=== PATIENT | female | born 1960 | race Caucasian/White ===

== ENCOUNTER 2021-09-14 18:29 | Emergency (ER) | payer MEDICARE, MEDICAID, SELFPAY ==
--- NOTE | ~2021-09-14 | XR_ITS ---
EXAMINATION: XR CHEST CLINICAL INFORMATION: Pain left lateral ribs. COMPARISON: Chest radiograph 04/30/2019. CT chest 04/30/2019. TECHNIQUE: 2 views of the chest were obtained. FINDINGS: The cardiomediastinal silhouette is normal in appearance making allowances for low lung volumes. No effusions or pneumothoraces are identified. Mild horizontal coarse reticular opacities are present in left lung base. No rib fractures are visualized. Mild multilevel anterior endplate osteophytosis of the thoracic spine. Presumed cholecystectomy clips are projected over the right upper abdominal quadrant. XR/XR chest 2V IMPRESSION: -Low lung volumes. -Mild coarse reticular opacities within the left lung base suspicious for mild platelike atelectasis. In the correct clinical setting, infection could present with similar findings.
[2021-09-14 20:18] VITALS: BP 157/78; PULSE 81; RESP 16; TEMP 36.6; O2SAT 97; BMI 41.5
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
[2021-09-14] MEDS: Azithromycin 500 MG TABLET PO (22:15)
[2021-09-14] MEDS: Acetaminophen 325 MG TABLET 650 MG PO (22:15)
== END 2021-09-14 22:24 | disposition home or self-care (01) ==
PROVIDERS: Emergency Provider Emergency Medicine; PCP Internal Medicine
DX: S20.212A Contusion of left front wall of thorax, initial encounter (principal); J06.9 Acute upper respiratory infection, unspecified; W01.0XXA Fall on same level from slipping, tripping and stumbling without subsequent striking against object, initial encounter; Y93.9 Activity, unspecified; Y92.9 Unspecified place or not applicable; Y99.9 Unspecified external cause status; Z79.899 Other long term (current) drug therapy
CPT/HCPCS: 71046; 99282; 99283

== ENCOUNTER → 2022-03-11 09:38 | Outpatient (BNVA) | payer MEDICARE, MEDICAID, SELFPAY | PROVIDERS: PCP Internal Medicine; Visit Provider Orthopaedic Surgery | DX: M19.071 Primary osteoarthritis, right ankle and foot (principal); G81.91 Hemiplegia, unspecified affecting right dominant side | CPT/HCPCS: 99212 ==

== ENCOUNTER → 2022-05-02 15:00 | Outpatient (BNVA) | payer MEDICARE, MEDICAID, SELFPAY | PROVIDERS: PCP Internal Medicine; Visit Provider Internal Medicine Pulmonary Disease | DX: R05.3 Chronic cough (principal); Z86.711 Personal history of pulmonary embolism; Z79.01 Long term (current) use of anticoagulants | CPT/HCPCS: 99212 ==

== ENCOUNTER → 2022-07-04 09:16 | Outpatient (BNVA) | payer MEDICARE, MEDICAID, SELFPAY | PROVIDERS: PCP Internal Medicine; Visit Provider Internal Medicine Pulmonary Disease | DX: I26.99 Other pulmonary embolism without acute cor pulmonale (principal); R05.9 Cough, unspecified | CPT/HCPCS: 99212 ==

== ENCOUNTER → 2022-12-27 09:31 | Outpatient (BNVA) | payer MEDICARE, MEDICAID, SELFPAY | PROVIDERS: PCP Internal Medicine; Visit Provider Internal Medicine Pulmonary Disease | DX: I26.99 Other pulmonary embolism without acute cor pulmonale (principal); R05.9 Cough, unspecified; Z79.01 Long term (current) use of anticoagulants | CPT/HCPCS: 99212 ==

== ENCOUNTER 2023-06-13 14:21 | Outpatient (AMB) | payer MEDICARE, MEDICAID, SELFPAY ==
[2023-06-13 14:29] VITALS: BP 122/78; PULSE 67; O2SAT 97; BMI 38.9
--- NOTE | 2023-06-13 14:29 | MHC.OFFVIS ---
Intake Vital Signs 06/13/23 14:29 Height 5 ft 1 in Weight 206 lb BMI 38.9 BP 122/78 Blood Pressure Location Lt brachial Position Left Lateral Pulse 67 Pulse Source Pulse Oximeter Pulse Oximetry (%) 97 Oxygen Delivery Method Room Air Intake Visit Reasons: pulm htn Intake Note: Pt was last seen 12/27/22 for pulmonary embolism and cough, taking albuterol MDI as needed. Pt complains of dry coughing but denies wheezing. Quit smoking 7 years ago Allergies codeine [CODEINE] Allergy (Unknown, Verified 06/13/23 14:36) UNKNOWN HPI pulm htn HPI Details 62-year-old lady, lifetime nonsmoker, with underlying history of developmental? 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 Patient continues on as needed albuterol MDI overall with reasonable control of his symptoms. She denies any recent exacerbations. COUNT INCLUDES [facility] Medical History Seizures Social History (Updated 06/13/23 @ 14:37 by Carlene Hinojosa [facility]) Tobacco use type: Cigarette Review of Systems Const Reports fever(s) Card Denies chest pain and Denies dyspnea Resp Reports cough, Denies hemoptysis, Denies excessive phlegm production, Denies dyspnea and Denies wheezing Neuro Denies seizure-like activity Aller/Immun Denies wheezing Physical Exam Vital Signs: Last Vital Signs Pulse 67 06/13/23 14:29 BP 122/78 06/13/23 14:29 Pulse Ox 97 06/13/23 14:29 Oxygen Delivery Method Room Air 06/13/23 14:29 BMI result Body Mass Index 38.9 Const General: no acute distress and alert Nutritional Appearance: obese Orientation/consciousness: Other orientation findings ( oriented) HEENT Head: Yes atraumatic Eyes General: appearance normal, both eyes and all related structures Sclerae: sclerae normal EOM: EOMs intact bilaterally Neck Neck: Yes supple Lymphatic: no lymphadenopathy noted Resp Effort & Inspection: normal respiratory effort and no use of accessory muscles Auscultation: clear to auscultation bilaterally Cardio Rate: regular rate Rhythm: regular rhythm Heart sounds: no gallops, no murmurs and no rubs Skin General skin exam: other ( warm) Extrem General: No clubbing, No cyanosis and No edema Assessment & Plan Assessment & Plan (1) Pulmonary embolism: Code(s): I26.99 - Other pulmonary embolism without acute cor pulmonale Plan: Continue lifelong anticoagulation for unprovoked PE, unless otherwise contraindicated. (2) Cough: Code(s): R05.9 - Cough, unspecified Plan: Baseline controlled on as needed albuterol MDI. Continue current regimen. Coding Level of Care Code Est Pt Level 4 (41548) Diagnoses Pulmonary embolism I26.99 Cough R05.9
== END 2023-06-13 14:48 | disposition home or self-care (01) ==
PROVIDERS: PCP Internal Medicine; Visit Provider Internal Medicine Pulmonary Disease
DX: I26.99 Other pulmonary embolism without acute cor pulmonale (principal); R05.9 Cough, unspecified
CPT/HCPCS: 99214

== ENCOUNTER → 2023-06-13 14:21 | Outpatient (BNVA) | payer MEDICARE, MEDICAID, SELFPAY | PROVIDERS: PCP Internal Medicine; Visit Provider Internal Medicine Pulmonary Disease | DX: I26.99 Other pulmonary embolism without acute cor pulmonale (principal); R05.9 Cough, unspecified | CPT/HCPCS: 99212 ==

== ENCOUNTER 2023-06-28 12:42 | Emergency (ER) | payer MEDICARE, MEDICAID, SELFPAY ==
[2023-06-28] VITALS (7 sets, daily range): BP systolic 102–150; BP diastolic 59–78; PULSE 72–83; RESP 13–16; TEMP 36.6–37.2; O2SAT 95–99; BMI 42.0
--- NOTE | ~2023-06-28 | CT_ITS ---
EXAMINATION: CT ABDOMEN AND PELVIS WITH CONTRAST CLINICAL INFORMATION: Diarrhea, rule out colitis COMPARISON: None available. TECHNIQUE: Multidetector volumetric images were obtained from the superior aspect of the liver through the pubic symphysis following administration of 74 mL of Omnipaque 350 intravenous contrast. Sagittal and coronal reformatted images were obtained on the technologist's workstation. Oral contrast: No This CT examination was performed using dose optimization techniques as appropriate, variously including the following: *Automated exposure control *Adjustment of mA and/or kV according to patient size (this includes techniques or standardized protocols for targeted exams where dose is matched to indication/reason for exam; i.e. extremities or head) *Use of iterative reconstruction technique DLP: 1344 mGy-cm Exam is limited from patient's arms in the field creating artifact FINDINGS: LUNG BASES: Bilateral basilar atelectasis LIVER, GALLBLADDER, AND BILIARY TREE: Grossly within normal limits. Again limited from artifact status post cholecystectomy PANCREAS: There is fullness of the pancreatic head relative to the remainder the pancreas. No defined lesion SPLEEN: Unremarkable. ADRENAL GLANDS: Unremarkable. KIDNEYS AND URETERS: Small nonobstructing stones associated with the right kidney. No hydronephrosis BLADDER: Unremarkable. GASTROINTESTINAL TRACT: The bowel pattern is felt to be unremarkable. There is no free fluid. The appendix is within normal limits. ABDOMINAL WALL: No significant hernia is appreciated. LYMPH NODES: Normal. VASCULAR: Unremarkable. PELVIC VISCERA: Unremarkable. OSSEOUS STRUCTURES: Unremarkable. CT/CT abdomen pelvis w IV con IMPRESSION: No acute finding. The bowel pattern is nonobstructing. No free fluid. Note is made of fullness of the head of the pancreas without defined lesion. Recommend MRI to fully evaluate Fleischner guidelines were followed.
--- NOTE | ~2023-06-28 | CT_ITS ---
EXAMINATION: CT HEAD WITHOUT CONTRAST CLINICAL INFORMATION: New onset seizure COMPARISON: 08/12/2007 TECHNIQUE: Contiguous axial imaging was performed from the skull base to vertex without intravenous administration of contrast. This CT examination was performed using dose optimization techniques as appropriate, variously including the following: *Automated exposure control *Adjustment of mA and/or kV according to patient size (this includes techniques or standardized protocols for targeted exams where dose is matched to indication/reason for exam; i.e. extremities or head) *Use of iterative reconstruction technique DLP: 669 mGy-cm FINDINGS: This exam is similar to previous. There is some evidence of midline shift appears to been the case previously. There is significant volume loss in the temporal region and parietal region which may be consistent with old infarct. Appearance is similar to previous. The basilar cisterns are patent. There is no hemorrhage. The visualized sinuses appear to be grossly clear. Volume loss in the cerebellum is noted. CT/CT head/brain wo IV con IMPRESSION: No acute finding when compared to previous of 2006. Old infarct on the left and cerebellar atrophy. There is felt to be some midline shift here but exam is similar to previous. Given the history of seizure if further evaluation is warranted pre and postcontrast MRI would be recommended
--- NOTE | 2023-06-28 13:23 | ED.GENADULT ---
HPI - General Adult General Chief complaint: Seizure Stated complaint: ?SZ, DIARRHEA @HALF-WAY PER EMS Time Seen by Provider: 06/28/23 12:47 Source: RN notes reviewed and other (caregiver) Mode of arrival: EMS Limitations: other (Or history) History of Present Illness HPI narrative: This is a 62-year-old female history of cognitive impairment, osteoarthritis, pulmonary embolism anticoagulated on Xarelto, history of hemiplegia affecting right dominant side presenting to the emergency department with caregiver, caregiver reports that patient was sitting in a chair and was having involuntary movements of head and eyes looked like they were removing erratically, reports that patient was not answering questions for brief moment thought to be a few minutes. After a few minutes patient returned to baseline without difficulty. Has history of seizures. Caregiver also complaining that patient has been having diarrhea it appears to be brown/yellow completely liquid, has had alot of episodes no sick contacts or recent antibiotics. Patient poor historian unable to provide review of systems and history. Related Data Home Medications Medication Instructions Recorded Confirmed calcium citrate 200 mg 0 tab PO 05/02/22 calcium-vitamin D3 6.25 mcg (250 unit) tablet carbamazepine 400 mg 400 mg PO BID 05/02/22 tablet,extended release,12 hr (Tegretol XR) carbamazepine 400 mg 600 mg PO BID 07/04/22 tablet,extended release,12 hr (Tegretol XR) clotrimazole 1 % topical cream appl topical 12/27/22 Previous Rx's Medication Instructions Recorded albuterol sulfate 90 mcg/actuation 2 puff inhalation Q4H PRN 11/19/22 aerosol inhaler shortness of breath or wheezing 30 days #1 ea Xarelto 20 mg tablet (rivaroxaban) 20 mg PO QAM #28 tabs 12/31/22 cefuroxime axetil 250 mg tablet 250 mg PO BID 7 days #14 tabs 06/28/23 Allergies Allergy/AdvReac Type Severity Reaction Status Date / Time codeine [CODEINE] Allergy Unknown UNKNOWN Verified 06/28/23 13:08 Review of Systems Review of Systems: Yes Unobtainable due to mental status PMFSH Past Medical History Attestation statement: The following information was validated with the patient. Source: old records reviewed and nursing notes reviewed Medical History Seizures Social History Social History Tobacco use type: Cigarette Advance Directives: No Physical Exam ED Vital Signs: Vital Signs - 24 hr 06/28/23 13:09 06/28/23 15:36 Temperature 98.7 F 98.2 F Pulse Rate 82 75 Respiratory Rate 14 16 Blood Pressure 121/71 112/62 Pulse Oximetry 95 98 Oxygen Delivery Method Room Air Room Air BMI result Body Mass Index 42.0 Vital signs stable Appearance: Alert.? Awake, No acute distress.? Patient appears to be in no acute distress. Head: Normocephalic, atraumatic, no step-offs or deformities Eyes: Pupils equal, round and reactive to light.? CVS: Normal heart rate and rhythm.? Pulses normal.? Respiratory: No respiratory distress.? Breath sounds normal.? Abdomen: Soft and nontender.? Skin: Skin warm and dry.? Normal skin color.? Normal skin turgor.? Extremities: No lower extremity edema.? No calf ttp. 5/5 strength to bilateral upper and lower extremities Neuro: Sensory intact. Right-sided hemiplegia with contracture. Course Reevaluation(s) Reevaluation #1: Patient difficult stick will try to obtain ultrasound-guided line. Time: 15:06 Reevaluation #2: I was able to start an ultrasound-guided line in the right AC, 18 gauge, no complications. I asked nursing staff to obtain point of care CBC and CMP. CT of head pending, labs pending. GI panel and C diff test pending. Patient has been it to the bathroom multiple times while in the department. Sign out to night provider Nely GAR Time: 16:20 Reevaluation #3: CBC pending. Chemistry partially resulted, unremarkable as of now. UA with 1+ bacteria and trace leukocyte esterases concerning for UTI, will prescribe antibiotics for home. Patient has been seizure free while in the department. Head CT pending. GI panel pending, C diff test pending. Sign-out given to Nely GAR Time: 16:22 Medical Decision Making Medical Decision Making [facility] Narrative: 1333 62-year-old female presents with staff member concerned that patient possibly had a seizure, also staff reports diarrhea. No history of seizures. No fall or trauma. Patient now back to baseline per staff member. Physical examination significant for hemiplegia affecting right side, right sided contracture. Concerns for seizure ( eduardo has hx of this) , electrolyte abnormalities, dehydration. Will rule out infection, dysrhythmia, UTI. Unlikely intracranial hemorrhage, stroke, posterior stroke, TIA. Diarrhea likely viral, unlikely bacterial however will obtain GI panel. No fall or truama unlikely traumatic injury to chest, abd/pelvis, head or neck. Plan at this time labs, imaging, urine Differential Diagnosis Differential Diagnoses: The differential diagnosis associated with the presentation includes Concerns for seizure, electrolyte abnormalities. Will rule out infection, dysrhythmia, UTI. Unlikely intracranial hemorrhage, stroke, posterior stroke, TIA. Diarrhea likely viral, unlikely bacterial however will obtain GI panel. No fall or truama unlikely traumatic injury to chest, abd/pelvis, head or neck. Admission/Observation Consideration of admission/observation: Escalation of care including admission/observation considered Possible Lab Data MDM Lab Attestation statement: I reviewed the patient's lab results. 06/28/23 15:49 06/28/23 15:49 Labs: Lab Results 06/28/23 06/28/23 06/28/23 Range/Units 15:07 15:08 15:49 Sodium 139 (135-145) mmol/L Potassium 4.9 (3.3-5.1) mmol/L Chloride 114 H (96-108) mmol/L Carbon Dioxide 15 L (22-29) mmol/L Anion Gap 15 (12-20) BUN 8 L (9-16) mg/dL Creatinine 0.68 (0.5-1.4) mg/dL Estim Creat Clear Calc 84.0 Estimated GFR > 60 Random Glucose 105 (60-115) mg/dL Calcium 8.9 (8.4-10.2) mg/dL Magnesium 1.9 (1.6-2.6) mg/dL Total Bilirubin 0.2 (0.0-1.0) mg/dL AST 26 (5-31) U/L ALT 25 (0-31) U/L Alkaline Phosphatase 131 H (39-117) U/L Total Creatine Kinase 94 (26-140) U/L Total Protein 7.2 (6.5-8.0) g/dL Albumin 3.6 (3.5-5.0) g/dL Urine Color Yellow Urine Appearance Clear Urine pH 6.0 (5.0-9.0) Ur Specific [place] 1.010 (1.005-1.025) Urine Protein Negative (Neg-Trace) mg/dL Urine Glucose (UA) Negative (Negative) mg/dL Urine Ketones Negative (Negative) mg/dL Urine Blood Negative (Negative) Urine Nitrite Negative (Negative) Ur Leukocyte Esterase Trace H (Negative) Urine RBC 0-2 (0-2) /HPF Urine WBC 0-5 (0-5) /HPF Ur Squamous Epith Cells 0-2 (0-2) /HPF Urine Bacteria 1+ (None Seen) Hyaline Casts 0-2 (0-2) /LPF COVID-19 (DIANA) Negative (Negative) COVID-19 Clin Com See Note Independent Interpretation I performed an independent interpretation of an: CT Scan Radiology Impression Discussion of test interpretation with radiology: I have reviewed the radiologist's reading. Core Measures AMI core measures followed: Yes Measure exclusions: not indicated Critical Care Time Critical Care Time Critical Care Time: No Discharge Plan Discharge Clinical Impression: Seizure, Diarrhea, UTI (urinary tract infection) Patient Disposition: Home, Self-Care Instructions: Urinary Tract Infection in Women (DC) Additional Instructions: Take your medications as prescribed. If you were prescribed antibiotics today, it is important that you take your medication to their entirety, do not skip any doses, do not finish them early. Follow-up with your primary care provider this week. Follow-up with neurology as soon as possible Return to the emergency department with new or worsening symptoms. Such as fevers, chills, chest pain, shortness of breath, nausea, vomiting, dizziness, headache, vision changes, lethargy In case of emergency call 911 Prescriptions: New cefuroxime axetil 250 mg tablet 250 mg PO BID 7 Days Qty: 14 0RF No Action albuterol sulfate 90 mcg/actuation HFA aerosol inhaler 2 puff inhalation Q4H PRN (Reason: shortness of breath or wheezing) 30 Days Qty: 1 3RF Rx Instructions: NTE 6 doses in 24 hours, Call doctor if shortness of breath or wheezing lasts more than 48 hours Xarelto 20 mg tablet 20 mg PO QAM Qty: 28 0RF calcium citrate-vitamin D3 200 mg-6.25 mcg (250 unit) tablet 0 tab PO carbamazepine [Tegretol XR] 400 mg tablet extended release 12 hr 400 mg PO BID carbamazepine [Tegretol XR] 400 mg tablet extended release 12 hr 600 mg PO BID clotrimazole 1 % cream topical Referrals: [facility] Neuro/Sleep [Provider Group] - 2 days Mook Tompkins MD [Primary Care Provider] - 2 days
--- OUTSIDE RECORDS SUMMARY | 2023-06-28 13:26 | XMS_ITS | Continuity of Care Document ---
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 Name Role Phone Mook Tompkins MD Primary Care Physician [place] [facility] [place]/02[place]21 - 02/01/21 [facility] [address], [address], [address] [place] [id number] Allergies, Adverse Reactions, Alerts Substance Reaction Severity Status codeine Active Medications Actonel 35 mg oral tablet 1 tablet = 35 mg, By Mouth, 0 Refills, Maintenance Start Date: 09/24/11 Status: Ordered alendronate 70 mg oral tablet 1 tablet = 70 mg, By Mouth, Every week, # 12 tablet, 0 Refills, Maintenance, 02/22/14 8:26:43, Tablet Start Date: 02/22/14 Status: Ordered Ativan 0.5 mg oral tablet See Instructions, 2, 0, 0, 10/02/06 14:23:04, 1 tablet By Mouth 30 minutes before test; may repeat once at test time if needed., Print YAW Number, [id number], Constant Indicator Start Date: 10/02/06 Status: Ordered carBAMazepine 200 mg oral tablet, extended release See Instructions, TAKE 2 TABLET BY MOUTH DAILY IN AM, WITH 3 TABLET IN THE PM, # 150 tablet, 11 Refills, 08/29/20 16:36:00 EDT, [facility], 152.4, cm, 02/10/20 11:06:00 EDT, Height Start Date: 08/29/20 Status: Ordered Citracal Calcium + D Slow Release 600 mg-500 intl units oral tablet, extended release 2 tablet, By Mouth, Daily in AM, 0 Refills, Maintenance Start Date: 08/18/12 Status: Ordered Claritin 10 mg oral tablet 1 tablet = 10 mg, By Mouth, Daily, 0 Refills, Maintenance Start Date: 08/18/12 Status: Ordered Colace sodium 100 mg oral capsule 1 capsule = 100 mg, By Mouth, 2 times a day, 0 Refills, Maintenance Start Date: 08/18/12 Status: Ordered Fosamax 70 mg oral tablet 1 tablet = 70 mg, By Mouth, Every week, # 4 tablet, 0 Refills, Maintenance, 02/10/20 11:08:00 EDT, Tablet Start Date: 02/10/20 Status: Ordered NuLYTELY Lemon [place] oral powder for reconstitution 240 mL, By Mouth, Every 10 minutes, # 1 each, 0 Refills, Maintenance, REC Powder Start Date: 08/18/12 Status: Ordered Prilosec OTC = 20 mg, By Mouth, Daily, 0 Refills, Maintenance Start Date: 09/24/11 Status: Ordered Refresh Eyes, Both, 2 times a day, 0 Refills, Maintenance Start Date: 01/28/12 Status: Ordered topiramate 200 mg oral tablet 1 tablet, By Mouth, 2 times a day, # 56 tablet, 1 Refills, Maintenance, 01/02/21 10:23:00 [facility], 152.4, cm, 02/10/20 11:06:00 EDT, Height Start Date: 01/02/21 Status: Ordered topiramate 50 mg oral tablet 1 tablet, By Mouth, 2 times a day, # 56 tablet, 1 Refills, Maintenance, 01/02/21 10:23:00 [facility], 152.4, cm, 02/10/20 11:06:00 EDT, Height Start Date: 01/02/21 Status: Ordered Tylenol 8 Hour 650 mg oral tablet, extended release 2 tablet = 1,300 mg, By Mouth, Every 8 hours, PRN as needed for fever, # 100 tablet, 0 Refills, Maintenance, 02/10/20 11:08:00 EDT, ER Tablet Start Date: 02/10/20 Status: Ordered Vitamin D3 400 intl units oral capsule 1 capsule = 400 International_Units, By Mouth, Daily, 0 Refills, Maintenance Start Date: 08/18/12 Status: Ordered Xarelto 2.5 mg oral tablet 1 tablet = 2.5 mg, By Mouth, 2 times a day, 0 Refills, Maintenance, 02/10/20 11:09:00 EDT, Tablet Start Date: 02/10/20 Status: Ordered Zofran 4 mg oral tablet 1 tablet = 4 mg, By Mouth, Every 8 hours, # 12 tablet, 0 Refills, Maintenance, 02/10/20 11:08:00 EDT, Tablet Start Date: 02/10/20 Status: Ordered Problem List Condition Effective Dates Status Health Status Inform ant Partial seizures(Confirmed) Active
--- OUTSIDE RECORDS SUMMARY | 2023-06-28 13:26 | XMS_ITS | Continuity of Care Document ---
Author Name Unknown Organization [facility] Address [address] [facility], 3r d Floor, [address] [place] [address]- Care Team Providers Care Contact Center Analyst Name Role Phone Mook Tompkins MD Primary Care Physician [id number] Date(s): 08/19/20 - 12/17/20 [facility] [address] [place], 3rd Floor, [address] [place] [id number] Attending Physician: Ami Mayers MD Admitting Physician: Ami Mayers MD Allergies, Adverse Reactions, Alerts Substance Reaction Severity [...] Start Date: 02/10/20 Status: Ordered NuLYTELY Lemon [place] oral powder for reconstitution 240 mL, By Mouth, Every 10 minutes, # 1 each, 0 Refills, Maintenance, REC Powder Start Date: 08/18/12 Status: Ordered Prilosec OTC = 20 mg, By Mouth, Daily, 0 Refills, Maintenance Start Date: 09/24/11 Status: Ordered Refresh Eyes, Both, 2 times a day, 0 Refills, Maintenance Start Date: 01/28/12 Status: Ordered Topamax 200 mg oral tablet 1 tablet = 200 mg, By Mouth, 2 times a day, # 180 tablet, 1 Refills, Maintenance, 08/29/20 16:38:00EDT, Tablet, [facility], 152.4, cm, 02/10/20 11:06:00 EDT, Height Start Date: 08/29/20 Stop Date: 02/25/21 Status: Ordered Topamax 50 mg oral tablet 1 tablet = 50 mg, By Mouth, 2 times a day, Take with topamax 200 mg for total daily dose of 250 mg bid, # 180 tablet, 1 Refills, Maintenance, 08/29/20 16:38:00 EDT, Tablet, [facility], 152.4, cm, 02/10/20 11:06:00 EDT, Height Start Date: 08/29/20 Stop Date: 02/25/21 Status: Ordered Tylenol 8 Hour 650 mg [...]
--- OUTSIDE RECORDS SUMMARY | 2023-06-28 13:26 | XMS_ITS | Continuity of Care Document ---
Author Name Unknown Organization [facility] Address Unknown Care Team Providers Care Nuclear Radiation Engineer Name Role Phone Mook Tompkins MD Primary Care Physician [phone] Encounter [facility] [place] Date(s): 12/05/21 - 01/04/22 [facility] Allergies, Adverse Reactions, Alerts Substance Reaction Severity [...] Constant Indicator Start Date: 10/02/06 Status: Ordered calcium w/Vit D 400mg/500 iu daily calcium w/Vit D 400mg/500 iu daily, Refills 0, Maintenance, 03/27/21 15:10:00 EDT, Supply Start Date: 03/27/21 Status: Ordered carbamazepine 200 mg oral capsule, extended release 2 capsule, By Mouth, Daily in AM, TAKE 3 CAPSULES BY MOUTH IN THE EVENING., # 140 capsule, 0 Refills, [facility], 152.4, cm, 03/27/21 15:02:00 EDT, Height Start Date: 01/01/22 Status: Ordered Citracal Calcium + D Slow [...] EDT, Tablet Start Date: 02/10/20 Status: Ordered MiraLax = 17 Gm, By Mouth, Daily, 0 Refills, Maintenance, 03/27/21 15:11:00 EDT, Partial fill upon patient request if the prescription is for a schedule II opioid drug. Start Date: 03/27/21 Status: Ordered NuLYTELY Lemon [place] oral powder for reconstitution 240 mL, By Mouth, Every 10 minutes, # 1 each, 0 Refills, Maintenance, REC Powder Start Date: 08/18/12 Status: Ordered Prilosec OTC = 20 mg, By Mouth, Daily, 0 Refills, Maintenance Start Date: 09/24/11 Status: Ordered Refresh Eyes, Both, 2 times a day, 0 Refills, Maintenance Start Date: 01/28/12 Status: Ordered topiramate 200 mg oral tablet See Instructions, TAKE 1 TABLET BY MOUTH TWICE DAILY., # 56 tablet, 5 Refills, [facility], 152.4, cm, 03/27/21 15:02:00 EDT, Height Start Date: 12/08/21 Status: Ordered topiramate 200 mg oral tablet 1 tablet, By Mouth, 2 times a day, # 56 tablet, 1 Refills, [facility], 152.4, cm, 03/27/21 15:02:00 EDT, Height Start Date: 10/09/21 Status: Ordered Tylenol 8 Hour 650 mg [...] EDT, Tablet Start Date: 02/10/20 Status: Ordered Xarelto 20 mg oral tablet 1 tablet = 20 mg, By Mouth, Daily before dinner, 0 Refills, Maintenance, 03/27/21 15:11:00 EDT, Partial fill upon patient request if the prescription is for a schedule II opioid drug. Start Date: 03/27/21 Status: Ordered Zofran 4 mg oral tablet 1 tablet = 4 mg, By Mouth, Every 8 hours, # 12 tablet, 0 Refills, Maintenance, 02/10/20 11:08:00 EDT, Tablet Start Date: 02/10/20 Status: Ordered Problem List Condition Effective Dates Status Health Status Inform ant Partial seizures(Confirmed) Active
--- OUTSIDE RECORDS SUMMARY | 2023-06-28 13:26 | XMS_ITS | Continuity of Care Document ---
Author Name Unknown Organization [facility] Address [address] [facility], 3r d Floor, [address] [place] [id number]- Care Team Providers Care Graphite Mill Operator Name Role Phone Mook Tompkins MD Primary Care Physician [phone] [place] [facility] [place] 02/04/23 - 03/06/23 [facility] [address] [place], 3rd Floor, [address] [place] [id number] Allergies, Adverse Reactions, Alerts Substance Reaction Severity Status codeine Active Immunizations Given and Recorded Vaccine Date Status Refusal Reason SARS-CoV-2 (COVID-19) mRNA BNT-162b2 vac 10/03/21 Recorded SARS-CoV-2 (COVID-19) mRNA BNT-162b2 vac 01/31/21 Recorded SARS-CoV-2 (COVID-19) mRNA BNT-162b2 vac 01/10/21 Recorded Medications alendronate 70 mg oral tablet 1 tablet = 70 mg, By Mouth, Every week, takes on sundays, # 12 tablet, 0 Refills, Maintenance, 02/22/14 8:26:43 EDT, Tablet Start Date: 02/22/14 Status: Ordered aspirin 81 mg oral delayed release tablet 81 mg, 1, tablet, By Mouth, Daily, # 90 tablet, Refills 3, Tot. Refills 3, Maintenance, 01/30/23 13:43:00 EST, Route to Pharmacy Electronically, [facility], Partial fill upon patient request if the prescription is for a schedule II opioi... Start Date: 01/30/23 Status: Ordered aspirin buffered 325 mg oral tablet See Instructions, 1 tablet by mouth 3 times a day for 7 days then 1 tablet by mouth 2 times a day for 7 days then 1 tablet a day for 7 days then change to 81 mg daily, # 100 tablet, 0 Refills, Maintenance, 01/30/23 18:47:00 EST, [facility]/pharmacy #[id number], [place]... Start Date: 01/30/23 Status: Ordered Ativan 0.5 mg oral tablet See Instructions, 2, 0, 0, 10/02/06 14:23:04, 1 tablet By Mouth 30 minutes before test; may repeat once at test time if needed., Print YAW Number, [id number], Constant Indicator Start Date: 10/02/06 Status: Ordered atorvastatin 80 mg oral tablet 1 tablet = 80 mg, By Mouth, Daily at bedtime, further refills by pcp or cardiology, # 90 tablet, 3 Refills, Maintenance, 01/30/23 13:43:00 EST, Tablet, [facility], Partial fill upon patient request if the prescription is for a schedule I... Start Date: 01/30/23 Status: Ordered CALCIUM CITRATE-VIT D3 TABLET CALCIUM CITRATE-VIT D3 TABLET, 0 Refills, Maintenance, 01/22/23 1:32:00 EST Start Date: 01/22/23 Status: Ordered carbamazepine 200 mg oral capsule, extended release See Instructions, 2 capsule By Mouth Daily in AM, 3 in PM, # 450 tablet, 3 Refills, Maintenance, 02/05/23 17:06:00 EST, ER Capsule, [facility], 154, cm, 01/29/23 11:00:00 EST, Height,96.4, kg, 01/22/23 1:32:00 EST, Dry Weight Start Date: 02/05/23 Status: Ordered Claritin 10 mg oral tablet 1 tablet = 10 mg, By Mouth, Daily, 0 Refills, Maintenance Start Date: 08/18/12 Status: Ordered colchicine 0.6 mg oral tablet 0.6 mg, 1, tablet, By Mouth, 2 times a day, stop after 90 days, # 180 tablet, Refills 0, Tot. Refills 0, Maintenance, 01/30/23 13:44:00 EST, [facility], Partial fill upon patient request if the prescription is for a schedule II opioid drug., 15... Start Date: 01/30/23 Status: Ordered lidocaine 5% topical film 1 patch, Topically, Daily, Apply for chest or rib discomfort. Please apply at 7AM AND REMOVE AT 7PMEACH DAY, # 14 patch, 3 Refills, Maintenance, 01/30/23 13:44:00 EST, Patch, [facility], Partial fill upon patient request if the prescrip... Start Date: 01/30/23 Status: Ordered metoprolol 50 mg oral tablet, extended release 50 mg, 1, tablet, By Mouth, Daily in AM, further refills per pcp/cardiology, # 90 tablet, Refills 0, Tot. Refills 0, Maintenance, 01/30/23 13:44:00 EST, Route to Pharmacy Electronically, [facility], Partial fill upon patient request if t... Start Date: 01/30/23 Status: Ordered Prilosec OTC = 20 mg, By Mouth, 2 times a day, 0 Refills, Maintenance, 09/24/11 10:26:32 EDT Start Date: 09/24/11 Status: Ordered Topamax 25 mg oral tablet 1 tablet = 25 mg, By Mouth, 2 times a day, # 180 tablet, 11 Refills, Maintenance, 01/15/23 15:23:00EST, Tablet, [facility], 152.4, cm, 03/27/21 15:02:00 EDT, Height Start Date: 01/15/23 Stop Date: 12/30/25 Status: Ordered Topamax 50 mg oral tablet 1 tablet = 50 mg, By Mouth, 2 times a day, # 180 tablet, 11 Refills, Maintenance, 01/15/23 15:23:00EST, Tablet, [facility], Partial fill upon patient request if the prescription is for a schedule II opioid drug., 152.4, cm, 03/27/21 15:02... Start Date: 01/15/23 Stop Date: 12/30/25 Status: Ordered topiramate 200 mg oral tablet See Instructions, TAKE 1 TABLET BY MOUTH TWICE DAILY., # 180 tablet, 11 Refills, 01/15/23 15:23:00 EST, [facility], 152.4, cm, 03/27/21 15:02:00 EDT, Height Start Date: 01/15/23 Status: Ordered Tylenol 8 Hour 650 mg oral tablet, extended release 2 tablet = 1,300 mg, By Mouth, Every 8 hours, PRN as needed for fever, # 100 tablet, 0 Refills, Maintenance, 02/10/20 11:08:00 EDT, ER Tablet Start Date: 02/10/20 Status: Ordered Xarelto 20 mg oral tablet 1 tablet = 20 mg, By Mouth, Daily before dinner, 0 Refills, Maintenance, 03/27/21 15:11:00 EDT, Partial fill upon patient request if the prescription is for a schedule II opioid drug. Start Date: 03/27/21 Status: Ordered Problem List Condition Confirmation Course Effective Dates Status Health St atus Informant Cerebral palsy Confirmed Active HLD (hyperlipidemia) Confirmed Active Osteoporosis Confirmed Active Partial seizures Confirmed Active Severe obesity (BMI 35.0-39.9) with comorbidity Confirmed Active Patient Care team information Care Team Personnel Name: Mook Tompkins MD Position: [facility] Outreach Member Role: PCP Address: Address: [address] [place] [address] Internal [place] [address] Name: Shital Lindo RN Position: S RN Member Role: Primary Care Nurse Name: Florence Cook RN Position: S RN Member Role: Primary Care Nurse Name: Marisabel Horton RN Position: S RN Member Role: Primary Care Nurse Name: Geraldine Chatman Position: S RN Member Role: Primary Care Nurse Name: Kerrie Almeida RN Position: S RN Member Role: Primary Care Nurse Care Team Related Persons Name: GASTON KWON Name: BART MIRANDA Address: [address] [address]
--- OUTSIDE RECORDS SUMMARY | 2023-06-28 13:26 | XMS_ITS | Continuity of Care Document ---
Author Name Unknown Organization [facility] Address Unknown Care Team Providers Care Senior Attorney Name Role Phone Mook Tompkins MD Primary Care Physician [phone] Encounter [facility] [place] Date(s): 01/01/22 - 01/31/22 [facility] Allergies, Adverse Reactions, Alerts Substance [...] MOUTH IN THE EVENING., # 140 capsule, 11 Refills, 01/17/22 15:08:00 [facility], 152.4, cm, 03/27/21 15:02:00 EDT, Height Start Date: 01/17/22 Status: Ordered Citracal Calcium + D Slow [...] Start Date: 03/27/21 Status: Ordered NuLYTELY Lemon [place] oral powder for reconstitution 240 mL, By Mouth, Every 10 minutes, # 1 each, 0 Refills, Maintenance, REC Powder Start Date: 08/18/12 Status: Ordered Prilosec OTC = 20 mg, By Mouth, Daily, 0 Refills, Maintenance Start Date: 09/24/11 Status: Ordered Refresh Eyes, Both, 2 times a day, 0 Refills, Maintenance Start Date: 01/28/12 Status: Ordered Topamax 25 mg oral tablet 1 tablet = 25 mg, By Mouth, 2 times a day, # 60 tablet, 11 Refills, Maintenance, 01/17/22 15:10:00 EST, [facility], Partial fill upon patient request if the prescription is for a schedule II opioid drug., 152.4, cm, 03/27/21 15:02:... Start Date: 01/17/22 Stop Date: 01/12/23 Status: Ordered Topamax 50 mg oral tablet 1 tablet = 50 mg, By Mouth, 2 times a day, # 60 tablet, 11 Refills, Maintenance, 01/17/22 15:09:00 EST, Tablet, [facility], Partial fill upon patient request if the prescription is for a schedule II opioid drug., 152.4, cm, 03/27/21 15:02:... Start Date: 01/17/22 Stop Date: 01/12/23 Status: Ordered topiramate 200 mg oral tablet See Instructions, TAKE 1 TABLET BY MOUTH TWICE DAILY., # 56 tablet, 11 Refills, 01/17/22 15:08:00 EST, [facility], 152.4, cm, 03/27/21 15:02:00 EDT, Height Start Date: 01/17/22 Status: Ordered topiramate 200 mg oral tablet 1 tablet, By Mouth, 2 times a day, # 56 tablet, 1 Refills, [facility], 152.4, cm, 03/27/21 15:02:00 EDT, Height Start [...]
--- OUTSIDE RECORDS SUMMARY | 2023-06-28 13:26 | XMS_ITS | Continuity of Care Document ---
Author Name Unknown Organization [facility] Address [address] [facility], 3r d Floor, [address] [place] [phone]- Care Team Providers Care Plant Floor Automation Manager Name Role Phone Mook Tompkins MD Primary Care Physician [phone] [place] [facility] [place] - 12/06/22 [facility] [address], 3rd Floor, [address] [place] [id number] Allergies, Adverse Reactions, Alerts Substance Reaction [...] Start Date: 03/27/21 Status: Ordered NuLYTELY Lemon [place] oral powder for reconstitution 240 mL, By [...] tablet, 11 Refills, Maintenance, 01/17/22 15:10:00 EST, [facility], Partial fill upon patient request [...] # 56 tablet, 11 Refills, 01/17/22 15:08:00 [facility], 152.4, cm, 03/27/21 15:02:00 EDT, Height Start Date: 01/17/22 Status: Ordered topiramate 200 mg oral tablet 1 tablet, By Mouth, 2 times a day, # 56 tablet, 1 Refills, [facility], 152.4, cm, 03/27/21 15:02:00 EDT, Height Start [...] Date: 02/10/20 Status: Ordered Problem List Condition Confirmation Course Effective Dates Status Health St atus Informant Partial seizures Confirmed Active Patient Care team information Care Team Personnel Name: Mook Tompkins MD Position: [facility] Outreach Member Role: PCP Address: Address: [address] [facility] [place] [address]- Name: Marisabel Horton RN Position: [facility] RN Member Role: Primary Care Nurse Care Team Related Persons Name: GASTON KWON Name: BART MIRANDA Address: home [address] [place] [id number]
--- OUTSIDE RECORDS SUMMARY | 2023-06-28 13:26 | XMS_ITS | Continuity of Care Document ---
Author Name Unknown Organization [facility] Address [address] [facility], 3r d Floor, [address] [place] [address]- Care Team Providers Care Supervisor Fireworks Assembly Name Role Phone Mook Tompkins MD Primary Care Physician [phone] En[place] [facility] [place](s[place] 02/10/20 - 02/20/20 [facility] [address] [place], 3rd Floor, [address] [place] [address]- [facility] Attending Physician: Bassam Kimball Admitting Physician: Bassam Kimball Referring Physician: AdmBassam bone Allergies, Adverse Reactions, Alerts Substance Reaction Severity [...] Indicator Start Date: 10/02/06 Status: Ordered carBAMazepine 400 mg oral tablet, extended release 400 mg, 1, tablet, By Mouth, 2 times a day, # 180 tablet, Refills 0, Maintenance, 02/10/20 11:09:00EDT Start Date: 02/10/20 Status: Ordered Citracal Calcium + D Slow [...] Start Date: 02/10/20 Status: Ordered NuLYTELY Lemon [place] oral powder for reconstitution 240 mL, By Mouth, Every 10 minutes, # 1 each, 0 Refills, Maintenance, REC Powder Start Date: 08/18/12 Status: Ordered Prilosec OTC = 20 mg, By Mouth, Daily, 0 Refills, Maintenance Start Date: 09/24/11 Status: Ordered Refresh Eyes, Both, 2 times a day, 0 Refills, Maintenance Start Date: 01/28/12 Status: Ordered TEGretol XR 200 mg oral tablet, extended release See Instructions, 2 tablet By Mouth Daily in AM, with 3 tablet in the PM, # 450 tablet, 1 Refills, Maintenance, 11/15/19 15:23:31 EST, [facility]/pharmacy #[id number], 152.4, cm, 11/15/19 14:50:02 EST, Height Start Date: 11/15/19 Status: Ordered Topamax 200 mg oral tablet 1 tablet = 200 mg, By Mouth, 2 times a day, # 180 tablet, 1 Refills, Maintenance, 11/15/19 15:24:44EST, Tablet, [facility]acy #[id number], 152.4, cm, 11/15/19 14:50:02 EST, Height Start Date: 11/15/19 Stop Date: 05/13/20 Status: Ordered Topamax 50 mg oral tablet 1 tablet = 50 mg, By Mouth, 2 times a day, Take with topamax 200 mg for total daily dose of 250 mg bid, # 180 tablet, 1 Refills, Maintenance, 11/15/19 15:25:01 EST, Tablet, [facility]/pharmacy #[id number], 152.4,cm, 11/15/19 14:50:02 EST, Height Start Date: 11/15/19 Stop Date: 05/13/20 Status: Ordered Tylenol 8 Hour 650 mg [...]
--- OUTSIDE RECORDS SUMMARY | 2023-06-28 13:26 | XMS_ITS | Continuity of Care Document ---
Author Name Unknown Organization [facility] Address [address] [facility], 3r d Floor, [address] [place] [phone]- Care Team Providers Care Lead Printer Name Role Phone Mook Tompkins MD Primary Care Physician Encounter [facility] [place] Date(s): 02/27/21 - 03/29/21 [facility] [address], 3[address] Floor, [address] [place] [id number] Allergies, Adverse Reactions, Alerts Substance Reaction Severity [...] EDT, Supply Start Date: 03/27/21 Status: Ordered carBAMazepine 200 mg oral tablet, extended release See Instructions, TAKE 2 TABLET BY MOUTH DAILY IN AM, WITH 3 TABLET IN THE PM, # 150 tablet, 6 Refills, 03/27/21 15:41:00 EDT, [facility], 152.4, cm, 03/27/21 15:02:00 EDT, Height Start Date: 03/27/21 Status: Ordered Citracal Calcium + D Slow [...] Start Date: 03/27/21 Status: Ordered NuLYTELY Lemon [place] oral powder for reconstitution 240 mL, By [...] 2 times a day, Take with topamax 250 mg, for total daily dose of 275 mgbid. dose increase, # 60 tablet, 6 Refills, Maintenance, 03/27/21 15:41:00 EDT, Tablet, [facility], Partial fill upon patient request if th... Start Date: 03/27/21 Stop Date: 10/23/21 Status: Ordered topiramate 200 mg oral tablet 1 tablet, By Mouth, 2 times a day, # 56 tablet, 5 Refills, Maintenance, 03/27/21 15:40:00 EDT, [facility], 152.4, cm, 03/27/21 15:02:00 EDT, Height Start Date: 03/27/21 Status: Ordered topiramate 50 mg oral tablet 1 tablet, By Mouth, 2 times a day, # 56 tablet, 5 Refills, Maintenance, 03/27/21 15:40:00 EDT, [facility], 152.4, cm, 03/27/21 15:02:00 EDT, Height Start Date: 03/27/21 Status: Ordered Tylenol 8 Hour 650 mg [...]
--- OUTSIDE RECORDS SUMMARY | 2023-06-28 13:26 | XMS_ITS | Continuity of Care Document ---
Author Name Unknown Organization [facility] Address [address] [facility], 3r d Floor, [address] [place] [id number]- Care Team Providers Care Computer Forwarding System Markup Clerk Name Role Phone Mook Tompkins MD Primary Care Physician [phone] Encounter [facility] [place] Date(s): 01/15/23 - 02/14/23 [facility] [address] [place], 3rd Floor, [address] [place] [id number] Allergies, Adverse Reactions, Alerts Substance [...] 01/30/23 13:43:00 EST, Route to Pharmacy Electronically, [facility], Partial fill upon patient [...] tablet, 0 Refills, Maintenance, 01/30/23 18:47:00 EST, [facility]/pharmacy #[id number], [place]... Start Date: 01/30/23 Status: Ordered Ativan [...] 3 Refills, Maintenance, 01/30/23 13:43:00 EST, Tablet, [facility], Partial fill upon patient [...] 3 Refills, Maintenance, 01/30/23 13:44:00 EST, Patch, [facility], Partial fill upon patient request if the prescrip... Start Date: 01/30/23 Status: Ordered metoprolol 50 mg oral tablet, extended release 50 mg, 1, tablet, By Mouth, Daily in AM, further refills per pcp/cardiology, # 90 tablet, Refills 0, Tot. Refills 0, Maintenance, 01/30/23 13:44:00 EST, Route to Pharmacy Electronically, [facility], Partial fill upon patient [...] Team Personnel Name: Mook Tompkins MD Position: [facility] Outreach Member Role: PCP Address: Address: [address] [place] [address] Internal Medicine [place], [place] [address] Name: Shital Lindo RN Position: S RN [...] Name: GASTON KWON Name: BART MIRANDA Address: [address] [address]
--- OUTSIDE RECORDS SUMMARY | 2023-06-28 13:26 | XMS_ITS | Continuity of Care Document ---
Author Name Unknown Organization [facility] Address [address] [facility], 3r d Floor, [address] [place] [address]- Care Team Providers Care Dope Maintenance Worker Name Role Phone Mook Tompkins MD Primary Care Physician [id number] Date(s): 02/08/20 - 06/07/20 [facility] [address], 3rd Floor, [address] [place] [address] [facility] Attending Physician: Ishan Kim Admitting Physician: Ishan Kim Allergies, Adverse Reactions, Alerts Substance Reaction Severity [...] THE PM, # 150 tablet, 11 Refills, Maintenance, [facility] [id number], 152.4, cm, 02/10/20 11:06:00 EDT, Height Start Date: 04/26/20 Status: Ordered Citracal Calcium + D Slow [...] Start Date: 02/10/20 Status: Ordered NuLYTELY Lemon [place] oral powder for reconstitution 240 mL, By [...] day, # 180 tablet, 1 Refills, Maintenance, 05/08/20 13:30:00EDT, Tablet, [facility]/pharmacy #[id number], 152.4, cm, 02/10/20 11:06:00 EDT, Height Start Date: 05/08/20 Stop Date: 11/04/20 Status: Ordered Topamax 50 mg oral tablet 1 tablet = 50 mg, By Mouth, 2 times a day, Take with topamax 200 mg for total daily dose of 250 mg bid, # 180 tablet, 1 Refills, Maintenance, 05/08/20 13:30:00 EDT, Tablet, [facility]/pharmacy #[id number], 152.4,cm, 02/10/20 11:06:00 EDT, Height Start Date: 05/08/20 Stop Date: 11/04/20 Status: Ordered Tylenol 8 Hour 650 mg [...]
--- OUTSIDE RECORDS SUMMARY | 2023-06-28 13:26 | XMS_ITS | Continuity of Care Document ---
Author Name Unknown Organization [facility] Address [address] [facility], 3r d Floor, [address] [place] [id number]- Care Team Providers Care Food Broker Name Role Phone Mook Tompkins MD Primary Care Physician [place] [facility] [place](s): 08/29/20 - 09/28/20 [facility] [address], 3[address] Floor, [address] [place] [id number] [facility] Allergies, Adverse Reactions, Alerts Substance Reaction Severity [...] Start Date: 02/10/20 Status: Ordered NuLYTELY Lemon [place] oral powder for reconstitution 240 mL, By [...]
--- OUTSIDE RECORDS SUMMARY | 2023-06-28 13:26 | XMS_ITS | Continuity of Care Document ---
Author Name Unknown Organization [facility] Address [address], [address], [address] [place] [id number] Care Team Providers Care Baseball Inspector Name Role Phone Mook Tompkins MD Primary Care Physician [id number] Date(s): 01/02/21 - 03/11/21 [facility] [address], [address], [address] [place] [id number] Attending Physician: Isahn Kim Admitting Physician: Ishan Kim Allergies, Adverse [...] Start Date: 02/10/20 Status: Ordered NuLYTELY Lemon [place] oral powder for reconstitution 240 mL, By [...] 2 times a day, # 56 tablet, 0 Refills, Maintenance, 02/27/21 10:12:00 EDT, [facility], 152.4, cm, 02/10/20 11:06:00 EDT, Height Start Date: 02/27/21 Status: Ordered topiramate 50 mg oral tablet 1 tablet, By Mouth, 2 times a day, # 56 tablet, 0 Refills, Maintenance, 02/27/21 10:12:00 EDT, [facility], 152.4, cm, 02/10/20 11:06:00 EDT, Height Start Date: 02/27/21 Status: Ordered Tylenol 8 Hour 650 mg [...]
--- OUTSIDE RECORDS SUMMARY | 2023-06-28 13:26 | XMS_ITS | Continuity of Care Document ---
Author Name Unknown Organization [facility] ter Address [address] [place] [id number]- Care Team Providers Care Reinforcement Maker Name Role Phone Mook Tompkins MD Primary Care Physician [place] [facility] [place] [facility]22[place]23 - 01/30/[address] [id number]- Encounter Diagnosis Hypotension(Final) - 01/21/23 Discharge Disposition: A-D/C Home Attending Physician: Home Conrad MD Admitting Physician: Marilu Vines MD Referring Physician: Not on Staff, Referring MD Allergies, Adverse Reactions, Alerts Substance Reaction [...] 01/30/23 13:43:00 EST, Route to Pharmacy Electronically, [facility], Partial fill upon patient [...] tablet, 0 Refills, Maintenance, 01/30/23 18:47:00 EST, [facility]/pharmacy [id number], [place]... Start Date: 01/30/23 Status: Ordered Ativan [...] 3 Refills, Maintenance, 01/30/23 13:43:00 EST, Tablet, [facility], Partial fill upon patient request if the prescription is for a schedule I... Start Date: 01/30/23 Status: Ordered CALCIUM CITRATE-VIT D3 TABLET CALCIUM CITRATE-VIT D3 TABLET, 0 Refills, Maintenance, 01/22/23 1:32:00 EST Start Date: 01/22/23 Status: Ordered carbamazepine 200 mg oral capsule, extended release 2 capsule = 400 mg, By Mouth, Daily, # 60 capsule, 0 Refills, Maintenance, 01/22/23 1:33:00 EST, [facility], Partial fill upon patient request if the prescription is for a schedule II opioid drug. Start Date: 01/22/23 Status: Ordered Claritin 10 mg oral tablet [...] 3 Refills, Maintenance, 01/30/23 13:44:00 EST, Patch, [facility], Partial fill upon patient request if the prescrip... Start Date: 01/30/23 Status: Ordered metoprolol 50 mg oral tablet, extended release 50 mg, XL Tablet, By Mouth, 01/30/23 9:00:00 EST Start Date: 01/30/23 Stop Date: 01/30/23 Status: Completed metoprolol 50 mg oral tablet, extended release 50 mg, 1, tablet, By Mouth, Daily in AM, further refills per pcp/cardiology, # 90 tablet, Refills 0, Tot. Refills 0, Maintenance, 01/30/23 13:44:00 EST, Route to Pharmacy Electronically, [facility], Partial fill upon patient request if [...] obesity (BMI 35.0-39.9) with comorbidity Confirmed Active Results Orders for Microbiology Reports Name Date Blood Culture 01/21/23 Blood Culture #2 01/21/23 Microbiology Reports TEST:Blood Culture STATUS:Auth (Verified) BODY SITE: SOURCE:Blood COLLECTED DATE/TIME:01/21/23 8:23 PM Blood Culture SPECIMEN DESCRIPTION : BLOOD NO SITE SPECIAL REQUESTS : NONE CULTURE : NO GROWTH 5 DAYS. REPORT STATUS : FINAL 01/26/2023 TEST:Blood Culture, Second Order STATUS:Auth (Verified) BODY SITE: SOURCE:Blood COLLECTED DATE/TIME:01/21/23 8:23 PM Blood Culture, Second Order SPECIMEN DESCRIPTION : BLOOD NO SITE SPECIAL REQUESTS : NONE CULTURE : NO GROWTH 5 DAYS. REPORT STATUS : FINAL 01/26/2023 Radiology Reports * Exam Date Time Procedure Performing Provider Status 01/24/23 11:[address] Heart/Coronary/3D/Morph Tylor Liu; Auth (Verified) Notes: (CT Heart/Coronary/3D/Morph) Reason For Exam: Other:;CAD Screening, High CAD Risk, Not Treadmill Candidate RESULT: CT Heart/Coronary/3D/Morph PROCEDURE: CT Heart/Coronary/3D/Morph CLINICAL INDICATION: Female patient of age 62 years with Reason: Other:; CAD Screening, High CAD Risk, Not Treadmill Candidate; Clinical Question(s): [place] Coronary Artery Disease; Order Comment:. COMPARISON: CT angiogram of the chest 01/21/2023 TECHNIQUE: The region imaged was limited to the heart in order to optimize image quality and limit radiation dose. Automatic tube modulation based upon AP and lateral topogram attenuation was used to optimize exposure parameters. A General [employer] Revolution Drury scanner with 16 cm wide detector was employed. Bolus tracking technique used for timing. Dual syringe injector used to deliver a total of cc Omnipaque 350 and saline dilution/flush at cc/s with [address] angiography was then performed using ECG-gated single heartbeat technique with imaging performed about diastole and systole. Smart Phase scanner software used to assist in the selection of optimal reconstruction phase(s): 79% and33%. Snapshot Freeze postprocessing used to minimize motion artifact. 3-D surface rendered and MIP images were obtained and reviewed, including multiplanar and curved reconstructions, and multiplanarcine sequences. Images were processed using [employer] software. Diameter stenoses reported with t erminology based upon the Coronary Artery Disease Reporting and Data System (CAD-RADS 2.0), Radiology: Cardiothoracic Imaging 2021; 4 (5). Radiation dose parameters: CTDIvol Body: 24.63 mGy, DLP Body: 651 mGy*cm. MEDICATION: In the scanner room, the patient received 0 mg IV metoprolol and a 0.4 mg sublingual nitroglycerin tablet. FINDINGS: Technical: The image quality is mildly degraded by body habitus and cardiac motion. The contrast enhancement is excellent. At the time of coronary imaging, the instantaneous heart rate was 61 bpm. The EKG tracing showed small QRS wave and elevated ST wave. Visualized Portions of Extracardiac Structures: Thoracic aorta: Normal size aorta. Pulmonary arteries: No significant findings. Lungs: There is small-sized left pleural effusion, with left lower lobe partial atelectasis. There is right lower lobe partial atelectasis. Mediastinum and tiara: There is no adenopathy. Bones: No acute findings. Upper abdomen: There is fatty infiltration of the liver Heart and Valves: Redemonstrated is a small size pericardial fluid measuring 47 Hounsfield units suggesting complex fluid, unchanged from 01/21/23. The depth of the fluid measures up to 1.5 cm. Left Ventricle: Size and morphology appear normal. Right Ventricle: Borderline enlarged right ventricle. Atria: Upper normal size left atrium. Normal-sized right atrium. Aortic valve: Tricuspid Coronary Artery Angiography: Dominance: Right dominant. There is no coronary artery calcification. Image numbers below refer to series 404 unless otherwise noted. Left Main: The ostium is normally positioned. It is patent. It branches into LAD, small ramus intermedius, circumflex. Left Anterior Descending: Proximal segment is patent. First diagonal branch is small, image 64, probably patent. Mid LAD is patent. Second diagonal branch is small and patent, image 87. Near the apex, the distal LAD is small and there is poor opacification as seen on image 148 [id number]. This may be artifactual although occlusion cannot be entirely excluded. Left Circumflex Artery: It is suboptimally seen, but probably patent. It terminates as an obtuse marginal branch. Ramus Intermedius: It is a small vessel and patent, image 63. Right Coronary Artery: The ostium is normally positioned. There is mild smooth short segment about 40% narrowing at the most proximal RCA. There is no obvious plaque. Acute marginal is patent. The PDA branch is small and not well seen. Posterior lateral ventricular branch is patent. IMPRESSION: Mildly limited exam due to body habitus and cardiac motion artifact. Left Anterior Descending: Near the apex, the distal LAD is small and there is poor opacification, which may be artifactual although occlusion cannot be entirely excluded. The remainder LAD is patent. Left Main: It is normal. Left Circumflex Artery: It is suboptimally seen, but probably patent. Right Coronary Artery: About 40% short segment smooth stenosis at the most proximal RCA with no obvious plaque. This may relate to vascular spasm. RCA dominance. Unchanged small size complex pericardial fluid. Borderline enlarged right ventricle. Small-sized left pleural effusion with left lower lobe partial atelectasis. WSN: [id number] Ordering Physician: Lesley Carbajal Dictated By: Annalisa Vo MD Dictated Date/Time: 01/24/23 4:55 pm Reviewed By: Annalisa Vo MD Signed By: Annalisa Vo MD Signed Date/Time: 01/24/23 4:55 pm Transcribed By: DAVID Transcribed Date/Time: 01/24/23 2:28 pm * Exam Date Time Procedure Performing Provider Status 01/21/23 9:[address] Angio Abdomen Colon , Sanna; Auth (Verified) Notes: (CT Angio Abdomen) Reason For Exam: Renal artery dissection suspected;Other: RESULT: CT Angio Abdomen EXAMINATION: CT Angio Chest, CT Angio Abdomen INDICATION: Reason: Other:; Aortic disease, nontraumatic; Clinical Question(s): Other:; Aortic Dissection TECHNIQUE: Spiral CTA of the chest was performed after rapid IV contrast administration without cardiac gating, triggered by an ADRIENNE on the main pulmonary artery. Images are formatted in multiple planes using 2-D multiplanar and 3-D maximum intensity projection. 100 cc of Omnipaque 300 was administered intravenously. Weight-based protocol using automatic tube modulation was used to optimize exposure parameters. CTDIvol Body: 18.44 mGy, DLP Body: 1087 mGy*cm. COMPARISONS: None. ANGIOGRAPHIC FINDINGS: No aortic dissection or aneurysm. Normal three vessel arch without branch vessel stenosis. Pulmonary arteries are normal in caliber. No evidence of central pulmonary embolism on this study performed without dedicated technique. Abdominal aorta: No aortic aneurysm or dissection. Celiac axis: Patent. Superior mesenteric artery: Patent. Right renal artery: Patent. Left renal artery: Patent. Inferior mesenteric artery: Patent. Visualized iliac arteries: Patent. NON-ANGIOGRAPHIC FINDINGS: Upper Leather Sorter View Findings, Lines and Tubes: None. Trachea and Airways: Patent without evidence of tracheal or endobronchial lesion. Lungs and Pleura: Patchy density both lungs likely atelectasis. Diffuse somewhat hazy density also noted throughout both lungs. No discrete consolidation identified. No effusion or pneumothorax. Mediastinum and tiara: No mass or hematoma. No mediastinal or hilar lymphadenopathy. No esophageal abnormality. Heart: There is pericardial effusion estimated at 1 cm maximal thickness. This does appear slightlyhyperdense measuring 50 Hounsfield units which may represent proteinaceous fluid or blood products. Chest Wall Soft Tissues: Normal. Diaphragm : No significant abnormality. Liver: Normal. Gallbladder: Absent consistent with prior cholecystectomy. Bile ducts: No biliary ductal dilation. Spleen: Normal. Pancreas: Normal. Adrenal glands: Normal. Kidneys and ureters: 3 mm calcific location noted in the right interpolar region. No hydronephrosis. Stomach, small bowel, and large bowel: Visualized stomach and bowel are normal. Peritoneum and retroperitoneum: No ascites or pneumoperitoneum. No omental or mesenteric lesions. Lymph nodes: No enlarged lymph nodes. Abdominal wall: Unremarkable. Bones: No acute abnormality. IMPRESSION: Hyperdense pericardial effusion. Possible proteinaceous fluid or blood products. Diffuse hazy density both lungs is nonspecific. This may in part be related to volume loss, though infection, likely viral, is also possible. I do not see septal thickening or specific findings to indicate pulmonary edema. No significant aortic abnormality. No pulmonary embolus. WSN: [id number] Ordering Physician: Sawyer Palacios Dictated By: Keron Canseco MD Dictated Date/Time: 01/21/23 9:42 pm Reviewed By: Keron Canseco MD Signed By: Keron Canseco MD Signed Date/Time: 01/21/23 9:42 pm Transcribed By: DAVID Transcribed Date/Time: 01/21/23 9:27 pm * Exam Date Time Procedure Performing Provider Status 01/21/23 9:[address] Angio Chest Colon , Sanna; Auth ( Verified) Notes: (CT Angio Chest) Reason For Exam: Aortic disease, nontraumatic;Other: RESULT: CT Angio Chest EXAMINATION: CT Angio Chest, CT Angio Abdomen INDICATION: Reason: Other:; Aortic disease, nontraumatic; Clinical Question(s): Other:; Aortic Dissection TECHNIQUE: Spiral CTA of the chest was performed after rapid IV contrast administration without cardiac gating, triggered by an ADRIENNE on the main pulmonary artery. Images are formatted in multiple planes using 2-D multiplanar and 3-D maximum intensity projection. 100 cc of Omnipaque 300 was administered intravenously. Weight-based protocol using automatic tube modulation was used to optimize exposure parameters. CTDIvol Body: 18.44 mGy, DLP Body: 1087 mGy*cm. COMPARISONS: None. ANGIOGRAPHIC FINDINGS: No aortic dissection or aneurysm. Normal three vessel arch without branch vessel stenosis. Pulmonary arteries are normal in caliber. No evidence of central pulmonary embolism on this study performed without dedicated technique. Abdominal aorta: No aortic aneurysm or dissection. Celiac axis: Patent. Superior mesenteric artery: Patent. Right renal artery: Patent. Left renal artery: Patent. Inferior mesenteric artery: Patent. Visualized iliac arteries: Patent. NON-ANGIOGRAPHIC FINDINGS: Upper Leather Sorter View Findings, Lines and Tubes: None. Trachea and Airways: Patent without evidence of tracheal or endobronchial lesion. Lungs and Pleura: Patchy density both lungs likely atelectasis. Diffuse somewhat hazy density also noted throughout both lungs. No discrete consolidation identified. No effusion or pneumothorax. Mediastinum and tiara: No mass or hematoma. No mediastinal or hilar lymphadenopathy. No esophageal abnormality. Heart: There is pericardial effusion estimated at 1 cm maximal thickness. This does appear slightlyhyperdense measuring 50 Hounsfield units which may represent proteinaceous fluid or blood products. Chest Wall Soft Tissues: Normal. Diaphragm : No significant abnormality. Liver: Normal. Gallbladder: Absent consistent with prior cholecystectomy. Bile ducts: No biliary ductal dilation. Spleen: Normal. Pancreas: Normal. Adrenal glands: Normal. Kidneys and ureters: 3 mm calcific location noted in the right interpolar region. No hydronephrosis. Stomach, small bowel, and large bowel: Visualized stomach and bowel are normal. Peritoneum and retroperitoneum: No ascites or pneumoperitoneum. No omental or mesenteric lesions. Lymph nodes: No enlarged lymph nodes. Abdominal wall: Unremarkable. Bones: No acute abnormality. IMPRESSION: Hyperdense pericardial effusion. Possible proteinaceous fluid or blood products. Diffuse hazy density both lungs is nonspecific. This may in part be related to volume loss, though infection, likely viral, is also possible. I do not see septal thickening or specific findings to indicate pulmonary edema. No significant aortic abnormality. No pulmonary embolus. WSN: [id number] Ordering Physician: Sawyer Palacios Dictated By: Keron Canseco MD Dictated Date/Time: 01/21/23 9:42 pm Reviewed By: Keron Canseco MD Signed By: Keron Canseco MD Signed Date/Time: 01/21/23 9:42 pm Transcribed By: DAVID Transcribed Date/Time: 01/21/23 9:27 pm * Exam Date Time Procedure Performing Provider Status 01/21/23 8:15 PM Chest Portable Sam Lara; Auth (Ve rified) Notes: (Chest Portable) Reason For Exam: Shortness of Breath RESULT: Chest Portable Chest Portable Reason: Shortness of Breath; Clinical Question(s): CHF COMPARISON: 07/17/2005 FINDINGS: LINES AND TUBES: None. LUNGS AND PLEURA: Left base opacity may represent atelectasis or pneumonia. Right lung appears clear. No pleural effusion. No pneumothorax. HEART, MEDIASTINUM AND TIARA: Heart is normal in size. Normal mediastinal and hilar contour. BONES AND SOFT TISSUES: No acute abnormality. IMPRESSION: Left base opacity. Atelectasis versus pneumonia. Otherwise unremarkable exam. Exam limited by hypoinflation with likely secondary vascular crowding noted. No effusions. WSN: [id number] Ordering Physician: Aure Keenan Dictated By: Keron Canseco MD Dictated Date/Time: 01/21/23 9:03 pm Reviewed By: Keron Canseco MD Signed By: Keron Canseco MD Signed Date/Time: 01/21/23 9:03 pm Transcribed By: DAVID Transcribed Date/Time: 01/21/23 9:02 pm Vital Signs Most recent to oldest [Reference Range]: 1 2 3 Height 154 cm (01/29/23 11:00 AM) 154 cm (01/29/23 7:38 AM) 154 cm (01/28/23 11:16 PM) Weight 86.8 kg (01/30/23 6:00 AM) 94.3 kg (01/27/23 8:05 PM) 91.5 kg (01/26/23 8:00 PM) Oxygen Saturation [94-100 %] 95 % (01/30/23 11:00 AM) 95 % (01/30/23 7:00 AM) 96 % (01/30/23 3:00 AM) Pulse Rate [55-90 bpm] 80 bpm (01/30/23 11:00 AM) 65 bpm (01/30/23 9:55 AM) 65 bpm (01/30/23 7:00 AM) Body Mass Index [18.5-24.99 kg/m2] 39.26 kg/m2 *>HHI* (01/26/23 2:45 AM) 40.65 kg/m2 *>HHI* (01/22/23 1:32 AM) Blood Pressure [90-138/55-84 mm Hg] 145/71mm Hg *H* (01/30/23 11:00 AM) 122/60mm Hg (01/30/23 9:55 AM) 122/60mm Hg (01/30/23 7:00 AM) Respiratory Rate [16-30 br/min] 20 br/min (01/30/23 11:00 AM) 18 br/min (01/30/23 7:00 AM) 18 br/min (01/30/23 3:00 AM) Temperature [96.8-100.4 DegF] 98 DegF (01/30/23 11:00 AM) 97.7 DegF (01/30/23 7:00 AM) 98.1 DegF (01/30/23 3:00 AM) Liters per Minute 2 L/min (01/24/23 10:00 AM) 2 L/min (01/24/23 9:58 AM) 2 L/min (01/24/23 9:00 AM) Mode of Delivery (Oxygen) Room air (01/30/23 11:00 AM) Room air (01/30/23 7:00 AM) Room air (01/30/23 3:00 AM) Blood pressure sites Arm, left (01/30/23 11:00 AM) Arm, left (01/30/23 7:00 AM) Arm, left (01/30/23 3:00 AM) Temperature Route Oral (01/30/23 11:00 AM) Oral (01/30/23 7:00 AM) Oral (01/30/23 3:00 AM) Dry Weight 96.4 kg (01/22/23 1:32 AM) Weight Obtained Via Bed scale (01/27/23 8:05 PM) Bed scale (01/26/23 8:00 PM) Bed scale (01/26/23 2:45 AM) Consult note * Philomena Blue MD: SIGN Philomena Blue MD: SIGN, PERFORM Aliza (Surgery) Dafne LOPEZ: PERFORM, SIGN Aliza (Surgery) Dafne LOPEZ: SIGN Event Display: Consult Authored Date: Patient: REBA STEVENSON Age: 62 years Sex: Female : 1960 Associated Diagnoses: None Author: Aliza (Surgery) Dafne LOPEZ Visit Information Referring physician: Dr Flavia Fox Consulting physician: Dr. Blue Reason for consult: pericardial effusion, concern for tamponade physiology History of Present Illness Reba Stevenson is a 62 year old female with history of cerebral palsy with developmental delay, seizure disorder (on topiramate), pulmonary embolism on rivaroxaban, who [facility] from her [facility] with acute onset of chest pain and behavioral changes. [place] [facility] was reportedly hypotensive and tachycardic, cool to touch, lethargic, and minimally responsive. She received 2L IVF for resuscitation with improvement in hemodynamics. An initial EKG was obtained demonstrating diffuse ST segment elevations and Q waves concerning for STEMI, prompting stat cardiology consultation. Bedside ultrasound performed with evidence of pericardial effusion without tamponade physiology, and a subsequent CTA of the chest was obtained confirming a 1cm circumferential pericardial effusion. Cardiology determined this event was less likely an acute cardiac event requiring laborer gold leaf, but more likely secondary to pericarditis, and she was admitted to PCU for further evaluation and management. Multiple formal and bedside echocardiograms obtained, all limited studies but confirming a small pericardial effusion but unable to obtain hemodynamic assessment. Per report, bedside echocardiogram performed on admission was concerning for possible tamponade physiology based on mitral valve velocity aswell as pulsus paradoxus on arterial line tracing. Interventional radiology consulted for drainage of the pericardial effusion given this concern, but noted the effusion was too small to be drained under ultrasound/CT guidance, prompting thoracic surgery consultation for pericardial window. Historyis limited due to patient's baseline developmental status, but is able to state she is still actively having chest pain that is worse when laying flat. She denies shortness of breath, history of similar episodes, recent sick contacts. Past Medical History Problem list All Problems Cerebral palsy / SNOMED CT 137878719 / Confirmed HLD (hyperlipidemia) / SNOMED CT 42437973 / Confirmed Osteoporosis / SNOMED CT 056853730 / Confirmed Partial seizures / SNOMED CT 18325521 / Confirmed Severe obesity / SNOMED CT 1138687334 / Confirmed Allergies Allergic Reactions (Selected) Severity Not Documented Codeine- No reactions were documented. Current medications (Selected) Inpatient Medications Ordered Influenza, Quadrivalent Vaccine (Fluzone Quad): 0.5 mL, Injection, Intramuscular, Once, Routine, 01/23/23 8:00:00 EST, Stop date 01/23/23 8:00:00 EST Topiramate Tablet: 275 mg, Tablet, By Mouth, 2 times a day, Routine, 01/22/23 2:16:00 EST Tylenol 325 mg oral tablet: 650 mg, Tablet, By Mouth, Every 6 hours, PRN for Pain , Mild, Routine, 01/22/23 4:43:00 EST carBAMazepine 400 mg oral tablet, extended release: 400 mg, XR Tablet, By Mouth, Daily, Routine, 01/22/23 9:00:00 EST pantoprazole 20 mg oral delayed release tablet: 20 mg, EC Tablet, By Mouth, 2 times a day, Indicated for: Continuation from Home, Routine, 01/22/23 2:15:00 EST Prescriptions Prescribed Ativan 0.5 mg oral tablet: See Instructions, 2, 0, 0, 10/02/06 14:23:04, 1 tablet By Mouth 30 minutes before test; may repeat once at test time if needed., Print YAW Number, ADS OPPTHS, Constant Indicator Topamax 25 mg oral tablet: 1 tablet = 25 mg, By Mouth, 2 times a day, # 180 tablet, 11 Refills, Maintenance, 01/15/23 15:23:00 EST, Tablet, [facility], 152.4, cm, 03/27/21 15:02:00 EDT, Height Topamax 50 mg oral tablet: 1 tablet = 50 mg, By Mouth, 2 times a day, # 180 tablet, 11 Refills, Maintenance, 01/15/23 15:23:00 EST, Tablet, [facility], Partial fill upon patient request if the prescription is for a schedule II opioid drug., 152.4, cm, 03/27/21 15:02... topiramate 200 mg oral tablet: See Instructions, TAKE 1 TABLET BY MOUTH TWICE DAILY., # 180 tablet,11 Refills, 01/15/23 15:23:00 EST, [facility], 152.4, cm, 03/27/21 15:02:00 EDT, Height Documented Medications Documented CALCIUM CITRATE-VIT D3 TABLET: CALCIUM CITRATE-VIT D3 TABLET, 0 Refills, Maintenance, 01/22/23 1:32:00 EST Claritin 10 mg oral tablet: 1 tablet = 10 mg, By Mouth, Daily, 0 Refills, Maintenance Prilosec OTC: = 20 mg, By Mouth, 2 times a day, 0 Refills, Maintenance, 09/24/11 10:26:32 EDT Tylenol 8 Hour 650 mg oral tablet, extended release: 2 tablet = 1,300 mg, By Mouth, Every 8 hours, PRN as needed for fever, # 100 tablet, 0 Refills, Maintenance, 02/10/20 11:08:00 EDT, ER Tablet Xarelto 20 mg oral tablet: 1 tablet = 20 mg, By Mouth, Daily before dinner, 0 Refills, Maintenance,03/27/21 15:11:00 EDT, Partial fill upon patient request if the prescription is for a schedule II opioid drug. alendronate 70 mg oral tablet: 1 tablet = 70 mg, By Mouth, Every week, takes on sundays, # 12 tablet, 0 Refills, Maintenance, 02/22/14 8:26:43 EDT, Tablet carbamazepine 200 mg oral capsule, extended release: 2 capsule = 400 mg, By Mouth, Daily, # 60 capsule, 0 Refills, Maintenance, 01/22/23 1:33:00 EST, CR Capsule, Partial fill upon patient request if the prescription is for a schedule II opioid drug. 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 ROS that could be obtained listed in HPI. Physical Examination Temperature 98.8 (08:10) Systolic Blood Pressure 113 (10:24) Diastolic Blood Pressure 66 (10:24) Pulse 87 (10:24) SpO2 86 (10:24) Respiratory Rate 16 (10:24) Constitutional: somnolent but arousable and answers yes/no questions, nontoxic appearing HEENT: prior surgical scar to face, well healed. no scleral icterus. moist mucous membranes. Cardiovascular: RRR. Muffled heart sounds. No JVD. BP 120s/60s on arterial line tracing with good waveform. Pulmonary: breathing comfortably on room air, clear to auscultation bilaterally Abdomen: soft, nontender, nondistended MSK: no cyanosis or clubbing. no gross deformities Neuro: somnolent but arousable. answering questions appropriately, though limited. no focal deficits Results Review 7 day results Labs & Documents Laboratory : LABORATORY 01/22/2023 2:10 EST WBC 4.9 k/mm3 RBC 4.59 m/mm3 Hgb 13.6 Gm/dL Hct 44.0 % MCV 95.9 femtoliters MCH 29.6 pg MCHC 30.9 g/dL L Platelet Count 219 k/mm3 RDW-SD 47.0 femtoliters H MPV 9.3 femtoliters L Nucleated RBC (Automated) 0.0 #/100 WBC'S Abs. NRBC 0.0 k/mm3 Sodium 137 mmol/L Potassium 4.5 mmol/L Chloride 107 mmol/L Bicarbonate Level 17 mmol/L L Anion Gap 13 Glucose Level 178 mg/dL H Hemoglobin A1C (Monitoring) 5.8 % H BUN 9 mg/dL Creatinine-Blood 0.8 mg/dL Estimated GFR Creatinine 80 ML/MIN/1.73 M2 Calcium 9.1 mg/dL Protein, Total 6.3 Gm/dL Albumin 3.8 Gm/dL AG Ratio 1.5 Alkaline Phosphatase 100 units/L AST (SGOT) 85 units/L H ALT (SGPT) 50 units/L H Bilirubin, Total 0.3 mg/dL C-Reactive Protein 1.9 mg/dL H Cholesterol 260 mg/dL H Triglycerides 122 mg/dL HDL Cholesterol 67 mg/dL LDL Cholesterol 169 mg/dL H Non HDL Cholesterol 193 mg/dL H 01/21/2023 20:37 EST Influenza A PCR NEGATIVE Influenza B PCR NEGATIVE RSV PCR NEGATIVE COVID-19 PCR Specimen Source NASAL COVID-[address] Angio Chest Event Date: 01/21/2023 21:20:43 EST Updated: 01/21/2023 21:[address] Angio Chest This document has an image Reason For Exam Aortic disease, nontraumatic;Other: RESULT: CT Angio Chest EXAMINATION: CT Angio Chest, CT Angio Abdomen INDICATION: Reason: Other:; Aortic disease, nontraumatic; Clinical Question(s): Other:; Aortic Dissection TECHNIQUE: Spiral CTA of the chest was performed after rapid IV contrast administration without cardiac gating, triggered by an ADRIENNE on the main pulmonary artery. Images are formatted in multiple planes using 2-D multiplanar and 3-D maximum intensity projection. 100 cc of Omnipaque 300 was administered intravenously. Weight-based protocol using automatic tube modulation was used to optimize exposure parameters. CTDIvol Body: 18.44 mGy, DLP Body: 1087 mGy*cm. COMPARISONS: None. ANGIOGRAPHIC FINDINGS: No aortic dissection or aneurysm. Normal three vessel arch without branch vessel stenosis. Pulmonary arteries are normal in caliber. No evidence of central pulmonary embolism on this study performed without dedicated technique. Abdominal aorta: No aortic aneurysm or dissection. Celiac axis: Patent. Superior mesenteric artery: Patent. Right renal artery: Patent. Left renal artery: Patent. Inferior mesenteric artery: Patent. Visualized iliac arteries: Patent. NON-ANGIOGRAPHIC FINDINGS: Upper Leather Sorter View Findings, Lines and Tubes: None. Trachea and Airways: Patent without evidence of tracheal or endobronchial lesion. Lungs and Pleura: Patchy density both lungs likely atelectasis. Diffuse somewhat hazy density also noted throughout both lungs. No discrete consolidation identified. No effusion or pneumothorax. Mediastinum and tiara: No mass or hematoma. No mediastinal or hilar lymphadenopathy. No esophageal abnormality. Heart: There is pericardial effusion estimated at 1 cm maximal thickness. This does appear slightlyhyperdense measuring 50 Hounsfield units which may represent proteinaceous fluid or blood products. Chest Wall Soft Tissues: Normal. Diaphragm : No significant abnormality. Liver: Normal. Gallbladder: Absent consistent with prior cholecystectomy. Bile ducts: No biliary ductal dilation. Spleen: Normal. Pancreas: Normal. Adrenal glands: Normal. Kidneys and ureters: 3 mm calcific location noted in the right interpolar region. No hydronephrosis. Stomach, small bowel, and large bowel: Visualized stomach and bowel are normal. Peritoneum and retroperitoneum: No ascites or pneumoperitoneum. No omental or mesenteric lesions. Lymph nodes: No enlarged lymph nodes. Abdominal wall: Unremarkable. Bones: No acute abnormality. IMPRESSION: Hyperdense pericardial effusion. Possible proteinaceous fluid or blood products. Diffuse hazy density both lungs is nonspecific. This may in part be related to volume loss, though infection, likely viral, is also possible. I do not see septal thickening or specific findings to indicate pulmonary edema. No significant aortic abnormality. No pulmonary embolus. Impression and Plan Reba Stevenson is a 62 year old female with history of cerebral palsy with developmental delay, seizure disorder, and pulmonary embolism on rivaroxaban, who presented from her [facility] with acute onset of chest pain and behavior changes. Initial work up demonstrated diffuse ST segment elevations on EKG and pericardial effusion on bedside ultrasound as well as CTA of the chest. Hemodynamically improved following IV fluid resuscitation, and patient was subsequently admitted to PCU for further management. Multiple echocardiograms obtained which have been limited studies and unable to assess hemodynamics, however, she was noted to have evidence of a small pericardial effusion with concerns for tamponade physiology secondary to mitral valve inflow variation and velocity decrease on inspiration based on a bedside echocardiogram. Thoracic surgery consulted for pericardial window, as interventional radiology unable to drain the effusion under image guidance. At this time, patient is hemodyna mically stable, with blood pressure in 120/60's on arterial line tracing. On examination, patient does have muffled but regular heart sounds without associated JVD or respiratory distress. She does continue to have chest pain, but reports relief when tilting to the left or forward. History, exam, and objective data seem consistent with a small pericardial effusion, likely secondary to pericarditis, for which she is not being treated for at this time. Does not risk factors or active malignancy that can precipitate effusion that would warrant thoracic surgery management. If effusion is related to an underlying cardiac source, would defer decision to pursue pericardial window to cardiac surgery. Thoracic surgery to sign off at this time. Recommendations: - No thoracic surgery intervention - Defer to cardiac surgery - Thoracic surgery to sign off Discussed with Dr. Blue [facility] SURG[facility] [id number] Admission evaluation note * Jessica Le DO: PERFORM, MODIFY, MODIFY, MODIFY, MODIFY, MODIFY, MODIFY, MODIFY, MODIFY, MODIFY,MODIFY, MODIFY, MODIFY, MODIFY, MODIFY, MODIFY, MODIFY, MODIFY, MODIFY Event Display: Admission Note Authored Date: Patient: ??REBA STEVENSON ? Age:??62 Years?Sex:??Female?:??1960?? Chief Complaint/Reason for Consultation lethargy and chest pain History of Present Illness Reba Stevenson is a 62 year old female with PMH of cerebral palsy, HTN, HLD, seizures on antiepileptics, and hx of PE on??Xarelto who presented to ED via EMS after report of chest pain. ?? long-term staff reports that patient's behavior has been off baseline since earlier today with development in chest pain in afternoon prompting them to call EMS. Patient appeared sweaty and was unable to hold up her own weight which is unusual.??Patient was hypotensive on arrival. EKG showed evidence of diffuse ST elevations, and STEMI was activated. Patient was evaluated at bedside by Interventional Cardiology. Repeat EKGs??did not show dynamic changes, but did reveal [place] depression concerningfor pericarditis. Per IC note, bedside echo had very poor acoustic echo windows, circumferential pericardial effusion with ?RV diastolic collapse. ?? In ED, vitals were BP 90-113/55-72, HR 104-112, RR 16, T afebrile, and O2 on RA. Labs are without leukocytosis WBC 7, normal Hgb 14 and Plt 173, INR, unremarkable BMP with Na 140, K 3.8, Cl 107, HCO3 19, BUN/Cr 9/1, glucose 196, calcium 9.1, magnesium 1.7, AST 69, ALT 33, lactate4.3. BNP 1169, Hstrop T hemolyzed --> 999. TSH 3.73. COVID, RSV, and influenza negative. ?? CXR with left base opacity, atelectasis versus pneumonia, otherwise unremarkable exam, Exam limitedby hypoinflation with likely secondary vascular crowding noted. No effusion. ?? CTA Chest and Abdomen with hyperdense pericardial effusion at 1cm maximal thickness, possible proteinacous fluid or blood products. Diffuse hazy density both lungs nonspecific. Volume loss vs viral infection. No significant aortic abnormality. ?? In ED, patient was given 2L fluids with improvement of BP to systolic 100-110s, vancomycin and zosyn. ?? On my evaluation in PCU, patient reports chest pain and abdominal pain since earlier today. She is able to rate pain on scale of low, medium, and high. She rates both pain as high. She has chronic cough. She denies vomiting, fevers, or shortness of breath. When bed is adjusted so she sits up, the pain does improve. She reports worsening with a deep breath.??Brother/HCP is at bedside and reports that patient has developmental delay, she is able to state her needs. ?? STAT bedside echo performed by artist relationship manager Dr Weller showed small pericardial effusion with evidence of tamponade physiology, technically difficult study. Review of Systems Limited due to patient's developmental delay. Objective Vital Signs?? Temperature: 97.9 DegF (01/21/23 21:02:00) Temperature Route: Oral (01/21/23 21:02:00) Pulse Rate:??104 bpm??High (01/21/23 23:53:00) Respiratory Rate: 19 br/min (01/21/23 23:53:00) Systolic Arterial Blood Pressure: 113 mm Hg (01/21/23 23:53:00) Diastolic Arterial Blood Pressure: 72 mm Hg (01/21/23 23:53:00) Oxygen Saturation: 96 % (01/21/23 23:53:00) Mode of Delivery (Oxygen): Room air (01/21/23 23:53:00) Early Warning Score: 7 (01/22/23 00:38:31) ? Physical Exam Constitutional: Alert, in no acute distress. Head EENT: Extraocular muscle movement intact.??Moist mucous membranes.?? Neck: Supple. No JVD. Cardiovascular: S1S2 regular. No murmurs, rubs or gallops. Respiratory: Diminished breath sounds bilaterally. No use of accessory muscles. Gastrointestinal: Abdomen soft, non-tender, non-distended. Normal bowel sounds. Extremities: Contracted right upper extremity. Trace lower extremity pitting??edema. Neurologic: Follows commands,??moves extremities spontaneously. Skin: No rash. Psychiatric: Normal mood and affect. Assessment/Plan Reba Stevenson is a 62 year old female with PMH of cerebral palsy, HTN, HLD, seizures on antiepileptics, and??hx of??PE on??Xarelto who presented to ED via EMS after report of chest pain. Patient wasfound to have diffuse ST elevations concerning for pericarditis. Imaging revealing small pericardial effusion with evidence of tamponade physiology. Patient was admitted to CCU service for further management. ?? Small pericardial effusion w/tamponade physiology Hypotension - improved Pleuritic chest pain Likely pericarditis Patient presenting due to her being off baseline and with report of chest pain, not accurate historian Reports high level of chest pain worse with deep breath, improved with sitting up She was hypotensive on arrival to ED, which improved with 2L fluids EKG showed evidence of diffuse ST elevations, with [place] depression concerning for pericarditis Evaluated by Interventional Cardiology, does not require emergent cardiac catheterization CTA chest shows hyperdense pericardial effusion at 1cm maximal thickness, possible proteinacous fluid or blood products STAT echo by artist relationship manager showing small pericardial effusion with evidence of tamponade physiology Pulsus paradoxus seen on A line, HStrop 999, BNP 1169 Findings more consistent with pericarditis with pericardial effusion complicated by tamponade physiology ?? Plan: -LR 75cc/hr -Trend troponin -Add on??ESR, CRP -Obtain formal echo -IR post tronic machine operator - Dr Roger Staton was cortexted overnight to [place] re patient -Formal consult in AM??for pericardiocentesis, fluid studies ordered -Hold AC ?? Lactic acidosis Likely in setting of hypotension S/p fluid resuscitation Low suspicion for sepsis, did receive vanc and zosyn??1 dose in ED ?? Plan: -Trend lactate? History of PE on xarelto ?? Plan: -Hold xarelto for procedure ?? Chronic stable medical conditions Seizure disorder: continue topiramate 275mg BID and carbamazepine 400mg daily GERD: continue PPI? Quality Measures Diet: NPO after MN (at facility has regular diet, but chopped into bite size pieces with 1:1 assist) DVT Prophylaxis: hold for procedure Code: FULL, as per HCP OMN/Dispo: pericardial effusion with tamponade, needs pericardiocentesis Group??Home Contact: Anitra [phone] Family: Brother/HCP Bart [phone], sister Terra [phone] ?? Patient's care and plan discussed with artist relationship manager, Dr. Weller. ?? Jessica Le DO Internal Medicine PGY2 [id number] Histories Allergies Allergies ?(Active and Proposed Allergies Only) codeine? (Severity: Unknown severity, Onset: Unknown) ?? Past Medical History/Problem List Active Problems Cerebral palsy Seizure disorder Pulmonary embolism Hyperlipidemia GERD Osteoporosis Moderate developmental delay Vitamin D deficiency Dysphagia Constipation Arthritis ?? Past Surgical History No surgery history documented. ?? Social History No history of tobacco, alcohol or recreational drug use. ?? Family History Blood clots in brother [place] in brother in 60s Medications Home Medications Acetaminophen (Tylenol 8 Hour 650 mg oral tablet, extended release)?2?tab(s)?1,300?Milligram?By Mouth?Every 8 hours?as needed?as needed for fever Alendronate (alendronate 70 mg oral tablet)?1?tab(s)?70?Milligram?By Mouth?Every week?takes on sundays Carbamazepine (carbamazepine 200 mg oral capsule, extended release)?2?capsule?400?Milligram?By Mouth?Daily Loratadine (Claritin 10 mg oral tablet)?1?tab(s)?10?Milligram?By Mouth?Daily Lorazepam (Ativan 0.5 mg oral tablet)?See Instructions?1 tablet By Mouth 30 minutes before test; may repeat once at test time if needed. Omeprazole (Prilosec OTC)?20?Milligram?By Mouth?2 times a day rivaroxaban (Xarelto 20 mg oral tablet)?1?tab(s)?20?Milligram?By Mouth?Daily before dinner Topiramate (Topamax 25 mg oral tablet)?1?tab(s)?25?Milligram?By Mouth?2 times a day?for 90?Days Topiramate (Topamax 50 mg oral tablet)?1?tab(s)?50?Milligram?By Mouth?2 times a day?for 90?Days Topiramate (topiramate 200 mg oral tablet)?See Instructions?TAKE 1 TABLET BY MOUTH TWICE DAILY. Results Recent Labs BLOOD COUNT & DIFF WBC 7.0 k/mm3 ()?? 01/21/2023 20:23 RBC 4.71 m/mm3 ()?? 01/21/2023 20:23 Hgb 14.0 Gm/dL ()?? 01/21/2023 20:23 Hct 45.1 % ()?? 01/21/2023 20:23 MCV 95.8 femtoliters ()?? 01/21/2023 20:23 MCH 29.7 pg ()?? 01/21/2023 20:23 MCHC 31.0 g/dL (Low)?? 01/21/2023 20:23 Platelet Count 173 k/mm3 ()?? 01/21/2023 20:23 RDW-SD 46.3 femtoliters ()?? 01/21/2023 20:23 MPV 9.1 femtoliters (Low)?? 01/21/2023 20:23 Nucleated RBC (Automated) 0.0 #/100 WBC'S ()?? 01/21/2023 20:23 Abs. NRBC 0.0 k/mm3 ()?? 01/21/2023 20:23 Abs. Neut 4.6 k/mm3 ()?? 01/21/2023 20:23 Abs. Lymph 1.4 k/mm3 ()?? 01/21/2023 20:23 Abs. Hunt 0.9 k/mm3 ()?? 01/21/2023 20:23 Abs. Eo 0.0 k/mm3 ()?? 01/21/2023 20:23 Abs. Baso 0.0 k/mm3 ()?? 01/21/2023 20:23 Neut % 65.8 % ()?? 01/21/2023 20:23 Lymph % 20.0 % ()?? 01/21/2023 20:23 Hunt % 13.2 % (High)?? 01/21/2023 20:23 Eos % 0.3 % ()?? 01/21/2023 20:23 Baso % 0.3 % ()?? 01/21/2023 20:23 Imm Gran 0.4 % ()?? 01/21/2023 20:23 Abs. Imm Gran 0.0 k/mm3 ()?? 01/21/2023 20:23 ?? CARDIAC Nt-Probnp 1169 pg/mL (High)?? 01/21/2023 20:23 High Sensitivity Troponin (HSTnT) 999 ng/L (Critical)?? 01/21/2023 21:49 ?? CHEM GENERAL Sodium 140 mmol/L ()?? 01/21/2023 20:23 Potassium 3.8 mmol/L ()?? 01/21/2023 20:23 Chloride 107 mmol/L ()?? 01/21/2023 20:23 Bicarbonate Level 19 mmol/L (Low)?? 01/21/2023 20:23 Anion Gap 14 ()?? 01/21/2023 20:23 Glucose Level 196 mg/dL (High)?? 01/21/2023 20:23 BUN 9 mg/dL ()?? 01/21/2023 20:23 Creatinine-Blood 1.0 mg/dL ()?? 01/21/2023 20:23 Estimated GFR Creatinine 64 ML/MIN/1.73 M2 ()?? 01/21/2023 20:23 Calcium 9.1 mg/dL ()?? 01/21/2023 20:23 Calcium, Ionized pH Corrected 1.20 mmol/L ()?? 01/21/2023 20:23 Magnesium 1.7 mg/dL ()?? 01/21/2023 20:23 Protein, Total 6.7 Gm/dL ()?? 01/21/2023 20:23 Albumin 4.0 Gm/dL ()?? 01/21/2023 20:23 AG Ratio 1.5 ()?? 01/21/2023 20:23 Alkaline Phosphatase 105 units/L (High)?? 01/21/2023 20:23 Lipase 40 units/L ()?? 01/21/2023 20:23 AST (SGOT) 69 units/L (High)?? 01/21/2023 20:23 ALT (SGPT) 33 units/L ()?? 01/21/2023 20:23 Bilirubin, Total 0.2 mg/dL ()?? 01/21/2023 20:23 Lactate 4.3 mmol/L (High)?? 01/21/2023 22:27 ?? COAG INR 1.0 ()?? 01/21/2023 20:23 Protime (PT) 10.5 seconds ()?? 01/21/2023 20:23 APTT <22.0 seconds (Low)?? 01/21/2023 20:23 ?? ENDOCRINE/TUMOR MARKER TSH 3.73 uIU/mL ()?? 01/21/2023 20:23 ?? HEME OTHER Hold Lavender Top SPECIMEN DISCARDED AFTER 24 HOURS. ()?? 01/21/2023 20:23 ?? VIROLOGY Influenza A PCR NEGATIVE ()?? 01/21/2023 20:37 Influenza B PCR NEGATIVE ()?? 01/21/2023 20:37 RSV PCR NEGATIVE ()?? 01/21/2023 20:37 COVID-19 PCR Specimen Source NASAL ()?? 01/21/2023 20:37 COVID-19 PCR Result NEGATIVE ()?? 01/21/2023 20:37 ? * [place] LOPEZ, Home [facility]: PERFORM Event Display: Admission Note Authored Date: This patient was seen and evaluated on rounds with the CCU team. ??She is extremely complicated. ??I am responsible for the clinical decision making outlined in our note. ??She is barely communicative because of cerebral palsy. ??She was sent in because of chest pain and change in behavior. ??Electr ocardiogram had ST elevations in the inferior and anterolateral leads. ??Very concerning for ST segment elevation [place] and her high-sensitivity troponin was about 999. ??Bedside echo suggested pericardial effusion and there were also some [place] depressions on the EKG and it was felt that she most likelyhad pericarditis. ??It was decided last night by the interventional team not to bring her to the [facility]. ??Repeat echo done officially today suggest that the pericardial effusion is actually a little bit less than yesterday. ??The contrast images suggest an apical infarct. ??When he went to speakwith her she would only nod her head yes or no to questions and she is still having discomfort and she indicated she was short of breath. ??Her vital signs are stable. ??She is also on anticoagulantsand got Xarelto last night before being transferred. ??I am concerned she may have had an infarct. ??Postinfarct apical rupture seems very unlikely given the hemodynamic stability and timing. ??It see ms more likely that she may have had an infarct with postinfarct pericarditis although the timing of that seems too soon also. ??Maybe the infarct is old and she is just developed acute pericarditis now. ??Ideally we would like to get a cardiac catheterization and we are reaching out to the healthcare proxy her brother to see whether he wants to go down that road. ??Another option would be a CTA to see if there is an occluded vessel. ??At this time we will treat her with high-dose aspirin and colchicine. ??Global EF seems good. ??But the echo was technically difficult. ??Xarelto is on hold. ??There is not enough fluid to drain. ??Blood pressures are good today with an A-line present. ??I will treat also with beta-blockers and JESSIKA inhibitor. ??Further plans pending discussion with healthcare proxy. ??Patient herself is unable to consent. EKG study * Event Display: ECG 12-Lead Authored Date: Please click on pdf link to open report * Event Display: ECG 12-Lead Authored Date: Ventricular Rate: 67 BPM Atrial Rate: 67 BPM P-R Interval: 122 ms QRS Duration: 84 ms Q-T Interval: 360 ms QTC Calculation(Bazett): 380 ms P [place]: 39 degrees R [place]: 18 degrees T [place]: 40 degrees Critical Test Result: STEMI Normal sinus rhythm Inferior infarct (cited on or before 21-JAN-2023) Possible Anterior infarct (cited on or before 21-JAN-2023) ACUTE [place] / STEMI Abnormal ECG When compared with ECG of 25-JAN-2023 10:25, No significant change was found Confirmed by LUPE TUTTLE ([id number]) on 01/27/2023 12:58:07 PM [facility]: LUPE TUTTLE * Event Display: ECG 12-Lead Authored Date: Please click on pdf link to open report * Event Display: ECG 12-Lead Authored Date: Ventricular Rate: 73 BPM Atrial Rate: 73 BPM P-R Interval: 136 ms QRS Duration: 82 ms Q-T Interval: 356 ms QTC Calculation(Bazett): 392 ms P [place]: 32 degrees R [place]: 25 degrees T [place]: 41 degrees Critical Test Result: STEMI Normal sinus rhythm Inferior infarct , possibly acute Cannot rule out Anterior infarct , age undetermined Lateral injury pattern ACUTE [place] / STEMI Abnormal ECG When compared with ECG of 24-JAN-2023 05:49, MANUAL COMPARISON REQUIRED, DATA IS UNCONFIRMED Confirmed by MAC RON MD ([id number]) on 01/25/2023 5:14:02 PM [facility]: MAC RON MD * Event Display: ECG 12-Lead Authored Date: Please click on pdf link to open report * Event Display: ECG 12-Lead Authored Date: Ventricular Rate: 81 BPM Atrial Rate: 81 BPM P-R Interval: 144 ms QRS Duration: 86 ms Q-T Interval: 364 ms QTC Calculation(Bazett): 422 ms P [place]: 41 degrees R [place]: -4 degrees T [place]: 48 degrees Poor data quality, interpretation may be adversely affected Normal sinus rhythm Inferior infarct , age undetermined Possible Anterolateral infarct , age undetermined Abnormal ECG When compared with ECG of 23-JAN-2023 09:32, No significant change was found Confirmed by CARLOS KAMARA MD ([id number]) on 01/25/2023 1:58:45 PM [facility]: CARLOS KAMARA MD Heart * Event Display: Echocardiogram - Complete Authored Date: [id number] Transthoracic Echocardiography Report (TTE) Patient Demographics Patient Name REBA STEVENSON Date of Study 01/22/2023 [employer] Gender Female Facility Race Ethnicity Date of 1960 Height: 60.63 inches Age 62 year(s) Weight: 212.53 pounds Accession Number [id number] BSA: 1.93 m2 Room Number M510 BMI: 40.65 kg/m2 Referring Physician Rey Lopez DO Interpreting Lupe Tuttle MD Physician Sh[facility] Out [facility] [place] Indications Pericardial effusion. Clinical History Cerebral Palsy Hypertension. Hyperlipidemia. GERD Seizure Pulmonary embolus. Arthritis Study Data Type of Study TTE procedure:Echo Complete-(Doppler, Colorflow) with Contrast. Procedure Information:Definity was administered by ethan DUCKWORTH Study Date01/22/2023 Start Time: 07:45 AM [place] [facility] [place] Status: Bedside Patient Status: CHAVEZ Technical Quality: Technically difficult due to poor acoustical window. Blood Pressure:100/73 mmHg EKG: Within normal limits HR: 90 bpm Contrast Medium: Definity. Amount - 2 ml 2D Measurements LV Diastolic Dimension: 3.2 cm LV Systolic Dimension: 2.4 cm LV Septum Diastolic: 1.3 cm LV PW Diastolic: 1 cm AO Root Dimension: 2.3 cm LA Dimension: 2.7 cm LVOT: 1.8 cm Doppler Measurements AV Peak Velocity: 103 cm/s MV Peak E-Wave: 42.3 cm/s AV Peak Gradient: 4.24 mmHg MV Peak A-Wave: 64.1 cm/s MV E/A Ratio: 0.66 LVOT Peak Velocity: 89.7 cm/s MV Deceleration Time: 201 msec TR Velocity:123 cm/s TR Gradient:6.05 mmHg PV Peak Velocity: 113 cm/s E' Septal Velocity: 8.38 cm/s PV Peak Gradient: 5.11 mmHg E' Lateral Velocity: 4.68 cm/s E/Med E':[id number] E/Lat E':[id number] Cardiac Anatomy Left Ventricle/Interventricular Septum The left ventricle is poorly visualized. Despite use of echocontrast there is suboptimal endocardial definition in some views and images are off axis. the apex appears akinetic. Function is moderately reduced, EF and wall motion cannot be adequately assessed. There is no evidence of left ventricular thrombus. Left Atrium/Interatrial Septum The left atrium is poorly visualized. Aortic Valve The aortic valve is poorly visualized. There is no significant aortic stenosis. There is no aortic regurgitation. Mitral Valve The mitral valve is poorly visualized. Aorta The aortic root is normal in size. Right Ventricle The right ventricle is poorly visualized. Right Atrium The right atrium is poorly visualized. Pulmonic Valve The pulmonic valve is poorly visualized. Tricuspid Valve The tricuspid valve is poorly visualized. Pumonary Artery An accurate pulmonary artery pressure could not be obtained. Venous Structures The inferior vena cava appears mildly dilated. Inspiratory collapse is not adequately evaluated. Pericardium/Extracardiac Pericardium is not well visualized. There is a small circumferential pericardial effusion. Hemodynamic assessment cannot be made. Summary The left ventricle is poorly visualized. Despite use of echocontrast there is suboptimal endocardial definition in some views and images are off axis. the apex appears akinetic. Function is moderately reduced, EF and wall motion cannot be adequately assessed. There is no evidence of left ventricular thrombus. The aortic valve is poorly visualized. There is no significant aortic stenosis. There is no aortic regurgitation. The right ventricle is poorly visualized. Pericardium is not well visualized. There is a small circumferential pericardial effusion. Hemodynamic assessment cannot be made. Comparison Comparison is made to the study of January 22, 2023. Technically limited study with suboptimal visualization of cardiac structures. Consider alternate modality for assessment. Signature * Event Display: Echocardiogram - Complete Authored Date: [id number] * Skyler Weller MD: PERFORM Event Display: Echocardiogram - Complete Authored Date: [id number] STAT Echo Preliminary Report (Fellow) Entered On: 01/22/2023 6:45 EST Performed On: 01/22/2023 6:43 EST by Skyler Weller MD STAT Echo Preliminary Report (Fellow) Echo STAT Preliminary Report : Preliminary results, final results to follow Echo Indications : Tamponade Echo LV Findings : Poorly visualized. LVEF appears preserved on parasternal short axis views but this is inadequate to assess systolic function. Echo RV Findings : Poorly visualized. Echo Valves : Poorly visualized. Mitral valve inflow variation with >25% drop in velocity on inspiration, suggestive tamponade physiology. Echo Pericardium : Small circumferential pericardial effusion. Mitral valve inflow variation with >25% drop in velocity on inspiration, suggestive tamponade physiology. Echo IVC : Not visualized. Echo Order Provider : Jessica Le DO Echo Performing Fellow : Skyler Weller MD, MD, Mohammed H - 01/22/2023 6:43 EST * Event Display: Echocardiogram - Complete Authored Date: [id number] Transthoracic Echocardiography Report (TTE) Patient Demographics Patient Name REBA STEVENSON Date of Study 01/22/2023 Corporate Gender Female Facility Race Ethnicity Date of 1960 Height: 60.63 inches Age 62 year(s) Weight: 212.53 pounds Accession Number [id number] BSA: 1.93 m2 Room Number M510 BMI: 40.65 kg/m2 Referring Physician Rey Lopez DO Interpreting Lupe Tuttle MD Physician Shaker Out Skyler Boykin Fellow Skyler Weller MD Indications Pericardial effusion. Study Data Type of Study TTE procedure:Echo 2D Limited or Follow-up, Doppler Follow-up or Limited. Study Date01/22/2023 Start Time: 02:04 AM [place] [facility] [place]: [place]/CCU Patient Status: STAT EKG: Normal sinus rhythm HR: 99 bpm Doppler Measurements MV Peak E-Wave: 92.1 cm/s Cardiac Anatomy Left Ventricle/Interventricular Septum The left ventricle is poorly visualized. Function appears reduced with wall motion abnormalities on limited images. Left Atrium/Interatrial Septum The left atrium is poorly visualized. Right Ventricle The right ventricle is poorly visualized. Right Atrium The right atrium is poorly visualized. Pericardium/Extracardiac Pericardium is not well visualized. There is small to moderate pericardial effusion. There is an epicardial fat pad present. Hemodynamic assessment cannot be made. Recommend repeating echo. Summary Pericardium is not well visualized. There is small to moderate pericardial effusion. There is an epicardial fat pad present. Hemodynamic assessment cannot be made. Recommend repeating echo. Comparison No prior study available for comparison. Signature * Event Display: Echocardiogram - Complete Authored Date: [id number] Note * Jyoti Sheth RN: PERFORM Event Display: Discharge/Transfer Note Hospital Authored Date: [id number] Nursing Discharge Note Entered On: 01/30/2023 14:37 EST Performed On: 01/30/2023 14:25 EST by Jyoti Sheth RN Nursing Discharge Note 2 Discharge Time : 01/30/2023 14:25 EST Discharge Level of Care at Discharge : Home/Nursing Home/Foster Care Patient Left Unit Via : Wheelchair Patient Accompanied Off Unit with : Other: long-term staff. DC Instructions Provided & Signed by Pt : Yes Patient Understands D/C Instructions : Yes Verbalized Understanding of D/C Plan By : Patient, Caregiver Patient Instructions Discharge Signed : Yes Did Pt have Specialty Bed or Wound Vac : No Jyoti Sheth RN - 01/30/2023 14:36 EST * Hanna Coy NP: PERFORM, MODIFY Event Display: Discharge/Transfer Note Hospital Authored Date: [id number] Patient: ??REBA STEVENSON ? Age:??62 Years?Sex:??Female?:??1960?? Patient Information Discharge Location: Primary Care Physician: Mook Tompkins MD Admit Date/Time: 01/22/23 00:48 Discharge Disposition Discharge Disposition: Home: No Services Discharge Diagnosis Chest pain (R07.9) Hypotension (I95.9) Pericardial effusion with cardiac tamponade (I31.39) Pericarditis, acute (I30.9) Cerebral palsy HLD (hyperlipidemia) Partial seizures ?? _ Discharge Medications Acetaminophen (Tylenol 8 Hour 650 mg oral tablet, extended release)?2?tab(s)?1,300?Milligram?By Mouth?Every 8 hours?as needed?as needed for fever Alendronate (alendronate 70 mg oral tablet)?1?tab(s)?70?Milligram?By Mouth?Every week?takes on sundays Aspirin (aspirin buffered 325 mg oral tablet)?See Instructions?1 tablet by mouth 3 times a day for 7 days then 1 tablet by mouth 2 times a day for 7 days then 1 tablet a day for 7 days then change to 81 mg daily Aspirin (aspirin 81 mg oral delayed release tablet)?81?Milligram?1?tablet?By Mouth?Daily Atorvastatin (atorvastatin 80 mg oral tablet)?1?tab(s)?80?Milligram?By Mouth?Daily at bedtime?further refills by pcp or cardiology Carbamazepine (carbamazepine 200 mg oral capsule, extended release)?2?capsule?400?Milligram?By Mouth?Daily Colchicine (colchicine 0.6 mg oral tablet)?0.6?Milligram?1?tablet?By Mouth?2 times a day?stop after 90 days Lidocaine Topical (lidocaine 5% topical film)?1 patch?Topically?Daily?Apply for chest or rib discomfort. Please apply at 7AM AND REMOVE AT 7PM EACH DAY Loratadine (Claritin 10 mg oral tablet)?1?tab(s)?10?Milligram?By Mouth?Daily Lorazepam (Ativan 0.5 mg oral tablet)?See Instructions?1 tablet By Mouth 30 minutes before test; may repeat once at test time if needed. Metoprolol (metoprolol 50 mg oral tablet, extended release)?50?Milligram?1?tablet?ByMouth?Daily in AM?further refills per pcp/cardiology Omeprazole (Prilosec OTC)?20?Milligram?By Mouth?2 times a day rivaroxaban (Xarelto 20 mg oral tablet)?1?tab(s)?20?Milligram?By Mouth?Daily before dinner Topiramate (Topamax 25 mg oral tablet)?1?tab(s)?25?Milligram?By Mouth?2 times a day?for 90?Days Topiramate (Topamax 50 mg oral tablet)?1?tab(s)?50?Milligram?By Mouth?2 times a day?for 90?Days Topiramate (topiramate 200 mg oral tablet)?See Instructions?TAKE 1 TABLET BY MOUTH TWICE DAILY. ? Medications Started Aspirin (aspirin buffered 325 mg oral tablet)?See Instructions?2 tablets by mouth 3 times a day for 7 days then 2 tablets by mouth 2 times a day for 7 days then 2 tablets a day for 7 days then change to 81 mg daily Atorvastatin (atorvastatin 80 mg oral tablet)?1?tab(s)?80?Milligram?By Mouth?Daily at bedtime?further refills by pcp or cardiology Colchicine (colchicine 0.6 mg oral tablet)?0.6?Milligram?1?tablet?By Mouth?2 times a day?stop after 90 days Metoprolol (metoprolol 50 mg oral tablet, extended release)?50?Milligram?1?tablet?ByMouth?Daily in AM?further refills per pcp/cardiology Lidocaine Topical (lidocaine 5% topical film)?1 patch?Topically?Daily?Apply for chest or rib discomfort,remove patch after 12 hours Medications Discontinued NONE Doses Changed NONE Hospital Course Mrs. Stevenson??is a 62 year old female with PMH of cerebral palsy, HTN, HLD, seizures on antiepileptic, and hx of PE on Xarelto who presented to ED via EMS after report of chest pain. Patient was found to have diffuse ST elevations concerning for pericarditis. Bedside echocardiogram revealed a small pericardial effusion with possible evidence of tamponade physiology. Patient was admitted to CCU service for further management. ECG with diffuse ST elevations. HS-Troponin T peaked at 999. ProBNP 1169. Effusion deemed to small to be drained by interventional radiology. Thoracic surgery was consulted who recommended consulting CT surgery if needed but no indication for drainage at that time. ? Formal Echocardiogram 01/22/2023 with contrast was still a technically difficult study with LVEF moderately reduced, EF and wall motion could not be adequately assessed. There was no evidence of left ventricular thrombus. Pericardium was not well visualized. There was a small circumferential pericardial effusion. Hemodynamic assessment could not be made. ? Coronary CT angiogram 01/24/2023 was a mildly limited exam due to body habitus and cardiac motion artifact. Left Anterior Descending: Near the apex, the distal LAD is small and there is poor opacification, which may be artifactual although occlusion cannot be entirely excluded. The remainder LAD is patent. Left Main normal. Left Circumflex Artery suboptimally seen, but probably patent. Right Coronary Artery about 40% short segment smooth stenosis at the most proximal RCA with no obvious plaque. This may relate to vascular spasm. RCA dominance. Unchanged small size complex pericardial fluid. Borderline enlarged right ventricle. Small-sized left pleural effusion with left lower lobe partial ate lectasis. ? She was treated with colchicine and high dose NSAID - aspirin on a tapering dose. Lidocaine patch topically was also ordered for chest pain. Metoprolol was started as well as atorvastatin given CAD. Aspirin will be tapered over a 3 weeks period and then changed to 81mg daily indefinitely. Colchicine should continue for 90 days for treatment of pericarditis. She should have a follow up echocardiogram in 6-8 weeks to reassess effusion and LV function. ? On the day of discharge she denied any chest pain, shortness of breath or abdominal pain, she was otherwise hemodynamically stable. ?? Objective Assessment and Plan Assessment:??Reba is a 62 year old female with PMH of cerebral palsy, HTN, HLD, seizures on antiepileptic, and hx of PE on Xarelto who presented to ED via EMS after report of chest pain. Patient wasfound to have diffuse ST elevations concerning for pericarditis. Imaging revealing small pericardial effusion with evidence of tamponade physiology. Patient was admitted to CCU service for further management. She was ready for discharge however had issues regarding return to her [facility], following clarification the patient was able to be discharged hemodynamically stable. ? Pericarditis Pleuritic chest pain Small pericardial effusion w/tamponade physiology ??Hypotension - resolved ?Patient presenting due to her being off baseline and with report of chest pain, not a good historian ?Reports high level of chest pain worse with deep breath, improved with sitting up ?She was hypotensive on arrival to ED, which improved with 2L fluids ?EKG showed evidence of diffuse ST elevations, with [place] depression concerning for pericarditis ?Evaluated by Interventional Cardiology, does not require emergent cardiac catheterization ?CTA chest shows hyperdense pericardial effusion at 1cm maximal thickness, possible proteinaceous fluid or blood products ?STAT echo by artist relationship manager showing small pericardial effusion with evidence of tamponade physiology ?Pulsus paradoxus seen on A line, HS-trop 999, BNP 1169 ?Findings more consistent with pericarditis with pericardial effusion. ?ESR and CRP slightly elevated ?Echocardiogram 01/22- EF is moderately reduced, small circumferential pericardial effusion. Drury is akinetic ?coronary CTA 01/24 - shows possible occlusion to the distal LAD which may correlate with the akinetic apex seen on echo. ? Recommendations: ?- Continue atorvastatin 80 mg daily ?- Continue Metoprolol XL 50 mg daily ?- Lidocaine patch for mild chest/rib discomfort.??Apply at??7 am each day and remove at 7pm each??night ?- Continue high dose aspirin 650 mg TID (taper over 3 weeks from??352 TID x 7 days, then 325mg bid x 7 days, then 325mg daily x 7 days then decrease to 81mg daily as maintenance for secondary prevention of CAD) ?- Continue colchicine 0.6 mg twice a day for 90 days then stop (started 01/22/23) ?- Pt to followup with Dr Home Conrad and his [employer] OPER[employer] Jyoti Smith at [facility] - they will arrange appointment. ?-?? Consider Obtaining ESR and CRP outpatient ?- F/u echocardiogram in 6-8 weeks to reassess effusion and LV function. ? History of PE on Xarelto ??Unprovoked PE about 1 year ago. Family history of DVTs but never had hypercoagulable work up thatfamily knows ? Recommendations: ??- Continue Xarelto ? Lactic acidosis - resolved ?Likely in setting of hypotension ?S/p fluid resuscitation ?Low suspicion for sepsis, did receive vancomycin and Zosyn x 1 dose in ED ? Seizure disorder: continue topiramate 275mg BID and carbamazepine 400mg daily ?? GERD: continue PPI ?? Case and plan discussed with Dr. Antonio ?? Vital Signs?? Temperature: 97.7 DegF (01/30/23 07:00:00) Temperature Route: Oral (01/30/23 07:00:00) Pulse Rate: 65 bpm (01/30/23 09:55:00) Respiratory Rate: 18 br/min (01/30/23 07:00:00) Systolic Blood Pressure: 122 mm Hg (01/30/23 09:55:00) Diastolic Blood Pressure: 60 mm Hg (01/30/23 09:55:00) Blood pressure sites: Arm, left (01/30/23 07:00:00) Mean Arterial Pressure: 72 mm Hg (01/29/23 11:00:00) Pulse Pressure: 62 mm Hg (01/30/23 07:00:00) Oxygen Saturation: 95 % (01/30/23 07:00:00) Mode of Delivery (Oxygen): Room air (01/30/23 07:00:00) Early Warning Score: 4 (01/30/23 09:59:11) ? . Physical Exam General:??Alert, in no acute cardiopulmonary distress. Mental Status:??Oriented to person, place and time. Normal affect. Head:??Normocephalic. Eyes:??No xanthomas or scleral icterus. Extraocular muscles intact. Respiratory:??Clear to auscultation and percussion. No wheezing, rales or rhonchi. Cardiovascular:??Heart sounds normal. No thrills. Regular rate and rhythm, no murmurs, rubs or gallops. No JVD appreciated Extremities:??+2 peripheral pulses bilaterally. No edema noted. Gastrointestinal:??Abdomen soft, non-tender, non-distended. Normal bowel sounds. No pulsatile mass.No hepatosplenomegaly. Neurologic:??Cranial nerves II-XII grossly intact. Skin:??No rashes or lesions. No petechiae or purpura. No edema. Musculoskeletal:??No cyanosis or clubbing. No gross deformities. Normal range of motion. Patient Education Titles Lidocaine Medicated Patch?? Colchicine Oral Tablet?? Atorvastatin Oral Tablet?? Aspirin Delayed Release Oral Tablet?? Aspirin Oral Tablet?? Metoprolol Extended Release Oral Tablet?? Your Risk Factors for Heart Disease?? Risk Factors for Heart Disease?? Understanding Food and Cholesterol?? Risk Factors for Heart Disease?? Controlling Your Cholesterol?? Low-Cholesterol Diet?? Treatment for Pericardial Effusion?? Understanding Pericardial Effusion?? Pericarditis?? Understanding Transradial Cardiac Catheterization?? Having Cardiac Catheterization?? Understanding Transradial Cardiac Catheterization?? Having Cardiac Catheterization?? Follow-Up Appointments Added Follow Up ?Time Frame ?Comments Mook Tompkins MD?1 to 2 weeks Home Conrad MD?2 to 3 weeks?an appointment is being arranged for you by Dr Conrad's office with his [employer] Jyoti Smith Patient Instructions You were admitted to the hospital for pericarditis and a pericardial effusion (inflammation of the lining around the heart and fluid collection in the lining around the heart), you were treated with medications including colchicine to reduce inflammation and prevent recurrence as well as high dose aspirin for pain and to decrease inflammation as well as lidocaine patch for pain. We also started you on atorvastatin for high cholesterol and metoprolol for your heart. ?? It is recommended that you follow-up with your primary care physician in 1-2 weeks. Also please follow up with Cardiology (Dr. Conrad) in 2-4 weeks. ?? Should you experience any??re-occurrence of chest pain??not controlled by medications, also shortness of breath, weakness, lightheadedness, fainting,??fevers or chills please do not hesitate to call 911,??return to the emergency department or seek urgent medical care. ?? It was??our pleasure taking care of you during your stay and we wish you all the best in your recovery. Post Discharge Care Discharge Prescriptions ?ePrescribed, ??01/29/23 12:54:00 EST Results Discharge Labs BLOOD COUNT & DIFF WBC 4.9 k/mm3 ()?? 01/27/2023 09:02 RBC 4.43 m/mm3 ()?? 01/27/2023 09:02 Hgb 13.2 Gm/dL ()?? 01/27/2023 09:02 Hct 42.7 % ()?? 01/27/2023 09:02 MCV 96.4 femtoliters ()?? 01/27/2023 09:02 MCH 29.8 pg ()?? 01/27/2023 09:02 MCHC 30.9 g/dL (Low)?? 01/27/2023 09:02 Platelet Count 304 k/mm3 ()?? 01/27/2023 09:02 RDW-SD 46.4 femtoliters ()?? 01/27/2023 09:02 MPV 8.9 femtoliters (Low)?? 01/27/2023 09:02 Nucleated RBC (Automated) 0.0 #/100 WBC'S ()?? 01/27/2023 09:02 Abs. NRBC 0.0 k/mm3 ()?? 01/27/2023 09:02 Abs. Neut 4.6 k/mm3 ()?? 01/21/2023 20:23 Abs. Lymph 1.4 k/mm3 ()?? 01/21/2023 20:23 Abs. Hunt 0.9 k/mm3 ()?? 01/21/2023 20:23 Abs. Eo 0.0 k/mm3 ()?? 01/21/2023 20:23 Abs. Baso 0.0 k/mm3 ()?? 01/21/2023 20:23 Neut % 65.8 % ()?? 01/21/2023 20:23 Lymph % 20.0 % ()?? 01/21/2023 20:23 Hunt % 13.2 % (High)?? 01/21/2023 20:23 Eos % 0.3 % ()?? 01/21/2023 20:23 Baso % 0.3 % ()?? 01/21/2023 20:23 Hemoglobin (POC) POC Cartridge 15.0 Gm/dL ()?? 01/21/2023 20:24 Hematocrit (POC) POC Cartridge 44 % ()?? 01/21/2023 20:24 Imm Gran 0.4 % ()?? 01/21/2023 20:23 Abs. Imm Gran 0.0 k/mm3 ()?? 01/21/2023 20:23 ?? CARDIAC Nt-Probnp 1169 pg/mL (High)?? 01/21/2023 20:23 High Sensitivity Troponin (HSTnT) 913 ng/L (Critical)?? 01/22/2023 06:12 ?? CHEM GENERAL Sodium 141 mmol/L ()?? 01/27/2023 09:02 Potassium 4.2 mmol/L ()?? 01/27/2023 09:02 Chloride 110 mmol/L (High)?? 01/27/2023 09:02 Bicarbonate Level 19 mmol/L (Low)?? 01/27/2023 09:02 Anion Gap 12 ()?? 01/27/2023 09:02 Sodium (POC) POC Cartridge 140 mmol/L ()?? 01/21/2023 20:24 Potassium (POC) POC Cartridge 3.5 mmol/L (Low)?? 01/21/2023 20:24 Chloride (POC) POC Cartridge 109 mmol/L (High)?? 01/21/2023 20:24 Glucose Level 130 mg/dL (High)?? 01/26/2023 06:38 Glucose (POC) POC Cartridge 198 (High)?? 01/21/2023 20:24 Hemoglobin A1C (Monitoring) 5.8 % (High)?? 01/22/2023 02:10 BUN 12 mg/dL ()?? 01/27/2023 09:02 BUN (POC) POC Cartridge 8 mg/dL ()?? 01/21/2023 20:24 Creatinine-Blood 0.7 mg/dL ()?? 01/27/2023 09:02 Creatinine (POC) POC Cartridge 1.0 mg/dL ()?? 01/21/2023 20:24 Estimated GFR Creatinine 93 ML/MIN/1.73 M2 ()?? 01/27/2023 09:02 Calcium 8.8 mg/dL ()?? 01/26/2023 06:38 Calcium, Ionized pH Corrected 1.20 mmol/L ()?? 01/21/2023 20:23 Ionized Calcium (POC) POC Cartridge 1.15 mmol/L ()?? 01/21/2023 20:24 Phosphorus 3.1 mg/dL ()?? 01/26/2023 06:38 Magnesium 2.0 mg/dL ()?? 01/26/2023 06:38 Protein, Total 6.3 Gm/dL ()?? 01/22/2023 02:10 Albumin 3.8 Gm/dL ()?? 01/22/2023 02:10 AG Ratio 1.5 ()?? 01/22/2023 02:10 Alkaline Phosphatase 100 units/L ()?? 01/22/2023 02:10 Lipase 40 units/L ()?? 01/21/2023 20:23 AST (SGOT) 85 units/L (High)?? 01/22/2023 02:10 ALT (SGPT) 50 units/L (High)?? 01/22/2023 02:10 Bilirubin, Total 0.3 mg/dL ()?? 01/22/2023 02:10 Lactate 2.0 mmol/L ()?? 01/22/2023 20:29 C-Reactive Protein 3.5 mg/dL (High)?? 01/22/2023 16:20 ? COAG INR 1.0 ()?? 01/21/2023 20:23 Protime (PT) 10.5 seconds ()?? 01/21/2023 20:23 APTT <22.0 seconds (Low)?? 01/21/2023 20:23 ? ENDOCRINE/TUMOR MARKER TSH 3.73 uIU/mL ()?? 01/21/2023 20:23 ? HEME OTHER Sed Rate 26 mm/hr (High)?? 01/22/2023 16:20 Hold Lavender Top SPECIMEN DISCARDED AFTER 24 HOURS. ()?? 01/22/2023 06:30 ?? LIPID STUDIES Cholesterol 260 mg/dL (High)?? 01/22/2023 02:10 Triglycerides 122 mg/dL ()?? 01/22/2023 02:10 HDL Cholesterol 67 mg/dL ()?? 01/22/2023 02:10 LDL Cholesterol 169 mg/dL (High)?? 01/22/2023 02:10 Non HDL Cholesterol 193 mg/dL (High)?? 01/22/2023 02:10 ? MISC. CHEMISTRY Hold Gel Top SPECIMEN DISCARDED AFTER 1 WEEK ()?? 01/22/2023 06:30 ? UA/URINALYSIS Appear/Color, Urine YELLOW ()?? 01/22/2023 03:28 Specific [place], Urine >1.050 (High)?? 01/22/2023 03:28 pH, Urine 6.5 ()?? 01/22/2023 03:28 Albumin, Urine 1+ (Abnormal)?? 01/22/2023 03:28 Glucose, Urine NEGATIVE ()?? 01/22/2023 03:28 Ketones, Urine NEGATIVE ()?? 01/22/2023 03:28 Bilirubin, Urine NEGATIVE ()?? 01/22/2023 03:28 Hemoglobin, Urine NEGATIVE ()?? 01/22/2023 03:28 Nitrite, Urine NEGATIVE ()?? 01/22/2023 03:28 Leukocyte, Urine NEGATIVE ()?? 01/22/2023 03:28 Urobilinogen NORMAL mg/dL ()?? 01/22/2023 03:28 WBC's, Urine NONE SEEN /HPF ()?? 01/22/2023 03:28 RBC's, Urine <1 /HPF ()?? 01/22/2023 03:28 Squamous Epith 3 /HPF ()?? 01/22/2023 03:28 Hyaline Cast 1 LPF ()?? 01/22/2023 03:28 Granular Cast 1 /LPF ()?? 01/22/2023 03:28 Mucus SLIGHT /LPF ()?? 01/22/2023 03:28 Hold Urine Culture Testing available 48 hours from time of collection. ()?? 01/22/2023 03:28 ?? VIROLOGY Influenza A PCR NEGATIVE ()?? 01/21/2023 20:37 Influenza B PCR NEGATIVE ()?? 01/21/2023 20:37 RSV PCR NEGATIVE ()?? 01/21/2023 20:37 COVID-19 PCR Specimen Source NASAL ()?? 01/27/2023 05:46 COVID-19 PCR Result NEGATIVE ()?? 01/27/2023 05:46 ? Imaging(s) ?CT Angio Chest ?? 01/21/2023 21:20??by Ajith LOPEZ, Keron Forrest ? ANGIOGRAPHIC FINDINGS: ?? No aortic dissection or aneurysm. Normal three vessel arch without branch vessel stenosis. ?? Pulmonary arteries are normal in caliber. No evidence of central pulmonary embolism on this study performed without dedicated technique. ?? Abdominal aorta: No aortic aneurysm or dissection. ?? Celiac axis: Patent. ?? Superior mesenteric artery: Patent. ?? Right renal artery: Patent. ?? Left renal artery: Patent. ?? Inferior mesenteric artery: Patent. ?? Visualized iliac arteries: Patent. ?? NON-ANGIOGRAPHIC FINDINGS: ?? Upper Leather Sorter View Findings, Lines and Tubes: None. ?? Trachea and Airways: Patent without evidence of tracheal or endobronchial lesion. ?? Lungs and Pleura: Patchy density both lungs likely atelectasis. Diffuse somewhat hazy density also noted throughout both lungs. No discrete consolidation identified. No effusion or pneumothorax. ?? Mediastinum and tiara: No mass or hematoma. No mediastinal or hilar lymphadenopathy. No esophageal abnormality. ?? Heart: There is pericardial effusion estimated at 1 cm maximal thickness. This does appear slightlyhyperdense measuring 50 Hounsfield units which may represent proteinaceous fluid or blood products. ?? Chest Wall Soft Tissues: Normal. ?? Diaphragm : No significant abnormality. ?? Liver: Normal. ?? Gallbladder: Absent consistent with prior cholecystectomy. ?? Bile ducts: No biliary ductal dilation. ?? Spleen: Normal. ?? Pancreas: Normal. ?? Adrenal glands: Normal. ?? Kidneys and ureters: 3 mm calcific location noted in the right interpolar region. No hydronephrosis. ?? Stomach, small bowel, and large bowel: Visualized stomach and bowel are normal. ?? Peritoneum and retroperitoneum: No ascites or pneumoperitoneum. No omental or mesenteric lesions. ?? Lymph nodes: No enlarged lymph nodes. ?? Abdominal wall: Unremarkable. ?? Bones: No acute abnormality. ?? IMPRESSION: ?? Hyperdense pericardial effusion. Possible proteinaceous fluid or blood products. ?? Diffuse hazy density both lungs is nonspecific. This may in part be related to volume loss, though infection, likely viral, is also possible. I do not see septal thickening or specific findings to indicate pulmonary edema. ?? No significant aortic abnormality. No pulmonary embolus. ?CT Angio Abdomen ?? 01/21/2023 21:20??by Keron Canseco MD ? ANGIOGRAPHIC FINDINGS: ?? No aortic dissection or aneurysm. Normal three vessel arch without branch vessel stenosis. ?? Pulmonary arteries are normal in caliber. No evidence of central pulmonary embolism on this study performed without dedicated technique. ?? Abdominal aorta: No aortic aneurysm or dissection. ?? Celiac axis: Patent. ?? Superior mesenteric artery: Patent. ?? Right renal artery: Patent. ?? Left renal artery: Patent. ?? Inferior mesenteric artery: Patent. ?? Visualized iliac arteries: Patent. ?? NON-ANGIOGRAPHIC FINDINGS: ?? Upper Leather Sorter View Findings, Lines and Tubes: None. ?? Trachea and Airways: Patent without evidence of tracheal or endobronchial lesion. ?? Lungs and Pleura: Patchy density both lungs likely atelectasis. Diffuse somewhat hazy density also noted throughout both lungs. No discrete consolidation identified. No effusion or pneumothorax. ?? Mediastinum and tiara: No mass or hematoma. No mediastinal or hilar lymphadenopathy. No esophageal abnormality. ?? Heart: There is pericardial effusion estimated at 1 cm maximal thickness. This does appear slightlyhyperdense measuring 50 Hounsfield units which may represent proteinaceous fluid or blood products. ?? Chest Wall Soft Tissues: Normal. ?? Diaphragm : No significant abnormality. ?? Liver: Normal. ?? Gallbladder: Absent consistent with prior cholecystectomy. ?? Bile ducts: No biliary ductal dilation. ?? Spleen: Normal. ?? Pancreas: Normal. ?? Adrenal glands: Normal. ?? Kidneys and ureters: 3 mm calcific location noted in the right interpolar region. No hydronephrosis. ?? Stomach, small bowel, and large bowel: Visualized stomach and bowel are normal. ?? Peritoneum and retroperitoneum: No ascites or pneumoperitoneum. No omental or mesenteric lesions. ?? Lymph nodes: No enlarged lymph nodes. ?? Abdominal wall: Unremarkable. ?? Bones: No acute abnormality. ?? IMPRESSION: ?? Hyperdense pericardial effusion. Possible proteinaceous fluid or blood products. ?? Diffuse hazy density both lungs is nonspecific. This may in part be related to volume loss, though infection, likely viral, is also possible. I do not see septal thickening or specific findings to indicate pulmonary edema. ?? No significant aortic abnormality. No pulmonary embolus. ?Echocardiogram - Complete ?? 01/22/2023 07:45??by Lupe Tuttle MD ?Left Ventricle/Interventricular Septum ??The left ventricle is poorly visualized. Despite use of echocontrast there ??is suboptimal endocardial definition in some views and images are off axis. ??the apex appears akinetic. Function is moderately reduced, EF and wall ??motion cannot be adequately assessed. There is no evidence of left ??ventricular thrombus. ?? Left Atrium/Interatrial Septum ??The left atrium is poorly visualized. ?? Aortic Valve ??The aortic valve is poorly visualized. There is no significant aortic ??stenosis. There is no aortic regurgitation. ?? Mitral Valve ??The mitral valve is poorly visualized. ?? Aorta ??The aortic root is normal in size. ?? Right Ventricle ??The right ventricle is poorly visualized. ?? Right Atrium ??The right atrium is poorly visualized. ?? Pulmonic Valve ??The pulmonic valve is poorly visualized. ?? Tricuspid Valve ??The tricuspid valve is poorly visualized. ?? Pumonary Artery ??An accurate pulmonary artery pressure could not be obtained. ?? Venous Structures ??The inferior vena cava appears mildly dilated. Inspiratory collapse is not ??adequately evaluated. ?? Pericardium/Extracardiac ??Pericardium is not well visualized. There is a small circumferential ??pericardial effusion. Hemodynamic assessment cannot be made. ?? Summary ??The left ventricle is poorly visualized. Despite use of echocontrast there ??is suboptimal endocardial definition in some views and images are off axis. ??the apex appears akinetic. Function is moderately reduced, EF and wall ??motion cannot be adequately assessed. There is no evidence of left ??ventricular thrombus. ??The aortic valve is poorly visualized. There is no significant aortic ??stenosis. There is no aortic regurgitation. ??The right ventricle is poorly visualized. ??Pericardium is not well visualized. There is a small circumferential ??pericardial effusion. Hemodynamic assessment cannot be made. ?? Comparison ??Comparison is made to the study of January 22, 2023. Technically limited ??study with suboptimal visualization of cardiac structures. Consider ??alternate modality for assessment. ?CT Heart/Coronary/3D/Morph ?? 01/24/2023 11:43??by Annalisa Vo MD ? FINDINGS: ?? Technical: The image quality is mildly degraded by body habitus and cardiac motion. The contrast enhancement is excellent. At the time of coronary imaging, the instantaneous heart rate was 61 bpm. The EKG tracing showed small QRS wave and elevated ST wave. ?? Visualized Portions of Extracardiac Structures: Thoracic aorta: Normal size aorta. Pulmonary arteries: No significant findings. Lungs: There is small-sized left pleural effusion, with left lower lobe partial atelectasis. There is right lower lobe partial atelectasis. Mediastinum and tiara: There is no adenopathy. Bones: No acute findings. Upper abdomen: There is fatty infiltration of the liver ? Heart and Valves: ?? Redemonstrated is a small size pericardial fluid measuring 47 Hounsfield units suggesting complex fluid, unchanged from 01/21/23. The depth of the fluid measures up to 1.5 cm. ?? Left Ventricle: Size and morphology appear normal. Right Ventricle: Borderline enlarged right ventricle. ?? Atria: Upper normal size left atrium. Normal-sized right atrium. Aortic valve: Tricuspid ?? Coronary Artery Angiography: ?? Dominance: Right dominant. ?? There is no coronary artery calcification. Image numbers below refer to series 404 unless otherwise noted. Left Main: The ostium is normally positioned. It is patent. It branches into LAD, small ramus intermedius, circumflex. ?? Left Anterior Descending: Proximal segment is patent. First diagonal branch is small, image 64, probably patent. Mid LAD is patent. Second diagonal branch is small and patent, image 87. Near the apex, the distal LAD is small and there is poor opacification as seen on image 148 [id number]. This may be artifactual although occlusion cannot be entirely excluded. ?? Left Circumflex Artery: It is suboptimally seen, but probably patent. It terminates as an obtuse marginal branch. ?? Ramus Intermedius: It is a small vessel and patent, image 63. ?? Right Coronary Artery: The ostium is normally positioned. There is mild smooth short segment about 40% narrowing at the most proximal RCA. There is no obvious plaque. ?? Acute marginal is patent. The PDA branch is small and not well seen. Posterior lateral ventricular branch is patent. ? IMPRESSION: ?? Mildly limited exam due to body habitus and cardiac motion artifact. ?? Left Anterior Descending: Near the apex, the distal LAD is small and there is poor opacification, which may be artifactual although occlusion cannot be entirely excluded. The remainder LAD is patent. ?? Left Main: It is normal. ?? Left Circumflex Artery: It is suboptimally seen, but probably patent. ?? Right Coronary Artery: About 40% short segment smooth stenosis at the most proximal RCA with no obvious plaque. This may relate to vascular spasm. RCA dominance. ?? Unchanged small size complex pericardial fluid. ?? Borderline enlarged right ventricle. ?? Small-sized left pleural effusion with left lower lobe partial atelectasis. ? 45_ minutes spent on discharge * Jyoti Sheth RN: PERFORM Event Display: Patient Education/Instruction Authored Date: [id number] [place] [address] Name: REBA STEVENSON : 1960 Visit: 01/22/2023 00:48:00 Current Date: 01/30/2023 12:42 Account: [id number] Inpatient Adult Discharge Instructions We would like to thank you for allowing us to assist you with your healthcare needs. The following includes patient education materials and information regarding your injury/illness. Our entire staffstrives to provide an excellent experience for our patients and their families. PLEASE ENSURE YOU FOLLOW-UP PER THE INSTRUCTIONS BELOW! ?? YOUR OPINION IS IMPORTANT TO US! Please complete the survey you may receive by mail or email. Your feedback will be used to make improvements to the healthcare experiences of our patients and their families. Surveys are administered by [employer]. ?? If further treatment with your primary care physician or another doctor is recommended, it is important for you to keep the appointment. Call your primary care physician or return to the Emergency Department immediately if your condition worsens, fails to improve, or new symptoms develop. If you need to find a doctor, you can call [facility] [employer] for a referral at [phone] or toll free at [email or web address] ([phone]) or log in to [email or web address].. ?? You can view and manage your care through the patient portal or by using a health care laureano of your choosing. [employer] is a website that allows you to securely view your medical information including your hospital discharge summary, office visit summaries, medications and follow-up visits. You can also request appointments, renew medications, and request access to your medical information using a health care laureano of your choosing, or just ask a question. You can enroll at [email or web address] or register during your next office visit. You have been discharged from [facility], Patient Care Unit: W4. If you have any questions regarding these instructions after you leave, please call us and we will be happy to assist you. [facility] Your Care Team Consulting Providers Efren Antonio DO; Su LOPEZ, Philomena; Brigitte LOPEZ, Skyler Neumann Discharging Providers Zbigniew GAR, Hanna Reason for Admission General medical Your Diagnosis Hypotension Chest pain Pericarditis, acute Pericardial effusion with cardiac tamponade Tests Performed Below is a partial list of the tests performed during your hospitalization. You may have had other tests and procedures not included in this list. Please discuss all test results with your provider. Basic Metabolic Panel BUN BUN POC CARTRIDGE C-REACTIVE PROTEIN Calcium Ionized CALCIUM IONIZED POC CART CBC CHLORIDE POC CARTRIDGE COMPLETE CBC WITH DIFF Comprehensive Metabolic Panel COVID-19 (2019 Novel Coronavirus) PCR COVID-19, RSV, and Flu A/B, Rapid PCR Creatinine CREATININE POC CARTRIDGE CRP Electrolytes ESR GLUCOSE POC CARTRIDGE HEMATOCRIT POC CARTRIDGE Hemoglobin A1C (Monitoring) HEMOGLOBIN POC CARTRIDGE High??Sensitivity??Troponin T HOLD GEL TUBE HOLD LAVENDER TUBE INR Lactate Level Lactic Acid Level Lipase Lipid Panel Lytes Magnesium Level Phosphorus Level POTASSIUM POC CARTRIDGE ProBNP PTT SODIUM POC CARTRIDGE Troponin T, High Sensitivity TSH with T4 Reflex (Adults Only) Urinalysis w/hold for Urine Culture CT Angio Abdomen CT Angio Chest CT Heart/Coronary/3D/Morph XR Chest Portable Primary Care Provider Mook Tompkins MD Advance Directive Health Care Proxy on File Yes - Health Care Proxy Discharge Vitals Temperature: 98 DegF Height: 154 cm Pulse Rate: 80 bpm Weight: 86.8 kg Respiratory Rate: 20 br/min Body Mass Index:??39.26 kg/m2??Critical Systolic Blood Pressure:??145 mm Hg??High Body surface area: 2 Diastolic Blood Pressure: 71 mm Hg ?? Oxygen Saturation: 95 % ?? Studies Pending All tests and labs ordered during this hospital stay have been completed unless listed below. Please discuss all pending results with your provider listed above in these instructions. ?? Add On Lab Order Adenosine Deaminase Pericardial Fluid COVID-19 (2019 Novel Coronavirus) PCR Fluid Differential Glucose Fluid Hold Lavender Tube (BB) LDH Fluid pH Fluid What to do next Instructions From Your Doctor You were admitted to the hospital for pericarditis and a pericardial effusion (inflammation of the lining around the heart and fluid collection in the lining around the heart), you were treated with medications including colchicine to reduce inflammation and prevent recurrence as well as high dose aspirin for pain and to decrease inflammation as well as lidocaine patch for pain. We also started you on atorvastatin for high cholesterol and metoprolol for your heart. ?? It is recommended that you follow-up with your primary care physician in 1-2 weeks. Also please follow up with Cardiology (Dr. Conrad) in 2-4 weeks. ?? Should you experience any??re-occurrence of chest pain??not controlled by medications, also shortness of breath, weakness, lightheadedness, fainting,??fevers or chills please do not hesitate to call 911,??return to the emergency department or seek urgent medical care. ?? It was??our pleasure taking care of you during your stay and we wish you all the best in your recovery. Discharge Orders You Need to Schedule the Following Appointments Follow Up with??Mook Tompkins MD When??Within 1 to 2 weeks Where: [address] [facility] [place] [address]- Follow Up with??[place] LOPEZ, Home [facility] When??Within 2 to 3 weeks Why: an appointment is being arranged for you by Dr Conrad's office with his [employer] Jyoti Smith Where: [address] [facility], [address] [facility] [place] [place] [address]- Discharge Medications REBA STEVENSON :1960 Visit Date:01/22/2023 Medications: Please continue your medications until treatment is completed or stopped by your provider. Medications not listed below should be discontinued. Discuss any questions related to medications with your provider. What How Much When Instructions Next Dose New Aspirin (aspirin 81 mg oral delayed release tablet) 1 tab(s) Oral Daily Refills: 3 Pickup at [facility] Due to start after the aspirin taper in 3 weeks. New Aspirin (aspirin buffered 325 mg oral tablet) See instructions 1 tablet by mouth 3 times a day for 7 days then 1 tablet by mouth 2 times a day for 7 days then 1 tablet a day for 7 days then change to 81 mg daily ?? Pickup at [facility] 2nd dose due this afternoon at 3p.m. New Atorvastatin (atorvastatin 80 mg oral tablet) 1 tab(s) Oral Daily at Bedtime further refills by pcp or cardiology ?? Pickup at [facility] Due tonight at bedtime. New Colchicine (colchicine 0.6 mg oral tablet) 1 tab(s) Oral Twice a day stop after 90 days ?? Pickup at [facility] Due tonight at 9 p.m. New Lidocaine Topical (lidocaine 5% topical film) 1 patch Topically Daily Apply for chest or rib discomfort. Please apply at 7AM AND REMOVE AT 7PM EACH DAY ?? Pickup at [facility] Take off patch at 9 p.m. and reapply tomorrow 3/3 in the morning. New Metoprolol (metoprolol 50 mg oral tablet, extended release) 1 tab(s) Oral Daily in the morning further refills per pcp/ cardiology ?? Pickup at [facility] Due tomorrow 3/3 in the morning. Changed Alendronate (alendronate 70 mg oral tablet) 1 tab(s) Oral Every week takes on sundays ?? Due on Friday. Changed Carbamazepine (carbamazepine 200 mg oral capsule, extended release) 2 capsule Oral Daily Due tomorrow 3/3 in the morning. Changed Miscellaneous Rx (CALCIUM CITRATE-VIT D3 TABLET) Not given today. Changed Topiramate (Topamax 25 mg oral tablet) 1 tab(s) Oral Twice a day Duration: 90 Days Due tonight at 9 pm. Changed Topiramate (Topamax 50 mg oral tablet) 1 tab(s) Oral Twice a day Duration: 90 Days Due tonight at 9 p.m. Changed Topiramate (topiramate 200 mg oral tablet) See instructions TAKE 1 TABLET BY MOUTH TWICE DAILY. ?? Due tonight at 9 p.m. Changed rivaroxaban (Xarelto 20 mg oral tablet) 1 tab(s) Oral Daily before dinner Due today before dinner. Unchanged Acetaminophen (Tylenol 8 Hour 650 mg oral tablet, extended release) 2 tab(s) Oral Every 8 hours as needed for as needed for fever She had a dose today at 1143 a.m. Unchanged Loratadine (Claritin 10 mg oral tablet) 1 tab(s) Oral Daily Not given today. Unchanged Lorazepam (Ativan 0.5 mg oral tablet) See Instructions 1 tablet By Mouth 30 minutes before test; may repeat once at test time if needed. ?? Unchanged Omeprazole (Prilosec OTC) 20 Milligram Oral Twice a day Due tonight at 9 p.m. Pharmacy Information [facility]: [address] [place] [phone] ?? What How Much When Comments Stop Taking Calcium And Vitamin D Combination (Citracal Calcium + D Slow Release 600 mg-500 intl units oral tablet, extended release) 2 tab(s) Oral Daily in the morning Stop Taking Cholecalciferol (Vitamin D3 400 intl units oral capsule) 1 capsule Oral Daily Stop Taking Docusate (Colace sodium 100 mg oral capsule) 1 capsule Oral Twice a day Stop Taking Ocular Lubricant (Refresh) Both eyes Twice a day Stop Taking Ondansetron (Zofran 4 mg oral tablet) 1 tab(s) Oral Every 8 hours Stop Taking PEG Electrolyte Solution (MiraLax) 17 gram Oral Daily Stop Taking PEG Electrolyte Solution (NuLYTELY [place] oral powder for reconstitution) 240 Milliliter Oral Every 10 minutes Stop Taking Risedronate (Actonel 35 mg oral tablet) 1 tab(s) Oral Test Results Below is a partial list of the most recent Laboratory test results done prior to this discharge. You may have had other tests and procedures not included in this list. Please discuss all test resultswith your provider. Basic Metabolic Panel (01/26/2023) ???Sodium - 140 mmol/L???Potassium - 5.0 mmol/L???Chloride - 112 mmol/L???Bicarbonate Level - 16 mmol/L???Anion Gap - 12???Glucose Level - 130 mg/dL???BUN - 10 mg/dL???Creatinine-Blood - 0.6 mg/dL???Estimated GFR Creatinine - 99 ML/MIN/1.73 M2???Calcium - 8.8 mg/dL BUN (01/27/2023) ???BUN - 12 mg/dL BUN POC CARTRIDGE (01/21/2023) ???BUN (POC) POC Cartridge - 8 mg/dL C-REACTIVE PROTEIN (01/22/2023) ???C-Reactive Protein - 1.9 mg/dL Calcium Ionized (01/21/2023) ???Calcium, Ionized pH Corrected - 1.20 mmol/L CALCIUM IONIZED POC CART (01/21/2023) ???Ionized Calcium (POC) POC Cartridge - 1.15 mmol/L CBC (01/27/2023) ???WBC - 4.9 k/mm3???RBC - 4.43 m/mm3???Hgb - 13.2 Gm/dL???Hct - 42.7 %???MCV - 96.4 femtoliters???MCH - 29.8 pg???MCHC - 30.9 g/dL???Platelet Count - 304 k/mm3???RDW-SD - 46.4 femtoliters???MPV - 8.9 femtoliters???Nucleated RBC (Automated) - 0.0 #/100 WBC'S???Abs. NRBC - 0.0 k/mm3 CHLORIDE POC CARTRIDGE (01/21/2023) ???Chloride (POC) POC Cartridge - 109 mmol/L COMPLETE CBC WITH DIFF (01/21/2023) ???WBC - 7.0 k/mm3???RBC - 4.71 m/mm3???Hgb - 14.0 Gm/dL???Hct - 45.1 %???MCV - 95.8 femtoliters???MCH - 29.7 pg???MCHC - 31.0 g/dL???Platelet Count - 173 k/mm3???RDW-SD - 46.3 femtoliters???MPV - 9.1 femtoliters???Nucleated RBC (Automated) - 0.0 #/100 WBC'S???Abs. NRBC - 0.0 k/mm3???Abs. Neut - 4.6 k/mm3???Abs. Lymph - 1.4 k/mm3???Abs. Hunt - 0.9 k/mm3???Abs. Eo - 0.0 k/mm3???Abs. Baso - 0.0 k/mm3???Neut % - 65.8 %???Lymph % - 20.0 %???Hunt % - 13.2 %???Eos % - 0.3 %???Baso % - 0.3 %???Imm Gran - 0.4 %???Abs. Imm Gran - 0.0 k/mm3 Comprehensive Metabolic Panel (01/22/2023) ???Sodium - 137 mmol/L???Potassium - 4.5 mmol/L???Chloride - 107 mmol/L???Bicarbonate Level - 17 mmol/L???Anion Gap - 13???Glucose Level - 178 mg/dL???BUN - 9 mg/dL???Creatinine-Blood - 0.8 mg/dL???Estimated GFR Creatinine - 80 ML/MIN/1.73 M2???Calcium - 9.1 mg/dL???Protein, Total - 6.3 Gm/dL???Albumin - 3.8 Gm/dL???AG Ratio - 1.5???Alkaline Phosphatase - 100 units/L???AST (SGOT) - 85 units/L???ALT (SGPT) - 50 units/L???Bilirubin, Total - 0.3 mg/dL COVID-19 (2019 Novel Coronavirus) PCR (01/27/2023) ???COVID-19 PCR Specimen Source - NASAL???COVID-19 PCR Result - NEGATIVE COVID-19, RSV, and Flu A/B, Rapid PCR (01/21/2023) ???Influenza A PCR - NEGATIVE???Influenza B PCR - NEGATIVE???RSV PCR - NEGATIVE???COVID-19 PCR Specimen Source - NASAL???COVID-19 PCR Result - NEGATIVE Creatinine (01/27/2023) ???Creatinine-Blood - 0.7 mg/dL???Estimated GFR Creatinine - 93 ML/MIN/1.73 M2 CREATININE POC CARTRIDGE (01/21/2023) ???Creatinine (POC) POC Cartridge - 1.0 mg/dL CRP (01/22/2023) ???C-Reactive Protein - 3.5 mg/dL Electrolytes (01/27/2023) ???Sodium - 141 mmol/L???Potassium - 4.2 mmol/L???Chloride - 110 mmol/L???Bicarbonate Level - 19 mmol/L???Anion Gap - 12 ESR (01/22/2023) ???Sed Rate - 26 mm/hr GLUCOSE POC CARTRIDGE (01/21/2023) ???Glucose (POC) POC Cartridge - 198 HEMATOCRIT POC CARTRIDGE (01/21/2023) ???Hematocrit (POC) POC Cartridge - 44 % Hemoglobin A1C (Monitoring) (01/22/2023) ???Hemoglobin A1C (Monitoring) - 5.8 % HEMOGLOBIN POC CARTRIDGE (01/21/2023) ???Hemoglobin (POC) POC Cartridge - 15.0 Gm/dL High??Sensitivity??Troponin T (01/22/2023) ???High Sensitivity Troponin (HSTnT) - HEMOLYZED HOLD GEL TUBE (01/22/2023) ???Hold Gel Top - SPECIMEN DISCARDED AFTER 1 WEEK HOLD LAVENDER TUBE (01/22/2023) ???Hold Lavender Top - SPECIMEN DISCARDED AFTER 24 HOURS. INR (01/21/2023) ???INR - 1.0???Protime (PT) - 10.5 seconds Lactate Level (01/22/2023) ???Lactate - 2.0 mmol/L Lactic Acid Level (01/21/2023) ???Lactate - 4.3 mmol/L Lipase (01/21/2023) ???Lipase - 40 units/L Lipid Panel (01/22/2023) ???Cholesterol - 260 mg/dL???Triglycerides - 122 mg/dL???HDL Cholesterol - 67 mg/dL???LDL Cholesterol - 169 mg/dL???Non HDL Cholesterol - 193 mg/dL Lytes (01/24/2023) ???Sodium - 144 mmol/L???Potassium - 4.0 mmol/L???Chloride - 111 mmol/L???Bicarbonate Level - 19 mmol/L???Anion Gap - 14 Magnesium Level (01/26/2023) ???Magnesium - 2.0 mg/dL Phosphorus Level (01/26/2023) ???Phosphorus - 3.1 mg/dL POTASSIUM POC CARTRIDGE (01/21/2023) ???Potassium (POC) POC Cartridge - 3.5 mmol/L ProBNP (01/21/2023) ???Nt-Probnp - 1169 pg/mL PTT (01/21/2023) ? ?APTT - <22.0 seconds SODIUM POC CARTRIDGE (01/21/2023) ???Sodium (POC) POC Cartridge - 140 mmol/L Troponin T, High Sensitivity (01/22/2023) ???High Sensitivity Troponin (HSTnT) - 913 ng/L TSH with T4 Reflex (Adults Only) (01/21/2023) ???TSH - 3.73 uIU/mL Urinalysis w/hold for Urine Culture (01/22/2023) ? ?Appear/Color, Urine - YELLOW? ?Specific [place], Urine - >1.050? ?pH, Urine - 6.5? ?Albumin, Urine - 1+???Glucose, Urine - NEGATIVE???Ketones, Urine - NEGATIVE???Bilirubin, Urine - NEGATIVE???Hemoglobin, Urine - NEGATIVE???Nitrite, Urine - NEGATIVE???Leukocyte, Urine - NEGATIVE???Urobilinogen- NORMAL? ?WBC's, Urine - NONE SEEN? ?RBC's, Urine - <1 /HPF? ?Squamous Epith - 3 /HPF? ?HyalineCast - 1 LPF???Granular Cast - 1 /LPF???Mucus - SLIGHT???Hold Urine Culture - Testing available 48 hours from time of collection. Allergies (NKA means No Known Allergies) codeine Problems Active Problems??(5) Cerebral palsy?? HLD (hyperlipidemia)?? Osteoporosis?? Partial seizures?? Severe obesity (BMI 35.0-39.9) with comorbidity?? Education Materials Below is the list of Educational Leaflet Providered with your Discharge Instructions. Lidocaine Medicated Patch?? Colchicine Oral Tablet?? Atorvastatin Oral Tablet?? Aspirin Delayed Release Oral Tablet?? Aspirin Oral Tablet?? Metoprolol Extended Release Oral Tablet?? Your Risk Factors for Heart Disease?? Risk Factors for Heart Disease?? Understanding Food and Cholesterol?? Risk Factors for Heart Disease?? Controlling Your Cholesterol?? Low-Cholesterol Diet?? Treatment for Pericardial Effusion?? Understanding Pericardial Effusion?? Pericarditis?? Understanding Transradial Cardiac Catheterization?? Having Cardiac Catheterization?? Understanding Transradial Cardiac Catheterization?? Having Cardiac Catheterization?? Valuables and Belongings I fully understand and agree that [facility] accepts no responsibility for all my personal property including clothing, toilet articles, radios, jewelry, dentures, hearing aids, rings, money, or any other property that is in my possession or is brought to me after admission. I understand certain valuables may be placed in a hospital safe for a short period of time. I understand that the hospital is not liable for loss or damage due to accident, fire, or other natural occurrence while said property is in the safe. I accept full responsibility for any personal property that I keep with me, and will not hold the hospital responsible in case of loss or disappearance. I acknowledge that i have been encouraged to send valuables and belongings home. ?? Review of Valuable and Belonging List: With patient Date for Pt to Sign Valuables/Belongings: 01/28/23 03:50:00 ?? Other Discharge Information ? Case Management Discharge Plan?? Discharge Plan?? Discharge Level of Care at Discharge: Home/Nursing Home/Foster Care ?? Pulmonary Rehab Status?? Pulmonary Rehab Discharge Status?? Respiratory Rate: 20 br/min ? Common Emergency Awareness Tips IS IT A STROKE? Act FAST and Check for these signs: FACE Does the face look uneven? ARM Does one arm drift down? SPEECH Does their speech sound strange? TIME Call at any sign of stroke ?? Heart Attack Signs Chest discomfort: Most heart attacks involve discomfort in the center of the chest and lasts more than a few minutes, or goes away and comes back. It can feel like uncomfortable pressure, squeezing, fullness or pain. Discomfort in upper body: Symptoms can include pain or discomfort in one or both arms, back, neck, jaw or stomach. Shortness of breath: With or without discomfort. Other signs: Breaking out in a cold sweat, nausea, or lightheaded. Remember, MINUTES DO MATTER. If you experience any of these heart attack warning signs, call to get immediate medical attention! ?? Smoking can increase your chances of developing chronic health problems and can cause harmful effects to other family members in your house. If you smoke, you are strongly encouraged to quit. Please call [facility] Link at [phone] or [phone] ([phone]) or log in to [email or web address] for referrals to smoking cessation programs. ?? The National Suicide Prevention Hotline is available 23/06 if you or someone you know needs to find a reason to keep living. By calling 0-562-135-Spoondate (3550) you'll be connected to a skilled, trained counselor at a crisis center in your area. INPATIENT DISCHARGE INSTRUCTIONS SIGNATURE PAGE REBA STEVENSON Location:[facility] Registration Date and Time:01/22/2023 00:48 EST Primary Care Physician: Mook Tompkins MD, REBA STANLEY, have received the above patient education materials/instructions and have verbalized understanding. If ambulance or transport services are being used I further acknowledge being given a choice of service. ?? If you need to contact me, please call me at this number: . Patient/Fire Operations Forester Name: Patient/Fire Operations Forester Signature: Relationship to Patient: Witness Name/Signature: Date: * Event Display: Cardiac Rhythm Strips Authored Date: * Event Display: Cardiac Rhythm Strips Authored Date: * Aurelia Pham RN: PERFORM Event Display: Discharge/Transfer Note Hospital Authored Date: [id number] Nursing Discharge Note Entered On: 01/27/2023 15:43 EST Performed On: 01/27/2023 15:42 EST by Aurelia Pham RN Nursing Discharge Note 2 Discharge Level of Care at Discharge : Home/Nursing Home/Foster Care Patient Left Unit Via : Wheelchair Patient Accompanied Off Unit with : Responsible adult DC Instructions Provided & Signed by Pt : Yes Patient Understands D/C Instructions : Yes Verbalized Understanding of D/C Plan By : Patient Patient Instructions Discharge Signed : Yes Did Pt have Specialty Bed or Wound Vac : No Aurelia Pham RN - 01/27/2023 15:42 EST * Aurelia Pham RN: PERFORM Event Display: Patient Education/Instruction Authored Date: [id number] Inpatient Adult Discharge Instructions [address] [address] Name: REBA STEVENSON : 1960 Visit: 01/22/2023 00:48:00 Current Date: 01/27/2023 15:43 Account: [id number] Inpatient Adult Discharge Instructions We would like to thank you for allowing us to assist you with your healthcare needs. The following includes patient education materials and information regarding your injury/illness. Our entire staffstrives to provide an excellent experience for our patients and their families. PLEASE ENSURE YOU FOLLOW-UP PER THE INSTRUCTIONS BELOW! ?? YOUR OPINION IS IMPORTANT TO US! Please complete the survey you may receive by mail or email. Your feedback will be used to make improvements to the healthcare experiences of our patients and their families. Surveys are administered by [employer] ?? If further treatment with your primary care physician or another doctor is recommended, it is important for you to keep the appointment. Call your primary care physician or return to the Emergency Department immediately if your condition worsens, fails to improve, or new symptoms develop. If you need to find a doctor, you can call [facility] for a referral at [phone] or toll free at [phone] ([phone]) or log in to [email or web address].. ?? You can view and manage your care through the patient portal or by using a health care laureano of your choosing. [employer] is a website that allows you to securely view your medical information including your hospital discharge summary, office visit summaries, medications and follow-up visits. You can also request appointments, renew medications, and request access to your medical information using a health care laureano of your choosing, or just ask a question. You can enroll at [email or web address] or register during your next office visit. You have been discharged from [facility], Patient Care Unit: S3. If you have any questions regarding these instructions after you leave, please call us and we will be happy to assist you. [facility] Your Care Team Attending Physician Houston LOPEZ, Home Gutierrez Consulting Providers Brigitte LOPEZ, Skyler Blue MD, Philomena Discharging Providers Rossana GAR, Leena Leonard Reason for Admission General medical Your Diagnosis Hypotension Chest pain Pericarditis, acute Pericardial effusion with cardiac tamponade Tests Performed Below is a partial list of the tests performed during your hospitalization. You may have had other tests and procedures not included in this list. Please discuss all test results with your provider. Basic Metabolic Panel BUN BUN POC CARTRIDGE C-REACTIVE PROTEIN Calcium Ionized CALCIUM IONIZED POC CART CBC CHLORIDE POC CARTRIDGE COMPLETE CBC WITH DIFF Comprehensive Metabolic Panel COVID-19 (2019 Novel Coronavirus) PCR COVID-19, RSV, and Flu A/B, Rapid PCR Creatinine CREATININE POC CARTRIDGE CRP Electrolytes ESR GLUCOSE POC CARTRIDGE HEMATOCRIT POC CARTRIDGE Hemoglobin A1C (Monitoring) HEMOGLOBIN POC CARTRIDGE High??Sensitivity??Troponin T HOLD GEL TUBE HOLD LAVENDER TUBE INR Lactate Level Lactic Acid Level Lipase Lipid Panel Lytes Magnesium Level Phosphorus Level POTASSIUM POC CARTRIDGE ProBNP PTT SODIUM POC CARTRIDGE Troponin T, High Sensitivity TSH with T4 Reflex (Adults Only) Urinalysis w/hold for Urine Culture CT Angio Abdomen CT Angio Chest CT Heart/Coronary/3D/Morph XR Chest Portable Primary Care Provider Mook Tompkins MD Advance Directive Health Care Proxy on File Yes - Health Care Proxy Discharge Vitals Temperature: 98.2 DegF Height: 154 cm Pulse Rate: 72 bpm Weight: 91.5 kg Respiratory Rate: 19 br/min Body Mass Index:??39.26 kg/m2??Critical Systolic Blood Pressure: 99 mm Hg Body surface area: 2 Diastolic Blood Pressure: 67 mm Hg ?? Oxygen Saturation: 95 % ?? Studies Pending All tests and labs ordered during this hospital stay have been completed unless listed below. Please discuss all pending results with your provider listed above in these instructions. ?? Add On Lab Order Adenosine Deaminase Pericardial Fluid Fluid Differential Glucose Fluid Hold Lavender Tube (BB) LDH Fluid pH Fluid What to do next Instructions From Your Doctor It has been a pleasure caring for you while you have been here at [facility] with a heart attack. ?? 1. You were treated for Pericarditis and a Pericardial effusion (inflammation of the lining around the heart and fluid collection in the lining around the heart) with medications including colchicineto reduce inflammation and prevent recurrence as well as high dose aspirin for pain and to decreaseinflammation as well as lidocaine patch for pain. We also started you on atorvastatin for high cholesterol and metoprolol for your heart. ?? 2. Please call your PCP/auto mechanic if you should develop any recurrent chest pain or discomfort, shortness of breath, fainting or nearly fainting or dizziness or lightheadedness, palpitations, shortness of breath, swelling in the legs/ankles/feet, or other concerns. Discharge Orders You Need to Schedule the Following Appointments Follow Up with??Home Conrad MD When??Within 2 to 3 weeks Why: an appointment is being arranged for you by Dr Conrad's office with his [employer] PLANT OPERATOR Jyoti Smith Where: [address] [facility], [address] [facility] [place] [address]- Follow Up with??Mook Tompkins MD When??Within 1 to 2 weeks Where: [address] [facility] [place] [address]- Discharge Medications REBA STEVENSON :1960 Visit Date:01/22/2023 Medications: Please continue your medications until treatment is completed or stopped by your provider. Medications not listed below should be discontinued. Discuss any questions related to medications with your provider. What How Much When Instructions Next Dose New Aspirin (aspirin 81 mg oral delayed release tablet) 1 tab(s) Oral Daily Refills: 3 Pickup at [facility] 01/28 tomorrow morning New Aspirin (aspirin buffered 325 mg oral tablet) See instructions 2 tablets by mouth 3 times a day for 7 days then 2 tablets by mouth 2 times a day for 7 days then 2tablets a day for 7 days then change to 81 mg daily ?? Pickup at [facility] 01/28 tomorrow morning New Atorvastatin (atorvastatin 80 mg oral tablet) 1 tab(s) Oral Daily at Bedtime further refills by pcp or cardiology ?? Pickup at [facility] 01/27 [facility] New Colchicine (colchicine 0.6 mg oral tablet) 1 tab(s) Oral Twice a day stop after 90 days ?? Pickup at [facility] 01/27 [facility] New Lidocaine Topical (lidocaine 5% topical film) 1 patch Topically Daily as needed for Pain , Moderate prn pericardial chest pain place to chest wall remove patches after 12 hours ?? Pickup at [facility] as needed New Metoprolol (metoprolol 50 mg oral tablet, extended release) 1 tab(s) Oral Daily in the morning further refills per pcp/ cardiology ?? Pickup at [facility] 01/28 tomorrow morning Changed Alendronate (alendronate 70 mg oral tablet) 1 tab(s) Oral Every week takes on sundays ?? 02/02 on Friday Changed Carbamazepine (carbamazepine 200 mg oral capsule, extended release) 2 capsule Oral Daily 01/28 tomorrow morning Changed Miscellaneous Rx (CALCIUM CITRATE-VIT D3 TABLET) daily 01/28 tomorrow morning Changed Topiramate (Topamax 25 mg oral tablet) 1 tab(s) Oral Twice a day Duration: 90 Days 01/27 [facility] Changed Topiramate (Topamax 50 mg oral tablet) 1 tab(s) Oral Twice a day Duration: Days 01/27 [facility] Changed Topiramate (topiramate 200 mg oral tablet) See instructions TAKE 1 TABLET BY MOUTH TWICE DAILY. ?? 01/27 [facility] Changed rivaroxaban (Xarelto 20 mg oral tablet) 1 tab(s) Oral Daily before dinner 01/27 at 5pm Unchanged Acetaminophen (Tylenol 8 Hour 650 mg oral tablet, extended release) 2 tab(s) Oral Every 8 hours as needed for as needed for fever as needed Unchanged Loratadine (Claritin 10 mg oral tablet) 1 tab(s) Oral Daily 01/28 tomorrow morning Unchanged Lorazepam (Ativan 0.5 mg oral tablet) See Instructions 1 tablet By Mouth 30 minutes before test; may repeat once at test time if needed. ?? as needed Unchanged Omeprazole (Prilosec OTC) 20 Milligram Oral Twice a day 01/27 [facility] Pharmacy Information [facility]: [address], [place] [phone] ?? What How Much When Comments Stop Taking Calcium And Vitamin D Combination (Citracal Calcium + D Slow Release 600 mg-500 intl units oral tablet, extended release) 2 tab(s) Oral Daily in the morning Stop Taking Cholecalciferol (Vitamin D3 400 intl units oral capsule) 1 capsule Oral Daily Stop Taking Docusate (Colace sodium 100 mg oral capsule) 1 capsule Oral Twice a day Stop Taking Ocular Lubricant (Refresh) Both eyes Twice a day Stop Taking Ondansetron (Zofran 4 mg oral tablet) 1 tab(s) Oral Every 8 hours Stop Taking PEG Electrolyte Solution (MiraLax) 17 gram Oral Daily Stop Taking PEG Electrolyte Solution (NuLYTELY [place] oral powder for reconstitution) 240 Milliliter Oral Every 10 minutes Stop Taking Risedronate (Actonel 35 mg oral tablet) 1 tab(s) Oral Test Results Below is a partial list of the most recent Laboratory test results done prior to this discharge. You may have had other tests and procedures not included in this list. Please discuss all test resultswith your provider. Basic Metabolic Panel (01/26/2023) ???Sodium - 140 mmol/L???Potassium - 5.0 mmol/L???Chloride - 112 mmol/L???Bicarbonate Level - 16 mmol/L???Anion Gap - 12???Glucose Level - 130 mg/dL???BUN - 10 mg/dL???Creatinine-Blood - 0.6 mg/dL???Estimated GFR Creatinine - 99 ML/MIN/1.73 M2???Calcium - 8.8 mg/dL BUN (01/27/2023) ???BUN - 12 mg/dL BUN POC CARTRIDGE (01/21/2023) ???BUN (POC) POC Cartridge - 8 mg/dL C-REACTIVE PROTEIN (01/22/2023) ???C-Reactive Protein - 1.9 mg/dL Calcium Ionized (01/21/2023) ???Calcium, Ionized pH Corrected - 1.20 mmol/L CALCIUM IONIZED POC CART (01/21/2023) ???Ionized Calcium (POC) POC Cartridge - 1.15 mmol/L CBC (01/27/2023) ???WBC - 4.9 k/mm3???RBC - 4.43 m/mm3???Hgb - 13.2 Gm/dL???Hct - 42.7 %???MCV - 96.4 femtoliters???MCH - 29.8 pg???MCHC - 30.9 g/dL???Platelet Count - 304 k/mm3???RDW-SD - 46.4 femtoliters???MPV - 8.9 femtoliters???Nucleated RBC (Automated) - 0.0 #/100 WBC'S???Abs. NRBC - 0.0 k/mm3 CHLORIDE POC CARTRIDGE (01/21/2023) ???Chloride (POC) POC Cartridge - 109 mmol/L COMPLETE CBC WITH DIFF (01/21/2023) ???WBC - 7.0 k/mm3???RBC - 4.71 m/mm3???Hgb - 14.0 Gm/dL???Hct - 45.1 %???MCV - 95.8 femtoliters???MCH - 29.7 pg???MCHC - 31.0 g/dL???Platelet Count - 173 k/mm3???RDW-SD - 46.3 femtoliters???MPV - 9.1 femtoliters???Nucleated RBC (Automated) - 0.0 #/100 WBC'S???Abs. NRBC - 0.0 k/mm3???Abs. Neut - 4.6 k/mm3???Abs. Lymph - 1.4 k/mm3???Abs. Hunt - 0.9 k/mm3???Abs. Eo - 0.0 k/mm3???Abs. Baso - 0.0 k/mm3???Neut % - 65.8 %???Lymph % - 20.0 %???Hunt % - 13.2 %???Eos % - 0.3 %???Baso % - 0.3 %???Imm Gran - 0.4 %???Abs. Imm Gran - 0.0 k/mm3 Comprehensive Metabolic Panel (01/22/2023) ???Sodium - 137 mmol/L???Potassium - 4.5 mmol/L???Chloride - 107 mmol/L???Bicarbonate Level - 17 mmol/L???Anion Gap - 13???Glucose Level - 178 mg/dL???BUN - 9 mg/dL???Creatinine-Blood - 0.8 mg/dL???Estimated GFR Creatinine - 80 ML/MIN/1.73 M2???Calcium - 9.1 mg/dL???Protein, Total - 6.3 Gm/dL???Albumin - 3.8 Gm/dL???AG Ratio - 1.5???Alkaline Phosphatase - 100 units/L???AST (SGOT) - 85 units/L???ALT (SGPT) - 50 units/L???Bilirubin, Total - 0.3 mg/dL COVID-19 (2019 Novel Coronavirus) PCR (01/27/2023) ???COVID-19 PCR Specimen Source - NASAL???COVID-19 PCR Result - NEGATIVE COVID-19, RSV, and Flu A/B, Rapid PCR (01/21/2023) ???Influenza A PCR - NEGATIVE???Influenza B PCR - NEGATIVE???RSV PCR - NEGATIVE???COVID-19 PCR Specimen Source - NASAL???COVID-19 PCR Result - NEGATIVE Creatinine (01/27/2023) ???Creatinine-Blood - 0.7 mg/dL???Estimated GFR Creatinine - 93 ML/MIN/1.73 M2 CREATININE POC CARTRIDGE (01/21/2023) ???Creatinine (POC) POC Cartridge - 1.0 mg/dL CRP (01/22/2023) ???C-Reactive Protein - 3.5 mg/dL Electrolytes (01/27/2023) ???Sodium - 141 mmol/L???Potassium - 4.2 mmol/L???Chloride - 110 mmol/L???Bicarbonate Level - 19 mmol/L???Anion Gap - 12 ESR (01/22/2023) ???Sed Rate - 26 mm/hr GLUCOSE POC CARTRIDGE (01/21/2023) ???Glucose (POC) POC Cartridge - 198 HEMATOCRIT POC CARTRIDGE (01/21/2023) ???Hematocrit (POC) POC Cartridge - 44 % Hemoglobin A1C (Monitoring) (01/22/2023) ???Hemoglobin A1C (Monitoring) - 5.8 % HEMOGLOBIN POC CARTRIDGE (01/21/2023) ???Hemoglobin (POC) POC Cartridge - 15.0 Gm/dL High??Sensitivity??Troponin T (01/22/2023) ???High Sensitivity Troponin (HSTnT) - HEMOLYZED HOLD GEL TUBE (01/22/2023) ???Hold Gel Top - SPECIMEN DISCARDED AFTER 1 WEEK HOLD LAVENDER TUBE (01/22/2023) ???Hold Lavender Top - SPECIMEN DISCARDED AFTER 24 HOURS. INR (01/21/2023) ???INR - 1.0???Protime (PT) - 10.5 seconds Lactate Level (01/22/2023) ???Lactate - 2.0 mmol/L Lactic Acid Level (01/21/2023) ???Lactate - 4.3 mmol/L Lipase (01/21/2023) ???Lipase - 40 units/L Lipid Panel (01/22/2023) ???Cholesterol - 260 mg/dL???Triglycerides - 122 mg/dL???HDL Cholesterol - 67 mg/dL???LDL Cholesterol - 169 mg/dL???Non HDL Cholesterol - 193 mg/dL Lytes (01/24/2023) ???Sodium - 144 mmol/L???Potassium - 4.0 mmol/L???Chloride - 111 mmol/L???Bicarbonate Level - 19 mmol/L???Anion Gap - 14 Magnesium Level (01/26/2023) ???Magnesium - 2.0 mg/dL Phosphorus Level (01/26/2023) ???Phosphorus - 3.1 mg/dL POTASSIUM POC CARTRIDGE (01/21/2023) ???Potassium (POC) POC Cartridge - 3.5 mmol/L ProBNP (01/21/2023) ???Nt-Probnp - 1169 pg/mL PTT (01/21/2023) ? ?APTT - <22.0 seconds SODIUM POC CARTRIDGE (01/21/2023) ???Sodium (POC) POC Cartridge - 140 mmol/L Troponin T, High Sensitivity (01/22/2023) ???High Sensitivity Troponin (HSTnT) - 913 ng/L TSH with T4 Reflex (Adults Only) (01/21/2023) ???TSH - 3.73 uIU/mL Urinalysis w/hold for Urine Culture (01/22/2023) ? ?Appear/Color, Urine - YELLOW? ?Specific [place], Urine - >1.050? ?pH, Urine - 6.5? ?Albumin, Urine - 1+???Glucose, Urine - NEGATIVE???Ketones, Urine - NEGATIVE???Bilirubin, Urine - NEGATIVE???Hemoglobin, Urine - NEGATIVE???Nitrite, Urine - NEGATIVE???Leukocyte, Urine - NEGATIVE???Urobilinogen- NORMAL? ?WBC's, Urine - NONE SEEN? ?RBC's, Urine - <1 /HPF? ?Squamous Epith - 3 /HPF? ?HyalineCast - 1 LPF???Granular Cast - 1 /LPF???Mucus - SLIGHT???Hold Urine Culture - Testing available 48 hours from time of collection. Allergies (NKA means No Known Allergies) codeine Problems Active Problems??(5) Cerebral palsy?? HLD (hyperlipidemia)?? Osteoporosis?? Partial seizures?? Severe obesity (BMI 35.0-39.9) with comorbidity?? Education Materials Below is the list of Educational Leaflet Providered with your Discharge Instructions. Lidocaine Medicated Patch?? Colchicine Oral Tablet?? Atorvastatin Oral Tablet?? Aspirin Delayed Release Oral Tablet?? Aspirin Oral Tablet?? Metoprolol Extended Release Oral Tablet?? Your Risk Factors for Heart Disease?? Risk Factors for Heart Disease?? Understanding Food and Cholesterol?? Risk Factors for Heart Disease?? Controlling Your Cholesterol?? Low-Cholesterol Diet?? Treatment for Pericardial Effusion?? Understanding Pericardial Effusion?? Pericarditis?? Understanding Transradial Cardiac Catheterization?? Having Cardiac Catheterization?? Understanding Transradial Cardiac Catheterization?? Having Cardiac Catheterization?? Valuables and Belongings I fully understand and agree that [facility] accepts no responsibility for all my personal property including clothing, toilet articles, radios, jewelry, dentures, hearing aids, rings, money, or any other property that is in my possession or is brought to me after admission. I understand certain valuables may be placed in a hospital safe for a short period of time. I understand that the hospital is not liable for loss or damage due to accident, fire, or other natural occurrence while said property is in the safe. I accept full responsibility for any personal property that I keep with me, and will not hold the hospital responsible in case of loss or disappearance. I acknowledge that i have been encouraged to send valuables and belongings home. ?? Review of Valuable and Belonging List: With patient Date for Pt to Sign Valuables/Belongings: 01/22/23 03:58:00 ?? Other Discharge Information ? Case Management Discharge Plan?? Discharge Plan?? Discharge Level of Care at Discharge: Home/Nursing Home/Foster Care ?? Pulmonary Rehab Status?? Pulmonary Rehab Discharge Status?? Respiratory Rate: 19 br/min ? Common Emergency Awareness Tips IS IT A STROKE? Act FAST and Check for these signs: FACE Does the face look uneven? ARM Does one arm drift down? SPEECH Does their speech sound strange? TIME Call at any sign of stroke ?? Heart Attack Signs Chest discomfort: Most heart attacks involve discomfort in the center of the chest and lasts more than a few minutes, or goes away and comes back. It can feel like uncomfortable pressure, squeezing, fullness or pain. Discomfort in upper body: Symptoms can include pain or discomfort in one or both arms, back, neck, jaw or stomach. Shortness of breath: With or without discomfort. Other signs: Breaking out in a cold sweat, nausea, or lightheaded. Remember, MINUTES DO MATTER. If you experience any of these heart attack warning signs, call to get immediate medical attention! ?? Smoking can increase your chances of developing chronic health problems and can cause harmful effects to other family members in your house. If you smoke, you are strongly encouraged to quit. Please call [facility] Link at [phone] or [phone] ([phone]) or log in to [email or web address] for referrals to smoking cessation programs. ?? The National Suicide Prevention Hotline is available 23/06 if you or someone you know needs to find a reason to keep living. By calling 3-314-585-Spoondate (5942) you'll be connected to a skilled, trained counselor at a crisis center in your area. INPATIENT DISCHARGE INSTRUCTIONS SIGNATURE PAGE REBA STEVENSON Location:[facility] Registration Date and Time:01/22/2023 00:48 EST Primary Care Physician: Mook Tompkins MD, I REBA STEVENSON, have received the above patient education materials/instructions and have verbalized understanding. If ambulance or transport services are being used I further acknowledge being given a choice of service. ?? If you need to contact me, please call me at this number: . Patient/Fire Operations Forester Name: Patient/Fire Operations Forester Signature: Relationship to Patient: Witness Name/Signature: Date: * Leena Tracy NP: PERFORM Event Display: Patient Education Leaflets Authored Date: [id number] Lidocaine Medicated Patch ?? [id number] Lidocaine Medicated Patch Brands: Absorbine Lidocaine, Lidoderm, ZTlido Uses This medicine is used for the following purposes: ??? itching ??? pain ??? skin irritation ??? skinwound ?? Instructions DO NOT take this medicine by mouth. Apply the patch to the most painful area. The patch should be removed after 8 or 12 hours depending on the brand of your product. Read the package instructions or ask your pharmacist how long the patch can be applied to the skin. Keep the medicine at room temperature. Avoid heat and direct light. You may cut the patch with scissors if needed. Be sure to cut the patch before peeling away the liner protecting the adhesive. Wash your hands before and after handling this medicine. Do not use if the pouch containing the medicine is torn or damaged. Remove the plastic liner that protects the sticky side of the patch before applying to the skin. Be sure the area of skin is clean and dry before putting on a new patch. Apply the patch only to normal looking skin. Avoid skin that is red, scraped, or damaged. Press the patch firmly for a few seconds to make sure it stays in place. If the patch does not stick, speak with your doctor or pharmacist. Do not cover the patch with bandage or tape unless instructed by your doctor or pharmacist. After removing the patch, fold it together and discard it out of reach of children and pets. Do not dispose of a used patch by flushing it into the toilet. Avoid getting the medicine in the eyes, nose, or mouth. Wash the medicine off your fingers after applying it. If the patch causes a feeling of burning or pain at the location of the patch, remove the patch until the feeling goes away. If the patch falls off or you forgot to use the patch on time, apply a new patch immediately to a different location. Replace this new patch at your next usual dosing time. Do not apply heat on the area with the patch. Avoid heating blankets, suntan beds, or hot tubs. Ask the doctor or pharmacist if you can bathe, swim or shower while wearing the patch. Clothing may be worn over the patch. Avoid touching or scratching the area of the skin after the patch is removed. Drug interactions can change how medicines work or increase risk for side effects. Tell your healthcare providers about all medicines taken. Include prescription and [id number] medicines, vitamins, and herbal medicines. Speak with your doctor or pharmacist before starting or stopping any medicine. Tell your doctor if symptoms do not get better or if they get worse. ?? Cautions Some patients taking this medicine have experienced serious side effects. Please speak with your doctor to understand the risks and benefits associated with this medicine. Tell your doctor and pharmacist if you ever had an allergic reaction to a medicine. Do not use the medication any more than instructed. Tell the doctor or pharmacist if you are , planning to be , or . Ask your doctor if patch should be removed before having an MRI scan to avoid serious ravi. Do not share this medicine with anyone who has not been prescribed this medicine. ?? Side Effects The following is a list of some common side effects from this medicine. Please speak with your doctor about what you should do if you experience these or other side effects. ??? burning or stinging ??? numbness where the medicine is applied ??? skin irritation where medicine is applied Call your doctor or get medical help right away if you notice any of these more serious side effects: ??? blurry vision ??? shallow, irregular breathing ??? dizziness or drowsiness ??? lack of energy and tiredness ??? fast, irregular, or slow heartbeat ??? mood changes ??? pale or blue skin, lips or fingernails ??? ringing in the ears ??? seizures ??? shortness of breath A few people may have an allergic reaction to this medicine. Symptoms can include difficulty breathing, skin rash, itching, swelling, or severe dizziness. If you notice any of these symptoms, seek medical help quickly. ?? Extra Please speak with your doctor, nurse, or pharmacist if you have any questions about this medicine. ?? [email or web address] IMPORTANT NOTE: This document tells you briefly how to take your medicine, but it does not tell youall there is to know about it. Your doctor or pharmacist may give you other documents about your medicine. Please talk to them if you have any questions. Always follow their advice. There is a more complete description of this medicine available in Cambodian. Scan this code on your smartphone or tablet or use the web address below. You can also ask your pharmacist for a printout. If you have any questions, please ask your pharmacist. The display and use of this drug information is subject to Terms of Use. Copyright(c) 2022 [employer]. ?? [employer]. All rights reserved. This information is not intended as a substitute for professional medical care. Always follow your healthcare professional's instructions. ?? * Rossana GAR, Leena Leonard: PERFORM Event Display: Patient Education Leaflets Authored Date: [id number] Colchicine Oral Tablet ?? [id number] Colchicine Oral Tablet Brands: Colcrys Uses This medicine is used for the following purposes: ??? genetic disorder ??? gout ??? heart ??? prevent gout ?? Instructions This medicine may be taken with or without food. Keep the medicine at room temperature. Avoid heat and direct light. Avoid grapefruit juice while on this medicine. Drug interactions can change how medicines work or increase risk for side effects. Tell your healthcare providers about all medicines taken. Include prescription and wjck-bzv-ddlkxqf medicines, vitamins, and herbal medicines. Speak with your doctor or pharmacist before starting or stopping any medicine. It is very important that you follow your doctor's instructions for all blood tests. ?? Cautions Tell your doctor and pharmacist if you ever had an allergic reaction to a medicine. Do not use the medication any more than instructed. Contact your doctor if you notice a change in the amount or darkening of your urine. Tell the doctor or pharmacist if you are , planning to be , or . Call your doctor right away if you notice any unusual bleeding or bruising. Do not share this medicine with anyone who has not been prescribed this medicine. Some patients have serious side effects from this medicine. Ask your pharmacist to show you the information from the Food and Drug Administration (FDA) and discuss it with you. ?? Side Effects The following is a list of some common side effects from this medicine. Please speak with your doctor about what you should do if you experience these or other side effects. ??? diarrhea ??? nausea and vomiting ??? stomach upset or abdominal pain Call your doctor or get medical help right away if you notice any of these more serious side effects: ??? numbness or tingling in hands and feet ??? rapid heartbeat ??? muscle weakness ??? pale or blueskin, lips or fingernails ??? shortness of breath ??? sore throat ??? unusual or unexplained tiredness or weakness ??? urinating less often A few people may have an allergic reaction to this medicine. Symptoms can include difficulty breathing, skin rash, itching, swelling, or severe dizziness. If you notice any of these symptoms, seek medical help quickly. ?? Extra Please speak with your doctor, nurse, or pharmacist if you have any questions about this medicine. ?? [email or web address].meducation.[employer]/[email or web address]/fdbpem/20 IMPORTANT NOTE: This document tells you briefly how to take your medicine, but it does not tell youall there is to know about it. Your doctor or pharmacist may give you other documents about your medicine. Please talk to them if you have any questions. Always follow their advice. There is a more complete description of this medicine available in Cambodian. Scan this code on your smartphone or tablet or use the web address below. You can also ask your pharmacist for a printout. If you have any questions, please ask your pharmacist. The display and use of this drug information is subject to Terms of Use. Copyright(c) 2022 [employer]. ?? [employer]. All rights reserved. This information is not intended as a substitute for professional medical care. Always follow your healthcare professional's instructions. ?? * Rossana GAR, Leena Leonard: PERFORM Event Display: Patient Education Leaflets Authored Date: [id number] Atorvastatin Oral Tablet ?? [id number] Atorvastatin Oral Tablet Brands: Lipitor Uses To lower high fat levels in blood. ?? Instructions This medicine may be taken with or without food. Keep the medicine at room temperature. Avoid heat and direct light. Avoid grapefruit juice while on this medicine. It is important that you keep taking each dose of this medicine on time even if you are feeling well. If you forget to take a dose on time, take it as soon as you remember. If it is almost time for thenext dose, do not take the missed dose. Return to your normal schedule. Do not take 2 doses at one time. Tell your doctor and pharmacist about all your medicines. Include prescription and wqmp-hag-evdmabaycqsotkre, vitamins, and herbal medicines. It is very important that you follow your doctor's instructions for all blood tests. ?? Cautions Tell your doctor and pharmacist if you ever had an allergic reaction to a medicine. Do not use the medication any more than instructed. Please check with your doctor before drinking alcohol while on this medicine. Contact your doctor if you notice a change in the amount or darkening of your urine. Tell the doctor or pharmacist if you are , planning to be , or . Do not breastfeed while on this medicine. During , this medicine should be used only when clearly needed. Talk to your doctor about the risks and benefits. Do not start or stop any other medicines without first speaking to your doctor or pharmacist. Do not share this medicine with anyone who has not been prescribed this medicine. ?? Side Effects Call your doctor or get medical help right away if you notice any of these more serious side effects: ??? signs of liver damage (such as yellowing of eye or skin, dark urine, or unusual tiredness) ??? muscle pain ??? nausea ??? stomach upset or abdominal pain A few people may have an allergic reaction to this medicine. Symptoms can include difficulty breathing, skin rash, itching, swelling, or severe dizziness. If you notice any of these symptoms, seek medical help quickly. ?? Extra Please speak with your doctor, nurse, or pharmacist if you have any questions about this medicine. ?? [email or web address] IMPORTANT NOTE: This document tells you briefly how to take your medicine, but it does not tell youall there is to know about it. Your doctor or pharmacist may give you other documents about your medicine. Please talk to them if you have any questions. Always follow their advice. There is a more complete description of this medicine available in Cambodian. Scan this code on your smartphone or tablet or use the web address below. You can also ask your pharmacist for a printout. If you have any questions, please ask your pharmacist. The display and use of this drug information is subject to Terms of Use. Copyright(c) 2022 [employer]. ?? [employer]. All rights reserved. This information is not intended as a substitute for professional medical care. Always follow your healthcare professional's instructions. ?? * BHSPowerscribe , CIS S: TRANSCWEI Vo MD, Annalisa Moreno: VERIFY Event Display: Result: Authored Date: PROCEDURE: CT Heart/Coronary/3D/Morph CLINICAL INDICATION: Female patient of age 62 years with Reason: Other:; CAD Screening, High CAD Risk, Not Treadmill Candidate; Clinical Question(s): [place] Coronary Artery Disease; Order Comment:. COMPARISON: CT angiogram of the chest 01/21/2023 TECHNIQUE: The region imaged was limited to the heart in order to optimize image quality and limit radiation dose. Automatic tube modulation based upon AP and lateral topogram attenuation was used to optimize exposure parameters. A General [employer] Revolution Drury scanner with 16 cm wide detector was employed. Bolus tracking technique used for timing. Dual syringe injector used to deliver a total of cc Omnipaque 350 and saline dilution/flush at cc/s with [address] angiography was then performed using ECG-gated single heartbeat technique with imaging performed about diastole and systole. Smart Phase scanner software used to assist in the selection of optimal reconstruction phase(s): 79% and33%. Snapshot Freeze postprocessing used to minimize motion artifact. 3-D surface rendered and MIP images were obtained and reviewed, including multiplanar and curved reconstructions, and multiplanarcine sequences. Images were processed using [employer] software. Diameter stenoses reported with t erminology based upon the Coronary Artery Disease Reporting and Data System (CAD-RADS 2.0), Radiology: Cardiothoracic Imaging 2021; 4 (5). Radiation dose parameters: CTDIvol Body: 24.63 mGy, DLP Body: 651 mGy*cm. MEDICATION: In the scanner room, the patient received 0 mg IV metoprolol and a 0.4 mg sublingual nitroglycerin tablet. FINDINGS: Technical: The image quality is mildly degraded by body habitus and cardiac motion. The contrast enhancement is excellent. At the time of coronary imaging, the instantaneous heart rate was 61 bpm. The EKG tracing showed small QRS wave and elevated ST wave. Visualized Portions of Extracardiac Structures: Thoracic aorta: Normal size aorta. Pulmonary arteries: No significant findings. Lungs: There is small-sized left pleural effusion, with left lower lobe partial atelectasis. There is right lower lobe partial atelectasis. Mediastinum and tiara: There is no adenopathy. Bones: No acute findings. Upper abdomen: There is fatty infiltration of the liver Heart and Valves: Redemonstrated is a small size pericardial fluid measuring 47 Hounsfield units suggesting complex fluid, unchanged from 01/21/23. The depth of the fluid measures up to 1.5 cm. Left Ventricle: Size and morphology appear normal. Right Ventricle: Borderline enlarged right ventricle. Atria: Upper normal size left atrium. Normal-sized right atrium. Aortic valve: Tricuspid Coronary Artery Angiography: Dominance: Right dominant. There is no coronary artery calcification. Image numbers below refer to series 404 unless otherwise noted. Left Main: The ostium is normally positioned. It is patent. It branches into LAD, small ramus intermedius, circumflex. Left Anterior Descending: Proximal segment is patent. First diagonal branch is small, image 64, probably patent. Mid LAD is patent. Second diagonal branch is small and patent, image 87. Near the apex, the distal LAD is small and there is poor opacification as seen on image 148 [id number]. This may be artifactual although occlusion cannot be entirely excluded. Left Circumflex Artery: It is suboptimally seen, but probably patent. It terminates as an obtuse marginal branch. Ramus Intermedius: It is a small vessel and patent, image 63. Right Coronary Artery: The ostium is normally positioned. There is mild smooth short segment about 40% narrowing at the most proximal RCA. There is no obvious plaque. Acute marginal is patent. The PDA branch is small and not well seen. Posterior lateral ventricular branch is patent. IMPRESSION: Mildly limited exam due to body habitus and cardiac motion artifact. Left Anterior Descending: Near the apex, the distal LAD is small and there is poor opacification, which may be artifactual although occlusion cannot be entirely excluded. The remainder LAD is patent. Left Main: It is normal. Left Circumflex Artery: It is suboptimally seen, but probably patent. Right Coronary Artery: About 40% short segment smooth stenosis at the most proximal RCA with no obvious plaque. This may relate to vascular spasm. RCA dominance. Unchanged small size complex pericardial fluid. Borderline enlarged right ventricle. Small-sized left pleural effusion with left lower lobe partial atelectasis. WSN: [id number] Ordering Physician: Lesley Carbajal Dictated By: Annalisa Vo MD Dictated Date/Time: 01/24/23 4:55 pm Reviewed By: Annalisa Vo MD Signed By: Annalisa Vo MD Signed Date/Time: 01/24/23 4:55 pm Transcribed By: DAVID Transcribed Date/Time: 01/24/23 2:28 pm * Event Display: Cardiac Rhythm Strips Authored Date: Hospital Progress note * Nika Bah RN: PERFORM, MODIFY, SIGN, VERIFY Event Display: Progress Note Hospital Authored Date: Patient: REBA STEVENSON Age: 62 years Sex: Female : 1960 Associated Diagnoses: None Author: Niurka CHAIDEZ, Nika Findings Problem Related to Alteration in Cardiac Function (new) : Alteration in Cardiac Function/new 01/30/2023 1:00 EST Alteration in Cardiac Status Related to ACS, Other: pericardial effusion Goals & Outcomes, Cardiac Status Pt will resume/maintain adequate hemodynamic status, Pt will resume/maintain adequate respiratory function, Pt will resume/maintain intact neuro function, Pt willmaintain adequate nutrition status, Pt/caregiver will state understanding of diagnosis Cardiac Interventions Implemented Assess/monitor cardiac status, Assess for tolerance of IV infusions; verify rate & dose BH Goals/Interventions, Cardiac Yes Cardiac, Problem Start 01/22/2023 12:36 Reviewed Plan with, Cardiac Status Patient Patient Progression, Cardiac Status Patient progressing according to plan . Nursing Data Vital Signs : VITAL SIGNS SECTION 01/29/2023 23:00 EST Temperature 98.7 DegF Temperature Route Oral Pulse Rate 75 bpm Respiratory Rate 16 br/min Systolic Blood Pressure 118 mm Hg Diastolic Blood Pressure 62 mm Hg Blood pressure sites Arm, right Pulse Pressure 56 mm Hg Oxygen Saturation 97 % Mode of Delivery (Oxygen) Room air . Narrative/Incidental 62yo female AO to self and place with vital signs stable. on telemetry reading normal sinus rhythm.tolerating diet and PO medications well. walking with cane to the bathroom and staff assist. resting comfortably with safety measures in place. see flowsheet for full assessment.. * Roger Hardy DO: MODIFY, MODIFY, PERFORM, MODIFY, MODIFY, MODIFY, MODIFY, MODIFY, MODIFY Event Display: Progress Note Hospital Authored Date: Patient: ??REBA STEVENSON ? Age:??62 Years?Sex:??Female?:??1960?? Patient Information Discharge Location: W4 Primary Care Physician: Mook Tompkins MD Admit Date/Time: 01/22/23 00:48 Discharge Disposition Discharge Disposition: Home: No Services??(long-term) Discharge Diagnosis Chest pain (R07.9) Hypotension (I95.9) Pericardial effusion with cardiac tamponade (I31.39) Pericarditis, acute (I30.9) Cerebral palsy HLD (hyperlipidemia) Partial seizures ?? _ Discharge Medications Acetaminophen (Tylenol 8 Hour 650 mg oral tablet, extended release)?2?tab(s)?1,300?Milligram?By Mouth?Every 8 hours?as needed?as needed for fever Alendronate (alendronate 70 mg oral tablet)?1?tab(s)?70?Milligram?By Mouth?Every week?takes on sundays Aspirin (aspirin buffered 325 mg oral tablet)?See Instructions?2 tablets by mouth 3 times a day for 7 days then 2 tablets by mouth 2 times a day for 7 days then 2 tablets a day for 7 days then change to 81 mg daily Aspirin (aspirin 81 mg oral delayed release tablet)?81?Milligram?1?tablet?By Mouth?Daily Atorvastatin (atorvastatin 80 mg oral tablet)?1?tab(s)?80?Milligram?By Mouth?Daily at bedtime?further refills by pcp or cardiology Carbamazepine (carbamazepine 200 mg oral capsule, extended release)?2?capsule?400?Milligram?By Mouth?Daily Colchicine (colchicine 0.6 mg oral tablet)?0.6?Milligram?1?tablet?By Mouth?2 times a day?stop after 90 days Lidocaine Topical (lidocaine 5% topical film)?1 patch?Topically?Daily?Apply for chest or rib discomfort,remove patch after 12 hours Loratadine (Claritin 10 mg oral tablet)?1?tab(s)?10?Milligram?By Mouth?Daily Lorazepam (Ativan 0.5 mg oral tablet)?See Instructions?1 tablet By Mouth 30 minutes before test; may repeat once at test time if needed. Metoprolol (metoprolol 50 mg oral tablet, extended release)?50?Milligram?1?tablet?ByMouth?Daily in AM?further refills per pcp/cardiology Omeprazole (Prilosec OTC)?20?Milligram?By Mouth?2 times a day rivaroxaban (Xarelto 20 mg oral tablet)?1?tab(s)?20?Milligram?By Mouth?Daily before dinner Topiramate (Topamax 25 mg oral tablet)?1?tab(s)?25?Milligram?By Mouth?2 times a day?for 90?Days Topiramate (Topamax 50 mg oral tablet)?1?tab(s)?50?Milligram?By Mouth?2 times a day?for 90?Days Topiramate (topiramate 200 mg oral tablet)?See Instructions?TAKE 1 TABLET BY MOUTH TWICE DAILY. ? Medications Started Aspirin (aspirin buffered 325 mg oral tablet)?See Instructions?2 tablets by mouth 3 times a day for 7 days then 2 tablets by mouth 2 times a day for 7 days then 2 tablets a day for 7 days then change to 81 mg daily Atorvastatin (atorvastatin 80 mg oral tablet)?1?tab(s)?80?Milligram?By Mouth?Daily at bedtime?further refills by pcp or cardiology Colchicine (colchicine 0.6 mg oral tablet)?0.6?Milligram?1?tablet?By Mouth?2 times a day?stop after 90 days Metoprolol (metoprolol 50 mg oral tablet, extended release)?50?Milligram?1?tablet?ByMouth?Daily in AM?further refills per pcp/cardiology Lidocaine Topical (lidocaine 5% topical film)?1 patch?Topically?Daily?Apply for chest or rib discomfort,remove patch after 12 hours Medications Discontinued None Doses Changed None Allergies Allergies ?(Active and Proposed Allergies Only) codeine? (Severity: Unknown severity, Onset: Unknown) ? PCP Follow-Up/Heads-Up Please follow-up with??lipids,??and LFT's since patient was started??on atorvastatin Dr Conrad will arrange for f/u echo and follow-up ESR/CRP Hospital Course Reba is a 62 year old female with PMH of cerebral palsy, HTN, HLD, seizures on antiepileptic, and hx of PE on Xarelto who presented to ED via EMS after report of chest pain. Patient was found to have diffuse ST elevations concerning for pericarditis. Bedside??echocardiogram revealed a??small pericardial effusion with possible evidence of tamponade physiology. Patient was admitted to CCU service for further management.??ECG with diffuse ST elevations. HS-Troponin T peaked at 999. ProBNP 1169.??Effusion deemed to small to be drained by interventional radiology. Thoracic surgery was consulted who recommended consulting CT surgery if needed but no indication for drainage at that time. ?? Formal Echocardiogram 01/22/2023??with contrast was still a technically difficult study with LVEF moderately reduced, EF and wall??motion could not be adequately assessed. There??was no evidence of left??ventricular thrombus. Pericardium was not well visualized. There was a small circumferential??pericardial effusion. Hemodynamic assessment??could not??be made.? Coronary CT angiogram 01/24/2023 was a mildly limited exam due to body habitus and cardiac motion artifact. Left Anterior Descending: Near the apex, the distal LAD is small and there is poor opacification, which may be artifactual although occlusion cannot be entirely excluded. The remainder LAD is patent. Left Main normal. Left Circumflex Artery suboptimally seen, but probably patent. Right Coronary Artery about 40% short segment smooth stenosis at the most proximal RCA with no obvious plaque. This may relate to vascular spasm. RCA dominance. Unchanged small size complex pericardial fluid. Borderline enlarged right ventricle. Small-sized left pleural effusion with left lower lobe partial ate lectasis. ?? She was treated with colchicine and high dose NSAID - aspirin on a tapering dose.??Lidocaine patch topically was also ordered for chest pain.??Metoprolol was started as well as atorvastatin given CAD. Aspirin will be tapered over a 3 weeks period and then changed to 81mg daily indefinitely. Colchicine should continue for 90 days for treatment of pericarditis. She should have a follow up echocardiogram in 6-8 weeks to reassess effusion and LV function. ?? On the day of discharge she denied any chest pain, shortness of breath or abdominal pain, she was otherwise hemodynamically stable. Objective Assessment and Plan Reba is a 62 year old female with PMH of cerebral palsy, HTN, HLD, seizures on antiepileptic, and hx of PE on Xarelto who presented to ED via EMS after report of chest pain. Patient was found to have diffuse ST elevations concerning for pericarditis. Imaging revealing small pericardial effusion with evidence of tamponade physiology. Patient was admitted to CCU service for further management. Shewas??ready for discharge however had??issues regarding return to her [facility], following clarification the??patient was able to be discharged hemodynamically stable. ?? Pericarditis?? Pleuritic chest pain Small pericardial effusion w/tamponade physiology Hypotension -??resolved ?Patient presenting due to her being off baseline and with report of chest pain, not a good historian ?Reports high level of chest pain worse with deep breath, improved with sitting up ?She was hypotensive on arrival to ED, which improved with 2L fluids ?EKG showed evidence of diffuse ST elevations, with [place] depression concerning for pericarditis ?Evaluated by Interventional Cardiology, does not require emergent cardiac catheterization ?CTA chest shows hyperdense pericardial effusion at 1cm maximal thickness, possible proteinaceous fluid or blood products ?STAT echo by artist relationship manager showing small pericardial effusion with evidence of tamponade physiology ?Pulsus paradoxus seen on A line, HS-trop 999, BNP 1169 ?Findings more consistent with pericarditis with pericardial effusion. ?ESR and CRP slightly elevated ?Echocardiogram 01/22- EF is moderately reduced, small circumferential pericardial effusion. Apexis akinetic ?coronary CTA 01/24 - shows possible occlusion to the distal LAD which may correlate with the akinetic apex seen on echo. ? Recommendations: ?- Continue atorvastatin 80 mg daily ?-??Continue??Metoprolol XL??50 mg daily ?? - Lidocaine patch for mild chest/rib discomfort ?- Continue high dose aspirin 650 mg TID (taper over 3 weeks from 650 TID x 7 days, then 650mg bid x 7 days, then 650mg daily x 7 days then decrease to 81mg daily as maintenance for secondary prevention of CAD) ?- Continue colchicine 0.6 mg twice a day for 90 days then stop (started 01/22/23)? -?? Pt to followup with Dr Home Conrad and his [employer] OPERATOR Jyoti Smith at [facility]- they will arrange appointment. ?? -?? Obtain ESR and CRP??outpatient ?? - F/u echocardiogram in 6-8 weeks to reassess effusion and LV function. ? History of PE on Xarelto Unprovoked PE about 1 year ago. Family history of DVTs but never had hypercoagulable work up that family knows ? Recommendations: - Continue Xarelto ? Lactic acidosis - resolved ?Likely in setting of hypotension ?S/p fluid resuscitation ?Low suspicion for sepsis, did receive vancomycin and Zosyn x??1 dose in ED ? Seizure disorder: continue topiramate 275mg BID and carbamazepine 400mg daily ?? GERD: continue PPI ? Measurements?? Height: 154 cm (01/29/23) Weight: 94.3 kg (01/27/23) Dry Weight: 96.4 kg (01/22/23) Body Mass Index:??39.26 kg/m2??Critical (01/26/23) ? Vital Signs?? Temperature: 98.6 DegF (01/29/23 11:00:00) Temperature Route: Oral (01/29/23 11:00:00) Pulse Rate: 70 bpm (01/29/23 11:00:00) Respiratory Rate: 17 br/min (01/29/23 11:00:00) Systolic Blood Pressure: 124 mm Hg (01/29/23 11:00:00) Diastolic Blood Pressure:??46 mm Hg??Low (01/29/23 11:00:00) Blood pressure sites: Arm, left (01/28/23 23:16:00) Mean Arterial Pressure: 72 mm Hg (01/29/23 11:00:00) Pulse Pressure: 78 mm Hg (01/29/23 11:00:00) Oxygen Saturation: 97 % (01/29/23 11:00:00) Mode of Delivery (Oxygen): Room air (01/29/23 11:00:00) Early Warning Score: 0 (01/29/23 11:01:41) ? Intake/Output? 01/22 00:48 01/29 07:00 01/28 07:00 01/27 07:00 01/26 07:00 ?? 01/29 12:20 01/29 12:20 01/29 06:59 01/28 06:59 01/27 06:59 Intake ? 3740 ?0 ?0 ?720 ?480 Output ?0 ?0 ?0 ?0 ?0 Net Total ? 3740 ?0 ?0 ?720 ?480 ? Urine Count ? 52 ?0 ?2 ?5 ? 20 Diaper Count ?3 ?0 ?0 ?0 ?1 ? . Physical Exam General: The patient was found resting and in no acute distress HEENT:??NCAT, EOMI, no scleral icterus,??moist mucus membranes, trachea midline Cardiovascular: RRR S1 and S2 heard with no murmurs, rubs or gallops Respiratory: Breath sounds clear to auscultation bilaterally. No wheezing. GI: Soft. Nontender and nondistended. Normal bowel sounds present throughout abdomen.?? MSK: No edema or erythema in the lower extremities. Skin:??No rashes, bruises or skin breakdown noted. Neuro: No gross motor or neuro deficits. Sensation intact throughout. Psych: Alert and oriented to??self and place, soft??spoken,??pleasant. Patient Education Titles Lidocaine Medicated Patch?? Colchicine Oral Tablet?? Atorvastatin Oral Tablet?? Aspirin Delayed Release Oral Tablet?? Aspirin Oral Tablet?? Metoprolol Extended Release Oral Tablet?? Your Risk Factors for Heart Disease?? Risk Factors for Heart Disease?? Understanding Food and Cholesterol?? Risk Factors for Heart Disease?? Controlling Your Cholesterol?? Low-Cholesterol Diet?? Treatment for Pericardial Effusion?? Understanding Pericardial Effusion?? Pericarditis?? Understanding Transradial Cardiac Catheterization?? Having Cardiac Catheterization?? Understanding Transradial Cardiac Catheterization?? Having Cardiac Catheterization?? Follow-Up Appointments Added Follow Up ?Time Frame ?Comments Home Conrad MD?2 to 3 weeks?an appointment is being arranged for you by Dr Conrad's office with his [employer] Mook Ochoa MD?1 to 2 weeks Patient Instructions You were admitted to the hospital for pericarditis and a pericardial effusion (inflammation of the lining around the heart and fluid collection in the lining around the heart), you were treated with medications including colchicine to reduce inflammation and prevent recurrence as well as high dose aspirin for pain and to decrease inflammation as well as lidocaine patch for pain. We also started you on atorvastatin for high cholesterol and metoprolol for your heart. ?? It is recommended that you follow-up with your primary care physician in 1-2 weeks. Also please follow up with Cardiology (Dr. Conrad) in 2-4 weeks. ?? Should you experience any??re-occurrence of chest pain??not controlled by medications, also shortness of breath, weakness, lightheadedness, fainting,??fevers or chills please do not hesitate to call 911,??return to the emergency department or seek urgent medical care. ?? It was??our pleasure taking care of you during your stay and we wish you all the best in your recovery. Post Discharge Care Discharge ?01/27/23 13:03:00 EST Results Discharge Labs BLOOD COUNT & DIFF WBC 4.9 k/mm3 ()?? 01/27/2023 09:02 RBC 4.43 m/mm3 ()?? 01/27/2023 09:02 Hgb 13.2 Gm/dL ()?? 01/27/2023 09:02 Hct 42.7 % ()?? 01/27/2023 09:02 MCV 96.4 femtoliters ()?? 01/27/2023 09:02 MCH 29.8 pg ()?? 01/27/2023 09:02 MCHC 30.9 g/dL (Low)?? 01/27/2023 09:02 Platelet Count 304 k/mm3 ()?? 01/27/2023 09:02 RDW-SD 46.4 femtoliters ()?? 01/27/2023 09:02 MPV 8.9 femtoliters (Low)?? 01/27/2023 09:02 Nucleated RBC (Automated) 0.0 #/100 WBC'S ()?? 01/27/2023 09:02 Abs. NRBC 0.0 k/mm3 ()?? 01/27/2023 09:02 Abs. Neut 4.6 k/mm3 ()?? 01/21/2023 20:23 Abs. Lymph 1.4 k/mm3 ()?? 01/21/2023 20:23 Abs. Hunt 0.9 k/mm3 ()?? 01/21/2023 20:23 Abs. Eo 0.0 k/mm3 ()?? 01/21/2023 20:23 Abs. Baso 0.0 k/mm3 ()?? 01/21/2023 20:23 Neut % 65.8 % ()?? 01/21/2023 20:23 Lymph % 20.0 % ()?? 01/21/2023 20:23 Hunt % 13.2 % (High)?? 01/21/2023 20:23 Eos % 0.3 % ()?? 01/21/2023 20:23 Baso % 0.3 % ()?? 01/21/2023 20:23 Hemoglobin (POC) POC Cartridge 15.0 Gm/dL ()?? 01/21/2023 20:24 Hematocrit (POC) POC Cartridge 44 % ()?? 01/21/2023 20:24 Imm Gran 0.4 % ()?? 01/21/2023 20:23 Abs. Imm Gran 0.0 k/mm3 ()?? 01/21/2023 20:23 ?? CARDIAC Nt-Probnp 1169 pg/mL (High)?? 01/21/2023 20:23 High Sensitivity Troponin (HSTnT) 913 ng/L (Critical)?? 01/22/2023 06:12 ?? CHEM GENERAL Sodium 141 mmol/L ()?? 01/27/2023 09:02 Potassium 4.2 mmol/L ()?? 01/27/2023 09:02 Chloride 110 mmol/L (High)?? 01/27/2023 09:02 Bicarbonate Level 19 mmol/L (Low)?? 01/27/2023 09:02 Anion Gap 12 ()?? 01/27/2023 09:02 Sodium (POC) POC Cartridge 140 mmol/L ()?? 01/21/2023 20:24 Potassium (POC) POC Cartridge 3.5 mmol/L (Low)?? 01/21/2023 20:24 Chloride (POC) POC Cartridge 109 mmol/L (High)?? 01/21/2023 20:24 Glucose Level 130 mg/dL (High)?? 01/26/2023 06:38 Glucose (POC) POC Cartridge 198 (High)?? 01/21/2023 20:24 Hemoglobin A1C (Monitoring) 5.8 % (High)?? 01/22/2023 02:10 BUN 12 mg/dL ()?? 01/27/2023 09:02 BUN (POC) POC Cartridge 8 mg/dL ()?? 01/21/2023 20:24 Creatinine-Blood 0.7 mg/dL ()?? 01/27/2023 09:02 Creatinine (POC) POC Cartridge 1.0 mg/dL ()?? 01/21/2023 20:24 Estimated GFR Creatinine 93 ML/MIN/1.73 M2 ()?? 01/27/2023 09:02 Calcium 8.8 mg/dL ()?? 01/26/2023 06:38 Calcium, Ionized pH Corrected 1.20 mmol/L ()?? 01/21/2023 20:23 Ionized Calcium (POC) POC Cartridge 1.15 mmol/L ()?? 01/21/2023 20:24 Phosphorus 3.1 mg/dL ()?? 01/26/2023 06:38 Magnesium 2.0 mg/dL ()?? 01/26/2023 06:38 Protein, Total 6.3 Gm/dL ()?? 01/22/2023 02:10 Albumin 3.8 Gm/dL ()?? 01/22/2023 02:10 AG Ratio 1.5 ()?? 01/22/2023 02:10 Alkaline Phosphatase 100 units/L ()?? 01/22/2023 02:10 Lipase 40 units/L ()?? 01/21/2023 20:23 AST (SGOT) 85 units/L (High)?? 01/22/2023 02:10 ALT (SGPT) 50 units/L (High)?? 01/22/2023 02:10 Bilirubin, Total 0.3 mg/dL ()?? 01/22/2023 02:10 Lactate 2.0 mmol/L ()?? 01/22/2023 20:29 C-Reactive Protein 3.5 mg/dL (High)?? 01/22/2023 16:20 ? COAG INR 1.0 ()?? 01/21/2023 20:23 Protime (PT) 10.5 seconds ()?? 01/21/2023 20:23 APTT <22.0 seconds (Low)?? 01/21/2023 20:23 ? ENDOCRINE/TUMOR MARKER TSH 3.73 uIU/mL ()?? 01/21/2023 20:23 ? HEME OTHER Sed Rate 26 mm/hr (High)?? 01/22/2023 16:20 Hold Lavender Top SPECIMEN DISCARDED AFTER 24 HOURS. ()?? 01/22/2023 06:30 ?? LIPID STUDIES Cholesterol 260 mg/dL (High)?? 01/22/2023 02:10 Triglycerides 122 mg/dL ()?? 01/22/2023 02:10 HDL Cholesterol 67 mg/dL ()?? 01/22/2023 02:10 LDL Cholesterol 169 mg/dL (High)?? 01/22/2023 02:10 Non HDL Cholesterol 193 mg/dL (High)?? 01/22/2023 02:10 ? MISC. CHEMISTRY Hold Gel Top SPECIMEN DISCARDED AFTER 1 WEEK ()?? 01/22/2023 06:30 ? UA/URINALYSIS Appear/Color, Urine YELLOW ()?? 01/22/2023 03:28 Specific [place], Urine >1.050 (High)?? 01/22/2023 03:28 pH, Urine 6.5 ()?? 01/22/2023 03:28 Albumin, Urine 1+ (Abnormal)?? 01/22/2023 03:28 Glucose, Urine NEGATIVE ()?? 01/22/2023 03:28 Ketones, Urine NEGATIVE ()?? 01/22/2023 03:28 Bilirubin, Urine NEGATIVE ()?? 01/22/2023 03:28 Hemoglobin, Urine NEGATIVE ()?? 01/22/2023 03:28 Nitrite, Urine NEGATIVE ()?? 01/22/2023 03:28 Leukocyte, Urine NEGATIVE ()?? 01/22/2023 03:28 Urobilinogen NORMAL mg/dL ()?? 01/22/2023 03:28 WBC's, Urine NONE SEEN /HPF ()?? 01/22/2023 03:28 RBC's, Urine <1 /HPF ()?? 01/22/2023 03:28 Squamous Epith 3 /HPF ()?? 01/22/2023 03:28 Hyaline Cast 1 LPF ()?? 01/22/2023 03:28 Granular Cast 1 /LPF ()?? 01/22/2023 03:28 Mucus SLIGHT /LPF ()?? 01/22/2023 03:28 Hold Urine Culture Testing available 48 hours from time of collection. ()?? 01/22/2023 03:28 ?? VIROLOGY Influenza A PCR NEGATIVE ()?? 01/21/2023 20:37 Influenza B PCR NEGATIVE ()?? 01/21/2023 20:37 RSV PCR NEGATIVE ()?? 01/21/2023 20:37 COVID-19 PCR Specimen Source NASAL ()?? 01/27/2023 05:46 COVID-19 PCR Result NEGATIVE ()?? 01/27/2023 05:46 ? Microbiology ?? Blood Culture?? Completed?? Source: Blood Body Site: ?? Collected Dt/Tm: 01/21/2023 20:16 Last Updated Dt/Tm: 01/21/2023 20:16 ?SPECIMEN DESCRIPTION : BLOOD ??NO SITESPECIAL REQUESTS : NONECULTURE : NO GROWTH 5 DAYS.REPORT STATUS : FINAL 01/26/2023 Blood Culture #2?? Completed?? Source: Blood Body Site: ?? Collected Dt/Tm: 01/21/2023 20:16 Last Updated Dt/Tm: 01/21/2023 20:16 ?SPECIMEN DESCRIPTION : BLOOD ??NO SITESPECIAL REQUESTS : NONECULTURE : NO GROWTH 5 DAYS.REPORT STATUS : FINAL 01/26/2023 COVID-19, RSV, and Flu A/B, Rapid PCR?? Completed?? Source: Nasal Body Site: Nose Collected Dt/Tm: 01/21/2023 20:16 Last Updated Dt/Tm: 01/21/2023 21:53 COVID-19 (2019 Novel Coronavirus) PCR?? Completed?? Source: Nasal Body Site: Nose Collected Dt/Tm: 01/23/2023 06:39 Last Updated Dt/Tm: 01/23/2023 19:40 COVID-19 (2019 Novel Coronavirus) PCR?? Completed?? Source: Nasal Body Site: Nose Collected Dt/Tm: 01/27/2023 05:46 Last Updated Dt/Tm: 01/27/2023 14:25 ? 30??minutes spent on discharge ?? Patient was??seen and discussed with ??Jyotiania ?? - Roger Hardy DO - PGY2 - Internal Medicine - Pager # [phone]?? * Roger Hardy DO: PERFORM Event Display: Progress Note Hospital Authored Date: Pt unable to be discharged due to issues with colchicine requiring??prior auth. (PA), the [facility] pharmacy is faxing over the PA, to be approved by insurance once signed. ?? Aspirin dose reduced to 325 mg TID, pt??has been without chest pain,??will need to adjust taper (325 mg TID for 7 days --> 325 mg BID x7 days --> 325 mg daily x7 days -->??then 81 mg daily). * Roger Hardy DO: PERFORM Event Display: Progress Note Hospital Authored Date: Please use this note as a progress note. ?? Colchicine was able to be dispensed by the pharmacy without a PA. Lidocaine patches however, will need a PA. * Elisa Shah LPN: PERFORM, SIGN, VERIFY Event Display: Progress Note Hospital Authored Date: Patient: REBA STEVENSON Age: 62 years Sex: Female : 1960 Associated Diagnoses: None Author: Elisa Shah LPN Findings Problem Related to Alteration in Cardiac Function (new) : Alteration in Cardiac Function/new 01/29/2023 2:00 EST Alteration in Cardiac Status Related to ACS, Other: pericardial effusion Goals & Outcomes, Cardiac Status Pt will resume/maintain adequate hemodynamic status, Pt will resume/maintain adequate respiratory function, Pt will resume/maintain intact neuro function, Pt willmaintain adequate nutrition status, Pt/caregiver will state understanding of diagnosis Cardiac Interventions Implemented Assess/monitor cardiac status, Assess/monitor neuro status, Assess/monitor respiratory status, Assess for tolerance of IV infusions; verify rate & dose, Call/Report variances in ECG to provider, Document & Monitor O2 Sats; Administer O2 as ordered, Monitor & document daily weight BH Goals/Interventions, Cardiac Yes Cardiac, Problem Start 01/22/2023 12:36 Reviewed Plan with, Cardiac Status Patient Patient Progression, Cardiac Status Patient progressing according to plan . Nursing Data Vital Signs : VITAL SIGNS SECTION 01/28/2023 23:16 EST Temperature 98.4 DegF Temperature Route Oral Pulse Rate 74 bpm Respiratory Rate 18 br/min Systolic Blood Pressure 127 mm Hg Diastolic Blood Pressure 74 mm Hg Blood pressure sites Arm, left Mean Arterial Pressure 92 mm Hg Pulse Pressure 53 mm Hg Oxygen Saturation 96 % Mode of Delivery (Oxygen) Room air 01/28/2023 20:21 EST Early Warning Score 2.00 01/28/2023 20:16 EST Pulse Rate 78 bpm Systolic Blood Pressure 114 mm Hg Diastolic Blood Pressure 54 mm Hg L 01/28/2023 19:50 EST Early Warning Score 2.00 01/28/2023 19:50 EST Temperature 98.4 DegF Temperature Route Oral Pulse Rate 78 bpm Respiratory Rate 18 br/min Systolic Blood Pressure 114 mm Hg Diastolic Blood Pressure 54 mm Hg L Blood pressure sites Arm, left Mean Arterial Pressure 74 mm Hg Pulse Pressure 60 mm Hg Oxygen Saturation 93 % L Mode of Delivery (Oxygen) Room air . Evaluation Assumed care for @1900. A/Ox3. VSS. Pt caregiver from [facility] @ bedside. Pt able to make needs known and is compliant w/ all care. Pt ambulating appropriately to bathroom w/ stand-by assist using cane. LSCTA. ABD SNT w/ +BS in all four quadrants. Pt swallowed all meds crushed in pudding w/ no difficulties. No c/o pain, c/p. SOB, nausea, vomiting, headache or dizziness. Pt remains safe and comfortable in bed. All appropriate safety measures remain in place. Will continue to frequently round. See CIS for biophysical and further assessments.... Discharge Information Case Management Discharge Plan : Case Management Discharge Plan Data 01/27/2023 15:42 EST Discharge Level of Care at Discharge Home/Nursing Home/[facility] Portable XR Chest Views * NIMESH Tai S: Keron Ho MD: VERIFY Event Display: Result: Authored Date: [id number] Chest Portable Reason: Shortness of Breath; Clinical Question(s): CHF COMPARISON: 07/17/2005 FINDINGS: LINES AND TUBES: None. LUNGS AND PLEURA: Left base opacity may represent atelectasis or pneumonia. Right lung appears clear. No pleural effusion. No pneumothorax. HEART, MEDIASTINUM AND TIARA: Heart is normal in size. Normal mediastinal and hilar contour. BONES AND SOFT TISSUES: No acute abnormality. IMPRESSION: Left base opacity. Atelectasis versus pneumonia. Otherwise unremarkable exam. Exam limited by hypoinflation with likely secondary vascular crowding noted. No effusions. WSN: [id number] Ordering Physician: Aure Keenan Dictated By: Keron Canseco MD Dictated Date/Time: 01/21/23 9:03 pm Reviewed By: Keron Canseco MD Signed By: Keron Canseco MD Signed Date/Time: 01/21/23 9:03 pm Transcribed By: DAVID Transcribed Date/Time: 01/21/23 9:02 pm CTA Abdominal vessels W contrast IV * NIMESH Tai S: Keron Ho MD: VERIFY Event Display: Result: Authored Date: [id number] EXAMINATION: CT Angio Chest, CT Angio Abdomen INDICATION: Reason: Other:; Aortic disease, nontraumatic; Clinical Question(s): Other:; Aortic Dissection TECHNIQUE: Spiral CTA of the chest was performed after rapid IV contrast administration without cardiac gating, triggered by an ADRIENNE on the main pulmonary artery. Images are formatted in multiple planes using 2-D multiplanar and 3-D maximum intensity projection. 100 cc of Omnipaque 300 was administered intravenously. Weight-based protocol using automatic tube modulation was used to optimize exposure parameters. CTDIvol Body: 18.44 mGy, DLP Body: 1087 mGy*cm. COMPARISONS: None. ANGIOGRAPHIC FINDINGS: No aortic dissection or aneurysm. Normal three vessel arch without branch vessel stenosis. Pulmonary arteries are normal in caliber. No evidence of central pulmonary embolism on this study performed without dedicated technique. Abdominal aorta: No aortic aneurysm or dissection. Celiac axis: Patent. Superior mesenteric artery: Patent. Right renal artery: Patent. Left renal artery: Patent. Inferior mesenteric artery: Patent. Visualized iliac arteries: Patent. NON-ANGIOGRAPHIC FINDINGS: Upper Leather Sorter View Findings, Lines and Tubes: None. Trachea and Airways: Patent without evidence of tracheal or endobronchial lesion. Lungs and Pleura: Patchy density both lungs likely atelectasis. Diffuse somewhat hazy density also noted throughout both lungs. No discrete consolidation identified. No effusion or pneumothorax. Mediastinum and tiara: No mass or hematoma. No mediastinal or hilar lymphadenopathy. No esophageal abnormality. Heart: There is pericardial effusion estimated at 1 cm maximal thickness. This does appear slightlyhyperdense measuring 50 Hounsfield units which may represent proteinaceous fluid or blood products. Chest Wall Soft Tissues: Normal. Diaphragm : No significant abnormality. Liver: Normal. Gallbladder: Absent consistent with prior cholecystectomy. Bile ducts: No biliary ductal dilation. Spleen: Normal. Pancreas: Normal. Adrenal glands: Normal. Kidneys and ureters: 3 mm calcific location noted in the right interpolar region. No hydronephrosis. Stomach, small bowel, and large bowel: Visualized stomach and bowel are normal. Peritoneum and retroperitoneum: No ascites or pneumoperitoneum. No omental or mesenteric lesions. Lymph nodes: No enlarged lymph nodes. Abdominal wall: Unremarkable. Bones: No acute abnormality. IMPRESSION: Hyperdense pericardial effusion. Possible proteinaceous fluid or blood products. Diffuse hazy density both lungs is nonspecific. This may in part be related to volume loss, though infection, likely viral, is also possible. I do not see septal thickening or specific findings to indicate pulmonary edema. No significant aortic abnormality. No pulmonary embolus. WSN: [id number] Ordering Physician: Sawyer Palacios Dictated By: Keron Canseco MD Dictated Date/Time: 01/21/23 9:42 pm Reviewed By: Keron Canseco MD Signed By: Keron Canseco MD Signed Date/Time: 01/21/23 9:42 pm Transcribed By: DAVID Transcribed Date/Time: 01/21/23 9:27 pm CTA Chest vessels W contrast IV * BHSPowerscribe , CIS S: TRANSCRIBE Keron Canseco MD S: VERIFY Event Display: Result: Authored Date: EXAMINATION: CT Angio Chest, CT Angio Abdomen INDICATION: Reason: Other:; Aortic disease, nontraumatic; Clinical Question(s): Other:; Aortic Dissection TECHNIQUE: Spiral CTA of the chest was performed after rapid IV contrast administration without cardiac gating, triggered by an ADRIENNE on the main pulmonary artery. Images are formatted in multiple planes using 2-D multiplanar and 3-D maximum intensity projection. 100 cc of Omnipaque 300 was administered intravenously. Weight-based protocol using automatic tube modulation was used to optimize exposure parameters. CTDIvol Body: 18.44 mGy, DLP Body: 1087 mGy*cm. COMPARISONS: None. ANGIOGRAPHIC FINDINGS: No aortic dissection or aneurysm. Normal three vessel arch without branch vessel stenosis. Pulmonary arteries are normal in caliber. No evidence of central pulmonary embolism on this study performed without dedicated technique. Abdominal aorta: No aortic aneurysm or dissection. Celiac axis: Patent. Superior mesenteric artery: Patent. Right renal artery: Patent. Left renal artery: Patent. Inferior mesenteric artery: Patent. Visualized iliac arteries: Patent. NON-ANGIOGRAPHIC FINDINGS: Upper Leather Sorter View Findings, Lines and Tubes: None. Trachea and Airways: Patent without evidence of tracheal or endobronchial lesion. Lungs and Pleura: Patchy density both lungs likely atelectasis. Diffuse somewhat hazy density also noted throughout both lungs. No discrete consolidation identified. No effusion or pneumothorax. Mediastinum and tiara: No mass or hematoma. No mediastinal or hilar lymphadenopathy. No esophageal abnormality. Heart: There is pericardial effusion estimated at 1 cm maximal thickness. This does appear slightlyhyperdense measuring 50 Hounsfield units which may represent proteinaceous fluid or blood products. Chest Wall Soft Tissues: Normal. Diaphragm : No significant abnormality. Liver: Normal. Gallbladder: Absent consistent with prior cholecystectomy. Bile ducts: No biliary ductal dilation. Spleen: Normal. Pancreas: Normal. Adrenal glands: Normal. Kidneys and ureters: 3 mm calcific location noted in the right interpolar region. No hydronephrosis. Stomach, small bowel, and large bowel: Visualized stomach and bowel are normal. Peritoneum and retroperitoneum: No ascites or pneumoperitoneum. No omental or mesenteric lesions. Lymph nodes: No enlarged lymph nodes. Abdominal wall: Unremarkable. Bones: No acute abnormality. IMPRESSION: Hyperdense pericardial effusion. Possible proteinaceous fluid or blood products. Diffuse hazy density both lungs is nonspecific. This may in part be related to volume loss, though infection, likely viral, is also possible. I do not see septal thickening or specific findings to indicate pulmonary edema. No significant aortic abnormality. No pulmonary embolus. WSN: [id number] Ordering Physician: Sawyer Palacios Dictated By: Keron Canseco MD Dictated Date/Time: 01/21/23 9:42 pm Reviewed By: Keron Canseco MD Signed By: Keron Canseco MD Signed Date/Time: 01/21/23 9:42 pm Transcribed By: DAVID Transcribed Date/Time: 01/21/23 9:27 pm Patient Care team information Care Team Personnel Name: Mook Tompkins MD Position: [facility] Outreach Member Role: PCP Address: Address: [address] [place] [address] [address] Name: Shital Lindo RN Position: [facility] RN Member Role: Primary Care Nurse Name: Florence Cook RN Position: [facility] RN Member Role: Primary Care Nurse Name: Marisabel Horton RN Position: [facility] RN Member Role: Primary Care Nurse Name: Geraldine Chatman Position: [facility] RN Member Role: Primary Care Nurse Name: Kerrie Almeida RN Position: [facility] RN Member Role: Primary Care Nurse Name: Leonora PYLE Attending Position: [facility] ED Medicine Name: Yessica Stoll RN Position: [facility] ED RN W/OE and Tasks Member Role: Patient Care Provider Name: Shari Hdz Position: [facility] ED TA [facility] Member Role: Packer Insulation Name: Nica Edwards Position: [facility] ED OA Charge Member Role: ED Metal Melter Care Team Related Persons Name: GASTON KWON Name: BART STEVENSON Address: [place] [address]
--- OUTSIDE RECORDS SUMMARY | 2023-06-28 13:26 | XMS_ITS | Continuity of Care Document ---
Author Name Unknown Organization [facility] Address Unknown Care Team Providers Care Feed Mill Manager Name Role Phone Mook Tompkins MD Primary Care Physician Encounter [facility] Date(s): 01/17/22 - 02/16/22 [facility] Attending Physician: Bassam Kimball Admitting Physician: Bassam Kimball Referring Physician: Bassam Kimball Allergies, Adverse Reactions, Alerts Substance Reaction Severity [...] # 140 capsule, 11 Refills, 01/17/22 15:08:00 EST, [facility], 152.4, cm, 03/27/21 15:02:00 EDT, [...] Start Date: 03/27/21 Status: Ordered NuLYTELY [place] oral powder for reconstitution 240 mL, By [...] tablet, 11 Refills, Maintenance, 01/17/22 15:10:00 EST, Tablet, [facility], Partial fill [...]
--- OUTSIDE RECORDS SUMMARY | 2023-06-28 13:26 | XMS_ITS | Continuity of Care Document ---
Author Name Unknown Organization [facility] Address [address] [facility], 3r d Floor, [address] [place] [id number]- Care Team Providers Care Attending Psychiatrist Name Role Phone Mook Tompkins MD Primary Care Physician Encounter [facility] Date(s): 02/05/23 - 03/07/23 [facility] [address], 3rd Floor, [address] [place] [id number] Allergies, Adverse Reactions, Alerts Substance Reaction [...] 01/30/23 13:43:00 EST, Route to Pharmacy Electronically, [facility], Partial fill upon patient [...] tablet, 0 Refills, Maintenance, 01/30/23 18:47:00 EST, [facility]/pharmacy #[id number], [place] Start Date: 01/30/23 Status: Ordered Ativan [...] 3 Refills, Maintenance, 01/30/23 13:43:00 EST, Tablet, [facility], Partial fill upon patient [...] 3 Refills, Maintenance, 01/30/23 13:44:00 EST, Patch, [facility], Partial fill upon patient request if the prescrip... Start Date: 01/30/23 Status: Ordered metoprolol 50 mg oral tablet, extended release 50 mg, 1, tablet, By Mouth, Daily in AM, further refills per pcp/cardiology, # 90 tablet, Refills 0, Tot. Refills 0, Maintenance, 01/30/23 13:44:00 EST, Route to Pharmacy Electronically, [facility], Partial fill upon patient [...] Team Personnel Name: Mook Tompkins MD Position: [facility] Outreach Member Role: PCP Address: Address: [address] [place] [address] Internal [place] [address] Name: Shital Lindo RN Position: S [...] Name: GASTON KWON Name: BART MIRANDA Address: [address] [address]
--- OUTSIDE RECORDS SUMMARY | 2023-06-28 13:27 | XMS_ITS | Continuity of Care Document ---
Author Name Unknown Organization [facility] Address [address] [facility], 3r d Floor, [address] [place] [id number]- Care Team Providers Care Public Speaking Instructor Name Role Phone Mook Tompkins MD Primary Care Physician [phone] Encounter [facility] Date(s): 02/09/21 - 03/11/21 [facility] [address] [place], 3rd Floor, [address] [place] [id number] Attending Physician: Bassam Kimball Admitting Physician: Bassam [...] Start Date: 02/10/20 Status: Ordered NuLYTELY Lemon [place] oral powder for reconstitution 240 mL, By [...]
--- OUTSIDE RECORDS SUMMARY | 2023-06-28 13:27 | XMS_ITS | Continuity of Care Document ---
Author Name Unknown Organization [facility] Address [address] [place] [id number]- Care Team Providers Care Athletic Coordinator Name Role Phone Mook Tompkins MD Primary Care Physician [phone] [place] [facility] Date(s): 01/30/23 - 03/01/23 [facility] [address] [place] [id number]- [place] Allergies, Adverse Reactions, Alerts Substance Reaction Severity [...] 01/30/23 13:43:00 EST, Route to Pharmacy Electronically, [facility], Partial fill upon patient [...] tablet, 0 Refills, Maintenance, 01/30/23 18:47:00 EST, [facility]/pharmacy #[id number], [place]... Start Date: 01/30/23 Status: Ordered [...] 3 Refills, Maintenance, 01/30/23 13:43:00 EST, Tablet, [facility], Partial fill upon patient [...] 3 Refills, Maintenance, 01/30/23 13:44:00 EST, Patch, [facility], Partial fill upon patient request if the prescrip... Start Date: 01/30/23 Status: Ordered metoprolol 50 mg oral tablet, extended release 50 mg, 1, tablet, By Mouth, Daily in AM, further refills per pcp/cardiology, # 90 tablet, Refills 0, Tot. Refills 0, Maintenance, 01/30/23 13:44:00 EST, Route to Pharmacy Electronically, [facility], Partial fill upon patient request if [...] Team Personnel Name: Mook Tompkins MD Position: [facility] Outreach Member Role: PCP Address: Address: [address] [place] [address] Internal Medicine [place], [place] [id number] Name: Shital Lindo RN Position: S [...] GASTON KWON Name: BART MIRANDA Address: [address] [address]
--- OUTSIDE RECORDS SUMMARY | 2023-06-28 13:27 | XMS_ITS | Continuity of Care Document ---
Author Name Unknown Organization [facility] Address Unknown Care Team Providers Care Builder Operator Name Role Phone Mook Tompkins MD Primary Care Physician Encounter [facility] Date(s): 08/14/21 - 09/13/21 [facility] Allergies, Adverse Reactions, Alerts Substance [...] Start Date: 03/27/21 Status: Ordered NuLYTELY Lemon [place] oral powder for reconstitution 240 mL, By Mouth, Every 10 minutes, # 1 each, 0 Refills, Maintenance, REC Powder Start Date: 08/18/12 Status: Ordered Prilosec OTC = 20 mg, By Mouth, Daily, 0 Refills, Maintenance Start Date: 09/24/11 Status: Ordered Refresh Eyes, Both, 2 times a day, 0 Refills, Maintenance Start Date: 01/28/12 Status: Ordered Topamax 50 mg oral tablet 1 tablet = 50 mg, By Mouth, 2 times a day, # 60 tablet, 4 Refills, Maintenance, 09/11/21 16:14:00 EDT, Tablet, [facility], Partial fill upon patient request if the prescription is fora schedule II opioid drug., 152.4, cm, 03/27/21 15:02:0... Start Date: 09/11/21 Stop Date: 02/08/22 Status: Ordered topiramate 25 mg oral tablet 1 tablet, By Mouth, 2 times a day, # 56 tablet, 4 Refills, [facility], 152.4, cm, 03/27/21 15:02:00 EDT, Height Start Date: 09/11/21 Status: Ordered Tylenol 8 Hour 650 mg [...]
--- OUTSIDE RECORDS SUMMARY | 2023-06-28 13:27 | XMS_ITS | Continuity of Care Document ---
Author Name Unknown Organization [facility] Address [address] [facility], 3r d Floor, [address] [place] [id number]- Care Team Providers Care Research And Development Chemist Name Role Phone Mook Tompkins MD Primary Care Physician [phone] [facility]counter [facility] [id number] Date(s): 03/27/21 - 04/26/21 [facility] [address], [address], [address] [place] [id number] Allergies, Adverse Reactions, Alerts Substance [...] Start Date: 03/27/21 Status: Ordered NuLYTELY Lemon [place] oral powder for reconstitution 240 mL, By [...]
--- OUTSIDE RECORDS SUMMARY | 2023-06-28 13:27 | XMS_ITS | Continuity of Care Document ---
Author Name Unknown Organization [facility] Address [address] [facility], 3r d Floor, [address] [place] [id number]- Care Team Providers Care Latex Dipper Name Role Phone Mook Tompkins MD Primary Care Physician [phone] Encounter [facility] [place] Date(s): 11/17/20 - 12/17/20 [facility] [address] [place], [address] Floor, [address] [place] [id number] Attending Physician: Bassam Kimball Admitting Physician: [...] Start Date: 02/10/20 Status: Ordered NuLYTELY Lemon [place] oral powder for reconstitution 240 mL, By [...]
--- NOTE | 2023-06-28 14:02 | PC.NURSE ---
so far rn and a xavi have attempted blood draw. inquiring to other staff to try for a blood draw. pt reports no distress and tolerating ok. zoie martinez. no seizure activity.
[2023-06-28 15:13] LABS: Appearance Urine Clear; Color Urine Yellow; Glucose Urine UA Negative (Negative); Leukocyte Esterase Urine Trace (Negative); Nitrite Urine Negative (Negative); UMIC TRIGGER UACC YES; Urine Blood Negative (Negative); Urine Ketones Negative (Negative); Urine Protein Negative (Neg-Trace)
[2023-06-28 15:18] LABS: Bacteria Urine 1+ (None Seen); Hyaline Casts Urine 0-2 /LPF (0-2); RBC Urine 0-2 /HPF (0-2); Squamous Epithelial Cell Urine 0-2 /HPF (0-2); WBC Urine 0-5 /HPF (0-5)
[2023-06-28 15:29] LABS: COVID-19 Test Negative (Negative); IDNOW Serial# 08D9AD1C
[2023-06-28 15:56] LABS: MANUAL DIFF FLAG NO
--- NOTE | 2023-06-28 16:00 | MHC.EDTECH ---
PATIENT WAS A DIFFICULT STICK ,JACOBO LISA TRIED TO GET LABS WITH NO SUCCSS ,THIS PCT HAD TO DO A FINGER STICK TO GET BASIC LABS ,DM PINO AWARE .
[2023-06-28 16:18] LABS: Alanine Aminotransferase 25 U/L (0-31); Albumin Level 3.6 g/dL (3.5-5.0); Alkaline Phosphatase 131 U/L (39-117); Anion Gap 15 (12-20); Aspartate Amino Transferase 26 U/L (5-31); Bilirubin Total 0.2 mg/dL (0.0-1.0); Blood Urea Nitrogen 8 mg/dL (9-16); Calcium 8.9 mg/dL (8.4-10.2); Carbon Dioxide 15 mmol/L (22-29); Chloride 114 mmol/L (96-108); Estimated Glomerular Filt Rate > 60; Glucose Random 105 mg/dL (60-115); Magnesium 1.9 mg/dL (1.6-2.6); Potassium 4.9 mmol/L (3.3-5.1); Sodium 139 mmol/L (135-145); Total Protein 7.2 g/dL (6.5-8.0)
[2023-06-28 16:28] LABS: Basophils Absolute Auto 0.1 X10*3/uL (0.0-0.2); Eosinophils Absolute Auto 0.1 X10*3/uL (0.0-0.4); Eosinophils Percent Auto 1.5 % (0-4); Hematocrit 46.7 % (37.0-47.0); Hemoglobin 14.7 g/dl (12.0-16.0); Imm Gran Abs Auto 0.07 X10*3/uL (0.00-0.03); Imm Gran Pct Auto 1.2 % (0.0-0.4); Lymphocytes Percent Auto 34.8 % (20-40); Mean Corpuscular HGB Conc 31.5 g/dl (31.0-35.0); Mean Corpuscular Hemoglobin 29.3 pg (27.0-33.0); Mean Platelet Volume 10.1 fL (9.4-12.3); Monocytes Percent Auto 16.2 % (2-11); Neutrophils Absolute Auto 2.7 x10*3/uL (2.0-8.3); Neutrophils Percent Auto 45.3 % (45-73); Platelet Count 262 X10*3/uL (160-400); Red Blood Count 5.02 X10*6/uL (4.20-5.50); Red Cell Distribution Width 13.7 % (11.0-16.0); White Blood Count 5.9 X10*3/uL (4.8-10.8)
--- NOTE | 2023-06-28 16:42 | PC.NURSE ---
so far pt has had no seizure activity, no BM to send sample. urine sent. a/o to baseline self//place.
[2023-06-28] MEDS: iohexoL 350 MG/ML 100 ML INFUS..BTL IV (18:21)
--- NOTE | 2023-06-28 18:21 | PC.NURSE ---
Addendum entered by Padma Fernandez 06/28/23 18:23: provider notified- asked to [place] arm Original Note: per ct scan r arm piv infiltrated following administration of iv contrast. ct scan filling out incident report. rn elevating and placing heat.
--- NOTE | 2023-06-28 18:28 | PC.NURSE ---
provider radha came to bedside to eval arm - ordered cold compress and elevation- cold placed and elevated. drafting teacher stated the iv infiltrate from ct is not large infilatrate, very mild- not cool/warm, no red streaks, no pitting edema. iv removed
--- NOTE | 2023-06-28 19:12 | MHC.EDTECH ---
Patient put on commode
--- NOTE | 2023-06-28 19:29 | MHC.EDTECH ---
PHLEBOTOMY WAS CALLED THEY ARE IN PATIENT ROOM TO GET LABS .
--- NOTE | 2023-06-28 19:31 | PC.NURSE ---
lead programmer radha -remains without iv- no order from lead programmer to replace iv at this time. notified lead programmer continuing to have difficulty with obtaining blood. holding fluids as a result.
--- NOTE | 2023-06-28 19:38 | PC.NURSE ---
phlebotomy at bedside drawing blood.
[2023-06-28 19:48] LABS: VBG Base Excess -5.8 mmol/L; VBG HCO3 20 mmol/L (22-26); VBG pCO2 40 mmHg; VBG pH 7.29 (7.32-7.43); VBG pO2 100 mmHg
[2023-06-28 20:17] LABS: Lactic Acid 2.1 mmol/L (0.5-2.0)
[2023-06-28 20:17] LABS: Venous Blood Gas Refer to POC result
[2023-06-28 21:41] LABS: Reflex Lactate? Lactic Acid Added
[2023-06-28 22:53] LABS: CDiff Gene PCR NEGATIVE (Negative)
[2023-06-30 07:56] LABS: Adenovirus F 40/41 Not Detected (Not Detect.); Astrovirus Not Detected (Not Detect.); Campylobacter Not Detected (Not Detect.); Cryptosporidium Not Detected (Not Detect.); Cyclospora cayetanensis Not Detected (Not Detect.); E. coli EAEC Not Detected (Not Detect.); E. coli EPEC Not Detected (Not Detect.); E. coli ETEC Not Detected (Not Detect.); E. coli STEC Not Detected (Not Detect.); Entamoeba histolytica Not Detected (Not Detect.); Giardia lamblia Not Detected (Not Detect.); Norovirus GI/GII Not Detected (Not Detect.); Plesiomonas shigelloides Not Detected (Not Detect.); Rotavirus A Not Detected (Not Detect.); Salmonella Not Detected (Not Detect.); Sapovirus Not Detected (Not Detect.); Shigella sp./EIEC Not Detected (Not Detect.); Vibrio Not Detected (Not Detect.); Vibrio Cholerae Not Detected (Not Detect.); Yersinia enterocolitica Not Detected (Not Detect.)
== END 2023-06-28 22:25 | disposition home or self-care (01) ==
PROVIDERS: Nurse Practitioner Family; Physician Assistant; Emergency Provider Student in an Organized Health Care Education/Training Program; PCP Internal Medicine
DX: G40.909 Epilepsy, unspecified, not intractable, without status epilepticus (principal); R19.7 Diarrhea, unspecified; N39.0 Urinary tract infection, site not specified; E87.20 Acidosis, unspecified; Z20.822 Contact with and (suspected) exposure to COVID-19; F17.210 Nicotine dependence, cigarettes, uncomplicated; Z86.711 Personal history of pulmonary embolism; Z79.01 Long term (current) use of anticoagulants; Z79.899 Other long term (current) drug therapy
CPT/HCPCS: 36410; 36573; 70450; 74177; 80053; 81001; 82550; 82803; 83605; 83735; 85025; 87493; 87507; 87635; 99284; Q9967

== ENCOUNTER 2023-11-06 17:53 | Emergency (ER) | payer MEDICARE, MEDICAID, SELFPAY ==
--- NOTE | ~2023-11-06 | CT_ITS ---
EXAMINATION: CT HEAD WITHOUT CONTRAST CT CERVICAL SPINE WITHOUT CONTRAST CLINICAL INFORMATION: Fall. COMPARISON: CT head from 06/28/2023. TECHNIQUE: Contiguous axial imaging was performed from the skull base to vertex without intravenous administration of contrast. Contiguous axial imaging was performed from the upper chest through the skull base without intravenous administration of contrast. Coronal and sagittal reformats were obtained at the acquisition workstation. This CT examination was performed using dose optimization techniques as appropriate, variously including the following: *Automated exposure control. *Adjustment of mA and/or kV according to patient size (this includes techniques or standardized protocols for targeted exams where dose is matched to indication/reason for exam; i.e. extremities or head). *Use of iterative reconstruction technique. DLP: 992 mGy-cm FINDINGS: Head: There is chronic encephalomalacia within the left MCA territory (involving the left frontoparietal and temporal lobes as well as left insula) with associated volume loss. No additional loss of briggs-white matter differentiation. No evidence of acute intracranial hemorrhage. A few foci of hypoattenuation in the periventricular and deep white matter are consistent with mild microangiopathy. Ex vacuo dilatation of the left lateral ventricle. Otherwise, proportional prominence of the ventricles and sulcal spaces without evidence of obstructive hydrocephalus. Disproportionate volume loss of the cerebellum. No abnormal mass effect or midline shift. No extra-axial fluid collections. No acute soft tissue or osseous abnormalities. Asymmetric decrease in size of the left hemicranium, suggesting early age of left MCA insult. Mild mucosal thickening of the paranasal sinuses. The mastoid air cells and middle ear cavities are clear. Moderate degenerative arthropathy of the left temporomandibular joint. Cervical Spine: The atlantooccipital and atlantoaxial articulations remain well aligned. Moderate degenerative arthropathy of the atlantodental articulation. There is anatomic alignment of the vertebral bodies and posterior elements. No evidence of acute fracture or subluxation. The vertebral body heights are maintained. Moderate degenerative disc disease at C3-C4 and C4-C5 with moderate central disc protrusions at these levels. Mild degenerative disc disease at all additional levels. Facet and uncovertebral joint arthropathy leads to osseous encroachment on the neural foramina from C3-C5. There is no prevertebral soft tissue swelling. The thyroid gland and remaining cervical soft tissues are within normal limits. The lung apices demonstrate no abnormalities. CT/CT cervical spine wo IV con IMPRESSION: 1. No evidence of acute intracranial hemorrhage or edematous territorial infarction. 2. Chronic left MCA territory infarct. Mild underlying microangiopathy and generalized cerebral volume loss. 3. No evidence of acute fracture or traumatic subluxation of the cervical spine. Moderate multilevel degenerative spondyloarthropathy of the cervical spine.
[2023-11-06 18:05] VITALS: BP 133/80; PULSE 74; O2SAT 98
--- NOTE | 2023-11-06 18:11 | ED_ITS ---
HPI - General Adult General Chief complaint: Fall Stated complaint: DIZZY HEADACHE Time Seen by Provider: 11/06/23 18:10 Source: other (Husbandry Person) Mode of arrival: EMS Limitations: altered mental status History of Present Illness HPI narrative: Patient with developmental , with cerebral palsy had diarrhea 2 days ago and not eating well no nausea no vomiting was standing to go to bathroom washing her hand felt lightheaded and fell backwards hitting her head to the door no loss of consciousness no seizure no fever no vomiting taking her medication for seizure did not eat much for last 2 days Related Data Home Medications Medication Instructions Recorded Confirmed calcium citrate 200 mg 0 tab PO 05/02/22 calcium-vitamin D3 6.25 mcg (250 unit) tablet carbamazepine 400 mg 400 mg PO BID 05/02/22 tablet,extended release,12 hr (Tegretol XR) carbamazepine 400 mg 600 mg PO BID 07/04/22 tablet,extended release,12 hr (Tegretol XR) clotrimazole 1 % topical cream appl topical 12/27/22 Previous Rx's Medication Instructions Recorded albuterol sulfate 90 mcg/actuation 2 puff inhalation Q4H PRN 11/19/22 aerosol inhaler shortness of breath or wheezing 30 days #1 ea cefuroxime axetil 250 mg tablet 250 mg PO BID 7 days #14 tabs 06/28/23 rivaroxaban 20 mg tablet (Xarelto) 20 mg PO QAM #28 tabs 11/04/23 Allergies Allergy/AdvReac Type Severity Reaction Status Date / Time codeine [CODEINE] Allergy Unknown UNKNOWN Verified 11/06/23 18:31 Review of Systems 2 Review of Systems: Yes all other systems are reviewed and are negative [facility] Past Medical History Medical History Cerebral palsy Seizures Social History Social History Tobacco use type: Cigarette Advance Directives: Yes Advance Directives Information Provided: No Advance Directives on File: No Physical Exam ED Vital Signs: Vital Signs - 24 hr 11/06/23 18:25 Temperature 97.8 F Pulse Rate 70 Respiratory Rate 18 Blood Pressure 126/69 Pulse Oximetry 96 Oxygen Delivery Method Room Air BMI result Body Mass Index 47.2 Appearance: Alert. At her baseline mentally challenged No acute distress. Eyes: PERRLA, No Nystagmus ENT: Pharynx normal. Oral Mucosa moist Neck: Normal inspection. Neck supple. CVS: Normal heart rate and rhythm. Pulses normal. Respiratory: No respiratory distress. Equal air entry bilateral, no wheezing/rales/rhonchi Abdomen: Soft and nontender. Bowel sounds are present, no mass palpable, no CVA tenderness Skin: Skin warm and dry. Normal skin color. Normal skin turgor. Extremities: No lower extremity edema. No calf tenderness Neuro: Oriented X 3. No motor deficit. Medical Decision Making Medical Decision Making [facility] Narrative: Patient status post mechanical fall after feeling dizzy likely from current sickness vitals are stable CT scan head C-spine negative discharge [facility] advised to drink plenty of fluids Differential Diagnosis Differential Diagnoses: The differential diagnosis associated with the presentation includes Near syncope/syncope/orthostatic hypertension Admission/Observation Consideration of admission/observation: Escalation of care including admission/observation considered Lab Data [facility] Lab Attestation statement: I reviewed the patient's lab results. 11/06/23 18:37 11/06/23 18:37 Labs: Lab Results 11/06/23 Range/Units 18:37 WBC 4.3 L (4.8-10.8) X10*3/uL RBC 4.88 (4.20-5.50) X10*6/uL Hgb 14.2 (12.0-16.0) g/dl Hct 45.3 (37.0-47.0) % MCV 92.8 (80.0-98.0) fL MCH 29.1 (27.0-33.0) pg MCHC 31.3 (31.0-35.0) g/dl RDW 13.2 (11.0-16.0) % Plt Count 227 (160-400) X10*3/uL MPV 9.0 L (9.4-12.3) fL Immature Gran % (Auto) 0.2 (0.0-0.4) % Neut % (Auto) 47.1 (45-73) % Lymph % (Auto) 34.6 (20-40) % [place] % (Auto) 14.8 H (2-11) % Eos % (Auto) 2.6 (0-4) % Baso % (Auto) 0.7 (0-2) % Lymph # (Auto) 1.5 (1.2-4.9) X10*3/uL [place] # (Auto) 0.6 (0.1-1.2) X10*3/uL Eos # (Auto) 0.1 (0.0-0.4) X10*3/uL Baso # (Auto) 0.0 (0.0-0.2) X10*3/uL Abs Immat Gran (auto) 0.01 (0.00-0.03) X10*3/uL Absolute Neuts (auto) 2.0 (2.0-8.3) x10*3/uL Absolute Nucleated RBC 0.000 (0.0-0.012) X10*3/uL Nucleated RBC % (auto) 0.0 (0.0-0.2) /100WBC Sodium 140 (135-145) mmol/L Potassium 3.7 D (3.3-5.1) mmol/L Chloride 110 H (96-108) mmol/L Carbon Dioxide 24 (22-29) mmol/L Anion Gap 10 L (12-20) BUN 8 L (9-16) mg/dL Creatinine 0.72 (0.5-1.4) mg/dL Estim Creat Clear Calc 78.1 Estimated GFR > 60 Random Glucose 106 (60-115) mg/dL Calcium 8.7 (8.4-10.2) mg/dL Magnesium 1.9 (1.6-2.6) mg/dL Total Bilirubin 0.2 (0.0-1.0) mg/dL AST 22 (5-31) U/L ALT 23 (0-31) U/L Alkaline Phosphatase 131 H (39-117) U/L Total Protein 6.8 (6.5-8.0) g/dL Albumin 3.5 (3.5-5.0) g/dL Independent Interpretation I performed an independent interpretation of an: CT Scan Radiology Impression Discussion of test interpretation with radiology: I have reviewed the radiologist's reading. Discharge Plan Discharge Clinical Impression: Minor closed head injury Patient Disposition: Home, Self-Care Instructions: Head Injury (ED) Additional Instructions: CT scan of the head and C-spine negative for acute Likely had a passing out episode secondary to low blood pressure Drink plenty of fluids Follow with PCP as needed Prescriptions: No Action albuterol sulfate 90 mcg/actuation HFA aerosol inhaler 2 puff inhalation Q4H PRN (Reason: shortness of breath or wheezing) 30 Days Qty: 1 3RF Rx Instructions: NTE 6 doses in 24 hours, Call doctor if shortness of breath or wheezing lasts more than 48 hours Xarelto 20 mg tablet 20 mg PO QAM Qty: 28 0RF cefuroxime axetil 250 mg tablet 250 mg PO BID 7 Days Qty: 14 0RF calcium citrate-vitamin D3 200 mg-6.25 mcg (250 unit) tablet 0 tab PO carbamazepine [Tegretol XR] 400 mg tablet extended release 12 hr 400 mg PO BID carbamazepine [Tegretol XR] 400 mg tablet extended release 12 hr 600 mg PO BID clotrimazole 1 % cream topical
[2023-11-06 18:25] VITALS: BP 126/69; PULSE 70; RESP 18; TEMP 36.6; O2SAT 96; BMI 47.2
[2023-11-06 18:41] LABS: MANUAL DIFF FLAG NO
[2023-11-06 18:45] LABS: Basophils Percent Auto 0.7 % (0-2); Eosinophils Absolute Auto 0.1 X10*3/uL (0.0-0.4); Eosinophils Percent Auto 2.6 % (0-4); Hematocrit 45.3 % (37.0-47.0); Hemoglobin 14.2 g/dl (12.0-16.0); Imm Gran Abs Auto 0.01 X10*3/uL (0.00-0.03); Imm Gran Pct Auto 0.2 % (0.0-0.4); Lymphocytes Absolute Auto 1.5 X10*3/uL (1.2-4.9); Lymphocytes Percent Auto 34.6 % (20-40); Mean Corpuscular HGB Conc 31.3 g/dl (31.0-35.0); Mean Corpuscular Hemoglobin 29.1 pg (27.0-33.0); Mean Corpuscular Volume 92.8 fL (80.0-98.0); Monocytes Absolute Auto 0.6 X10*3/uL (0.1-1.2); Monocytes Percent Auto 14.8 % (2-11); Neutrophils Percent Auto 47.1 % (45-73); Platelet Count 227 X10*3/uL (160-400); Red Blood Count 4.88 X10*6/uL (4.20-5.50); Red Cell Distribution Width 13.2 % (11.0-16.0); White Blood Count 4.3 X10*3/uL (4.8-10.8)
[2023-11-06 19:05] LABS: Alanine Aminotransferase 23 U/L (0-31); Albumin Level 3.5 g/dL (3.5-5.0); Alkaline Phosphatase 131 U/L (39-117); Anion Gap 10 (12-20); Aspartate Amino Transferase 22 U/L (5-31); Bilirubin Total 0.2 mg/dL (0.0-1.0); Blood Urea Nitrogen 8 mg/dL (9-16); Calcium 8.7 mg/dL (8.4-10.2); Carbon Dioxide 24 mmol/L (22-29); Chloride 110 mmol/L (96-108); Creatinine Clr Calc Pharmacy 78.1; Estimated Glomerular Filt Rate > 60; Glucose Random 106 mg/dL (60-115); Magnesium 1.9 mg/dL (1.6-2.6); Potassium 3.7 mmol/L (3.3-5.1); Sodium 140 mmol/L (135-145); Total Protein 6.8 g/dL (6.5-8.0)
== END 2023-11-06 22:20 | disposition home or self-care (01) ==
PROVIDERS: Emergency Provider Internal Medicine; PCP Internal Medicine
DX: S09.8XXA Other specified injuries of head, initial encounter (principal); W18.39XA Other fall on same level, initial encounter; R42 Dizziness and giddiness; G80.9 Cerebral palsy, unspecified; F17.200 Nicotine dependence, unspecified, uncomplicated; Y93.9 Activity, unspecified; Y92.049 Unspecified place in boarding-house as the place of occurrence of the external cause; Y99.9 Unspecified external cause status; Z79.899 Other long term (current) drug therapy
CPT/HCPCS: 36415; 70450; 72125; 80053; 83735; 85025; 99282; 99284

== ENCOUNTER 2024-01-22 14:31 | Outpatient (AMB) | payer MEDICARE, MEDICAID, SELFPAY ==
--- NOTE | 2024-01-22 14:35 | MHC.OFFVIS ---
Intake Vital Signs 01/22/24 14:37 Height 4 ft 9 in Weight 204 lb BMI 44.1 BP 122/67 Blood Pressure Location Lt brachial Position Sitting Pulse 96 Pulse Source Doppler Pulse Oximetry (%) 98 Oxygen Delivery Method Room Air Intake Visit Reasons: pulm htn Allergies codeine [CODEINE] Allergy (Unknown, Verified 01/22/24 14:35) UNKNOWN HPI pulm htn HPI Details 63-year-old lady, lifetime nonsmoker, with underlying history of developmental? 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 Patient continues on as needed albuterol MDI overall with reasonable control of her chronic cough. No recent exacerbations. PFSH Medical History Cerebral palsy Seizures Social History (Reviewed 01/22/24 @ 14:44 by Josie Richardson [facility]) Tobacco use type: Cigarette Review of Systems Const Denies daytime sleepiness, Denies excessive sweating, Denies fatigue, Denies fever(s), Denies lethargy, Denies malaise, Denies night sweats, Denies snoring and Denies weight loss Eyes Denies blurry vision and Denies itchy eyes ENT Denies nasal congestion, Denies post nasal drip, Denies sinus pain, Denies sinus pressure and Denies other ( Thrush) Card Denies chest pain, Denies pedal edema, Denies dyspnea, Denies orthopnea and Denies paroxysmal nocturnal dyspnea Resp Denies cough, Denies hemoptysis, Denies excessive phlegm production, Denies dyspnea, Denies snoring and Denies wheezing GI Denies abdominal pain and Denies heartburn Musc Denies myalgias, Denies arthralgias and Denies joint swelling Skin/Breast Denies rash Neuro Denies memory loss and Denies seizure-like activity Psych Denies abnormal sleep pattern, Denies anxiety and Denies memory loss Endo Denies excessive sweating, Denies fatigue and Denies heat intolerance Ish/Lymph Denies easy bruising Aller/Immun Denies itchy eyes, Denies seasonal rhinorrhea and Denies wheezing Physical Exam Vital Signs: Last Vital Signs Pulse 96 01/22/24 14:37 BP 122/67 01/22/24 14:37 Pulse Ox 98 01/22/24 14:37 Oxygen Delivery Method Room Air 01/22/24 14:37 BMI result Body Mass Index 44.1 Const General: no acute distress and alert Nutritional Appearance: not obese Orientation/consciousness: Other orientation findings ( oriented) HEENT Head: Yes atraumatic Eyes General: appearance normal, both eyes and all related structures Sclerae: sclerae normal EOM: EOMs intact bilaterally Neck Neck: Yes supple Lymphatic: no lymphadenopathy noted Resp Effort & Inspection: normal respiratory effort and no use of accessory muscles Auscultation: clear to auscultation bilaterally Cardio Rate: regular rate Rhythm: regular rhythm Heart sounds: no gallops, no murmurs and no rubs Skin General skin exam: other ( warm) Extrem General: No clubbing, No cyanosis and No edema Assessment & Plan Assessment & Plan (1) Cough: Code(s): R05.9 - Cough, unspecified Plan: Controlled on as needed albuterol MDI. Continue current regimen. (2) Pulmonary embolism: Code(s): I26.99 - Other pulmonary embolism without acute cor pulmonale Plan: Unprovoked. Continues on lifelong anticoagulation. Coding Level of Care Code Est Pt Level 4 (92268) Diagnoses Cough R05.9 Pulmonary embolism I26.99
[2024-01-22 14:37] VITALS: BP 122/67; PULSE 96; O2SAT 98; BMI 44.1
== END 2024-01-22 14:53 | disposition home or self-care (01) ==
PROVIDERS: PCP Internal Medicine; Visit Provider Internal Medicine Pulmonary Disease
DX: R05.9 Cough, unspecified (principal); I26.99 Other pulmonary embolism without acute cor pulmonale
CPT/HCPCS: 99214

== ENCOUNTER → 2024-01-22 14:31 | Outpatient (BNVA) | payer MEDICARE, MEDICAID, SELFPAY | PROVIDERS: PCP Internal Medicine; Visit Provider Internal Medicine Pulmonary Disease | DX: I26.99 Other pulmonary embolism without acute cor pulmonale (principal); R05.9 Cough, unspecified | CPT/HCPCS: 99212 ==

== ENCOUNTER 2024-03-18 07:57 | Outpatient (AMB) | payer MEDICARE, MEDICAID, SELFPAY ==
--- NOTE | 2024-03-18 08:03 | MHC.OFFVIS ---
Intake Vital Signs 03/18/24 08:13 Height 4 ft 9 in Weight 200 lb BMI 43.3 BMI Reason not done Palliative Care Patient BP 130/63 Blood Pressure Location Lt brachial Position Sitting Pulse 62 Intake Visit Reasons: Diarrhea/Colonoscopy screening Intake Note: Reba presents in the office as a new patient for a colonoscopy screening and diarrhea. CC: She is having diarrhea. Lactaid pills do help and they try not to give her artifical flavors or diary. That seems to help - she had gall bladder removed years ago. Electronic Engineering Technician Required: No Allergies codeine [CODEINE] Allergy (Unknown, Verified 03/18/24 08:07) UNKNOWN HPI Diarrhea/Colonoscopy screening HPI Details 63-year-old female here for initial evaluation of diarrhea. She is referred by Mook Tompkins of [facility]. PMX Obesity-BMI of 44 hx of PE Hx of CVA wtih hemiparesis rt High cholesterol Cerebral palsy Seizure disorder GERD Impaired fasting glucose Osteopenia * SURGICAL HISTORY cholecystectomy * ALLERGIES codeine - unknown * [employer] LABS: Laboratory Tests 11/06/23 18:37 WBC 4.3 L Hgb 14.2 Hct 45.3 Plt Count 227 Estimated GFR > 60 Total Bilirubin 0.2 AST 22 ALT 23 06/28/23-[address]: Tee mayfield,Mook LOPEZ ORDERED: GI Panel Test Result Flag Ref erence Campyloba cter Not Detected N ot Detect. P. s higelloides Not Detec chris Not Detect. Salmonella Not Detected Not Detec t. Vibrio Not Detected Not Detect. Vibrio Cholerae Not Detected Not Detect. Y. enterocolit. Not Det ected Not Detect. E. coli EAEC No t Detected Not Det ect. E. coli EP EC Not Detected No t Detect. E. co li ETEC Not Detect ed Not Detect. E. coli STEC Not D etected Not Detect . E. coli O157 N ot applicable Not D etect. E. coli containing th e O157 antigen are a subset of Shiga-like toxin -producing E. coli (STEC). Shigell a/EIEC Not Detected Not Detect. Cr yptosporidium Not Det ected Not Detect. Cyclospora No t Detected Not Det ect. E. histoly hillary Not Detected No t Detect. Giard ia lamblia Not Detect ed Not Detect. Adenovirus Not D etected Not Detect . Astrovirus Not Detected Not D etect. Noroviru s Not Detected Not Detect. Rot avirus A Not Dete cted Not Detect. Sapovirus Not Detected Not Dete ct. Alkaline Phosp hatase 131 H TODAYS VISIT She is here with a tube mill operator (Selam) who gives the hx. They tried stopping her sugar free candy and stopping lactose products, but she has some days of solid stools and some of diarrhea. This is worse when she eats greasy foods. Apparently the facility did not know until this week that she is status post cholecystectomy! 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 She is having colon cancer screenings via [facility] they currently have a box at home but she has not yet completed it. She does not like this of the diarrhea. [facility] [place] [facility] and wants to be able to travel. Will start with a trial of to Carafate at noon to avoid preventing absorption of her other chronic medications including her Xarelto. We will titrate this to affect her side effect or change the medication as needed. ROV 2 weeks. [facility] Medical History (Updated 03/18/24 @ 08:29 by TORRIE Norton) Cerebral palsy Seizures Surgical History (Updated 03/18/24 @ 08:12 by GABRIELLA Velasquez) Hx of cholecystectomy Family History (Updated 03/18/24 @ 08:11 by GABRIELLA Velasquez) Mother Stomach cancer Social History Tobacco use type: Cigarette Review of Systems Const Denies fatigue, Denies fever(s), Denies night sweats, Denies poor appetite and Denies weight loss ENT Denies dental pain, Denies dysphagia, Denies hearing loss, Denies mouth pain, Denies odynophagia, Denies throat swelling, Denies tongue swelling and Reports other (Dentition adequate) Card Reports no additional complaints Resp Reports no additional complaints GI Details: Denies abdominal pain, Denies melena, Denies bloating, Denies hematochezia, Denies constipation, Denies GI cramping, Denies dysphagia, Denies excessive flatus, Denies early satiety, Denies heartburn, Reports diarrhea, Denies nausea, Denies odynophagia, Denies vomiting and Denies hematemesis Musc Reports abnormal gait, Reports myalgias and Reports deformity Skin/Breast Denies pruritus, Denies lesions, Denies rash and Denies jaundice Neuro Reports abnormal gait, Reports lack of coordination and Reports focal weakness Endo Denies fatigue Aller/Immun Denies throat swelling and Denies tongue swelling Physical Exam Vital Signs: Last Vital Signs Pulse 62 03/18/24 08:13 BP 130/63 03/18/24 08:13 BMI result Body Mass Index 43.3 Const General: cooperative, no acute distress, well developed and well groomed Nutritional Appearance: well nourished and obese Orientation/consciousness: oriented to person, oriented to place and oriented to time Limitations: No language barrier, physical limitations, wheelchair and other limitations (Low functioning cognition?) HEENT Head: Yes normocephalic and Yes atraumatic Eyes General: appearance normal, both eyes and all related structures Pupils: Equal, round and reactive pupils present Neck Neck: Yes normal visual inspection and Yes no lymphadenopathy Thyroid: Thyroid normal Resp Effort & Inspection: normal respiratory effort and able to speak in complete sentences Auscultation: clear to auscultation bilaterally Cardio Rate: regular rate Rhythm: regular rhythm Heart sounds: Normal, physiologic split S2 sound present Peripheral pulses: radial pulses present and posterior tibial pulses present GI Inspection: No distended and No Abdominal panniculus present Palpation (GI): Soft to palpation, nontender, no guarding, not rigid, No hepatosplenomegaly present and Hepatosplenomegaly present Percussion: Yes normal to percussion Auscultation: normal bowel sounds Rectal Exam - Female: deferred Abdomen image: 1. surgical scar Skin General skin exam: no rashes or lesions noted, turgor normal, skin not dry, no jaundice, No spider nevi and no striae Rashes: no rashes Nails: normal Neuro General: oriented to person, oriented to place and oriented to time Cranial nerves: Yes Equal, round and reactive pupils present Extrem Other: brace right ankle , right-sided hemiparesis with contracture of the right hand General: No clubbing, No cyanosis and Yes edema (mild) Psych Appearance: grossly normal and well kempt Mental Status: other Speech and movement: Mute speech present Affect: normal affect Attitude: cooperative Thought process: Other thought process findings present Thought content: other Insight: Poor insight present (Psych) Judgement: Poor judgement present (Psych) Assessment & Plan Assessment & Plan (1) Post-cholecystectomy syndrome: Code(s): K91.5 - Postcholecystectomy syndrome Plan She is here with a tube mill operator (Selam) who gives the hx. They tried stopping her sugar free candy and stopping lactose products, but she has some days of solid stools and some of diarrhea. This is worse when she eats greasy foods. Apparently the facility did not know until this week that she is status post cholecystectomy! 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 She is having colon cancer screenings via [facility] they currently have a box at home but she has not yet completed it. She does not like this of the diarrhea. She wants to go [facility] [place] [facility] and wants to be able to travel. Will start with a trial of to Carafate at noon to avoid preventing absorption of her other chronic medications including her Xarelto. We will titrate this to affect her side effect or change the medication as needed. ROV 2 weeks. Medications: New sucralfate (Carafate) 2 grams (2 x 1 gram) PO QNOON 60 tabs 3RF K91.5 - Postcholecystectomy syndrome Coding Level of Care Code New Pt Level 3 (86511) Diagnoses Post-cholecystectomy syndrome K91.5
[2024-03-18 08:13] VITALS: BP 130/63; PULSE 62; BMI 43.3
== END 2024-03-18 08:51 | disposition home or self-care (01) ==
PROVIDERS: PCP Internal Medicine; Visit Provider Nurse Practitioner
DX: K91.5 Postcholecystectomy syndrome (principal)
CPT/HCPCS: 99203

== ENCOUNTER → 2024-03-18 07:57 | Outpatient (BNVA) | payer MEDICARE, MEDICAID, SELFPAY | PROVIDERS: PCP Internal Medicine; Visit Provider Nurse Practitioner | DX: K91.5 Postcholecystectomy syndrome (principal); Z90.49 Acquired absence of other specified parts of digestive tract | CPT/HCPCS: 99202 ==

== ENCOUNTER 2024-04-01 09:22 | Outpatient (AMB) | payer MEDICARE, MEDICAID, SELFPAY ==
--- NOTE | 2024-04-01 09:24 | A.OFFVIS_ITS ---
Vital Signs 3 04/01/24 09:34 Height 4 ft 9 in Weight 208 lb BMI 45.0 BP 138/70 Blood Pressure Location Lt brachial Position Sitting Pulse 61 Intake Visit Reasons: 2 week follow up Intake Note: Reba returns to in office 2 weeks follow up of Post-cholecystectomy syndrome. CC: Patient with staff from [facility] states patient has soft stools but not diarrhea. Wide Area Network Administrator Required: No Allergies codeine [CODEINE] Allergy (Unknown, Verified 04/01/24 09:46) UNKNOWN HPI HPI 2 week follow up: Details: Assessment & Plan (1) Post-cholecystectomy syndrome: Code(s): K91.5 - Postcholecystectomy syndrome Plan She is here with a turkey pinner (Selam) who gives the hx. They tried stopping her sugar free candy and stopping lactose products, but she has some days of solid stools and some of diarrhea. This is worse when she eats greasy foods. Apparently the facility did not know until this week that she is status post cholecystectomy! 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 She is having colon cancer screenings via [facility] they currently have a box at home but she has not yet completed it. She does not like this of the diarrhea. She [facility] [place] [facility] and wants to be able to travel. Will start with a trial of to Carafate at noon to avoid preventing absorption of her other chronic medications including her Xarelto. We will titrate this to affect her side effect or change the medication as needed. ROV 2 weeks. Medications: New sucralfate (Carafate) 2 grams (2 x 1 gram) PO QNOON 60 tabs 3RF K91.5 - Postcholecystectomy syndrome TODAYS VISIT There was a delay in her getting the medications so she has only been on it for couple of days. This really has not been a very long trial but she does still appear to be having some loose stools. At this point I will increase the Carafate from 2 at noon 2 3 at noon and will bring her back in 3 weeks to evaluate her response. She still looking forward to going on to their trip in May and hoping that the stooling will be controlled for the long car ride. [facility] Medical History Cerebral palsy Seizures Surgical History Hx of cholecystectomy Family History Mother Stomach cancer Social History Tobacco use type: Cigarette Review of Systems Const Denies fatigue, Denies fever(s), Denies night sweats, Denies poor appetite and Denies weight loss ENT Reports Normal hearing present, Denies dental pain, Denies dysphagia, Denies hearing loss, Denies mouth pain, Denies odynophagia, Denies throat swelling, Denies tongue swelling and Reports other (Dentition adequate) Card Reports no additional complaints Resp Reports no additional complaints GI Details: Denies abdominal pain, Denies melena, Denies bloating, Denies hematochezia, Denies constipation, Denies GI cramping, Denies dysphagia, Denies excessive flatus, Denies early satiety, Reports heartburn, Reports diarrhea, Denies nausea, Denies odynophagia, Denies vomiting and Denies hematemesis Skin/Breast Denies pruritus, Denies lesions, Denies rash and Denies jaundice Neuro Reports Normal hearing present and Denies Abnormal speech present Endo Denies fatigue Aller/Immun Denies throat swelling and Denies tongue swelling Physical Exam Vital Signs: Last Vital Signs Pulse 61 04/01/24 09:34 BP 138/70 04/01/24 09:34 BMI result Body Mass Index 45.0 Const General: cooperative, no acute distress, well developed and well groomed Nutritional Appearance: well nourished and obese Orientation/consciousness: oriented to person, oriented to place and oriented to time Limitations: No language barrier, wheelchair and other limitations HEENT Head: Yes normocephalic and Yes atraumatic Eyes General: appearance normal, both eyes and all related structures Pupils: Equal, round and reactive pupils present Neck Neck: Yes normal visual inspection and Yes no lymphadenopathy Thyroid: Thyroid normal Resp Effort & Inspection: normal respiratory effort and able to speak in complete sentences Auscultation: clear to auscultation bilaterally Cardio Rate: regular rate Rhythm: regular rhythm Heart sounds: Normal, physiologic split S2 sound present Peripheral pulses: radial pulses present and posterior tibial pulses present GI Inspection: No distended, Yes Abdominal panniculus present and Yes obesity Palpation (GI): Soft to palpation, nontender, no guarding, not rigid and No hepatosplenomegaly present Percussion: Yes normal to percussion Auscultation: normal bowel sounds Rectal Exam - Female: deferred Abdomen image: 2 1. Surgical scar Skin General skin exam: no rashes or lesions noted, turgor normal, skin not dry, no jaundice, No spider nevi and no striae Rashes: no rashes Nails: normal Neuro General: oriented to person, oriented to place and oriented to time Cranial nerves: Yes Equal, round and reactive pupils present and Yes Normal hearing present Speech: No Abnormal speech present Psych Appearance: grossly normal and well kempt Mental Status: other Speech and movement: Other speech and movement exam findings present (Psych) Affect: normal affect Attitude: cooperative Thought process: Other thought process findings present Insight: Poor insight present (Psych) Judgement: Poor judgement present (Psych) Assessment & Plan Assessment & Plan (1) Post-cholecystectomy syndrome: Code(s): K91.5 - Postcholecystectomy syndrome Category: Medical (2) GERD (gastroesophageal reflux disease): Code(s): K21.9 - Gastro-esophageal reflux disease without esophagitis Category: Medical Plan There was a delay in her getting the medications so she has only been on it for couple of days. This really has not been a very long trial but she does still appear to be having some loose stools. At this point I will increase the Carafate from 2 at noon 2 3 at noon and will bring her back in 3 weeks to evaluate her response. She still looking forward to going on to their trip in May and hoping that the stooling will be controlled for the long car ride. Medications: Changed 2 From sucralfate (Carafate) 2 grams (2 x 1 gram) PO QNOON 60 tabs 3RF K91.5 - Postcholecystectomy syndrome To sucralfate (Carafate) 3 grams (3 x 1 gram) PO QNOON 60 tabs 3RF K91.5 - Postcholecystectomy syndrome Coding Level of Care Code Est Pt Level 3 (32798) Diagnoses Post-cholecystectomy syndrome K91.5 GERD (gastroesophageal reflux disease) K21.9
[2024-04-01 09:34] VITALS: BP 138/70; PULSE 61; BMI 45.0
== END 2024-04-01 10:05 | disposition home or self-care (01) ==
PROVIDERS: PCP Internal Medicine; Visit Provider Nurse Practitioner
DX: K91.5 Postcholecystectomy syndrome (principal); K21.9 Gastro-esophageal reflux disease without esophagitis
CPT/HCPCS: 99213

== ENCOUNTER → 2024-04-01 09:22 | Outpatient (BNVA) | payer MEDICARE, MEDICAID, SELFPAY | PROVIDERS: PCP Internal Medicine; Visit Provider Nurse Practitioner | DX: K21.9 Gastro-esophageal reflux disease without esophagitis (principal); K91.5 Postcholecystectomy syndrome | CPT/HCPCS: 99212 ==

== ENCOUNTER 2024-04-23 11:33 | Outpatient (AMB) | payer MEDICARE, MEDICAID, SELFPAY ==
--- NOTE | 2024-04-23 11:35 | A.OFFVIS_ITS ---
Vital Signs 04/23/24 11:36 Height 4 ft 9 in BP 133/72 Blood Pressure Location Lt brachial Position Sitting Pulse 63 Comment la Intake Visit Reasons: 3 weeks follow up Intake Note: Patient in office today in follow up diarrhea. CC: Patient caregiver states that Reba is now having more solid BMs. Denies any new GI concerns today. Business Support Professional Required: No Allergies codeine [CODEINE] Allergy (Unknown, Verified 04/23/24 11:39) UNKNOWN HPI HPI 3 weeks follow up: Details: Assessment & Plan (1) Post-cholecystectomy syndrome: Code(s): K91.5 - Postcholecystectomy syndrome Category: Medical (2) GERD (gastroesophageal reflux disease): Code(s): K21.9 - Gastro-esophageal reflux disease without esophagitis Category: Medical Plan There was a delay in her getting the medications so she has only been on it for couple of days. This really has not been a very long trial but she does still appear to be having some loose stools. At this point I will increase the Carafate from 2 at noon 2 3 at noon and will bring her back in 3 weeks to evaluate her response. She still looking forward to going on to their trip in May and hoping that the stooling will be controlled for the long car ride. Medications: Changed From sucralfate (Carafate) 2 grams (2 x 1 gram) PO QNOON 60 tabs 3RF K91.5 - Postcholecystectomy syndrome To sucralfate (Carafate) 3 grams (3 x 1 gram) PO QNOON 60 tabs 3RF K91.5 - Postcholecystectomy syndrome TODAYS VISIT She is now doing well with 3 carafate a day. She is having more solid stools, except when she had some ranch dressing which gave her diarrhea (? lactose vs fat content). She is more active and eating more healthfully. She is now looking forward to her trip to [facility]. ROV 3 mos. PFSH Medical History Cerebral palsy Seizures Surgical History Hx of cholecystectomy Family History Mother Stomach cancer Social History Tobacco use type: Cigarette Review of Systems Const Denies fatigue, Denies fever(s), Denies night sweats, Denies poor appetite and Denies weight loss ENT Reports Normal hearing present, Denies dental pain, Denies dysphagia, Denies hearing loss, Denies mouth pain, Denies odynophagia, Denies throat swelling, Denies tongue swelling and Reports other (Dentition adequate) Card Reports no additional complaints Resp Reports no additional complaints GI Details: Denies abdominal pain, Denies melena, Denies bloating, Denies hematochezia, Denies constipation, Denies GI cramping, Denies dysphagia, Denies excessive fl atus, Denies early satiety, Reports heartburn, Reports diarrhea, Denies nausea, Denies odynophagia, Denies vomiting and Denies hematemesis Skin/Breast Denies pruritus, Denies lesions, Denies rash and Denies jaundice Neuro Reports Normal hearing present and Denies Abnormal speech present Endo Denies fatigue Aller/Immun Denies throat swelling and Denies tongue swelling Physical Exam Vital Signs: Last Vital Signs Pulse 63 04/23/24 11:36 BP 133/72 04/23/24 11:36 Const General: cooperative, no acute distress, well developed and well groomed Nutritional Appearance: well nourished and obese Orientation/consciousness: oriented to person, oriented to place and oriented to time Limitations: No language barrier and wheelchair HEENT Head: Yes normocephalic and Yes atraumatic Eyes General: appearance normal, both eyes and all related structures Pupils: Equal, round and reactive pupils present Neck Neck: Yes normal visual inspection and Yes no lymphadenopathy Thyroid: Thyroid normal Resp Effort & Inspection: normal respiratory effort and able to speak in complete sentences Auscultation: clear to auscultation bilaterally Cardio Rate: regular rate Rhythm: regular rhythm Heart sounds: Normal, physiologic split S2 sound present Peripheral pulses: radial pulses present and posterior tibial pulses present GI Inspection: No distended, No Abdominal panniculus present and Yes obesity Palpation (GI): Soft to palpation, nontender, no guarding, not rigid and No hepatosplenomegaly present Percussion: Yes normal to percussion Auscultation: normal bowel sounds Rectal Exam - Female: deferred Skin General skin exam: no rashes or lesions noted, turgor normal, skin not dry, no jaundice, No spider nevi and no striae Rashes: no rashes Nails: normal Neuro General: oriented to person, oriented to place and oriented to time Cranial nerves: Yes Equal, round and reactive pupils present and Yes Normal hearing present Speech: No Abnormal speech present Extrem General: Yes normal to inspection, No clubbing, No cyanosis and No edema Psych Appearance: grossly normal and well kempt Mental Status: other Speech and movement: Slowed speech present (Psych) Affect: normal affect Attitude: cooperative Thought process: Circumstantial thought process present and not confabulating Thought content: Normal thought content present Insight: Limited insight present (Psych) Judgement: Limited judgement present (Psych) Assessment & Plan Assessment & Plan (1) Post-cholecystectomy syndrome: Code(s): K91.5 - Postcholecystectomy syndrome Category: Medical (2) GERD (gastroesophageal reflux disease): Code(s): K21.9 - Gastro-esophageal reflux disease without esophagitis Category: Medical Plan She is now doing well with 3 carafate a day. She is having more solid stools, except when she had some ranch dressing which gave her diarrhea (? lactose vs fat content). She is more active and eating more healthfully. She is now looking forward to her trip to [facility]. ROV 3 mos. Coding Level of Care Code Est Pt Level 3 (25557) Diagnoses Post-cholecystectomy syndrome K91.5 GERD (gastroesophageal reflux disease) K21.9
[2024-04-23 11:36] VITALS: BP 133/72; PULSE 63
== END 2024-04-23 11:55 | disposition home or self-care (01) ==
PROVIDERS: PCP Internal Medicine; Visit Provider Nurse Practitioner
DX: K91.5 Postcholecystectomy syndrome (principal); K21.9 Gastro-esophageal reflux disease without esophagitis
CPT/HCPCS: 99213

== ENCOUNTER → 2024-04-23 11:33 | Outpatient (BNVA) | payer MEDICARE, MEDICAID, SELFPAY | PROVIDERS: PCP Internal Medicine; Visit Provider Nurse Practitioner | DX: K91.5 Postcholecystectomy syndrome (principal); K21.9 Gastro-esophageal reflux disease without esophagitis | CPT/HCPCS: 99212 ==

== ENCOUNTER 2024-07-14 07:50 | Emergency (ER) | payer MEDICARE, MEDICAID, SELFPAY ==
--- NOTE | ~2024-07-14 | XR_ITS ---
EXAMINATION: XR CHEST CLINICAL INFORMATION: Lethargy. COMPARISON: 09/14/2021 TECHNIQUE: 2 views of the chest were obtained. FINDINGS: Low lung volumes. Basilar atelectasis. No focal consolidation. No pleural effusion. Cardiac silhouette is unchanged. XR/XR chest 2V IMPRESSION: No acute abnormality.
[2024-07-14 07:59] VITALS: BP 120/66; PULSE 70; O2SAT 97
[2024-07-14 08:02] VITALS: BP 110/58; PULSE 65; RESP 16; TEMP 36.8; O2SAT 98; BMI 44.8
--- NOTE | 2024-07-14 08:11 | ECG_ITS ---
Test Reason : JAW/ARM PAIN Blood Pressure : / mmHG Vent. Rate : 066 BPM Atrial Rate : 066 BPM P-R Int : 146 ms QRS Dur : 086 ms QT Int : 398 ms P-R-T Axes : 031 -17 020 degrees QTc Int : 417 ms Normal sinus rhythm Cannot rule out Anterior infarct (cited on or before 30-APR-2019) Abnormal ECG When compared with ECG of 30-APR-2019 15:49, Nonspecific T wave abnormality has replaced inverted T waves in Inferior leads Referred By: Vera Canela Electronically Signed By:MARTÍN AMAYA
--- NOTE | 2024-07-14 08:11 | ED.GENADULT ---
HPI - General Adult General Chief complaint: General Medical Stated complaint: LUE PAIN FROM INTERMEDIATE PER EMS Time Seen by Provider: 07/14/24 07:57 Source: patient, RN notes reviewed and other ([facility] staff) Mode of arrival: EMS Limitations: physical limitation History of Present Illness ED Provider: guillermo HPI narrative: Patient is a 63-year-old female with history of seizure disorder, cerebral palsy, GERD, right sided hemiplegia presenting to the ED with [facility] staff who reports that patient has been more lethargic than normal for the past 3 days. Reports that patient has been incontinent of stool/urine for the past 3 mornings which is not typical for her. Staff had initially scheduled an appointment with PCP for today but this morning patient complained left arm, neck and jaw pain so they brought patient to the ED instead. Patient denies any current complaints. She denies left arm pain, neck/jaw pain, chest pain, shortness of breath, palpitations, abdominal pain. Staff denies any nausea, vomiting or diarrhea. MD complaint: lethargy Onset (ago): day(s) Location: left and upper extremity Associated symptoms: denies other symptoms Treatments prior to arrival: none Related Data Home Medications ?Medication ?Instructions ?Recorded ?Confirmed clotrimazole 1 % topical cream appl topical 12/27/22 cholecalciferol (vitamin D3) 25 25 mcg PO DAILY 01/22/24 mcg (1,000 unit) capsule lactase 3,000 unit tablet 3,000 unit PO QID PRN 01/22/24 aspirin 81 mg tablet,delayed 81 mg PO DAILY 03/18/24 release atorvastatin 80 mg tablet 80 mg PO DAILY 03/18/24 carbamazepine 200 mg 275 mg PO 03/18/24 capsule,extended release [id number] loratadine 10 mg tablet 10 mg PO DAILY 03/18/24 lorazepam 0.5 mg tablet (Ativan) 0.5 mg PO DAILY PRN 03/18/24 metoprolol succinate 50 mg 50 mg PO DAILY 03/18/24 tablet,extended release 24 hr omeprazole 20 mg capsule,delayed 20 mg PO BID 03/18/24 release calcium citrate 200 mg 1 tab PO BID 04/01/24 calcium-vitamin D3 6.25 mcg (250 unit) tablet carbamazepine 400 mg 400 mg PO ONCE 04/01/24 tablet,extended release,12 hr (Tegretol XR) carbamazepine 400 mg 600 mg PO ONCE 04/01/24 tablet,extended release,12 hr (Tegretol XR) nystatin 100,000 unit/gram topical 1 appl topical DAILY 04/01/24 powder topiramate 200 mg tablet (Topamax) 275 mg PO BID 04/01/24 Previous Rx's ?Medication ?Instructions ?Recorded albuterol sulfate 90 mcg/actuation 2 puff inhalation Q4H PRN 11/19/22 aerosol inhaler shortness of breath or wheezing 30 days #1 ea sucralfate 1 gram tablet 3 g (3 x 1 gram) PO DAILY #84 tabs 06/15/24 rivaroxaban 20 mg tablet (Xarelto) 20 mg PO QAM #28 tabs 07/13/24 cefuroxime axetil 250 mg tablet 250 mg PO BID urinary tract 07/14/24 infection #14 tabs Allergies Allergy/AdvReac Type Severity Reaction Status Date / Time codeine [CODEINE] Allergy Unknown UNKNOWN Verified 07/14/24 08:08 Review of Systems Review of Systems: As per HPI. Yes all other systems are reviewed and are negative Constitutional: Constitutional: Reports as per HPI [facility] Past Medical History Medical History Cerebral palsy Seizures Surgical History Hx of cholecystectomy Family History Family History Mother Stomach cancer Social History Social History Tobacco use type: Cigarette Smoked in Last 30 Days: No Use of substances other than those prescribed or required for medical reasons: No Advance Directives: Yes Advance Directives Information Provided: Yes Advance Directives on File: No Do you have a plan to hurt others: No Plan Physical Exam ED Vital Signs: Vital Signs - 24 hr 07/14/24 08:02 07/14/24 11:06 Temperature 98.2 F Pulse Rate 65 60 Respiratory Rate 16 18 Blood Pressure 110/58 L 124/75 Pulse Oximetry 98 96 Oxygen Delivery Method Room Air Room Air BMI result Body Mass Index 44.8 Vital signs have been reviewed and appear to be correct. Blood pressure normal. Heart rate normal. Respiratory rate normal. Temperature normal. Oxygen saturation normal. Const General: cooperative, healthy appearing and no acute distress Orientation/consciousness: oriented to person and oriented to place HENNE Head: Yes normocephalic and Yes atraumatic Ears: external ears normal General nose exam: Normal external nose present Mouth: oropharynx normal and moist mucous membranes Throat: Yes uvula midline Eyes Pupils: Equal, round and reactive pupils present Neck Neck: Yes normal visual inspection and Yes supple Resp Effort & Inspection: normal respiratory effort and able to speak in complete sentences Auscultation: clear to auscultation bilaterally Cardio Rate: regular rate Rhythm: regular rhythm Heart sounds: S1 normal heart sound present and S2 normal heart sound present GI Palpation (GI): Soft to palpation and nontender Auscultation: normoactive bowel sounds General: Yes no CVA tenderness Back/Spine/Pelvis Back: no CVA tenderness Skin General skin exam: elasticity normal and turgor normal Neuro Other: Right sided hemiplegia at baseline. General: oriented to person and oriented to place Cranial nerves: Yes Equal, round and reactive pupils present Extrem General: Yes no pedal edema and Yes no calf tenderness Medications Administered Discontinued Medications Generic Name Dose Route Start Last Admin Trade Name Freq PRN Reason Stop Dose Admin Ceftriaxone Sodium 1 gm/ 50 mls @ 100 mls/hr 07/14/24 10:11 07/14/24 10:29 Sodium Chloride IV 07/14/24 10:40 100 mls/hr ONCE ONE Administration Medical Decision Making Medical Decision Making [facility] Narrative: Patient is a 63-year-old female with history of seizure disorder, cerebral palsy, GERD, right sided hemiplegia presenting to the ED with [facility] staff who reports that patient has been more lethargic than normal for the past 3 days. On exam patient is awake, A+Ox2, VS WNL, afebrile, physical exam findings as above. Given reported symptoms and physical exam findings, initial differential includes viral illness, pneumonia, UTI. Less likely ACS. EKG shows normal sinus rhythm. Labs notable for no leukocytosis or left shift, no anemia, no evidence of CHAYITO, normal lactic, negative troponin, elevated alk phos similar to prior. Urinalysis notable for 3+ leukocytes, 1+ blood, >50WBCs, will treat for UTI. IV ceftriaxone ordered. X-ray chest notable for no evidence of pneumonia. My interpretation is in agreement with the radiologist's interpretation. Results discussed with patient and [facility] staff. Will discharge patient on cefuroxime. FDC paperwork completed. Return precautions discussed. Patient and staff agreeable with plan. Differential Diagnosis Differential Diagnoses: The differential diagnosis associated with the presentation includes As per [facility] Admission/Observation Consideration of admission/observation: Escalation of care including admission/observation considered Patient would have been admitted to the hospital had their work up had any findings where hospital admission was appropriate and their clinical presentation warranted hospital admission. Lab Data [facility] Lab Attestation statement: I reviewed the patient's lab results. As per [facility] 07/14/24 09:17 07/14/24 09:17 Labs: Lab Results 07/14/24 07/14/24 Range/Units 09:17 09:37 WBC 4.3 L (4.8-10.8) X10*3/uL RBC 4.27 (4.20-5.50) X10*6/uL Hgb 13.1 (12.0-16.0) g/dl Hct 40.2 (37.0-47.0) % MCV 94.1 (80.0-98.0) fL MCH 30.7 (27.0-33.0) pg MCHC 32.6 (31.0-35.0) g/dl RDW 13.2 (11.0-16.0) % Plt Count 221 (160-400) X10*3/uL MPV 8.6 L (9.4-12.3) fL Immature Gran % (Auto) 0.2 (0.0-0.4) % Neut % (Auto) 49.8 (45-73) % Lymph % (Auto) 32.6 (20-40) % [place] % (Auto) 14.4 H (2-11) % Eos % (Auto) 2.5 (0-4) % Baso % (Auto) 0.5 (0-2) % Lymph # (Auto) 1.4 (1.2-4.9) X10*3/uL [place] # (Auto) 0.6 (0.1-1.2) X10*3/uL Eos # (Auto) 0.1 (0.0-0.4) X10*3/uL Baso # (Auto) 0.0 (0.0-0.2) X10*3/uL Abs Immat Gran (auto) 0.01 (0.00-0.03) X10*3/uL Absolute Neuts (auto) 2.2 (2.0-8.3) x10*3/uL Absolute Nucleated RBC 0.000 (0.0-0.012) X10*3/uL Nucleated RBC % (auto) 0.0 (0.0-0.2) /100WBC Sodium 140 (135-145) mmol/L Potassium 3.7 (3.3-5.1) mmol/L Chloride 109 H (96-108) mmol/L Carbon Dioxide 24 (22-29) mmol/L Anion Gap 11 L (12-20) BUN 9 (9-16) mg/dL Creatinine 0.73 (0.5-1.4) mg/dL Estim Creat Clear Calc 73.7 Estimated GFR > 60 Random Glucose 100 (60-115) mg/dL Lactic Acid 1.5 (0.5-2.0) mmol/L Calcium 8.6 (8.4-10.2) mg/dL Magnesium 2.0 (1.6-2.6) mg/dL Total Bilirubin 0.2 (0.0-1.0) mg/dL AST 17 (5-31) U/L ALT 17 (0-31) U/L Alkaline Phosphatase 125 H (39-117) U/L Troponin I High Sens < 2.7 (<3.5-17.0) ng/L Total Protein 6.7 (6.5-8.0) g/dL Albumin 3.6 (3.5-5.0) g/dL Urine Color Yellow Urine Appearance Turbid Urine pH 7.0 (5.0-9.0) Ur Specific [place] 1.010 (1.005-1.025) Urine Protein 30 (1+) H (Neg-Trace) mg/dL Urine Glucose (UA) Negative (Negative) mg/dL Urine Ketones Negative (Negative) mg/dL Urine Blood Small (1+) H (Negative) Urine Nitrite Negative (Negative) Ur Leukocyte Esterase Large (3+) H (Negative) Urine RBC 3-5 H (0-2) /HPF Urine WBC >50 H (0-5) /HPF Ur Squamous Epith Cells 3-5 (0-2) /HPF Urine Bacteria 4+ (None Seen) Hyaline Casts 0-2 (0-2) /LPF Influenza Type A (PCR) NEGATIVE (Negative) Influenza Type B (PCR) NEGATIVE (Negative) RSV RNA Qual (PCR) NEGATIVE (Negative) SARS-CoV-2 RNA (RT-PCR) NEGATIVE (Negative) Independent Interpretation I performed an independent interpretation of an: EKG (normal sinus rhythm, rate 66bpm, normal OR interval and QTc) and Plain X-Ray Interpretation: No evidence of pneumonia on CXR. Radiology Impression Discussion of test interpretation with radiology: I have reviewed the radiologist's reading. Radiologist Impression: XR/XR chest 2V IMPRESSION: No acute abnormality. Independent Historian Clinical information obtained from an independent historian. History obtained from or confirmed by: Other ([facility] staff) External Record Review External record reviewed: Inpatient record, Office record and Outpatient record Prescription Management I considered prescription management with: Antibiotic Discharge Plan Discharge Clinical Impression: Urinary tract infection Patient Disposition: Home, Self-Care Instructions: Urinary Tract Infection in Women (DC) Additional Instructions: You have been evaluated in the emergency department today for weakness. Your evaluation, including urinalysis, suggests that your symptoms are due to a urinary tract infection. Please take your prescribed antibiotics for the full course of medication as directed. Take this medication at least 2 hours apart from prilosec. Please follow-up with your primary care provider within 2 days. Return to the emergency department if you experience fevers 100.4? F or greater, worsening or uncontrolled pain, vomiting, flank pain, or for any other concerning symptoms. Prescriptions: New cefuroxime axetil 250 mg tablet 250 mg PO BID Qty: 14 0RF No Action albuterol sulfate 90 mcg/actuation HFA aerosol inhaler 2 puff inhalation Q4H PRN (Reason: shortness of breath or wheezing) 30 Days Qty: 1 3RF Rx Instructions: NTE 6 doses in 24 hours, Call doctor if shortness of breath or wheezing lasts more than 48 hours sucralfate 1 gram tablet 3 g PO DAILY Qty: 84 0RF Xarelto 20 mg tablet 20 mg PO QAM Qty: 28 0RF carbamazepine [Tegretol XR] 400 mg tablet extended release 12 hr 400 mg PO ONCE calcium citrate-vitamin D3 200 mg-6.25 mcg (250 unit) tablet 1 tab PO BID carbamazepine [Tegretol XR] 400 mg tablet extended release 12 hr 600 mg PO ONCE clotrimazole 1 % cream topical carbamazepine 200 mg capsule, ER multiphase 12 hr 275 mg PO metoprolol succinate 50 mg tablet extended release 24 hr 50 mg PO DAILY omeprazole 20 mg capsule,delayed release(DR/EC) 20 mg PO BID atorvastatin 80 mg tablet 80 mg PO DAILY loratadine 10 mg tablet 10 mg PO DAILY aspirin 81 mg tablet,delayed release (DR/EC) 81 mg PO DAILY lorazepam [Ativan] 0.5 mg tablet 0.5 mg PO DAILY PRN lactase 3,000 unit tablet 3,000 unit PO QID PRN Rx Instructions: administer with meals and/or snacks cholecalciferol (vitamin D3) 25 mcg (1,000 unit) capsule 25 mcg PO DAILY topiramate [Topamax] 200 mg tablet 275 mg PO BID nystatin 100,000 unit/gram powder 1 appl topical DAILY Interventions: ED Discharge Assessment Last Done: 07/14/24 12:14 Print Language: Bengali
[2024-07-14 09:23] LABS: MANUAL DIFF FLAG NO
[2024-07-14 09:25] LABS: Basophils Percent Auto 0.5 % (0-2); Eosinophils Absolute Auto 0.1 X10*3/uL (0.0-0.4); Eosinophils Percent Auto 2.5 % (0-4); Hematocrit 40.2 % (37.0-47.0); Hemoglobin 13.1 g/dl (12.0-16.0); Imm Gran Abs Auto 0.01 X10*3/uL (0.00-0.03); Imm Gran Pct Auto 0.2 % (0.0-0.4); Lymphocytes Absolute Auto 1.4 X10*3/uL (1.2-4.9); Lymphocytes Percent Auto 32.6 % (20-40); Mean Corpuscular HGB Conc 32.6 g/dl (31.0-35.0); Mean Corpuscular Hemoglobin 30.7 pg (27.0-33.0); Mean Corpuscular Volume 94.1 fL (80.0-98.0); Mean Platelet Volume 8.6 fL (9.4-12.3); Monocytes Absolute Auto 0.6 X10*3/uL (0.1-1.2); Monocytes Percent Auto 14.4 % (2-11); Neutrophils Absolute Auto 2.2 x10*3/uL (2.0-8.3); Neutrophils Percent Auto 49.8 % (45-73); Platelet Count 221 X10*3/uL (160-400); Red Blood Count 4.27 X10*6/uL (4.20-5.50); Red Cell Distribution Width 13.2 % (11.0-16.0); White Blood Count 4.3 X10*3/uL (4.8-10.8)
[2024-07-14 09:36] LABS: Lactic Acid 1.5 mmol/L (0.5-2.0)
[2024-07-14 09:41] LABS: Alanine Aminotransferase 17 U/L (0-31); Albumin Level 3.6 g/dL (3.5-5.0); Alkaline Phosphatase 125 U/L (39-117); Anion Gap 11 (12-20); Aspartate Amino Transferase 17 U/L (5-31); Bilirubin Total 0.2 mg/dL (0.0-1.0); Blood Urea Nitrogen 9 mg/dL (9-16); Calcium 8.6 mg/dL (8.4-10.2); Carbon Dioxide 24 mmol/L (22-29); Chloride 109 mmol/L (96-108); Creatinine Clr Calc Pharmacy 73.7; Estimated Glomerular Filt Rate > 60; Glucose Random 100 mg/dL (60-115); Potassium 3.7 mmol/L (3.3-5.1); Sodium 140 mmol/L (135-145); Total Protein 6.7 g/dL (6.5-8.0)
[2024-07-14 09:47] LABS: Appearance Urine Turbid; Color Urine Yellow; Glucose Urine UA Negative (Negative); Leukocyte Esterase Urine Large (3+) (Negative); Nitrite Urine Negative (Negative); UMIC TRIGGER UACC YES; Urine Blood Small (1+) (Negative); Urine Ketones Negative (Negative); Urine Protein 30 (1+) mg/dL (Neg-Trace)
[2024-07-14 09:56] LABS: Troponin-I High Sensitivity < 2.7 ng/L (<3.5-17.0)
[2024-07-14 10:05] LABS: Bacteria Urine 4+ (None Seen); Hyaline Casts Urine 0-2 /LPF (0-2); UACC Culture Trigger YES; WBC Urine >50 /HPF (0-5)
[2024-07-14 10:07] LABS: Influenza A PCR NEGATIVE (Negative); Influenza B PCR NEGATIVE (Negative); Resp Syncy Virus RNA Qual PCR NEGATIVE (Negative); SARS COV2 PCR INHOUSE NEGATIVE (Negative)
[2024-07-14] MEDS: cefTRIAXone sodium 1 GM in 0.9 % Sodium Chloride 50 ML IV (10:29)
[2024-07-14 11:06] VITALS: BP 124/75; PULSE 60; RESP 18; O2SAT 96
[2024-07-14 12:14] VITALS: BP 129/76; PULSE 62; RESP 16; TEMP 36.5; O2SAT 98
== END 2024-07-14 12:18 | disposition home or self-care (01) ==
PROVIDERS: Registered Nurse Emergency; Emergency Provider Emergency Medicine; PCP Internal Medicine
DX: N39.0 Urinary tract infection, site not specified (principal); R94.31 Abnormal electrocardiogram [ECG] [EKG]; R68.84 Jaw pain; M79.602 Pain in left arm; M79.601 Pain in right arm; Z03.818 Encounter for observation for suspected exposure to other biological agents ruled out; Z79.899 Other long term (current) drug therapy
CPT/HCPCS: 0241U; 71046; 80053; 81001; 83605; 83735; 84484; 85025; 87040; 87086; 87088; 93005; 96374; 99284; 99285; J0696

== ENCOUNTER → 2024-07-14 08:11 | Outpatient (BNV) | payer MEDICARE, MEDICAID, SELFPAY | PROVIDERS: Emergency Provider Emergency Medicine; PCP Internal Medicine; Visit Provider Internal Medicine | DX: R94.31 Abnormal electrocardiogram [ECG] [EKG] (principal) | CPT/HCPCS: 93010 ==

== ENCOUNTER 2024-07-23 12:43 | Outpatient (AMB) | payer MEDICARE, MEDICAID, SELFPAY ==
[2024-07-23 12:59] VITALS: BP 111/63; PULSE 67
--- NOTE | 2024-07-23 12:59 | A.OFFVIS_ITS ---
Vital Signs 07/23/24 12:59 Height 4 ft 9 in BMI Reason not done Patient refused/unable BP 111/63 Blood Pressure Location Rt brachial Position Sitting Pulse 67 Intake Visit Reasons: follow up IBD Intake Note: Reba presents to in office today in follow up of IBD. CC: Patient with staff today who states that Reba is doing well. Per staff the patient had a UTI about 2 weeks ago and went to the ER. She states she is doing better now. 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 She is having more solid stools, except when she had some ranch dressing which gave her diarrhea (? lactose vs fat content). She is more active and eating more healthfully. She is now looking forward to her trip to [facility]. ROV 3 mos. TODAYS VISIT SHe had a very good trip to [facility]!! Only had some stomach trouble when she had onion rings (which she loves, but knows she will have to deal with the fallout). SHe continues on her carafate pills 3/day. ROV 6 mos. PFSH Medical History Cerebral palsy Seizures Surgical History Hx of cholecystectomy Family History Mother Stomach cancer Social History Tobacco use type: Cigarette Review of Systems Const Denies fatigue, Denies fever(s), Denies night sweats, Denies poor appetite and Denies weight loss ENT Reports Normal hearing present, Denies dental pain, Denies dysphagia, Denies hearing loss, Denies mouth pain, Denies odynophagia, Denies throat swelling, Denies tongue swelling and Reports other (Dentition adequate) Card Reports no additional complaints Resp Reports no additional complaints GI Details: Denies abdominal pain, Denies melena, Denies bloating, Denies hematochezia, Denies constipation, Denies GI cramping, Denies dysphagia, Denies excessive flatus, Denies early satiety, Reports heartburn, Reports diarrhea, Denies nausea, Denies odynophagia, Denies vomiting and Denies hematemesis Musc Reports abnormal gait, Reports back pain, Reports myalgias and Reports muscle weakness Skin/Breast Denies pruritus, Denies lesions, Denies rash and Denies jaundice Neuro Reports Normal hearing present, Denies Abnormal speech present, Reports abnormal gait and Reports lack of coordination Endo Denies fatigue Aller/Immun Denies throat swelling and Denies tongue swelling Physical Exam Vital Signs: Last Vital Signs Pulse 67 07/23/24 12:59 BP 111/63 07/23/24 12:59 Const General: cooperative, no acute distress, well developed and well groomed Nutritional Appearance: well nourished and obese Orientation/consciousness: oriented to person, oriented to place and oriented to time Limitations: No language barrier, wheelchair and other limitations HEENT Head: Yes normocephalic and Yes atraumatic Eyes General: appearance normal, both eyes and all related structures Pupils: Equal, round and reactive pupils present Neck Neck: Yes normal visual inspection and Yes no lymphadenopathy Thyroid: Thyroid normal Resp Effort & Inspection: normal respiratory effort and able to speak in complete sentences Auscultation: clear to auscultation bilaterally Cardio Rate: regular rate Rhythm: regular rhythm Heart sounds: Normal, physiologic split S2 sound present Peripheral pulses: radial pulses present and posterior tibial pulses present GI Inspection: No distended, No Abdominal panniculus present and Yes obesity Palpation (GI): Soft to palpation, nontender, no guarding, not rigid and No hepatosplenomegaly present Percussion: Yes normal to percussion Auscultation: normal bowel sounds Rectal Exam - Female: deferred Skin General skin exam: no rashes or lesions noted, turgor normal, skin not dry, no jaundice, No spider nevi and no striae Rashes: no rashes Nails: normal Neuro General: oriented to person, oriented to place and oriented to time Cranial nerves: Yes Equal, round and reactive pupils present and Yes Normal hearing present Speech: No Abnormal speech present Extrem General: Yes normal to inspection, No clubbing, No cyanosis and No edema Psych Appearance: grossly normal and well kempt Mental Status: other Speech and movement: Slowed speech present (Psych) Affect: normal affect Attitude: cooperative Thought process: not confabulating and Other thought process findings present Thought content: Normal thought content present Insight: Poor insight present (Psych) Judgement: Poor judgement present (Psych) Assessment & Plan Assessment & Plan (1) Post-cholecystectomy syndrome: Code(s): K91.5 - Postcholecystectomy syndrome Category: Medical (2) GERD (gastroesophageal reflux disease): Code(s): K21.9 - Gastro-esophageal reflux disease without esophagitis Category: Medical Plan SHe had a very good trip to [facility]!! Only had some stomach trouble when she had onion rings (which she loves, but knows she will have to deal with the fallout). SHe continues on her carafate pills 3/day. ROV 6 mos. Coding Level of Care Code Est Pt Level 3 (50804) Diagnoses Post-cholecystectomy syndrome K91.5 GERD (gastroesophageal reflux disease) K21.9
== END 2024-07-23 13:26 | disposition home or self-care (01) ==
PROVIDERS: PCP Internal Medicine; Visit Provider Nurse Practitioner
DX: K91.5 Postcholecystectomy syndrome (principal); K21.9 Gastro-esophageal reflux disease without esophagitis
CPT/HCPCS: 99213

== ENCOUNTER → 2024-07-23 12:43 | Outpatient (BNVA) | payer MEDICARE, MEDICAID, SELFPAY | PROVIDERS: PCP Internal Medicine; Visit Provider Nurse Practitioner | DX: K91.5 Postcholecystectomy syndrome (principal); K21.9 Gastro-esophageal reflux disease without esophagitis | CPT/HCPCS: 99212 ==

== ENCOUNTER 2024-10-04 13:42 | Outpatient (AMB) | payer MEDICARE, MEDICAID, SELFPAY ==
--- NOTE | 2024-10-04 13:55 | A.OFFVIS_ITS ---
Vital Signs 10/04/24 13:58 Height 4 ft 9 in Weight 210 lb 8.663 oz BMI 45.6 BP 118/78 Blood Pressure Location Rt brachial Position Sitting Pulse 67 Pulse Source Doppler Pulse Oximetry (%) 96 Oxygen Delivery Method Room Air Intake Visit Reasons: pulm htn Allergies codeine [CODEINE] Allergy (Unknown, Verified 07/23/24 13:03) UNKNOWN HPI HPI pulm htn: Details: 63-year-old lady, lifetime nonsmoker, with underlying history of developmental delay previously seen for unprovoked DVT/PE resulting and transient pulmonary hypertension, resolved on follow-up echocardiogram, now maintained on lifelong anticoagulation. Patient continues on as needed albuterol MDI overall with reasonable control of her chronic cough, though with recent exacerbations especially with food intake and at night. [facility] Medical History Cerebral palsy Seizures Surgical History Hx of cholecystectomy Family History Mother Stomach cancer Social History Tobacco use type: Cigarette Review of Systems Const Denies daytime sleepiness, Denies excessive sweating, Denies fatigue, Denies fever(s), Denies lethargy, Denies malaise, Denies night sweats, Denies snoring and Denies weight loss Eyes Denies blurry vision and Denies itchy eyes ENT Denies nasal congestion, Denies post nasal drip, Denies sinus pain, Denies sinus pressure and Denies other ( Thrush) Card Denies chest pain, Denies pedal edema, Denies dyspnea, Denies orthopnea and Denies paroxysmal nocturnal dyspnea Resp Reports cough, Denies hemoptysis, Denies excessive phlegm production, Denies dyspnea, Denies snoring and Denies wheezing GI Denies abdominal pain and Denies heartburn Musc Denies myalgias, Denies arthralgias and Denies joint swelling Skin/Breast Denies rash Neuro Denies memory loss and Denies seizure-like activity Psych Denies abnormal sleep pattern, Denies anxiety and Denies memory loss Endo Denies excessive sweating, Denies fatigue and Denies heat intolerance Ish/Lymph Denies easy bruising Aller/Immun Denies itchy eyes, Denies seasonal rhinorrhea and Denies wheezing Physical Exam Vital Signs: Last Vital Signs Pulse 67 10/04/24 13:58 BP 118/78 10/04/24 13:58 Pulse Ox 96 10/04/24 13:58 Oxygen Delivery Method Room Air 10/04/24 13:58 BMI result Body Mass Index 45.6 Const General: no acute distress and alert Nutritional Appearance: obese Orientation/consciousness: Other orientation findings ( oriented) HEENT Head: Yes atraumatic Eyes General: appearance normal, both eyes and all related structures Sclerae: sclerae normal EOM: EOMs intact bilaterally Neck Neck: Yes supple Lymphatic: no lymphadenopathy noted Resp Effort & Inspection: normal respiratory effort and no use of accessory muscles Auscultation: clear to auscultation bilaterally Cardio Rate: regular rate Rhythm: regular rhythm Heart sounds: no gallops, no murmurs and no rubs Skin General skin exam: other ( warm) Extrem General: No clubbing, No cyanosis and No edema Assessment & Plan Assessment & Plan (1) Pulmonary embolism: Code(s): I26.99 - Other pulmonary embolism without acute cor pulmonale Category: Medical Plan: Continue lifelong anticoagulation with Xarelto. (2) Cough: Code(s): R05.9 - Cough, unspecified Category: Medical Plan: Appears to have aspiration component. Will obtain modified barium swallow for further evaluation. Continue as needed albuterol MDI. Orders: Orders [place] Modified Barium Swallow Today R05.9 - Cough, unspecified Coding Level of Care Code Est Pt Level 4 (08011) Diagnoses Pulmonary embolism I26.99 Cough R05.9
[2024-10-04 13:58] VITALS: BP 118/78; PULSE 67; O2SAT 96; BMI 45.6
== END 2024-10-04 14:14 | disposition home or self-care (01) ==
LOC: HO.HPS 13:51
PROVIDERS: PCP Internal Medicine; Visit Provider Internal Medicine Pulmonary Disease
DX: I26.99 Other pulmonary embolism without acute cor pulmonale (principal); R05.9 Cough, unspecified
CPT/HCPCS: 99214

== ENCOUNTER → 2024-10-04 13:42 | Outpatient (BNVA) | payer MEDICARE, MEDICAID, SELFPAY | PROVIDERS: PCP Internal Medicine; Visit Provider Internal Medicine Pulmonary Disease | DX: I26.99 Other pulmonary embolism without acute cor pulmonale (principal); R05.9 Cough, unspecified | CPT/HCPCS: 99212 ==

== ENCOUNTER 2024-12-06 14:28 | Outpatient (REF) | payer MEDICARE, MEDICAID, SELFPAY ==
--- NOTE | ~2024-12-06 | FL_ITS ---
EXAMINATION: Modified Barium Swallow CLINICAL INFORMATION: Dysphagia COMPARISON: None TECHNIQUE: Modified barium swallow was performed under lateral fluoroscopy with patient in standing position. Different consistency of barium was administered by the speech therapist. FINDINGS: Trace laryngeal penetration was seen with the barium coated cookie, that cleared with subsequent swallow. No aspiration was observed. FLUOROSCOPY TIME: 1 minute 3 seconds Number of Spot Images: DOSE AREA PRODUCT: 405.4 uGy-m2 (microgray-meter squared) FL/FL Modified Barium Swallow IMPRESSION: 1. Trace residual penetration was seen with barium coated cookie. No aspiration was observed. Refer to the speech therapy report for further clarification This procedure was performed by Adilson Murrell PA-C, and supervised by Dr. Martinez. Electronically signed by: Derrick Martinez MD 12/06/2024 03:28 PM [facility]
--- NOTE | 2024-12-07 11:57 | MHC.SL.IMP ---
Date of Plan of Treatment: 12/06/24 Onset of Symptoms/Illness: 10/04/24 Date Treatment Started: 12/06/24 Admitting Diagnosis: Cerebral Palsy Primary Speech & Language Diagnosis: R13.12 Oropharyngeal Phase Dysphagia Reason for Today's Visit: 53746 Modified Barium Swallow Study Pre-evaluation Dietary Consistencies: Regular Pre-evaluation Liquid Consistency: Thin Pre-evaluation Medication Administration: UNK Medical History: Modified Barium Swallow Study Fluoroscopic Evaluation of Swallowing Function CPT Code 55058 Evaluation Year: 2024 Reason for Study: ? Aspiration Referring Physician: Armen Mccarthy MD Evaluating Clinician: Michelle Dockery MA, CCC-WHIPPED TOPPING MIXER Study Number: 1 Patient Name: Reba Stevenson Status: Outpatient, Wheelchair Age: 63 Gender: Female Medical History Medical History Cerebral palsy Seizures Surgical History Hx of cholecystectomy Current (pre-evaluation) Intake/Diet: Route: PO Diet Grade: Regular Liquid Consistencies: Thin Pre-Study Functional Oral Intake Scale (FOIS): 7- Total oral intake with no restrictions Pain: None reported at time of study SUBJECTIVE: Patient is a 63 year old female who presents today with a caregiver/group director experience, Selam. Patient is wheelchair bound, resides in a chcf, and has history of developmental delay and cerebral palsy. She was sent for MBSS by Dr. Mccarthy from the Pulmonology office, whom she is followed by for chronic cough and recent reports of exacerbations with food intake and at night. Today, Selam endorses patient has a deep cough at baseline and says she does not observe patient to have any overt trouble swallowing. She denies choking, coughing, or expectoration with meals. Patient reportedly eats a regular texture diet with thin liquids. Oral Motor Exam Mouth Occlusion: Normal Oral-Facial Teeth Characteristics: Partially Missing, Spaces Oral-Facial Teeth Miscellaneous Observation: Oral-Facial Smile (Lips) Description: Reduced ROM Tongue Size: Normal Tongue Excursion Description: Incomplete Tongue Range of Movement Description: Reduced Tongue Speed of Movement Description: Reduced Tongue Strength of Movement (against opposing pressure): Reduced Tongue Movement Characteristics: Normal/Absent Food and Liquid Trials: Oral Impairment: Lip Closure: Did not test Oral Impairment: Tongue Control During Bolus Hold: 1=Escape to lateral buccal cavity/floor of mouth (FOM) Oral Impairment: Bolus Preparation/Mastication: 1=Slow prolonged chewing/mashing with complete re-collection Oral Impairment: Bolus Transport/Lingual Motion: 0=Brisk tongue motion Oral Impairment: Oral Residue: 2=Residue collection on oral structures Oral Impairment:Initiation of Pharyngeal Swallow: 1=Bolus head in valleculae Pharyngeal Impairment: Soft Palate Elevation: 0=No bolus between soft palate (SP)/pharyngeal wall (PW) Pharyngeal Impairment: Laryngeal Elevation: 1=Partial thyroid cartilage/arytenoids to epiglottic petiole movement Pharyngeal Impairment: Anterior Hyoid Excursion: 1=Partial anterior movement Pharyngeal Impairment: Epiglottic Movement: 0=Complete inversion Pharyngeal Impairment: Laryngeal Vestibular Closure:: 1=Incomplete: narrow column air/contrast in laryngeal vestibule Pharyngeal Impairment: Pharyngeal Stripping Wave: 0=Present: complete Pharyngeal Impairment: Pharyngeal Contraction: Did not test Pharyngeal Impairment: Pharyngoesophageal Segment Openin=Complete distension and complete duration: no obstruction of flow Pharyngeal Impairment: Tongue Base (TB) Retraction: 2=Narrow column of contrast/air between TB and posterior PW Pharyngeal Impairment: Pharyngeal Residue: 2=Collection of residue within or on pharyngeal structures Pharyngeal Impairment: Esophageal Clearance Upright Position: Did not test Impressions and Recommendations Clinical Observations: OBJECTIVE: Time-out: performed at 15:00 Evaluation Start: 14:30; Stop: 14:35 Patient Positioning: Seated 70-90 degrees Viewing Planes: LATERAL ONLY Contrast: MBSImP? Standardized Protocol using commercially prepared, standardized Barium viscosities, including: Varibar? THIN LIQUID (40% w/v, <15 cps) , Varibar? PUDDING (40% w/v, <5282-9134 cps) , 1/2 Shortbread Cookie (1 x1 x.25 ) MBSImP ID: [id number] MBSImP Results: Lip closure for intraoral bolus containment could not be assessed due to logistical reasons not related to physiologic impairment. Tongue control during bolus hold allowed bolus escape to the lateral buccal cavity/floor of mouth. Bolus preparation and mastication resulted in slow, prolonged chewing/mashing but with complete re-collection. Bolus transport/lingual motion was with brisk tongue motion. Oral residue was a collection on oral structures. Initiation of the pharyngeal swallow occurred when the bolus head was in the valleculae. Soft palate elevation resulted in no bolus between the soft palate and the pharyngeal wall. Laryngeal elevation was decreased, with partial superior movement of the thyroid cartilage/partial approximation of the arytenoids to the epiglottic petiole. Anterior hyoid excursion demonstrated partial anterior movement. Epiglottic movement resulted in complete inversion. Laryngeal vestibular closure was incomplete, with a narrow column of air/contrast noted within the laryngeal vestibule at the height of the swallow. Pharyngeal stripping wave was present and complete. Pharyngeal contraction could not be determined due to logistical reasons not related to physiologic impairment. Pharyngoesophageal segment opening was completely distended for complete duration with no obstruction of bolus flow. Tongue base retraction allowed a narrow column of contrast or air between the retracted tongue base and the posterior pharyngeal wall. Pharyngeal residue was a collection of residue within or on pharyngeal structures. Esophageal clearance in the upright position could not be assessed due to logistical reasons not related to physiologic impairment. Oral Impairment Score: 5 (absence of score, component 1) Pharyngeal Impairment Score: 7 (absence of score, component 13) Esophageal Impairment Score: --- (absence of score, component 17) Laryngeal Penetration and Aspiration: Neither penetration nor aspiration was observed in today's study with Puree, Thin. Penetration was observed in today's study. Cookie Contrast entered the airway, remained above the vocal folds, and was ejected from the airway. ASSESSMENT: Clinician Assessment: This exam was conducted by the radiologist and the speech pathologist. Patient was seated upright at 90 degrees for lateral view only. Patient was able to feed herself when handed utensils and trialed the following consistencies: thin, puree, regular solid. There was some escape of bolus to the floor of mouth, but no premature posterior spilling. Lingual movement for bolus transport was brisk and timely. Mastication was slowed and prolonged, characterized by piece meal deglutition. There was mild residue coating the tongue, which cleared with self-initiated dry swallow. Pharyngeal swallow trigger initiated as the bolus head reached the valleculae. No evidence of nasopharyngeal reflux. Partial laryngeal elevation and incomplete laryngeal vestibular closure. No evidence of penetration or aspiration with trials of thin and puree textures. There was trace penetration above the vocal folds with bite of shortbread cookie, which cleared with subsequent swallow. Mild residue on the tongue base and in the valleculae which completely cleared with self-initiated dry swallow. Patient history with the following compensatory strategies is unknown. When employed during today's study, these strategies improved swallowing function: Additional Swallow(s) per Bolus eliminated Penetration, Oral Residue, Pharyngeal Residue Liquid Intake Recommendation: Thin Liquid Intake Strategies: Small Sips Dietary Recommendations: Regular Medication Administration: Whole with Liquid Please contact the pharmacy regarding appropriate crushable or liquid drug formulations that are available whenever modified delivery is recommended. Compensatory Strategies Recommended: Sitting Upright (90 deg), Double Swallow, Small Bites and Sips, Alternate Liquids/Solids, Rate of Ingestion Change, Avoid Specific Foods Supervision during eating and or drinking: Total Supervision (1:1) Recommendation for Speech Therapy: NA:Typical Evaluation Text Comment: Intake Recommendations: Route: PO Diet Grade: Regular Liquid Consistencies: Thin Post-Study Functional Oral Intake Scale (FOIS): 6- Total oral intake with no special preparation, but must avoid specific foods or liquid items Trace penetration above the vocal folds with trial of regular solid, which cleared on subsequent swallow. No evidence of aspiration during this exam. Mild oral and pharyngeal residue completely cleared with self-initiated dry swallow. Suggested Referrals: The patient might benefit from a referral to: Pulmonology Indication for Referral: F/u w/ Pulmonology Therapy Recommendations: One episode of trace penetration above the vocal folds which cleared with subsequent swallow. No evidence of aspiration during this exam. Complete oral and pharyngeal clearance with dry swallows. Recommend patient to continue on regular texture diet and thin liquids. Patient w/ some missing teeth and slowed mastication pattern. Avoid foods which are overly hard, sticky, or difficult to chew. Pills to be administered as tolerated (whole with liquid/puree or crushed with puree) Further Speech Therapy services are not indicated at this time. Recommend patient/caregivers continue to monitor patient?s dysphagia. If there are any changes or worsening of symptoms, consult referring provider or PCP, at which point a repeat-assessment may be warranted. Clinician - Supplemental, Miscellaneous Communication: It is important to note MBSS objective studies are snapshots in time and Patient function might vary with factors such as time of day or concomitant medical conditions. For this reason, the final treatment plan for this patient should rest with their medical care team. Additional recommendations should be considered with the totality of the Patient in mind. Thank for the opportunity to participate in the care of this patient. If you have any questions about the content of this report, please contact the [facility] at [facility]. Education: Education regarding findings from today's study and plans for therapy were provided to Family/caregiver only through Verbal Instruction, Written Instruction. Understanding was expressed by the Family/caregiver only. [employer] Operator Clinician/Clinical Fellow: No Supervisory Statement: N/A Speech Language Pathologist: Michelle Dockery M.A., CCC-WHIPPED TOPPING MIXER
== END 2024-12-06 14:29 | disposition home or self-care (01) ==
LOC: HO.XRAY 14:28
PROVIDERS: PCP Internal Medicine; Visit Provider Internal Medicine Pulmonary Disease
DX: R05.9 Cough, unspecified (principal)
CPT/HCPCS: 74230; 92611

== ENCOUNTER → 2024-12-06 14:30 | Outpatient (BNV) | payer MEDICARE, MEDICAID, SELFPAY | PROVIDERS: PCP Internal Medicine; Visit Provider Physician Assistant Surgical | DX: R13.10 Dysphagia, unspecified (principal) | CPT/HCPCS: 74230 ==

== ENCOUNTER 2024-12-15 10:00 | Outpatient (AMB) | payer MEDICARE, MEDICAID, SELFPAY ==
[2024-12-15 10:03] VITALS: BP 122/78; PULSE 60; O2SAT 97
--- NOTE | 2024-12-15 10:03 | A.OFFVIS_ITS ---
Vital Signs 12/15/24 10:03 Height 4 ft 9 in BP 122/78 Blood Pressure Location Lt brachial Position Sitting Pulse 60 Pulse Source Doppler Pulse Oximetry (%) 97 Oxygen Delivery Method Room Air Comment Patient in wheelchair Intake Visit Reasons: pulmonary hypertension Allergies codeine [CODEINE] Allergy (Unknown, Verified 12/15/24 10:09) UNKNOWN HPI HPI pulmonary hypertension: Details: 63-year-old lady, lifetime nonsmoker, with underlying history of developmental delay previously seen for unprovoked DVT/PE resulting and transient pulmonary hypertension, resolved on follow-up echocardiogram, now maintained on lifelong anticoagulation. Patient continues on as needed albuterol MDI overall with reasonable control of her chronic cough. She did have modified barium swallow study that did not identify significant aspiration risk. [facility], [facility] Medical History Cerebral palsy Seizures Surgical History Hx of cholecystectomy Family History Mother Stomach cancer Social History Tobacco use type: Cigarette Review of Systems Const Denies daytime sleepiness, Denies excessive sweating, Denies fatigue, Denies fever(s), Denies lethargy, Denies malaise, Denies night sweats, Denies snoring and Denies weight loss Eyes Denies blurry vision and Denies itchy eyes ENT Denies nasal congestion, Denies post nasal drip, Denies sinus pain, Denies sinus pressure and Denies other ( Thrush) Card Denies chest pain, Denies pedal edema, Denies dyspnea, Denies orthopnea and Denies paroxysmal nocturnal dyspnea Resp Denies cough, Denies hemoptysis, Denies excessive phlegm production, Denies dyspnea, Denies snoring and Denies wheezing GI Denies abdominal pain and Denies heartburn Musc Denies myalgias, Denies arthralgias and Denies joint swelling Skin/Breast Denies rash Neuro Denies memory loss and Denies seizure-like activity Psych Denies abnormal sleep pattern, Denies anxiety and Denies memory loss Endo Denies excessive sweating, Denies fatigue and Denies heat intolerance Ish/Lymph Denies easy bruising Aller/Immun Denies itchy eyes, Denies seasonal rhinorrhea and Denies wheezing Physical Exam Vital Signs: Last Vital Signs Pulse 60 12/15/24 10:03 BP 122/78 12/15/24 10:03 Pulse Ox 97 12/15/24 10:03 Oxygen Delivery Method Room Air 12/15/24 10:03 Const General: no acute distress and alert Nutritional Appearance: not obese Orientation/consciousness: Other orientation findings ( oriented) HEENT Head: Yes atraumatic Eyes General: appearance normal, both eyes and all related structures Sclerae: sclerae normal EOM: EOMs intact bilaterally Neck Neck: Yes supple Lymphatic: no lymphadenopathy noted Resp Effort & Inspection: normal respiratory effort and no use of accessory muscles Auscultation: clear to auscultation bilaterally Cardio Rate: regular rate Rhythm: regular rhythm Heart sounds: no gallops, no murmurs and no rubs Skin General skin exam: other ( warm) Extrem General: No clubbing, No cyanosis and No edema Assessment & Plan Assessment & Plan (1) Pulmonary embolism: Code(s): I26.99 - Other pulmonary embolism without acute cor pulmonale Category: Medical Plan: Continue lifelong anticoagulation. Now on Xarelto. (2) Cough: Code(s): R05.9 - Cough, unspecified Category: Medical Plan: Controlled on albuterol MDI. Results of modified barium swallow reviewed, no s ignificant aspiration risk at this time. No changes to diet recommended at this time. Coding Level of Care Code Est Pt Level 4 (51169) Diagnoses Pulmonary embolism I26.99 Cough R05.9
== END 2024-12-15 10:19 | disposition home or self-care (01) ==
PROVIDERS: PCP Internal Medicine; Visit Provider Internal Medicine Pulmonary Disease
DX: I26.99 Other pulmonary embolism without acute cor pulmonale (principal); R05.9 Cough, unspecified
CPT/HCPCS: 99214

== ENCOUNTER → 2024-12-15 10:00 | Outpatient (BNVA) | payer MEDICARE, MEDICAID, SELFPAY | PROVIDERS: PCP Internal Medicine; Visit Provider Internal Medicine Pulmonary Disease | DX: I26.99 Other pulmonary embolism without acute cor pulmonale (principal); I27.20 Pulmonary hypertension, unspecified; R05.9 Cough, unspecified | CPT/HCPCS: 99212 ==

== ENCOUNTER 2025-03-23 13:32 | Outpatient (AMB) | payer MEDICARE, MEDICAID, SELFPAY ==
--- NOTE | 2025-03-23 13:35 | A.OFFVIS_ITS ---
Vital Signs 03/23/25 13:42 Height 4 ft 9 in Weight 206 lb BMI 44.6 BP 119/47 L Blood Pressure Location Lt brachial Position Sitting Pulse 67 Pulse Oximetry (%) 95 Oxygen Delivery Method Room Air Intake Visit Reasons: 8 months follow up Intake Note: Patient 8 month follow up for GERD. Patient denies any GI issues. Provider Relations Specialist Required: No Accompanied by: Family/Other Allergies codeine [CODEINE] Allergy (Unknown, Verified 03/23/25 13:34) UNKNOWN HPI HPI 8 months follow up: Details: Assessment & Plan (1) Post-cholecystectomy syndrome: Code(s): K91.5 - Postcholecystectomy syndrome Category: Medical (2) GERD (gastroesophageal reflux disease): Code(s): K21.9 - Gastro-esophageal reflux disease without esophagitis Category: Medical Plan SHe had a very good trip to [facility]!! Only had some stomach trouble when she had onion rings (which she loves, but knows she will have to deal with the fallout). She continues on her carafate pills 3/day ROV 6 mos. TODAYS VISIT She is here today with a staff member who is supportive. She continues to do well on her sucralfate 3 a day and omeprazole 20mg bid. She will have breakthrough usually if she eats anything too high in fat content. ROV 6 mos. PFSH Medical History Cerebral palsy Seizures Surgical History Hx of cholecystectomy Family History Mother Stomach cancer Social History Tobacco use type: Cigarette Review of Systems Const Denies fatigue, Denies fever(s), Denies night sweats, Denies poor appetite and Denies weight loss ENT Reports Normal hearing present, Denies dysphagia, Denies odynophagia, Denies throat swelling and Denies tongue swelling Card Reports no additional complaints Resp Reports no additional complaints GI Details: Denies abdominal pain, Denies melena, Denies bloating, Denies hematochezia, Denies constipation, Denies GI cramping, Denies dysphagia, Denies excessive flatus, Denies early satiety, Reports heartburn, Reports diarrhea, Denies nausea, Denies odynophagia, Denies vomiting and Denies hematemesis Reports urinary incontinence Skin/Breast Denies pruritus, Denies lesions, Denies rash and Denies jaundice Neuro Reports Normal hearing present, Denies Abnormal speech present and Reports lack of coordination Endo Denies fatigue Aller/Immun Denies throat swelling and Denies tongue swelling Physical Exam Vital Signs: Last Vital Signs Pulse 67 03/23/25 13:42 BP 119/47 L 03/23/25 13:42 Pulse Ox 95 03/23/25 13:42 Oxygen Delivery Method Room Air 03/23/25 13:42 BMI result Body Mass Index 44.6 Const General: cooperative, no acute distress, well developed and well groomed Nutritional Appearance: well nourished and obese Orientation/consciousness: oriented to person, oriented to place and oriented to time Limitations: No language barrier, wheelchair and other limitations HEENT Head: Yes normocephalic and Yes atraumatic Eyes General: appearance normal, both eyes and all related structures Pupils: Equal, round and reactive pupils present Neck Neck: Yes normal visual inspection and Yes no lymphadenopathy Thyroid: Thyroid normal Resp Effort & Inspection: normal respiratory effort and able to speak in complete sentences Auscultation: clear to auscultation bilaterally Cardio Rate: regular rate Rhythm: regular rhythm Heart sounds: Normal, physiologic split S2 sound present Peripheral pulses: radial pulses present and posterior tibial pulses present GI Inspection: No distended, Yes Abdominal panniculus present and Yes obesity Palpation (GI): Soft to palpation, nontender, no guarding, not rigid and No hepatosplenomegaly present Percussion: Yes normal to percussion Auscultation: normal bowel sounds Rectal Exam - Female: deferred Skin General skin exam: no rashes or lesions noted, turgor normal, skin not dry, no jaundice, No spider nevi and no striae Rashes: no rashes Nails: normal Neuro General: oriented to person, oriented to place and oriented to time Cranial nerves: Yes Equal, round and reactive pupils present and Yes Normal hearing present Speech: No Abnormal speech present Extrem General: Yes normal to inspection, No clubbing, No cyanosis and No edema Psych Appearance: grossly normal and well kempt Mental Status: mental status grossly normal Speech and movement: Normal speech and movement present Affect: normal affect Attitude: cooperative Thought process: Normal thought process present and not confabulating Thought content: Normal thought content present Insight: Poor insight present (Psych) Judgement: Poor judgement present (Psych) Assessment & Plan Assessment & Plan (1) Post-cholecystectomy syndrome: Code(s): K91.5 - Postcholecystectomy syndrome Category: Medical (2) GERD (gastroesophageal reflux disease): Code(s): K21.9 - Gastro-esophageal reflux disease without esophagitis Category: Medical (3) Hemiplegia affecting right dominant side: Code(s): G81.91 - Hemiplegia, unspecified affecting right dominant side Category: Medical (4) Wheelchair dependent: Code(s): Z99.3 - Dependence on wheelchair Category: Medical Plan She is here today with a staff member who is supportive. She continues to do well on her sucralfate 3 a day and omeprazole 20mg bid. She will have breakthrough usually if she eats anything too high in fat content. ROV 6 mos. Medications: Changed From omeprazole 20 mg PO BID To omeprazole 20 mg PO BID 180 caps 1RF 90 days Refilled sucralfate 3 grams (3 x 1 gram) PO DAILY 90 tabs 1RF K91.5 - Postcholecystectomy syndrome Coding Level of Care Code Est Pt Level 3 (74957) Diagnoses Post-cholecystectomy syndrome K91.5 GERD (gastroesophageal reflux disease) K21.9 Hemiplegia affecting right dominant side G81.91 Wheelchair dependent Z99.3
[2025-03-23 13:42] VITALS: BP 119/47; PULSE 67; O2SAT 95; BMI 44.6
== END 2025-03-23 14:03 | disposition home or self-care (01) ==
LOC: HO.HGI 13:33
PROVIDERS: PCP Internal Medicine; Visit Provider Nurse Practitioner
DX: K91.5 Postcholecystectomy syndrome (principal); K21.9 Gastro-esophageal reflux disease without esophagitis; G81.91 Hemiplegia, unspecified affecting right dominant side; Z99.3 Dependence on wheelchair
CPT/HCPCS: 99213

== ENCOUNTER → 2025-03-23 13:32 | Outpatient (BNVA) | payer MEDICARE, MEDICAID, SELFPAY | PROVIDERS: PCP Internal Medicine; Visit Provider Nurse Practitioner | DX: K21.9 Gastro-esophageal reflux disease without esophagitis (principal); K91.5 Postcholecystectomy syndrome; G81.91 Hemiplegia, unspecified affecting right dominant side; Z99.3 Dependence on wheelchair | CPT/HCPCS: 99212 ==

== ENCOUNTER 2025-04-14 14:19 | Outpatient (AMB) | payer MEDICARE, MEDICAID, SELFPAY ==
[2025-04-14 14:21] VITALS: BP 102/58; PULSE 66; O2SAT 98; BMI 44.6
--- NOTE | 2025-04-14 14:21 | A.OFFVIS_ITS ---
Vital Signs 04/14/25 14:21 Height 4 ft 9 in Weight 206 lb BMI 44.6 BP 102/58 L Blood Pressure Location Lt brachial Position Sitting Pulse 66 Pulse Source Pulse Oximeter Pulse Oximetry (%) 98 Oxygen Delivery Method Room Air Comment Verbal weight - wheelchair bound Intake Visit Reasons: pulm hypertension Allergies codeine [CODEINE] Allergy (Unknown, Verified 03/23/25 13:34) UNKNOWN HPI HPI pulm hypertension: Details: 64-year-old lady, lifetime nonsmoker, with underlying history of developmental delay previously seen for unprovoked DVT/PE resulting and transient pulmonary hypertension, resolved on follow-up echocardiogram, now maintained on lifelong anticoagulation. Patient continues on as needed albuterol MDI overall with reasonable control of her chronic cough. She did have modified barium swallow study that did not identify significant aspiration risk. She denies recent exacerbations. [facility] Medical History Cerebral palsy Seizures Surgical History Hx of cholecystectomy Family History Mother Stomach cancer Social History Tobacco use type: Cigarette Review of Systems Const Denies daytime sleepiness, Denies excessive sweating, Denies fatigue, Denies fever(s), Denies lethargy, Denies malaise, Denies night sweats, Denies snoring and Denies weight loss Eyes Denies blurry vision and Denies itchy eyes ENT Denies nasal congestion, Denies post nasal drip, Denies sinus pain, Denies sinus pressure and Denies other ( Thrush) Card Denies chest pain, Denies pedal edema, Denies dyspnea, Denies orthopnea and Denies paroxysmal nocturnal dyspnea Resp Denies cough, Denies hemoptysis, Denies excessive phlegm production, Denies dyspnea, Denies snoring and Denies wheezing GI Denies abdominal pain and Denies heartburn Musc Denies myalgias, Denies arthralgias and Denies joint swelling Skin/Breast Denies rash Neuro Denies memory loss and Denies seizure-like activity Psych Denies abnormal sleep pattern, Denies anxiety and Denies memory loss Endo Denies excessive sweating, Denies fatigue and Denies heat intolerance Ish/Lymph Denies easy bruising Aller/Immun Denies itchy eyes, Denies seasonal rhinorrhea and Denies wheezing Physical Exam Vital Signs: Last Vital Signs Pulse 66 04/14/25 14:21 BP 102/58 L 04/14/25 14:21 Pulse Ox 98 04/14/25 14:21 Oxygen Delivery Method Room Air 04/14/25 14:21 BMI result Body Mass Index 44.6 Const General: no acute distress and alert Nutritional Appearance: obese Orientation/consciousness: Other orientation findings ( oriented) HEENT Head: Yes atraumatic Eyes General: appearance normal, both eyes and all related structures Sclerae: sclerae normal EOM: EOMs intact bilaterally Neck Neck: Yes supple Lymphatic: no lymphadenopathy noted Resp Effort & Inspection: normal respiratory effort and no use of accessory muscles Auscultation: clear to auscultation bilaterally Cardio Rate: regular rate Rhythm: regular rhythm Heart sounds: no gallops, no murmurs and no rubs Skin General skin exam: other ( warm) Extrem General: No clubbing, No cyanosis and No edema Assessment & Plan Assessment & Plan (1) Cough: Code(s): R05.9 - Cough, unspecified Category: Medical Plan: Reasonable control on as needed albuterol MDI. Continue current regimen. (2) Pulmonary embolism: Code(s): I26.99 - Other pulmonary embolism without acute cor pulmonale Category: Medical Plan: Continue on lifelong anticoagulation, now with Xarelto. Coding Level of Care Code Est Pt Level 4 (07072) Diagnoses Cough R05.9 Pulmonary embolism I26.99
== END 2025-04-14 14:40 | disposition home or self-care (01) ==
LOC: HO.HPS 14:20
PROVIDERS: PCP Internal Medicine; Visit Provider Internal Medicine Pulmonary Disease
DX: R05.9 Cough, unspecified (principal); I26.99 Other pulmonary embolism without acute cor pulmonale
CPT/HCPCS: 99214

== ENCOUNTER → 2025-04-14 14:19 | Outpatient (BNVA) | payer MEDICARE, MEDICAID, SELFPAY | PROVIDERS: PCP Internal Medicine; Visit Provider Internal Medicine Pulmonary Disease | DX: R05.9 Cough, unspecified (principal); I27.20 Pulmonary hypertension, unspecified; I26.99 Other pulmonary embolism without acute cor pulmonale; G80.9 Cerebral palsy, unspecified | CPT/HCPCS: 99212 ==

== ENCOUNTER 2025-07-13 13:36 | Outpatient (AMB) | payer MEDICARE, MEDICAID, SELFPAY ==
[2025-07-13 14:02] VITALS: BP 122/77; PULSE 65; O2SAT 95
--- NOTE | 2025-07-13 14:02 | A.OFFVIS_ITS ---
Vital Signs 07/13/25 14:02 Height 4 ft 9 in BP 122/77 Blood Pressure Location Lt brachial Position Sitting Pulse 65 Pulse Source Pulse Oximeter Pulse Oximetry (%) 95 Oxygen Delivery Method Room Air Comment wheelchair bound Intake Visit Reasons: Pulm Hypertension Allergies codeine (CODEINE) Allergy (Unknown, Verified 07/13/25 14:10) UNKNOWN HPI HPI Pulm Hypertension: Details: 64-year-old lady, lifetime nonsmoker, with underlying history of developmental delay previously seen for unprovoked DVT/PE resulting and transient pulmonary hypertension, resolved on follow-up echocardiogram, now maintained on lifelong anticoagulation. Patient has not required albuterol since last visit. [facility] Medical History Cerebral palsy Seizures Surgical History Hx of cholecystectomy Family History Mother Stomach cancer Social History Tobacco use type: Cigarette Review of Systems Const Denies daytime sleepiness, Denies excessive sweating, Denies fatigue, Denies fever(s), Denies lethargy, Denies malaise, Denies night sweats, Denies snoring and Denies weight loss Eyes Denies blurry vision and Denies itchy eyes ENT Denies nasal congestion, Denies post nasal drip, Denies sinus pain, Denies sinus pressure and Denies other ( Thrush) Card Denies chest pain, Denies pedal edema, Denies dyspnea, Denies orthopnea and Denies paroxysmal nocturnal dyspnea Resp Denies cough, Denies hemoptysis, Denies excessive phlegm production, Denies dyspnea, Denies snoring and Denies wheezing GI Denies abdominal pain and Denies heartburn Musc Denies myalgias, Denies arthralgias and Denies joint swelling Skin/Breast Denies rash Neuro Denies memory loss and Denies seizure-like activity Psych Denies abnormal sleep pattern, Denies anxiety and Denies memory loss Endo Denies excessive sweating, Denies fatigue and Denies heat intolerance Ish/Lymph Denies easy bruising Aller/Immun Denies itchy eyes, Denies seasonal rhinorrhea and Denies wheezing Physical Exam Vital Signs: Last Vital Signs Pulse 65 07/13/25 14:02 BP 122/77 07/13/25 14:02 Pulse Ox 95 07/13/25 14:02 Oxygen Delivery Method Room Air 07/13/25 14:02 Const General: no acute distress and alert Nutritional Appearance: obese Orientation/consciousness: Other orientation findings ( oriented) HEENT Head: Yes atraumatic Eyes General: appearance normal, both eyes and all related structures Sclerae: sclerae normal EOM: EOMs intact bilaterally Neck Neck: Yes supple Lymphatic: no lymphadenopathy noted Resp Effort & Inspection: normal respiratory effort and no use of accessory muscles Auscultation: clear to auscultation bilaterally Cardio Rate: regular rate Rhythm: regular rhythm Heart sounds: no gallops, no murmurs and no rubs Skin General skin exam: other ( warm) Extrem General: No clubbing, No cyanosis and No edema Assessment & Plan Assessment & Plan (1) Cough: Code(s): R05.9 - Cough, unspecified Category: Medical Plan: Resolved (2) Pulmonary embolism: Code(s): I26.99 - Other pulmonary embolism without acute cor pulmonale Category: Medical Plan: Continue on Xarelto. Coding Level of Care Code Est Pt Level 3 (81907) Diagnoses Cough R05.9 Pulmonary embolism I26.99
--- OUTSIDE RECORDS SUMMARY | 2025-07-13 14:03 | XMS_ITS | Clinical Summary ---
Author Organization [facility] it Address [address] [place] [address] Care Team Providers Care Social Media Assistant Name Role Phone Mook Tompkins MD Primary Care Provider [phone] Encounters Date Type Department Care Team Description 04/26/2025 Telephone [facility] [address] [facility] [address] [place] [address] Home Conrad MD Recall Appointment from Last 3 Months Immunizations Name Administration Dates Next Due Pfizer SARS-CoV-2 COVID-19, mRNA, LNP-S, preservative free 10/03/2021,01/31/2021,01/10/2021 Surgical History Surgery Date Site/Laterality Comments CHOLECYSTECTOMY PROCEDURE: UT LAPAROSCOPY SURG CHOLECYSTECTOMY OTHER SURGICAL HISTORY PROCEDURE: RELEASE SCAR CONTRACTURE W/GRAFTS BREAST BIOPSY PROCEDURE: BX BREAST; PERC NEEDLE CORE W/IMAG GUID; COMMENT: lt Medical History Medical History Date Comments Constipation 01/07/2019 DX:Constipation Allergic rhinitis 01/07/2019 DX:Allergic rh initis GERD (gastroesophageal reflu x disease) 01/07/2019 DX:GERD (gastroesophageal re flux disease) Osteopenia 01/07/2019 DX:Osteopenia Seizures (CMS/HCC V24, CMS/HCC V28) 01/07/2019 DX:Seizures (HCC) Cerebral palsy (CMS/HCC V24, CMS/HCC V28) DX:Cerebral palsy (HCC) Partial seizures (CMS/HCC V2 4, CMS/HCC V28) DX:Partial seizures (HCC) Pulmonary embolism (CMS/HCC V24, CMS/HCC V28) DX:Pulmonary embolism (HCC) Osteoporosis DX:Osteoporosis Moderate developmental delay DX: Moderate developmental delay Vitamin D deficiency DX:Vitamin D deficiency Dysphagia DX:Dysphagia Constipation DX:Constipation Arthritis DX:Arthritis Family History Medical History Relation Name Comments Hypertension Brother Diabetes Mother Other cancer Mother unknown Breast cancer Sister Colon cancer Neg Hx Ovarian cancer Neg Hx Relation Name Status Comments Brother Mother Sister Social History Tobacco Use Types Packs/Day Years Used Date Smoking Tobacco: Never Smokeless Tobacco: Never Alcohol Use Standard Drinks/Week Comments No 0 (1 standard drink = 0.6 oz pur e alcohol) Comments Unknown Sex and Gender Information Value Date Recorded Sex Assigned at Not on file Legal Sex Female 11:12 PM EST Gender Identity Not on file Sexual Orientation Not on file Obstetrics History Last Filed Vital Signs Vital Sign Reading Time Taken Comments Blood Pressure 119/70 04/20/2024 9:44 AM EDT Sit ting R Arm Pulse 64 04/20/2024 9:44 AM EDT Temperature - - Respiratory Rate - - Oxygen Saturation - - Inhaled Oxygen Concentration - - Weight 93.4 kg (206 lb) 04/20/2024 9:44 AM EDT Height 149.9 cm (4' 11 ) 04/20/2024 9:44 AM EDT Body Mass Index 41.61 04/20/2024 9:44 AM EDT Plan of Treatment Health Maintenance Due Date Last Done Comments DTaP,Tdap,and Td Vaccines (1 - Tdap) 1977 Cervical Cancer Screening: HPV 1979 Pneumococcal Vaccine: 50+ Years (1 of 1 - PCV) 2008 Zoster Vaccines (1 of 2) 2008 RSV Immunization Adult Patients (1 - Risk 60-74 years 1-dose series) 2018 Breast Cancer Screening 06/30/2021 06/30/20 19, 05/27/2018, 05/14/2017 Cholesterol Screening (Lipid Panel) 2023 Colorectal Cancer Screening: Colonoscopy 2023 Falls Risk Assessment 2023 Hepatitis C Screening 2023 Hypertension/CHF/CAD Annual BMP Blood Test 2023 Osteoporosis Screening (Bone Density Screening) 2023 Social Influencers of Health Screening 2023 COVID-19 Vaccine (4 - 2023-2 5 season) 2024 10/03/2021, 01/31/2021, 01/10/2021 Depression Screening 12/01/2024 Influenza Vaccine (#1) 2025 HIB Vaccines Aged Out No longer eligi ble based on patient's age to complete this topic HPV Vaccines Aged Out No longer eligi ble based on patient's age to complete this topic Hepatitis A Vaccines Aged Out No long er eligible based on patient's age to complete this topic Hepatitis B Vaccines Aged Out No long er eligible based on patient's age to complete this topic IPV Vaccines Aged Out No longer eligi ble based on patient's age to complete this topic MMR Vaccines Aged Out No longer eligi ble based on patient's age to complete this topic Meningococcal ACWY Vaccine Aged Out N o longer eligible based on patient's age to complete this topic Meningococcal B Vaccine Aged Out No l onger eligible based on patient's age to complete this topic RSV Immunization Patients Under 20 months Aged Out No longer eligible b ased on patient's age to complete this topic Varicella Vaccines Aged Out No longer eligible based on patient's age to complete this topic Procedures Procedure Name Priority Date/Time Associated Diagnosis Comments SCR MAMMO BI INCL CAD Routine 06/30/2019 6:14 PM EDT Encounter for screening, unspecified from Last 3 Months or Most Recently Relevant to Health Maintenance Results * SCR MAMMO BI INCL CAD (06/30/2019 6:14 PM EDT) Anatomical Region Laterality Modality Radiographic Dior ging 06/23/2019 12:3 9 PM EDT Narrative 07/01/2019 3:02 PM EDT This is a summary report. The complete report is available in the patient's medical record. If you cannot access the medical record, please contact the sending organization for a detailed fax or copy. Full field digital screening mammography, reviewed with CAD and compared to previous. The breasts are composed of fatty and fibroglandular tissue. No suspicious mass, architectural distortion or suspicious calcifications are identified. IMPRESSION: : No mammographic evidence of malignancy. BIRADS 1-Negative; N. 5 year breast cancer risk assessment 3.6 % Lifetime breast cancer risk assessment 17.3 % Breast cancer risk category Moderate (15% - 20%) Procedure Note Obey Orozco - 11/19/2022 This is a summary report. The complete report is available in thepatient's medical record. If you cannot access the medical record, pleasecontact the sending organization for a detailed fax or copy. Full field digital screening mammography, reviewed with CAD and comparedto previous. The breasts are composed of fatty and fibroglandular tissue.No suspicious mass, architectural distortion or suspicious calcificationsare identified. IMPRESSION: : No mammographic evidence of malignancy. BIRADS 1-Negative; N. 5 year breast cancer risk assessment 3.6 % Lifetime breast cancer risk assessment 17.3 % Breast cancer risk category Moderate (15% - 20%) Simran Barrera MD IMG XR PROCEDURES Final Resul t from Last 3 Months or Most Recently Relevant to Health Maintenance Care Teams Social Media Assistant Relationship Specialty Start Date End Date Mook Tompkins MD [address] [place] [phone] PCP - General 08/26/08
--- OUTSIDE RECORDS SUMMARY | 2025-07-13 14:03 | XMS_ITS | Encounter Summary ---
Author Organization [facility] Address [address] [place] [phone] Phone Care Team Providers Care Ear Flap Binder Name Role Phone Mook Tompkins MD Primary Care Provider [phone] Mook Tompkins MD Unavailable [phone] Armen Mccarthy MD Unavailable [phone] Eligio Plunkett MD Unavailable [phone] Encounter Details Date Type Department Care Team (Late st Contact Info) Description 11/18/2024 Ancillary Orders [facility], [address] [id number] Mook Tompkins MD [address] [place] [address] [email or web address] Abnormal mammogram (Primary Dx) Social History Tobacco Use Types Packs/Day Years Used Date Smoking Tobacco: Former Cigarettes Smokeless Tobacco: Never Comments:can not recall when quit, maybe less than 10 yrs ago 1/4 pack in past not clear how may years Alcohol Use Standard Drinks/Week Comments No 0 (1 standard drink = 0.6 oz pur e alcohol) Child or Family Care Answer Date Record ed Do you have problems with on e of the following making it difficult for you to work, study, or receive health care? No 01/06/2023 Education Answer Date Recorded Are you interested in help w ith more adult education (for example, completing high school, GED, job training, learning the [place] language, technical skills, or developing parenting skills)? No 01/06/2023 Food Answer Date Recorded Within the past 6 months we worried whether our food would run out before we got money to buy more. Never True 01/06/2023 Within the past 6 months the food we bought just didn't last and we didn't have enough money to get more. Never True Residential Stability Answer Date Recor ded What is your housing situation today? I have brayden sing 01/06/2023 How many times have you move d in the past 12 months? Zero (I did not move) 01/06/2023 Paying for Meds Answer Date Recorded Do you have trouble paying for medicines? No 01/06/2023 Paying Utility Bills Answer Date Record ed Do you have trouble paying your heating or elect ricity bill? No 01/06/2023 Transportation Answer Date Recorded Has the lack of transportati on kept you from medical appointments or from getting medications? No 01/06/2023 Unemployment Answer Date Recorded Are you currently unemployed or working on a part-time or temporary basis, and looking for work? No 01/06/2023 Digital Access Answer Date Recorded No 04/23/2023 No 04/23/2023 Reliable internet access at home? Not on file 04/23/2023 Device with a working camera? Not on file Intimate Partner Violence Answer Date R ecorded Denied Basic Needs Not on file 01/22/2024 In the past 12 months have y ou been in a relationship with a person who hurts, threatens, or tries to control you? No 01/22/2024 Worried food would run out Not on file 01/22 In the past 12 months have y ou been in a relationship with a person who hurts, threatens, or tries to control you? No 01/22/2024 Comments No Sex and Gender Information Value Date Recorded Sex Assigned at Not on file Legal Sex Female 9:51 PM EDT Gender Identity Not on file Sexual Orientation Not on file documented as of this encounter Plan of Treatment Upcoming Encounters Date Type Department Care Team (Late st Contact Info) Description 07/25/2025 2:00 PM EDT Office Visit [facility] Internal Medicine [address] [facility] [place] [address] Mook Tompkins MD [address] [place] [address] 09/06/2025 10:15 AM EDT Appointment [facility], Bone Density - [facility] [address] [place] [address] Teagan Ramirez MD [address] [address] 10/06/2025 2:00 PM EST Office Visit [facility] [address] [place] [address] Teagan Ramirez MD [address] [place] [phone] 01/27/2026 3:00 PM EST Office Visit [facility] Internal Medicine [address] [place] [address] Mook Tompkins MD [address] [place] [address] documented as of this encounter Results * BI US BREAST LIMITED (RIGHT) (12/23/2024 2:31 PM EST) Anatomical Region Laterality Modality Breast Right, Breast Bilateral Right U ltrasound 12/23/2024 2:39 PM EST Impressions 12/23/2024 2:40 PM EST Benign findings on the right. BI-RADS 2 BENIGN Results and recommendations were communicated to the patient at time of examination. Narrative 12/23/2024 2:40 PM EST BI US BREAST LIMITED (RIGHT) Additional patient information: Mass in the right breast on recent limited screening mammogram. TECHNIQUE: Targeted right breast ultrasound was performed. COMPARISON: Comparison is made with relevant prior imaging. FINDINGS: Targeted right ultrasound was performed in the area of mammographic concern. In the 7:00 position, 3 cm from the nipple there is a 0.4 cm anechoic cyst. Procedure Note Josie Rodriguez MD - 12/23/2024 BI US BREAST LIMITED (RIGHT) Additional patient information: Mass in the right breast on recent limitedscreening mammogram. TECHNIQUE: Targeted right breast ultrasound was performed. COMPARISON: Comparison is made with relevant prior imaging. FINDINGS: Targeted right ultrasound was performed in the area of mammographicconcern. In the 7:00 position, 3 cm from the nipple there is a 0.4 cmanechoic cyst. IMPRESSION: Benign findings on the right. BI-RADS 2 BENIGN Results and recommendations were communicated to the patient at time ofexamination. us Mook Tompkins MD G US BREAST Final Result documented in this encounter Visit Diagnoses Diagnosis Abnormal mammogram- Primary Abnormal mammogram, unspecified Abnormal mammogram Abnormal mammogram, unspecified documented in this encounter Additional Health Concerns Infection Onset Date Last Indicated Resolved Time CoV-Risk Comment:Per Ambulatory Triage Form 06/22/2025 06/22/202507/03 1:22 AM EDT Assessment Noted Time PHQ-2 Depression Total Score: 0 01/22/20 10:04 AM EST documented as of this encounter Care Teams Ear Flap Binder Relationship Specialty Start Date End Date Mook Tompkins MD [address] [place] [phone] [email or web address] PCP - General 09/18/17 Mook Tompkins MD [address] [place] [phone] [email or web address] Insurance Assigned Provider 03/06/24 Armen Mccarthy MD [address] [place] [phone] Intensive Care 01/05/20 Eligio Plunkett MD [address] [place] [id number] Neurology 09/29/23 documented as of this encounter Additional Source Comments The information contained in this document represents components of the legal health record. It is not the complete legal health record.[facility]
== END 2025-07-13 14:20 | disposition home or self-care (01) ==
LOC: HO.HPS 13:37
PROVIDERS: PCP Internal Medicine; Visit Provider Internal Medicine Pulmonary Disease
DX: R05.9 Cough, unspecified (principal); I26.99 Other pulmonary embolism without acute cor pulmonale
CPT/HCPCS: 99213

== ENCOUNTER → 2025-07-13 13:36 | Outpatient (BNVA) | payer MEDICARE, MEDICAID, SELFPAY | PROVIDERS: PCP Internal Medicine; Visit Provider Internal Medicine Pulmonary Disease | DX: I26.99 Other pulmonary embolism without acute cor pulmonale (principal); R05.9 Cough, unspecified | CPT/HCPCS: 99212 ==

== ENCOUNTER 2025-07-28 07:04 | Emergency (ER) | payer MEDICARE, MEDICAID, SELFPAY ==
--- OUTSIDE RECORDS SUMMARY | 2025-07-25 14:00 | XMS_ITS | Encounter Summary ---
Author Organization [facility] Address [address] [place] [phone] Phone Care Team Providers Care Supervisor [employer] Name Role Phone Mook Tompkins MD Primary Care Provider [phone] Mook Tompkins MD Unavailable [phone] Armen Mccarthy MD Unavailable [phone] Eligio Plunkett MD Unavailable [phone] Reason for Referral * Consultation (Within 2 weeks) - Authorized Specialty Diagnoses / Procedures Referred By Contac t Referred To Contact Orthopedic Surgery Diagnoses Chronic pain of right ankle Ankle weakness Cerebral palsy, unspecified type Mook Tompkins MD [address] [place] [address] Phone: tel: fax: [email or web address] Angel Campuzano MD [address] [place] [address] Dr Schulz [address] [place] [phone] Phone: tel: fax: Referral ID Status Reason Start Date Expiration Date V isits Requested Visits Authorized [id number] Authorized 07/25/2025 07/25/2026 12 12 Reason for Visit * Reason Comments Follow-up 6 month f/u Fall S/p fall x2 on the v an while being transported to [facility] last Friday in the AM and also in the beginning of 2024. Encounter Details Date Type Department Care Team (Late st Contact Info) Description 07/25/2025 2:00 PM EDT Office Visit [facility] [address] [place] [address] Mook Tompkins MD [address] [place] [address] [email or web address] Chronic pain of right ankle (Primary Dx); Ankle weakness; Cerebral palsy, unspecified type; Obesity, class 3; Flaccid hemiplegia affecting right dominant side, unspecified etiology; Seizure disorder; Other cerebral palsy; Gastroesophageal reflux disease without esophagitis; Benign essential hypertension; Vitamin D deficiency, unspecified; Hypercholesterolemia ; Anticoagulant long-term use; Impaired fasting blood sugar Social History Tobacco Use Types Packs/Day Years [...] Answer Date Recorded Are you interested in more education? Not on lennox e 01/06/2025 Are you concerned about learning? Not on file 01/06/2025 No 01/06/2025 No 01/06/2025 Food Answer Date Recorded Within the past [...] your housing situation today? I have brayden foss 01/06/2023 How many times have you move [...] ecorded Denied Basic Needs Not on file 01/25/2025 In the past 12 months have y ou been in a relationship with a person who hurts, threatens, or tries to control you? No 01/25/2025 Worried food would run out Not on file 01/25 In the past 12 months have y ou been in a relationship with a person who hurts, threatens, or tries to control you? No 01/25/2025 Comments No Sex and Gender Information Value Date Recorded Sex Assigned at Not on file Legal Sex Female 9:51 PM EDT Gender Identity Not on file Sexual Orientation Not on file documented as of this encounter Last Filed Vital Signs Vital Sign Reading Time Taken Comments Blood Pressure 124/64 07/25/2025 2:09 PM EDT Pulse 57 07/25/2025 2:09 PM EDT Temperature 36.5 C (97.7 F) 07/25/2025 2:09 PM EDT Respiratory Rate 16 07/25/2025 2:09 PM EDT Oxygen Saturation 98% 07/25/2025 2:09 PM EDT Inhaled Oxygen Concentration - - Weight 91.4 kg (201 lb 9.6 oz) 07/25/2025 2:09 P M EDT Height 142.2 cm (4' 7.98 ) 07/25/2025 2:09 PM ED T Body Mass Index 45.22 07/25/2025 2:09 PM EDT documented in this encounter Progress Notes * Mook Tompkins MD - 07/25/2025 2:00 PM EDT Subjective Reba Stevenson is a 64 y.o. female. History of Present Illness Reba Stevenson is a 64 year old female with a seizure disorder who presents for a follow-up visit after a recent fall and concerns about sleep disturbances. She experienced a fall on Friday while being transferred from a van to her travel chair due to not being held by her gait belt, resulting in a bruise along her spine. She was assessed by kinesiologist and a nurse at her day program and did not require emergency room care. Since the fall, she has been participating in activities without complaints until a bruise was noticed this morning. She has a history of sleep disturbances, often sleeping on and off throughout the day and night. She keeps her TV on all night, which affects her sleep quality. Her caregivers are concerned about hersleep due to her seizure disorder. She sometimes falls asleep during transport to and from her day p rogram and naps during the day. She experienced abdominal pain last week, which resolved after passing two large bowel movements. The consistency of the stool was soft, and she has not had any further complaints of abdominal pain, fever, or vomiting since then. She has a history of right ankle pain and uses a brace for support. The brace is reportedly worn out, and she experiences more pain at night without it. She walks with assistance from a cane and staff holding her gait belt. She wants to be more independent in her mobility. She is currently on topiramate for her seizure disorder, which she takes twice daily. She has not had recent blood work due to difficulty with venous access. Current Outpatient Medications Ordered in [facility] Medication Sig acetaminophen (TYLENOL) 325 mg tablet Take 2 tablets (650 mg total) by mouth every 4 (four) hours as needed. -give for temp greater than 101 -give for headaches, body aches and tooth aches - for symptom control over 48 hours call pcp - not to exceede 6 doses in a 24 hour period. aspirin 81 MG EC tablet TAKE 1 TABLET BY MOUTH ONCE DAILY IN THE MORNING. Start after buffered aspirin taper atorvastatin (LIPITOR) 80 MG tablet TAKE 1 TABLET BY MOUTH DAILY EVERY EVENING. CRUSH AND GIVE WITHSOFT FOODS. calcium citrate-vitamin D3 (CITRACAL+D) 950 mg (200 mg elemental)-250 units Tab TAKE 1 TABLET BY MOUTH TWICE DAILY carBAMazepine (CARBATROL) 200 mg 12 hr capsule TAKE (2) CAPSULES BY MOUTH EVERY MORNING. TAKE 3 CAPSULES BY MOUTH IN THE EVENING. cholecalciferol (VITAMIN D3) 25 MCG (1,000 unit) tablet TAKE 1 TABLET BY MOUTH ONCE DAILY clotrimazole (LOTRIMIN) 1 % cream Apply 1 Application topically 2 (two) times a day as needed. For feet until rash clears guaiFENesin (CHEST CONGESTION RELIEF) 100 mg/5 mL syrup TAKE 10 ML (200MG) BY MOUTH EVERY 8 HOURS BY MOUTH NEEDED FOR COUGH. CALL PCP IF COUGH LASTS MORE THAN 3 DAYS. *DO NOT EXCEED 3 DOSES IN 24 HOURS* lactase (DAIRY-AID) 3,000 unit tablet TAKE 1 TABLET 3 TIMES DAILY WITH MEALS *PACK #20 FOR DAY PROGRAM* loratadine (CLARITIN) 10 mg tablet TAKE 1 TABLET BY MOUTH DAILY IN THE MORNING. CRUSH AND GIVE WITHSOFT FOODS. LORazepam (ATIVAN) 0.5 MG tablet Take 0.5 mg by mouth as needed (for dental appointments/procedures). metoprolol succinate (TOPROL-XL) 50 MG 24 hr tablet TAKE 1 TABLET BY MOUTH EVERY MORNING. DO NOT CRUSH, GIVE WITH SOFT FOOD. HOLD MED IF BLOOD PRESSURE IS <90/60 OR IF HEART RATE <50. nystatin (NYSTOP) powder Use 2 times daily as needed for rash on reddened skin under breast and abdominal folds. omeprazole (PRILOSEC) 20 MG capsule Take 1 capsule (20 mg total) by mouth 2 (two) times a day. OPENCAPSULE AND MIX WITH SOFT FOODS. rivaroxaban (XARELTO) 20 mg Tab Take 20 mg by mouth daily. sucralfate (CARAFATE) 1 gram tablet Take 3 tablets by mouth daily. topiramate (TOPAMAX) 200 MG tablet Take 275 mg by mouth 2 (two) times a day. topiramate (TOPAMAX) 25 MG tablet Take 275 mg by mouth 2 (two) times a day. topiramate (TOPAMAX) 50 MG tablet Take 275 mg by mouth 2 (two) times a day. albuterol 90 mcg/actuation inhaler Inhale 2 puffs into the lungs every 4 (four) hours as needed forwheezing. (Patient not taking: Reported on 07/25/2025) carBAMazepine (TEGRETOL XR) 400 MG 12 hr tablet Take 600 mg by mouth nightly at bedtime. (Patient not taking: Reported on 07/25/2025) cefuroxime (CEFTIN) 250 MG tablet Take 250 mg by mouth 2 (two) times a day. x7 days UTI started 07/14/24 prescribed by Vera Canela NP (Patient not taking: Reported on 07/25/2025) Review of Systems Denies head injury or loss of consciousness Objective Physical Exam BP 124/64 (BP Location: Left arm, Patient Position: Sitting, Cuff Size: Large) Pulse (!) 57 Temp 36.5 ??C (97.7 ??F) (Oral) Resp 16 Ht 142.2 cm (4' 7.98 ) Wt 91.4 kg (201 lb 9.6 oz) LMP (LMP Unknown) Comment: pt unsure of menopause age SpO2 98% BMI 45.22 kg/m?? CONSTITUTIONAL: Appears well- developed and well nourished. Cooperative, patient is alert. HEENT:PERRTL, EOM intact, fundi benign, TM's clear, throat clear. NECK: supple, no thyroid megaly, no adenopathy. LUNGS: clear to A&P,no wheezing/rhonichi/rales. HEART: RRR S1S2 without murmurs, rubs or gallops. ABDOMEN: bowel sounds: normal, soft non tender without masses. EXTREMITIES: without edema, clubbing or cyanosis. Assessment & Plan Emphasis on sleep habits affecting seizure disorder. Discussed regular health maintenance and challenges with screenings. - Encourage setting a timer for the TV to improve sleep hygiene. - Continue regular mammograms. - Discuss alternative screening options for colon cancer. She declines colonoscopy and colo guard. Seizure disorder Seizure disorder managed with topiramate. Discussed sedative effects of topiramate. - Continue topiramate. - Regular follow-up with Dr. Plunkett. - Monitor for sedative effects of topiramate. 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 Recent fall. Desires more mobility independence. - Continue using gait belt for transfers. Right ankle pain and instability Chronic right ankle pain and instability. Current brace may be inadequate. - Refer to orthopedics for evaluation of right ankle and potential new brace. Recent fall with back contusion Recent fall resulted in back contusion. Obesity, class 3 Class 3 obesity. Essential hypertension Hypertension managed with metoprolol. Gastroesophageal reflux disease (GERD) GERD managed with omeprazole. History of pulmonary embolism Pulmonary embolism managed with rivaroxaban. Vitamin D deficiency Vitamin D deficiency managed with cholecalciferol. Pure hypercholesterolemia Hypercholesterolemia managed with atorvastatin. Impaired fasting glucose Impaired fasting glucose with pending blood work. Discussed challenges with blood draws. - Encourage completion of fasting blood work including hemoglobin A1c. - Use sugar-free Gatorade to improve hydration before blood draw. I obtained verbal consent from the patient or their proxy to record this visit for purposes of producing a draft of the encounter documentation. Pt declined cologuard and colonoscopy. Needs travel wheelchair that will strap down in van for more safety documented in this encounter Plan of Treatment Upcoming Encounters Date Type Department Care Team (Late st Contact Info) Description 09/06/2025 10:15 AM EDT Appointment [facility] [address] [address] Teagan Ramirez MD [address] [place] [phone] 10/06/2025 2:00 PM EST Office Visit [facility] [address] [place] [phone] Teagan Ramirez MD [address] [place] [phone] 01/27/2026 3:00 PM EST Office Visit [facility] [address] [place] [address] Mook Tompkins MD [address] [place] [address] Scheduled Orders Name Type Priority Associated Diagnoses Orde r Schedule Lipid panel Lab Routine Hypercholesterolemia Expected: 07/25/2025, Expires: 07/25/2026 CBC and differential Lab Routine Benign essential hypertension Anticoagulant long-term use Expected: 07/25/2025, Expires: 07/25/2026 Comprehensive metabolic panel Lab Routine Seizure disorder Benign essential hypertension Hypercholesterolemia Impaired fasting blood sugar Expected: 07/25/2025, Expires: 07/25/2026 CARBAMAZEPINE (TEGRETOL) LEVEL Lab Routine Seizure disorder Expected: 07/25/2025, Expires: 07/25/2026 Topiramate (Topamax) level Lab Routine Seizure disorder Expected: 07/25/2025, Expires: 07/25/2026 Hemoglobin A1c Lab Routine Impaired fasting blood sugar Expected: 07/25/2025, Expires: 07/25/2026 Magnesium Lab Routine Seizure disorder Expected: 07/25/2025, Expires: 07/25/2026 25-OH vitamin D Lab Routine Vitamin D deficiency, unspecified Expected: 07/25/2025, Expires: 07/25/2026 Scheduled Referrals Name Type Priority Associated Diagnoses Orde r Schedule Ambulatory referral to External Orthopedic Surgery Outpatient Referral Routine Chronic pain of right ankle Ankle weakness Cerebral palsy, unspecified type Ordered: 07/25/2025 documented as of this encounter Visit Diagnoses Diagnosis Chronic pain of right ankle- Primary Ankle weakness Cerebral palsy, unspecified type Obesity, class 3 Flaccid hemiplegia affecting right dominant side, unspecified etiology Seizure disorder Unspecified epilepsy without mention of intractable epilepsy Gastroesophageal reflux disease without esophagitis Esophageal reflux Benign essential hypertension Essential hypertension, benign Vitamin D deficiency, unspecified Hypercholesterolemia Pure hypercholesterolemia Anticoagulant long-term use Encounter for long-term (current) use of anticoagulants Impaired fasting blood sugar Impaired fasting glucose documented in this encounter Additional Health Concerns Assessment Noted Time PHQ-2 Depression Total Score: 0 01/25/20 25 3:52 PM EST documented as of this encounter Care Teams Supervisor Display [employer]rication Relationship Specialty Start Date End Date Mook Tompkins MD [address] [place] [phone] [email or web address] PCP - General 09/18/17 Mook Tompkins MD [address] [place] [phone] Insurance Assigned Provider 03/06/24 Armen Mccarthy MD [address] [place] [address] Intensive Care 01/05/20 Eligio Plunkett MD [address] [place] [phone] Neurology 09/29/23 documented as of this encounter Additional Source Comments The information contained in this document represents components of the legal health record. It is not the complete legal health record.[facility]
--- NOTE | ~2025-07-28 | XR_ITS ---
EXAMINATION: XR LUMBOSACRAL SPINE CLINICAL INFORMATION: low back pain COMPARISON: None available. TECHNIQUE: AP and lateral views FINDINGS: Multilevel endplate sclerosis and small marginal osteophyte formation throughout the axial skeleton. Grade 1 anterolisthesis L4-5. Decreased intervertebral disc height at L5-S1. No lytic or blastic lesions. No acute cortical disruption. Mild degenerative changes in the symphysis pubis. XR/XR lumbar spine 2-3V IMPRESSION: Mild multilevel thoracolumbar spondylosis. Probable grade 1 anterolisthesis L4-5. Electronically signed by: Jasvir Poe MD 07/28/2025 09:26 AM EDT
[2025-07-28 07:15] VITALS: BP 112/44; BP 151/78; PULSE 59; PULSE 66; RESP 18; TEMP 36.5; O2SAT 95; O2SAT 99; BMI 41.1
--- OUTSIDE RECORDS SUMMARY | 2025-07-28 08:28 | XMS_ITS | Clinical Summary ---
Author Organization [facility] Address [address] [place] [phone] Phone Care Team Providers Care Woolen Tester Name Role Phone Mook Tompkins MD Primary Care Provider [phone] Mook Tompkins MD Unavailable Armen Mccarthy MD Unavailable [phone] Eligio Plunkett MD Unavailable Allergies Active Allergy Reactions Criticality Noted Date Comments Codeine Unknown 05/26/2018 Other reaction(s): UNKNOWN Other Reaction(s): Not available Medications rivaroxaban (XARELTO) 20 mg Tab Take 20 mg by mouth daily. Active albuterol 90 mcg/actuation inhaler Inhale 2 puffs into the lungs every 4 (four) hours as needed for wheezing. Active LORazepam (ATIVAN) 0.5 MG tablet Take 0.5 mg by mouth as needed (for dental appointments/p rocedures). 09/11/20 22 Active topiramate (TOPAMAX) 200 MG tablet Take 275 mg by mouth 2 (two) times a day. 01/17/20 23 Active topiramate (TOPAMAX) 25 MG tablet Take 275 mg by mouth 2 (two) times a day. 01/17/20 23 Active topiramate (TOPAMAX) 50 MG tablet Take 275 mg by mouth 2 (two) times a day. 01/17/20 23 Active nystatin (NYSTOP) powderIndicatio ns:Elizabeth infection Use 2 times daily as needed for rash on reddened skin under breast and abdominal folds. 30 g 3 09/19/20 23 Active carBAMazepine (TEGRETOL XR) 400 MG 12 hr tablet Take 600 mg by mouth nightly at bedtime. Active acetaminophen (TYLENOL) 325 mg tablet Take 2 tablets (650 mg total) by mouth every 4 (four) hours as needed. -give for temp greater than 101 -give for headaches, body aches and tooth aches - for symptom control over 48 hours call pcp - not to exceede 6 doses in a 24 hour period. 100 tablet 5 10/27/20 23 Active guaiFENesin (CHEST CONGESTION RELIEF) 100 mg/5 mL syrupIndication s:Cough, unspecified type TAKE 10 ML (200MG) BY MOUTH EVERY 8 HOURS BY MOUTH NEEDED FOR COUGH. CALL PCP IF COUGH LASTS MORE THAN 3 DAYS. *DO NOT EXCEED 3 DOSES IN 24 HOURS* 120 mL 1 04/21/20 24 Active sucralfate (CARAFATE) 1 gram tablet Take 3 tablets by mouth daily. 04/13/20 24 Active omeprazole (PRILOSEC) 20 MG capsuleIndicati ons:Gastroesoph ageal reflux disease, unspecified whether esophagitis present Take 1 capsule (20 mg total) by mouth 2 (two) times a day. OPEN CAPSULE AND MIX WITH SOFT FOODS. 56 capsule 06/15/20 24 Active cefuroxime (CEFTIN) 250 MG tablet Take 250 mg by mouth 2 (two) times a day. x7 days UTI started 07/14/24 prescribed by Vera Canela, [place] Active clotrimazole (LOTRIMIN) 1 % creamIndication s:Rash Apply 1 Application topically 2 (two) times a day as needed. For feet until rash clears 30 g 4 09/07/20 24 Active aspirin 81 MG EC tablet TAKE 1 TABLET BY MOUTH ONCE DAILY IN THE MORNING. Start after buffered aspirin taper 28 tablet 11/30/20 24 Active metoprolol succinate (TOPROL-XL) 50 MG 24 hr tablet TAKE 1 TABLET BY MOUTH EVERY MORNING. DO NOT CRUSH, GIVE WITH SOFT FOOD. HOLD MED IF BLOOD PRESSURE IS <90/60 OR IF HEART RATE <50. 28 tablet 01/25/20 25 Active atorvastatin (LIPITOR) 80 MG tablet TAKE 1 TABLET BY MOUTH DAILY EVERY EVENING. CRUSH AND GIVE WITH SOFT FOODS. 28 tablet 03/16/20 25 Active cholecalciferol (VITAMIN D3) 25 MCG (1,000 unit) tabletIndicatio ns:Age-related osteoporosis without current pathological fracture TAKE 1 TABLET BY MOUTH ONCE DAILY 28 tablet 5 03/16/20 25 Active calcium citrate-vitamin D3 (CITRACAL+D) 950 mg (200 mg elemental)-250 units TabIndications: Age-related osteoporosis without current pathological fracture TAKE 1 TABLET BY MOUTH TWICE DAILY 56 tablet 5 03/16/20 25 Active carBAMazepine (CARBATROL) 200 mg 12 hr capsuleIndicati ons:Seizure disorder TAKE (2) CAPSULES BY MOUTH EVERY MORNING. TAKE 3 CAPSULES BY MOUTH IN THE EVENING. 140 capsule 05/18/20 25 Active lactase (DAIRY-AID) 3,000 unit tabletIndicatio ns:Lactose intolerance TAKE 1 TABLET 3 TIMES DAILY WITH MEALS *PACK #20 FOR DAY PROGRAM* 90 tablet 5 05/18/20 25 Active loratadine (CLARITIN) 10 mg tabletIndicatio ns:Allergic rhinitis, unspecified seasonality, unspecified trigger TAKE 1 TABLET BY MOUTH DAILY IN THE MORNING. CRUSH AND GIVE WITH SOFT FOODS. 28 tablet 07/05/20 25 Active loratadine (CLARITIN) 10 mg tabletIndicatio ns:Allergic rhinitis, unspecified seasonality, unspecified trigger Take 1 tablet (10 mg total) by mouth every morning. CRUSH AND GIVE WITH SOFT FOODS. 28 tablet 11 08/10/20 24 025 Discontinued Active Problems Problem Noted Date Diagnosed Date Urinary tract infection 08/04/2024 Overview (08/04/2024): 07/14/24 pres to Ed dx with uti [facility] Osteoporosis 09/29/2023 09/29/2023 Assessment & Plan (09/29/2023 5:14 PM EDT): 62 y.o. woman with osteoporosis on bone density. She is post-menopausal and has been on long-term anti-seizure medications. She has not fractured as far as I can tell from chart review. She had been on bisphosphonate rx for at least 13 years which was recently discontinued. Her recent bone density measured lower in some areas, but was done @ a different facility, limiting the ability to compare. She sees a dentist regularly & did have some dental extractions which healed w/o incident. Her vitamin D was reasonable last January. She was instructed to hold calcium, it looks like at discharge from a hospitalization, but cannot find any records to indicate reason. She gets limited dairy in diet. Would monitor her off of anti-resorptive medication for now. Would ? Neurology whether it would be safe to try to shift her tegretol to a medication with less impact on her bones. Would advise her calcium intake be increased, via diet and/or supplements, ideally to 1200 mg total daily, in divided doses, but at least would try to get more into her than she is getting currently. Would check vitamin D and PTH with upcoming labs for PCP. Long-term current use of anticonvulsant 09/29/20 Vitamin D deficiency 09/29/2023 Flaccid hemiplegia affecting right dominant side, unspecified etiology 09/19/2023 Paralysis of upper extremity 07/08/2022 Class 3 severe obesity due t o excess calories without serious comorbidity with body mass index (BMI) of 40.0 to 44.9 in adult 07/08/2022 Tinea pedis of both feet 05/28/2021 Assessment & Plan (05/28/2021 11:41 AM EDT): While the left foot is less certain as to its complete involvement of the right foot has a lot of redness between the toes and on the foot dorsum. So I convinced instruction to treat both feet as infected wart dermatophytes. Would like to see with twice a day 2 weeks of treatment whether the Pulmonary embolism and infarction 10/18/2019 Osteopenia of multiple sites 05/26/2018 Cerebral palsy 05/26/2018 Gastroesophageal reflux disease 05/26/2018 Seizure disorder 05/26/2018 Hypercholesterolemia Resolved Problems Problem Noted Date Diagnosed Date Resolved Date Right ventricular failure 01/10/2020 Encounters Date Type Department Care Team Description 07/25/2025 2:00 PM EDT [facility] [address] [facility] [place] [address] Mook Tompkins MD Chronic pain of right ankle (Primary Dx); Ankle weakness; Cerebral palsy, unspecified type; Obesity, class 3; Flaccid hemiplegia affecting right dominant side, unspecified etiology; Seizure disorder; Other cerebral palsy; Gastroesophageal reflux disease without esophagitis; Benign essential hypertension; Vitamin D deficiency, unspecified; Hypercholesterolemia ; Anticoagulant long-term use; Impaired fasting blood sugar 07/21/2025 Telephone [facility] [address] [place] [address] Mook Tompkins MD Abdominal Pain; Ankle Pain 07/05/2025 Refill [facility] [address] [place] [address] Mook Tompkins MD Medication Refill 06/22/2025 Nurse Triage [facility] [address] [place] [address] Mook Tompkins MD covid 05/18/2025 Refill [facility] [address] [place] [address] Mook Tompkins MD Medication Refill from Last 3 Months Immunizations Immunization Administration Dates Next Due COVID-19 (Pre-09/22) Pfizer Vaccine, mRNA, PF 10/03/2021,01/31/2021,01/10/2021 COVID-19 Pfizer Comirnaty Vaccine 12+ 09/22/2024 INFLUENZA, SPLIT VIRUS, TRIV ALENT W/ PRESERVATIVE IM 08/14/2012 Influenza Quadrivalent Prese rvative Free IM 09/19/2023,09/13/2022,09/18/2021,10/24,10/21/2019,09/08/2017,10/03/2015 Influenza Trivalent Adjuvant ed Preservative free IM 09/22/2024 Influenza, Unspecified Formulation 07/31/2010 Pneumococcal conjugate PCV20 01/06/2023 Pneumococcal polysaccharide PPSV23 08/31/2004 Td (adult) 5 Lf Tetanus Toxo id, PF, Adsorbed 08/04/2024 Td (adult),2 Lf Tetanus Toxo id, PF, Adsorbed 05/01/2002 Tdap 08/14/2012 Family History Medical History Relation Comments No Known Problems Father No Known Problems Mother Relation Status Comments Brother 1 Alive Brother 2 Father Mother Sister 1 pt unsure if sis danna had breast or ovarian cx. but she did have one of them Sister 2 Alive Sister 3 Alive Social History Tobacco Use Types Packs/Day Years Used Date Smoking Tobacco: Former Cigarettes Smokeless Tobacco: Never Tobacco Cessation:Counseling Given: Not Answered Comments:can not recall when quit, maybe less [...] on file Sexual Orientation Not on file Last Filed Vital Signs Vital Sign Reading [...] Mass Index 45.22 07/25/2025 2:09 PM EDT Plan of Treatment Upcoming Encounters Date Type Department Care Team (Late st Contact Info) Description 09/06/2025 10:15 AM EDT Appointment [facility] Bone Density - [address] [address] Teagan Ramirez MD [address] [place] [phone] 10/06/2025 2:00 PM EST Office Visit [facility] [address] [place] [phone] Teagan Ramirez MD [address] [place] [phone] 01/27/2026 3:00 PM EST Office Visit [facility] [address] [place] [address] Mook Tompkins MD [address] [place] [address] [email or web address] Health Maintenance Due Date Last Done Comments SMOKING Hx and SMOKELESS TOBACCO SCREENING 1971 COLOGUARD 2003 FIT TEST 2003 FOBT 2003 SIGMOIDOSCOPY 2003 VIRTUAL COLONOSCOPY 2003 ZOSTER VACCINES (1 of 2) 2008 RSV VACCINE (1 - Risk 60-74 years 1-dose series) 2018 COLONOSCOPY 10/29/2022 10/29/2012 COLORECTAL CANCER SCREENING 10/29/2022 CARBAMAZEPINE (TEGRETOL) LEVEL 01/16/2024 01/16/2023, 03/27/2021 CREATININE LEVEL 11/18/2024 11/18/2023, 05/2023, 07/10/2023, Additional history exists COVID-19 VACCINE (2023- season) 2025 09/22/2024, 11/27/2023, 10/03/2021, Additional history exists FOLLOW UP BONE DENSITY TESTING 04/23/2025 04/23/2023, 03/19/2019, 03/28/2015 INFLUENZA VACCINE (#1) 2025 4, 09/19/2023, 09/19/2023, Additional history exists BLOOD PRESSURE 01/25/2026 07/25/2025 DEPRESSION SCREENING 01/25/2026 01/25/2025 MAMMOGRAM 11/17/2026 11/17/2024, 08/01, 08/15/2022, Additional history exists SCREENING FOR DIABETES 11/18/2026 3, 11/18/2023, 02/27/2017 LIPID PANEL 06/20/2028 06/20/2023, 07/12/2022, 01/16/2023, Additional history exists Adult Td,Tdap Booster 08/04/2034 08/04/2024 , 08/14/2012, 05/01/2002 HEPATITIS C SCREENING Completed 01/10/2020, 020 PNEUMOCOCCAL VACCINES (50+ years) Completed 01/06/2023, 08/31/2004 OSTEOPOROSIS SCREENING INITIAL (ONE-TIME) Completed 04/23/2023, 03/19/2019, 03/28/2015 HEPATITIS A VACCINES Aged Out No long er eligible based on patient's age to complete this topic HIB VACCINES Aged Out No longer eligi ble based on patient's age to complete this topic MENINGOCOCCAL VACCINES (ACWY) Aged Out No longer eligible based on patient's age to complete this topic MENINGOCOCCAL VACCINES (B) Aged Out N o longer eligible based on patient's age to complete this topic Medical Devices Not on file Procedures Procedure Name Priority Date/Time Associated Diagnosis Comments BI MAMMOGRAM SCREENING WITH TOMOSYNTHESIS WITH CAD (BILATERAL) Routine 11/17/2024 11:03 AM EST Breast screening COMPREHENSIVE METABOLIC PANEL Routine 11/18/2023 8:57 AM EST Diarrhea, unspecified type Gastroesophageal reflux disease without esophagitis LIPID PANEL Routine 06/20/2023 8:16 AM EDT Hypercholesterolemia BD DXA AXIAL (SPINE) WITH HIP Routine 04/23/2023 10:00 AM EDT Osteopenia, unspecified location Postmenopausal estrogen deficiency CARBAMAZEPINE (TEGRETOL) LEVEL Routine 01/16/2023 8:38 AM EST Seizure disorder HEPATITIS C ANTIBODY, QUALITATIVE Routine 01/10/2020 3:55 PM EST Pulmonary embolism and infarction Vitamin D deficiency Seizure disorder Nocturia Screening for HIV (human immunodeficiency virus) Need for hepatitis C screening test OUTSIDE GLUCOSE FASTING Routine 02/27/2017 HM COLONOSCOPY FOR RESULT ENTRY ONLY Routine 10/29/2012 from Last 3 Months or Most Recently Relevant to Health Maintenance Results * (ABNORMAL) BI MAMMOGRAM SCREENING WITH TOMOSYNTHESIS WITH CAD (BILATERAL) (11/17/2024 11:03 AM EST) Anatomical Region Laterality Modality Breast Left, Breast Right, Breast Bilateral Bila teral Mammography 11/18/2024 8:06 AM EST Impressions 11/18/2024 8:54 AM EST 1. 3 mm discrete asymmetry within the inferior lateral right breast, roughly 7-8:00 position, 2.2 cm from the nipple. Recommend targeted right breast ultrasound for further assessment. If discrete correlate not identified with ultrasound, would recommend that patient would be assessed with mammography to include spot compression MLO view and 90 degree mediolateral projection. 2. No mammographic evidence of malignancy in the left breast. BI-RADS 0 INCOMPLETE Needs additional imaging evaluation The patient will be notified of the results and recommendations. The mammography department will contact the patient to arrange for the additional imaging. Narrative 11/18/2024 8:54 AM EST BI MAMMOGRAM SCREENING WITH TOMOSYNTHESIS WITH CAD (BILATERAL) Additional patient information: Screening. COMPARISON: Comparison is made with relevant prior imaging. Breast composition: There are scattered areas of fibroglandular density. FINDINGS: Breast coverage is suboptimal related to patient immobility. Previous stroke. Patient within a wheelchair. Best images possible were obtained as before. Right MLO projection tomography reveals 3 mm discrete rounded masslike asymmetry affecting anterior inferior lateral breast, 2.2 cm from the nipple, less well seen on conventional view MLO projection and less well seen on cc projection conventional view and tomography although tomographic images to suggest possible correlate within the mid to anterior lateral breast that is similar size. No architectural distortion or concerning grouping of microcalcification. Left No abnormal masses, suspicious calcifications, or other significant findings are identified mammographically in the left breast. Procedure Note Efren Salas MD - 11/18/2024 BI MAMMOGRAM SCREENING WITH TOMOSYNTHESIS WITH CAD (BILATERAL) Additional patient information: Screening. COMPARISON: Comparison is made with relevant prior imaging. Breast composition: There are scattered areas of fibroglandular density. FINDINGS: Breast coverage is suboptimal related to patient immobility. Previousstroke. Patient within a wheelchair. Best images possible were obtained asbefore. Right MLO projection tomography reveals 3 mm discrete rounded masslike asymmetryaffecting anterior inferior lateral breast, 2.2 cm from the nipple, lesswell seen on conventional view MLO projection and less well seen on ccprojection conventional view and tomography although tomographic images tosuggest possible correlate within the mid to anterior lateral breast thatis similar size. No architectural distortion or concerning grouping ofmicrocalcification. Left No abnormal masses, suspicious calcifications, or other significantfindings are identified mammographically in the left breast. IMPRESSION: 1. 3 mm discrete asymmetry within the inferior lateral right breast,roughly 7- 8:00 position, 2.2 cm from the nipple. Recommend targeted rightbreast ultrasound for further assessment. If discrete correlate notidentified with ultrasound, would recommend that patient would be assessedwith mammography to include spot compression MLO view and 90 degreemediolateral projection. 2. No mammographic evidence of malignancy in the left breast. BI-RADS 0 INCOMPLETE Needs additional imaging evaluation The patient will be notified of the results and recommendations. Themammography department will contact the patient to arrange for theadditional imaging. us Mook Tompkins MD IMG MG EXAMS Final Result * (ABNORMAL) Comprehensive metabolic panel (11/18/2023 8:57 AM EST) SODIUM 139 133 - 146 mmol/L [facility] POTASSIUM 3.9 3.3 - 5.1 mmol/L [facility] CHLORIDE 106 96 - 108 mmol/L [facility] CO2 26 21 - 35 mmol/L [facility] BUN 8 6 - 19 mg/dL [facility] CREATININE 0.70 0.5 - 1.5 mg/dL [facility] GLUCOSE 115(H) 70 - 99 mg/dL [facility] ALBUMIN 4.1 3.9 - 4.8 g/dL [facility] TOTAL PROTEIN 7.1 6.5 - 8.0 g/dL [facility] CALCIUM 8.9 8.4 - 10.3 mg/dL [facility] ALKALINE PHOSPHATASE 166(H) 39 - 117 U/L [facility] TOTAL BILIRUBIN <0.2 0.0 - 1.2 mg/dL [facility] AST 30 0 - 37 U/L [facility] ALT 27 0 - 40 U/L [facility] GLOBULIN 3.0 1 - 4.8 g/dL [facility] EGFR 97 >59 mL/min/1.7 3m2 [facility] Comment:Estimated glomerular filtration rate calculated using the CKD-EPI refit equation. ANION GAP 11 10 - 20 mmol/L [facility] Blood 11/18/2023 8:57 AM EST 11/18/2023 9:06 AM EST us Mook Tompkins MD LAB BLOOD ORDERABLES Final Re sult [address] [address] * (ABNORMAL) Lipid panel (06/20/2023 8:16 AM EDT) HDL 60 mg/dL [facility] Comment: Interpretation <40 mg/dL: Low HDL cholesterol (major risk factor for CHD) Greater than or equal to 60 mg/dL: High HDL cholesterol ( negative risk factor for CHD) HDL - cholesterol is affected by a number of factors, e.g. smoking, excerise, hormones, sex and age. CHOLESTEROL 180 0 - 240 mg/dL [facility] TRIGLYCERIDES 134 30 - 160 mg/dL [facility] LDL 93 50 - 129 mg/dL [facility] Comment: LDL levels in terms of risk for coronary heart disease: <100 mg/dL: Optimal 100-129 mg/dL: Near or above optimal 130-159 mg/dL: Borderline high 160-189 mg/dL: High >190 mg/dL: Very High CARDIAC RISK RATIO 3.0(L) 3.3 - 4.4 [facility] Blood 06/20/2023 8:16 AM EDT 06/20/2023 8:26 AM EDT us Mook Tompkins MD LAB BLOOD ORDERABLES Final Re sult Performing Organization Address City/[facility]/ZIP Co de Phone Number [address] [address] * BD DXA AXIAL (SPINE) WITH HIP (04/23/2023 10:00 AM EDT) Anatomical Region Laterality Modality Bone Density Bone Density 04/23/2023 12:1 2 PM EDT Impressions 04/23/2023 12:12 PM EDT Osteoporosis Reference Information: The T-score is the number of standard deviations above or below the standard which is normal for young adults at their peak bone mineral density. The World Health Organization (WHO) interprets the T-scores as follows: Above -1 Normal bone density Between -1 and -2.5 Osteopenia Equal to / or below -2.5 Osteoporosis As a practical clinical guideline, osteopenia may be graded as follows: Mild -1 through -1.5 Moderate -1.6 through -2.0 Severe -2.1 through -2.4 References: 1. NIH Osteoporosis and Related Bone Diseases http://www.osteo.org 2. International Society for Clinical Densitometry http://www.iscd.org 3. National Osteoporosis Foundation http://www.nof.org Narrative 04/23/2023 12:12 PM EDT STUDY: DUAL ENERGY X-RAY ABSORPTIOMETRY / DXA REASON FOR EXAM: Female, 62 years old. TECHNIQUE: Bone Mineral Density (BMD) measurements of the lumbar spine and bilateral hips were obtained. COMPARISON: None. FINDINGS: L1-L4 T score: -0.8. This corresponds to Normal bone density. Right femoral neck T score: -2.9. This corresponds to osteoporosis Right total hip T score: -2.2. This corresponds to osteopenia Left femoral neck T score: -2.1. This corresponds to osteopenia Left total hip T score: -1.1. This corresponds to osteopenia Procedure Note Nguyen Paulino MD - 04/23/2023 STUDY: DUAL ENERGY X-RAY ABSORPTIOMETRY / DXA REASON FOR EXAM: Female, 62 years old. TECHNIQUE: Bone Mineral Density (BMD) measurements of the lumbar spineand bilateral hips were obtained. COMPARISON: None. FINDINGS: L1-L4 T score: -0.8. This corresponds to Normal bone density. Right femoral neck T score: -2.9. This corresponds to osteoporosis Right total hip T score: -2.2. This corresponds to osteopenia Left femoral neck T score: -2.1. This corresponds to osteopenia Left total hip T score: -1.1. This corresponds to osteopenia IMPRESSION: Osteoporosis Reference Information: The T-score is the number of standard deviations above or below thestandard which is normal for young adults at their peak bone mineraldensity. The World Health Organization (WHO) interprets the T-scores asfollows: Above -1 Normal bone density Between -1 and -2.5 Osteopenia Equal to / or below -2.5 Osteoporosis As a practical clinical guideline, osteopenia may be graded as follows: Mild -1 through -1.5 Moderate -1.6 through -2.0 Severe -2.1 through -2.4 References: 1. NIH Osteoporosis and Related Bone Diseases http://www.osteo.org 2. International Society for Clinical Densitometry http://www.iscd.org 3. National Osteoporosis Foundation http://www.nof.org us Mook Tompkins MD IMG BD BONE DENSITY DEXA Angelique l Result * Carbamazepine (Tegretol) level (01/16/2023 8:38 AM EST) Pathologist [facility] CARBAMAZEPINE 10.5 8.0 - 12.0 ug/mL [facility] Blood 01/16/2023 8:38 AM EST 01/16/2023 8:47 AM EST Mook Tompkins MD LAB BLOOD ORDERABLES Final Re sult Performing Organization Address City/[facility]/ZIP Co de Phone Number [address] [address] * Hepatitis C antibody, qualitative (01/10/2020 3:55 PM EST) [facility] HCV NON-REACTIV E NON-REACTI VE [facility] Blood 01/10/2020 3:55 PM EST 01/10/2020 4:17 PM EST Mook Tompikns MD LAB BLOOD ORDERABLES Final Re sult Performing Organization Address [facility] Co de Phone Number [address] [address] * Outside Glucose,Fasting (02/27/2017) [facility] Glucose, fasting - External 82 65 - 99 mg/dL Historical Provider LAB BLOOD ORDERABLES Angelique l Result * COLONOSCOPY FOR RESULT ENTRY ONLY (10/29/2012) [facility] Colonoscopy 10 yr recall Historical Provider HEALTH MAINTENANCE Final Result from Last 3 Months or Most Recently Relevant to Health Maintenance Insurance [facility] MED[facility] [place] [facility] [place] [facility] [place] [facility] PART A & [place] [facility] & B Member Subscriber Plan / Payer (Ef fective 1986-Present) Name:Reba Stevenson Member ID:[id number] Relation to Subscriber:Self Name:Reba Stevenson Subscriber ID:[id number] Payer ID:[id number] Group ID:Not on file Type:Medicare Address: [facility] [address] [place] [phone] Care Teams Woolen Tester Relationship Specialty Start Date End Date Mook Tompkins MD [address] [place] [address] [email or web address] PCP - General 09/18/17 Mook Tompkins MD [address] [place] [address] [email or web address] Insurance Assigned Provider 03/06/24 Armen Mccarthy MD [address] [place] [address] Intensive Care 01/05/20 Eligio Plunkett MD [address] [place] [phone] Neurology 09/29/23 Additional Source Comments The information contained in this document represents components of the legal health record. It is not the complete legal health record.[facility]
--- OUTSIDE RECORDS SUMMARY | 2025-07-28 08:28 | XMS_ITS | Encounter Summary ---
Author Organization [facility] Address [address] [place] [address] Phone Care Team Providers Care Black Oxide Operator Name Role Phone Mook Tompkins MD Primary Care Provider [phone] Mook Tompkins MD Unavailable [phone] Armen Mccarthy MD Unavailable [phone] Ishan Henry Unavailable Unavailable TransferEligio MD Unavailable [phone] Encounter Details Date Type Department Care Team (Latest Contact Info) Description 08/16/2022 Transcribe Orders Virtual Department 30 [place], [place] [phone] Mook Tompkins MD 40 [place] [address] [email or web address] Abnormal mammogram of left breast (Primary Dx) Social History Tobacco Use Types Packs/Day Years Used Date Smoking Tobacco: Former Smokeless Tobacco: Never Alcohol Use Standard Drinks/Week Comments No 0 (1 standard drink = 0.6 oz pur e alcohol) Child or Family Care Answer Date Record ed Do you have problems with on e of the following making it difficult for you to work, study, or receive health care? No 07/10/2021 Education Answer Date Recorded Are you interested in help w ith more adult education (for example, completing high school, GED, job training, learning the Malagasy language, technical skills, or developing parenting skills)? No 07/10/2021 Are you concerned about learning? Not on file 07/10/2021 Not on file 07/10/2021 Not on file 07/10/2021 Food Answer Date Recorded Within the past 6 months we worried whether our food would run out before we got money to buy more. Never True 07/10/2021 Within the past 6 months the food we bought just didn't last and we didn't have enough money to get more. Never True Paying for Meds Answer Date Recorded Do you have trouble paying for medicines? No 07/10/2021 Paying Utility Bills Answer Date Record ed Do you have trouble paying your heating or elect ricity bill? No 07/10/2021 Transportation Answer Date Recorded Has the lack of transportati on kept you from medical appointments or from getting medications? No 07/10/2021 Comments No Sex and Gender Information Value Date Recorded Sex Assigned at Not on file Legal Sex Female 9:51 PM EDT Gender Identity Not on file Sexual Orientation Not on file documented as of this encounter Plan of Treatment Upcoming Encounters Date Type Department Care Team (Late st Contact Info) Description 09/06/2025 10:15 AM EDT Appointment [address] [address] Teagan Ramirez MD [address] [place] [address] 10/06/2025 2:00 PM EST Office Visit [facility] [address] [place] [address] Teagan Ramirez MD [address] [place] [address] 01/27/2026 3:00 PM EST Office Visit [facility] Internal Medicine 40 [place] [address] Mook Tompkins MD 40 [place] [address] documented as of this encounter Results * BI MAMMOGRAM DIAGNOSTIC WITH TOMOSYNTHESIS WITH CAD (LEFT) (09/27/2022 1:30 PM EDT) Anatomical Region Laterality Modality Breast Left Left Mammography 09/27/2022 1:33 PM EDT Impressions 09/27/2022 1:46 PM EDT LEFT BREAST: Benign, no evidence of malignancy. Return to annual screening mammography is recommended Bi-RADS: BI-RADS CATEGORY: 2 - Benign finding. DENSITY: There are scattered fibroglandular densities. LEFT RECOMMENDATION DUE DATE: On Schedule Recommendation: Left Mammography Screening Narrative 09/27/2022 1:46 PM EDT STUDY: Left diagnostic mammography with tomosynthesis and CAD TECHNIQUE: Left breast full-field digital diagnostic mammography is obtained and read in conjunction with computer-aided detection. Tomosynthesis as well as 2-D C view imaging were obtained. COMPARISON: 08/15/2022 and 03/23/2021 BREAST COMPOSITION: There are scattered areas of fibroglandular density FINDINGS: Please note that the study is somewhat limited, as the images had to be obtained with the patient in wheelchair. Within this confine: LEFT BREAST: The asymmetry seen on screening mammography in the retroareolar breast at anterior/middle depth on the MLO view only is significantly improved in appearance on today's diagnostic study, most consistent with fibroglandular tissue summation. No new dominant masses or areas of architectural distortion are seen. Again noted is a biopsy clip marker in the retroareolar breast at middle/posterior depth. Procedure Note Nguyen Paulino MD - 09/27/2022 STUDY: Left diagnostic mammography with tomosynthesis and CAD TECHNIQUE: Left breast full-field digital diagnostic mammography isobtained and read in conjunction with computer-aided detection.Tomosynthesis as well as 2-D C view imaging were obtained. COMPARISON: 08/15/2022 and 03/23/2021 BREAST COMPOSITION: There are scattered areas of fibroglandulardensity FINDINGS: Please note that the study is somewhat limited, as the images had to beobtained with the patient in wheelchair. Within this confine: LEFT BREAST: The asymmetry seen on screening mammography in the retroareolar breast atanterior/middle depth on the MLO view only is significantly improved inappearance on today's diagnostic study, most consistent withfibroglandular tissue summation. No new dominant masses or areas ofarchitectural distortion are seen. Again noted is a biopsy clip marker inthe retroareolar breast at middle/posterior depth. IMPRESSION: LEFT BREAST: Benign, no evidence of malignancy. Return to annual screeningmammography is recommended Bi-RADS: BI-RADS CATEGORY: 2 - Benign finding. DENSITY: There are scattered fibroglandular densities. LEFT RECOMMENDATION DUE DATE: On Schedule Recommendation: Left Mammography Screening Mook Tompkins MD IMG MG EXAMS Final Result documented in this encounter Visit Diagnoses Diagnosis Abnormal mammogram of left breast- Primary Abnormal mammogram of left breast documented in this encounter Additional Health Concerns Infection Onset Date Last Indicated Resolved Time CoV-Risk Comment:Per Ambulatory Triage Form 06/22/2025 06/22/202507/03 1:22 AM EDT Assessment Noted Time PHQ-2 Depression Total Score: 0 01/03/20 22 3:31 PM EST documented as of this encounter Care Teams Black Oxide Operator Relationship Specialty Start Date End Date Mook Tompkins MD [address] [place] [address] PCP - General 09/18/17 Mook Tompkins MD [address] [place] [address] Insurance Assigned Provider 03/06/24 Armen Mccarthy MD [address] [place] [address] Intensive Care 01/05/20 Ishan Henry PA Neurology 07/21/20 09/28/23 Eligio Plunkett MD [address] [place] [address] Neurology 09/29/23 documented as of this encounter Additional Source Comments The information contained in this document represents components of the legal health record. It is not the complete legal health record.[facility]
--- OUTSIDE RECORDS SUMMARY | 2025-07-28 08:28 | XMS_ITS | Clinical Summary ---
Author Organization [facility] Address [address] [place] [address] Care Team Providers Care Fluorescent Lamp Replacer Name Role Phone Mook Tompkins MD Primary Care Provider [phone] Immunizations Name Administration Dates Next Due Pfizer [...] 04/20/2024 9:44 AM EDT Plan of Treatment Upcoming Encounters Date Type Department Care Team (Late st Contact Info) Description 08/24/2025 10:50 AM EDT Office Visit [facility] [address] [place] [address] Home Conrad MD [address] [place] [address] Dr [address] [place] [address] Health Maintenance Due Date Last Done Comments [...] 2023 Hypertension/CHF/CAD Annual BMP Blood Test 2023 Medicare Annual Wellness Visit 2023 Osteoporosis Screening (Bone Density Screening) 2023 Social Influencers of Health Screening 2023 COVID-19 Vaccine ( - 2023-2 5 season) 2024 10/03/2021, 01/31/2021, [...] Most Recently Relevant to Health Maintenance Insurance MEDICARE MEDICAID - [place] Care Teams Fluorescent Lamp Replacer Relationship Specialty Start Date End Date Mook Tompkins MD [address] [place] [address] PCP - General 08/26/08
--- OUTSIDE RECORDS SUMMARY | 2025-07-28 08:28 | XMS_ITS | Encounter Summary ---
Author Organization [facility] Address [address] [place] [address] Phone Care Team Providers Care Supervisor Veneer Name Role Phone Mook Tompkins MD Primary Care Provider [phone] Mook Tompkins MD Unavailable [phone] Armen Mccarthy MD Unavailable [phone] Eligio Plunkett MD Unavailable [phone] Encounter Details Date Type Department Care Team (Late st Contact Info) Description 11/18/2024 Ancillary Orders [facility], [address] [phone] Mook Tompkins MD [address] [place] [address] [email or web address] Abnormal mammogram (Primary Dx) Social History Tobacco [...] high school, GED, job training, learning the Mozambican language, technical skills, or developing parenting skills)? [...] Info) Description 09/06/2025 10:15 AM EDT Appointment [facility], Bone Density - [address] [address] Teagan Ramirez MD [address] [address] 10/06/2025 2:00 PM EST Office Visit [facility] 22 [place] [address] Teagan Ramirez MD [address] [address] 01/27/2026 3:00 PM EST Office Visit [facility] Internal [facility] 40 [place], [place] [phone] Mook Tompkins MD [address] [place], [place] [phone] [email or web address] documented as of this encounter Results * [...] at time ofexamination. us Mook Tompkins MD IMG US BREAST Final Result documented in this [...] as of this encounter Care Teams Supervisor Veneer Relationship Specialty Start Date End Date Mook Tompkins MD [address] [place] [address] [email or web address] PCP - General 09/18/17 Mook Tompkins MD [address] [place] [address] [email or web address] Insurance Assigned Provider 03/06/24 Armen Mccarthy MD [address] [place] [address] Intensive Care 01/05/20 Eligio Plunkett MD [address] [place] [address] Neurology 09/29/23 documented as of this encounter Additional Source Comments The information contained in this document represents components of the legal health record. It is not the complete legal health record.[facility]
--- OUTSIDE RECORDS SUMMARY | 2025-07-28 08:28 | XMS_ITS | Encounter Summary ---
Author Organization [facility] Address [address] [address] Phone Care Team Providers Care Office Sweeper Name Role Phone Mook Tompkins MD Primary Care Provider [phone] Mook Tompkins MD Unavailable [phone] Armen Mccarthy MD Unavailable [phone] Eligio Plunkett MD Unavailable [phone] Encounter Details Date Type Department Care Team (Late st Contact Info) Description 07/23/2024 Procedure Pass [facility], [facility] [address] [place], [place] [phone] Social History Tobacco Use Types Packs/Day Years [...] high school, GED, job training, learning the Chinese language, technical skills, or developing parenting skills)? [...] Info) Description 09/06/2025 10:15 AM EDT Appointment [facility], Bone Density - [address] [address] Teagan Ramirez MD [address] [place] [address] 10/06/2025 2:00 PM EST Office Visit [facility] 22 [place] [address] Teagan Ramirez MD [address] [address] 01/27/2026 3:00 PM EST Office Visit [facility] Internal Medicine 40 [place] [address] Mook Tompkins MD [address] [place], [place] [email or web address] documented as of this encounter Visit Diagnoses Not on filedocumented in this encounter Additional Health Concerns Infection Onset Date Last Indicated Resolved Time CoV-Risk Comment:Per Ambulatory Triage Form 06/22/2025 06/22/202507/03 1:22 AM EDT Assessment Noted Time PHQ-2 Depression Total Score: 0 01/22/20 10:04 AM EST documented as of this encounter Care Teams Office Sweeper Relationship Specialty Start Date End Date Mook Tompkins MD [address] [place] [address] PCP - General 09/18/17 Mook Tompkins MD [address] [place] [address] Insurance Assigned Provider 03/06/24 Armen Mccarthy MD [address] [place] [address] Intensive Care 01/05/20 Eligio Plunkett MD [address] [place] [address] Neurology 09/29/23 documented as of this encounter Additional Source Comments The information contained in this document represents components of the legal health record. It is not the complete legal health record.[facility]
--- OUTSIDE RECORDS SUMMARY | 2025-07-28 08:28 | XMS_ITS | Encounter Summary ---
Author Organization [facility] Address [address] [address] Phone Care Team Providers Care Leach Runner Name Role Phone Mook Tompkins MD Primary Care Provider Mook Tompkins MD Unavailable [phone] Armen Mccarthy MD Unavailable Eligio Plunkett MD Unavailable [phone] Encounter Details Date Type Department Care Team (Late st Contact Info) Description 11/18/2024 Procedure Pass [facility], [facility] [address] [place], [place] [phone] Social History Tobacco Use Types Packs/Day Years [...] high school, GED, job training, learning the Romanian language, technical skills, or developing parenting skills)? [...] Info) Description 09/06/2025 10:15 AM EDT Appointment [facility], Bone Density - [address] [address] Teagan Ramirez MD [address] [place] [address] 10/06/2025 2:00 PM EST Office Visit [facility] 22 [place] [address] Teagan Ramirez MD [address] [address] 01/27/2026 3:00 PM EST Office Visit [facility] Internal Medicine 40 [place] [address] Mook Tompkins MD [address] [place], [place] [email or web address] documented as of this encounter Visit Diagnoses Not on filedocumented in this encounter Additional Health Concerns Infection Onset Date Last Indicated Resolved Time CoV-Risk Comment:Per Ambulatory Triage Form 06/22/2025 06/22/202507/03 1:22 AM EDT Assessment Noted Time PHQ-2 Depression Total Score: 0 01/22/20 10:04 AM EST documented as of this encounter Care Teams Leach Runner Relationship Specialty Start Date End Date Mook Tompkins MD [address] [place] [address] PCP - General 09/18/17 Mook Tompkins MD [address] [place] [address] Insurance Assigned Provider 03/06/24 Armen Mccarthy MD [address] [place] [address] Intensive Care 01/05/20 Eligio Plunkett MD [address] [place] [address] Neurology 09/29/23 documented as of this encounter Additional Source Comments The information contained in this document represents components of the legal health record. It is not the complete legal health record.[facility]
--- OUTSIDE RECORDS SUMMARY | 2025-07-28 08:28 | XMS_ITS | Encounter Summary ---
Author Organization [facility] Address [address] [place] [address] Phone Care Team Providers Care Nursing Director Name Role Phone Mook Tompkins MD Primary Care Provider [phone] Mook Tompkins MD Unavailable [phone] Armen Mccarthy MD Unavailable [phone] Eligio Plunkett MD Unavailable [phone] Reason for Visit * Reason Onset Date Comments Abdominal Pain 07/21/2025 Ankle Pain 07/21/2025 Encounter Details Date Type Department Care Team (Late st Contact Info) Description 07/21/2025 Telephone [facility] Internal Medicine 40 [place], [place] [phone] Mook Tompkins MD [address] [place], [place] [phone] [email or web address] Abdominal Pain; Ankle Pain Social History Tobacco Use Types Packs/Day Years [...] on file documented as of this encounter Progress Notes * Beau Garcia - 07/22/2025 8:49 PM EDT Provider aware, patient has appt on 07/25 * Scarlett Farfan RN - 07/21/2025 11:10 AM EDT Spoke to Selam. States she is doing well, Reba's mood is good today, she is joking and laughing. XXL BM last night, large one today. No stomach pain. States she is complaining that her right ankle is sore when the brace is off. States she is trying to get her to drink more water to get her labs done. She will try pedialyte for a couple days to increase her hydration, appt confirmed 07/25 at [address] m with Dr Tompkins. She is appreciative. * Mary Chicas - 07/21/2025 10:20 AM EDT Melinda called states she is caregiver for patient and patient was complaining yesterday of stomach ache and had 2 large bowel movements and was not eating or drinking - states today patient has not complained of stomach pain today so far and did eat breakfast - states patient is also complainingfor right ankle pain - Melinda states patient has upcoming appt for Friday07-25-25 is unsure if s hould be seen sooner and states PCP wanted patient to have labs before appt but patient has not been drinking enough water and does not think will be able to get blood for labs - please advise Melinda can be reached at [phone] documented in this encounter Plan of Treatment Upcoming Encounters Date Type Department Care Team (Late st Contact Info) Description 09/06/2025 10:15 AM EDT Appointment [facility], Bone Density - [address] [address] Teagan Ramirez MD [address] [place] [address] 10/06/2025 2:00 PM EST Office Visit [facility] 22 [place] [address] Teagan Ramirez MD [address] [address] 01/27/2026 3:00 PM EST Office Visit [facility] Internal Medicine 40 [place] [address] Mook Tompkins MD [address] [place] [address] documented as of this encounter Visit Diagnoses Not on filedocumented in this encounter Additional Health Concerns Assessment Noted Time PHQ-2 Depression Total Score: 0 01/25/20 25 3:52 PM EST documented as of this encounter Care Teams Nursing Director Relationship Specialty Start Date End Date Mook Tompkins MD [address] [place] [address] PCP - General 09/18/17 Mook Tompkins MD [address] [place] [address] Insurance Assigned Provider 03/06/24 Armen Mccarthy MD [address] [place] [address] Intensive Care 01/05/20 Eligio Plunkett MD [address] [place] [address] [address] [place] [address] Neurology 09/29/23 documented as of this encounter Additional Source Comments The information contained in this document represents components of the legal health record. It is not the complete legal health record.[facility]
--- OUTSIDE RECORDS SUMMARY | 2025-07-28 08:29 | XMS_ITS | Encounter Summary ---
Author Organization [facility] Address [address] [place] [address] Phone Care Team Providers Care Sales Merchandiser Name Role Phone Mook Tompkins MD Primary Care Provider [phone] Mook Tompkins MD Unavailable [phone] Armen Mccarthy MD Unavailable [phone] Ishan Henry Unavailable Unavailable MaynardvilleEligio MD Unavailable [phone] Encounter Details Date Type Department Care Team (Latest Contact Info) Description 03/13/2021 Transcribe Orders Virtual Department 30 [place], [place] [phone] Mook Tompkins MD [address] [place] [address] [email or web address] Breast screening (Primary Dx) Social History Tobacco Use Types Packs/Day Years Used Date Smoking Tobacco: Never Smokeless Tobacco: Never Alcohol Use Standard Drinks/Week Comments No 0 (1 standard drink = 0.6 oz pur e alcohol) Comments No Sex and Gender Information Value Date Recorded Sex Assigned at Not on file Legal Sex Female 9:51 PM EDT Gender Identity Not on file Sexual Orientation Not on file documented as of this encounter Plan of Treatment Upcoming Encounters Date Type Department Care Team (Late st Contact Info) Description 09/06/2025 10:15 AM EDT Appointment [facility], Bone [facility] [address] [place] [address] Teagan Ramirez MD [address] [place] [address] [email or web address] 10/06/2025 2:00 PM EST Office Visit [facility] [address] [place] [address] Teagan Ramirez MD [address] [place] [address] 01/27/2026 3:00 PM EST Office Visit [facility] Internal Medicine 40 [place] [address] Mook Tompkins MD [address] [place] [address] documented as of this encounter Results * BI MAMMOGRAM SCREENING WITH TOMOSYNTHESIS WITH CAD (BILATERAL) (03/23/2021 12:01 PM EDT) Anatomical Region Laterality Modality Breast Left, Breast Right, Breast Bilateral Bila teral Mammography 03/23/2021 4:19 PM EDT Impressions 03/23/2021 5:02 PM EDT BILATERAL BREASTS: Benign, no evidence of malignancy. Normal interval follow-up is recommended in 12 months. Bi-RADS: BI-RADS CATEGORY: 2 - Benign finding. DENSITY: There are scattered fibroglandular densities. Narrative 03/23/2021 5:02 PM EDT STUDY: Bilateral screening mammography with tomosynthesis and CAD TECHNIQUE: Bilateral full-field digital screening mammography is obtained and read in conjunction with computer-aided detection. Tomosynthesis as well as 2-D C view imaging were obtained. Best possible images according to technologist's notes. COMPARISON: No prior images available BREAST COMPOSITION: There are scattered areas of fibroglandular density RIGHT BREAST: No significant masses, suspicious calcifications or other abnormalities are seen. LEFT BREAST: No significant masses, suspicious calcifications or other abnormalities are seen. Ribbon shape clip from previous needle core biopsy. Procedure Note Adarsh Guzman MD - 03/23/2021 STUDY: Bilateral screening mammography with tomosynthesis and CAD TECHNIQUE: Bilateral full-field digital screening mammography is obtainedand read in conjunction with computer-aided detection. Tomosynthesis aswell as 2-D C view imaging were obtained. Best possible images accordingto technologist's notes. COMPARISON: No prior images available BREAST COMPOSITION: There are scattered areas of fibroglandulardensity RIGHT BREAST: No significant masses, suspicious calcifications or otherabnormalities are seen. LEFT BREAST: No significant masses, suspicious calcifications or otherabnormalities are seen. Ribbon shape clip from previous needle corebiopsy. IMPRESSION: BILATERAL BREASTS: Benign, no evidence of malignancy. Normal intervalfollow-up is recommended in 12 months. Bi-RADS: BI-RADS CATEGORY: 2 - Benign finding. DENSITY: There are scattered fibroglandular densities. Mook Tompkins MD IMG MG EXAMS Final Result documented in this encounter Visit Diagnoses Diagnosis Breast screening- Primary Breast screening, unspecified Breast screening Breast screening, unspecified documented in this encounter Additional Health Concerns Infection Onset Date Last Indicated Resolved Time CoV-Risk Comment:Per Ambulatory Triage Form 06/22/2025 06/22/202507/03 1:22 AM EDT Assessment Noted Time PHQ-2 Depression Total Score: 0 04/18/20 20 12:42 PM EDT documented as of this encounter Care Teams Sales Merchandiser Relationship Specialty Start Date End Date Mook Tompkins MD [address] [place] [address] PCP - General 09/18/17 Mook Tompkins MD [address] [place] [address] [email or web address] Insurance Assigned Provider 03/06/24 Armen Mccarthy MD [address] [place] [address] Intensive Care 01/05/20 Ishan Henry PA Neurology 07/21/20 09/28/23 Eligio Plunkett MD [address] [place] [address] Neurology 09/29/23 documented as of this encounter Additional Source Comments The information contained in this document represents components of the legal health record. It is not the complete legal health record.[facility]
--- OUTSIDE RECORDS SUMMARY | 2025-07-28 08:29 | XMS_ITS | Encounter Summary ---
Author Organization [facility] Address [address] [place] [address] Phone Care Team Providers Care Irradiated Fuel Handler Name Role Phone Mook Tompkins MD Primary Care Provider [phone] Mook Tompkins MD Unavailable [phone] Armen Mccarthy MD Unavailable [phone] Ishan Henry Unavailable Unavailable Glen GardnerEligio MD Unavailable [phone] Encounter Details Date Type Department Care Team (Latest Contact Info) Description 07/04/2023 Transcribe Orders Virtual Department [address] [place], [place] [phone] Mook Tompkins MD [address] [place] [address] [email or web address] Breast screening (Primary Dx) Social History Tobacco Use Types Packs/Day Years Used Date Smoking Tobacco: Former Smokeless Tobacco: Never Comments:can not recall when quit, maybe less than 10 yrs ago 1/4 pack in past no clear how may years Alcohol Use Standard [...] high school, GED, job training, learning the Croatian language, technical skills, or developing parenting skills)? [...] with a working camera? Not on file Comments No Sex and Gender Information Value Date Recorded Sex Assigned at Not on file Legal Sex Female 9:51 PM EDT Gender Identity Not on file Sexual Orientation Not on file documented as of this encounter Plan of Treatment Upcoming Encounters Date Type Department Care Team (Late st Contact Info) Description 09/06/2025 10:15 AM EDT Appointment [facility], Bone Density - [facility] [address] [place] [address] Teagan Ramirez MD [address] [place] [address] 10/06/2025 2:00 PM EST Office Visit [facility] [address] [place] [address] [place] [address] Teagan Ramirez MD [address] [place] [address] 01/27/2026 3:00 PM EST Office Visit [facility] Internal Medicine 40 [place] [address] Mook Tompkins MD 40 [place] [address] [email or web address] documented as of this encounter Results * BI MAMMOGRAM SCREENING WITH TOMOSYNTHESIS WITH CAD (BILATERAL) (08/18/2023 11:31 AM EDT) Anatomical Region Laterality Modality Breast Left, Breast Right, Breast Bilateral Bila teral Mammography 08/28/2023 3:50 PM EDT Impressions 08/28/2023 3:54 PM EDT No findings suspicious for malignancy are identified. In the absence of a worrisome palpable abnormality, annual screening mammography is recommended. BI-RADS CATEGORY: 1 - Negative. DENSITY: There are scattered fibroglandular densities. Narrative 08/28/2023 3:54 PM EDT AVAILABLE COMPARISON: 08/15/2022 and 03/23/2021 Bilateral 3-D tomosynthesis with 2-D reconstructions in the CC and MLO projection. Positioning somewhat limited due to physical limitations. Computer-aided detection system was utilized. No new mass, asymmetry, architectural distortion or suspicious calcifications have become apparent in either breast. Procedure Note Wilder Helms MD - 08/28/2023 AVAILABLE COMPARISON: 08/15/2022 and 03/23/2021 Bilateral 3-D tomosynthesis with 2-D reconstructions in the CC and MLOprojection. Positioning somewhat limited due to physical limitations. Computer-aided detection system was utilized. No new mass, asymmetry, architectural distortion or suspiciouscalcifications have become apparent in either breast. IMPRESSION: No findings suspicious for malignancy are identified. In the absence of aworrisome palpable abnormality, annual screening mammography isrecommended. BI-RADS CATEGORY: 1 - Negative. DENSITY: There are scattered fibroglandular densities. Mook [...] Noted Time PHQ-2 Depression Total Score: 0 01/06/20 1:30 PM EST documented as of this encounter Care Teams Irradiated Fuel Handler Relationship Specialty Start Date End Date Mook Tompkins MD [address] [place] [address] PCP - General 09/18/17 Mook Tompkins MD [address] [place] [address] Insurance Assigned Provider 03/06/24 Armen Mccarthy MD [address] [place] [address] Intensive Care 01/05/20 Ishan Henry PA Neurology 07/21/20 09/28/23 Eligio Plunkett MD [address] [place] [address] Neurology 09/29/23 documented as of this encounter Additional Source Comments The information contained in this document represents components of the legal health record. It is not the complete legal health record.[facility]
--- OUTSIDE RECORDS SUMMARY | 2025-07-28 08:29 | XMS_ITS | Encounter Summary ---
Author Organization [facility] Address [address] [place] [address] Phone Care Team Providers Care Motion Picture Set Worker Name Role Phone Mook Tompkins MD Primary Care Provider Mook Tompkins MD Unavailable [phone] Armen Mccarthy MD Unavailable [phone] Ishan Henry Unavailable Unavailable Eligio Plunkett MD Unavailable [phone] Encounter Details Date Type Department Care Team (Late st Contact Info) Description 03/13/2021 Procedure Pass [address] [address] Social History Tobacco Use Types Packs/Day Years [...] Info) Description 09/06/2025 10:15 AM EDT Appointment [address] [address] Teagan Ramirez MD [address] [place] [address] 10/06/2025 2:00 PM EST Office Visit [facility] [address] [place] [address] Teagan Ramirez MD [address] [place] [address] 01/27/2026 3:00 PM EST Office Visit [facility] Internal Medicine 40 [place] [address] Mook Tompkins MD 40 [place] [address] [email or web address] documented as of this encounter Visit Diagnoses Not on filedocumented in this encounter Additional Health Concerns Infection Onset Date Last Indicated Resolved Time CoV-Risk Comment:Per Ambulatory Triage Form 06/22/2025 06/22/202507/03 1:22 AM EDT Assessment Noted Time PHQ-2 Depression Total Score: 0 04/18/20 12:42 PM EDT documented as of this encounter Care Teams Motion Picture Set Worker Relationship Specialty Start Date End Date Mook Tompkins MD [address] [place] [address] PCP - General 09/18/17 Mook Tompkins MD [address] [place] [address] Insurance Assigned Provider 03/06/24 Armen Mccarthy MD [address] [place] [address] Intensive Care 01/05/20 Ishan Henry PA Neurology 07/21/20 09/28/23 Eligio Plunkett MD [address] [place] [address] Neurology 09/29/23 documented as of this encounter Additional Source Comments The information contained in this document represents components of the legal health record. It is not the complete legal health record.[facility]
--- OUTSIDE RECORDS SUMMARY | 2025-07-28 08:29 | XMS_ITS | Encounter Summary ---
Author Organization [facility] Address [address] [address] Phone Care Team Providers Care Photographic Machine Operator Name Role Phone Mook Tompkins MD Primary Care Provider [phone] Mook Tompkins MD Unavailable [phone] Armen Mccarthy MD Unavailable [phone] Ishan Henry Unavailable Unavailable Eligio Plunkett MD Unavailable [phone] Encounter Details Date Type Department Care Team (Late st Contact Info) Description 07/04/2023 Procedure Pass [facility], [address] [address] Social History Tobacco Use Types Packs/Day Years [...] high school, GED, job training, learning the [place] language, technical skills, or developing parenting skills)? [...] Info) Description 09/06/2025 10:15 AM EDT Appointment [facility], [address] [address] Teagan Ramirez MD [address] [place] [address] 10/06/2025 2:00 PM EST Office Visit [facility] [address] [place] [address] [place] [address] Teagan Ramirez MD [address] [place] [address] 01/27/2026 3:00 PM EST Office Visit [facility] Internal Medicine 40 [place] [address] Mook Tompkins MD [address] [place] [address] [email or web address] documented as of this encounter Visit Diagnoses Not on filedocumented in this encounter Additional Health Concerns Infection Onset Date Last Indicated Resolved Time CoV-Risk Comment:Per Ambulatory Triage Form 06/22/2025 06/22/202507/03 1:22 AM EDT Assessment Noted Time PHQ-2 Depression Total Score: 0 01/06/20 1:30 PM EST documented as of this encounter Care Teams Photographic Machine Operator Relationship Specialty Start Date End Date Mook Tompkins MD [address] [place] [address] [email or web address] PCP - General 09/18/17 Mook Tompkins MD [address] [place] [address] [email or web address] Insurance Assigned Provider 03/06/24 Armen Mccarthy MD [address] [place] [address] Intensive Care 01/05/20 Ishan Henry PA Neurology 07/21/20 09/28/23 Eligio Plunkett MD [address] [place] [address] Neurology 09/29/23 documented as of this encounter Additional Source Comments The information contained in this document represents components of the legal health record. It is not the complete legal health record.[facility]
--- NOTE | 2025-07-28 08:53 | ED_ITS ---
HPI - General Adult General Chief complaint: Fall Stated complaint: controlled fall Time Seen by Provider: 07/28/25 08:52 Source: patient and EMS Mode of arrival: EMS Limitations: physical limitation (patient only answers with head nods) History of Present Illness ED Provider: Isamar Talbot PA-C HPI narrative: Patient is a 64 year old assigned female at with a history of seizure di sorder, cerebral palsy, GERD, right sided hemiplegia presenting to the emergency department today with low back pain after a slide type fall. penitentiary staff states that the patient was being helped pulling her depends type underwear up when she lost her balance and was helped sliding to the floor with her back hitting the radiator heater that was note on. Related Data Home Medications ?Medication ?Instructions ?Recorded ?Confirmed clotrimazole 1 % topical cream appl topical 12/27/22 cholecalciferol (vitamin D3) 25 25 mcg PO DAILY mcg (1,000 unit) capsule lactase 3,000 unit tablet 3,000 unit PO QID PRN aspirin 81 mg tablet,delayed 81 mg PO DAILY 03/18/24 release atorvastatin 80 mg tablet 80 mg PO DAILY 03/18/24 carbamazepine 200 mg 275 mg PO 03/18/24 capsule,extended release natapo93om loratadine 10 mg tablet 10 mg PO DAILY 03/18/24 lorazepam 0.5 mg tablet (Ativan) 0.5 mg PO DAILY PRN 0 03/18/24 metoprolol succinate 50 mg 50 mg PO DAILY 03/18/24 tablet,extended release 24 hr calcium 200 mg (as 1 tab PO BID 04/01/24 citrate)-vitamin D3 6.25 mcg (250 unit) tablet carbamazepine 400 mg 400 mg PO ONCE 04/01/24 tablet,extended release,12 hr (Tegretol XR) carbamazepine 400 mg 600 mg PO ONCE 04/01/24 tablet,extended release,12 hr (Tegretol XR) nystatin 100,000 unit/gram topical 1 appl topical SHERMAN Y 04/01/24 powder topiramate 200 mg tablet (Topamax) 275 mg PO BID 04/01 topiramate 25 mg tablet 25 mg PO BID 07/23/24 topiramate 50 mg tablet 50 mg PO BID 07/23/24 Previous Rx's ?Medication ?Instructions ?Recorded cefuroxime axetil 250 mg tablet 250 mg PO BID urinary tract 07/14/24 infection #14 tabs albuterol sulfate 90 mcg/actuation 2 puff inhalation Q 4H PRN 07/23/24 aerosol inhaler shortness of breath or wheez ing #8.5 grams omeprazole 20 mg capsule,delayed 20 mg PO BID 90 days #180 caps 03/23/25 release rivaroxaban 20 mg tablet (Xarelto) 20 mg PO QAM #30 ta bs 04/18/25 sucralfate 1 gram tablet 3 g (3 x 1 gram) PO DAILY #9 0 tabs 07/06/25 Allergies Allergy/AdvReac Type Severity Reaction Status Date / Time codeine (CODEINE) Allergy Unknown UNKNOWN Verified 07/28/25 07:17 Review of Systems Constitutional: Constitutional: Reports as per HPI Eyes: Eyes: Reports as per HPI ENT: Reports as per HPI Cardiovascular: Cardiovascular: Reports as per HPI Respiratory: Respiratory: Reports as per HPI Gastrointestinal: Gastrointestinal: Reports as per HPI Genitourinary: Genitourinary: Reports as per HPI Musculoskeletal: Musculoskeletal: Reports as per HPI Integumentary/Breasts: Skin/Breast: Reports as per HPI Neurologic: Reports as per HPI Psychiatric: Psychiatric: Reports as per HPI Endocrine: Endocrine: Reports as per HPI Hematologic/Lymphatic: Hematologic/Lymphatic: Reports as per HPI Allergic/Immunologic: Allergic/Immunologic: Reports as per HPI PMF Past Medical History Attestation statement: The following information was validated with the patient. (all information validated with the patient's long term staff) Source: old records reviewed, nursing notes reviewed and other (patient's long term staff provided additional history and ROS) Medical History Cerebral palsy Seizures Surgical History Hx of cholecystectomy Family History Family History Mother Stomach cancer Social History Social History Tobacco use type: Cigarette Physical Exam ED Vital Signs: Vital Signs - 24 hr 07/28/25 07:15 07/28/25 10:13 Temperature 97.7 F 97.7 F Pulse Rate 59 59 Respiratory Rate 18 18 Blood Pressure 112/44 L 112/44 L Pulse Oximetry 95 95 Oxygen Delivery Method Room Air Room Air BMI result Body Mass Index 41.1 Const General: no acute distress Nutritional Appearance: well nourished [facility] Head: Yes normal to inspection and Yes atraumatic Ears: hearing grossly normal bilaterally and external ears normal General nose exam: Normal external nose present, no nasal discharge noted and no epistaxis Face and sinus: Yes normal facial exam, No abrasion and No laceration Mouth: Normal oral and palatal mucosa present, no drooling and no muffled voice Eyes General: appearance normal, both eyes and all related structures Periorbital: periorbital findings normal Eyelids: Yes eyelids normal Conjunctivae: conjunctivae normal Pupils: Equal, round and reactive pupils present EOM: EOMs intact bilaterally Neck Neck: Yes normal visual inspection and Yes full ROM Chest Chest palpation & inspection: normal inspection of the chest Resp Effort & Inspection: normal respiratory effort and able to speak in complete sentences Neuro Other: known right sided hemiparesis General: CN's II-XI intact bilaterally Cranial nerves: Yes Equal, round and reactive pupils present Extrem General: Yes normal to inspection and Yes capillary refill normal Psych Appearance: grossly normal Mental Status: mental status grossly normal Affect: normal affect Attitude: cooperative Thought process: Normal thought process present Thought content: Normal thought content present Insight: Good insight present (Psych) Medical Decision Making Medical Decision Making MDM Narrative: Patient is a 64 year old assigned female at with a history of seizure disorder, cerebral palsy, GERD, right sided hemiplegia presenting to the emergency department today with low back pain after a slide type fall. Patient's physical exam was consistent with her baseline. penitentiary staff requested a urine test be performed which was and showed no evidence of infection however, it was sent for culture. Patient's lumbar x-ray showed no acute process. I explained my physical exam findings as well as all test results to the patient and the patient's long term staff. I answered all questions asked by the patient's long term staff. I stressed the importance of the patient taking her medication as directed (either prescribed or as the over the counter packaging recommends). I stressed the importance of the patient following up with her primary care provider. I stressed the importance of the patient returning to the emergency department immediately if her symptoms were to worsen or if she were to develop any dizziness, shortness of breath, difficulty breathing, chest pain, blurry vision, loss of vision, nausea, vomiting, abdominal pain, fever, chills, back pain, or any other complaints. Patient's long term staff verbalized agreement and understanding with this treatment plan and discharge back to the long term. Differential Diagnosis Differential Diagnoses: The differential diagnosis associated with the presentation includes Low back pain Fall Admission/Observation Consideration of admission/observation: Escalation of care including admission/observation considered Patient would have been admitted to the hospital had her work up had any findings where hospital admission was appropriate and her clinical presentation warranted hospital admission. Lab Data [facility] Lab Attestation statement: I reviewed the patient's lab results. My interpretation of these results are in the [facility] Rationale portion of this note. Labs: Lab Results 07/28/25 Range/Units 08:58 Urine Color Yellow Urine Appearance Clear Urine pH 7.0 (5.0-9.0) Ur Specific [place] 1.015 (1.005-1.025) Urine Protein Negative (Neg-Trace) mg/dL Urine Glucose (UA) Negative (Negative) mg/dL Urine Ketones Negative (Negative) mg/dL Urine Blood Negative (Negative) Urine Nitrite Negative (Negative) Ur Leukocyte Esterase Small (1+) H (Negative) Urine RBC 0-2 (0-2) /HPF Urine WBC 6-10 H (0-5) /HPF Ur Squamous Epith Cells >20 (0-2) /HPF Urine Bacteria 1+ (None Seen) Hyaline Casts 0-2 (0-2) /LPF Independent Interpretation I performed an independent interpretation of an: Plain X-Ray Interpretation: My interpretation is in agreement with the radiologist's impression of this imaging study. EXAMINATION: XR LUMBOSACRAL SPINE CLINICAL INFORMATION: low back pain COMPARISON: None available. TECHNIQUE: AP and lateral views FINDINGS: Multilevel endplate sclerosis and small marginal osteophyte formation throughout the axial skeleton. Grade 1 anterolisthesis L4-5. Decreased intervertebral disc height at L5-S1. No lytic or blastic lesions. No acute cortical disruption. Mild degenerative changes in the symphysis pubis. XR/XR lumbar spine 2-3V IMPRESSION: Mild multilevel thoracolumbar spondylosis. Probable grade 1 anterolisthesis L4-5. Electronically signed by: Jasvir Poe MD 07/28/2025 09:26 AM EDT RP Dictated By: Jasvir Worley MD Signed By: Electronically signed by Jasvir Sutton MD 07/28/25 0905 Radiology Impression Discussion of test interpretation with radiology: I have reviewed the ra diologist's reading. Independent Historian Clinical information obtained from an independent historian. History obtained from or confirmed by: Other (patient's long term staff provided additional history and confirmed the history provided by the patient. ) Discharge Plan Discharge Clinical Impression: Fall Patient Disposition: Xfer Other Transfer Details: Back to long term Instructions: Fall Prevention (ED) Additional Instructions: Your lumbar XR showed no evidence of fracture / injury. Your urine does not show any evidence of infection but it has been sent for culture - if this is positive, we will call you. IF you are prescribed home medications and/or you are taking over the counter medications at home - it is very important you continue to do so as prescribed / directed unless told otherwise. Follow up with your primary care provider. Return to the emergency department immediately if your symptoms worsen or if you develop any numbness, tingling, dizziness, shortness of breath, difficulty breathing, chest pain, blurry vision, loss of vision, nausea, vomiting, abdominal pain, fever, chills, back pain, or any other complaints. Please see the information below about our Patient Portal. If you are not yet enrolled in the [facility] Patient Portal, you will receive an enrollment email invitation following your visit to any [facility] setting. You may also self-enroll in the Patient Portal by visiting our website: [email or web address] The following information is required to access the Patient Portal: - Your [facility] Medical Record Number - Your personal home email address (must match what is in your electronic medical record, Registration staff can assist with this) - Name - Date of Capabilities of the Patient Portal: - Message some providers - View upcoming appointments - Access your health summary, medical history, and visit history - View current conditions and allergies - View procedure and lab results - View your medications, including guidelines, side effects, and precautions - Complete pre-appointment questionnaires requested by your provider - Ready summary reports of your office visits and procedures To access the Patient Portal Mobile [employer], follow these directions: - Search [employer] in the [employer] Store or [employer] Store - Download the [employer] - Search for [facility] - Enter your login/password Prescriptions: No Action albuterol sulfate 90 mcg/actuation HFA aerosol inhaler 2 puff inhalation Q4H PRN (Reason: shortness of breath or wheezing) Qty: 8.5 0RF Xarelto 20 mg tablet 20 mg PO QAM Qty: 30 6RF sucralfate 1 gram tablet 3 g PO DAILY Qty: 90 0RF cefuroxime axetil 250 mg tablet 250 mg PO BID Qty: 14 0RF carbamazepine [Tegretol XR] 400 mg tablet extended release 12 hr 400 mg PO ONCE calcium citrate-vitamin D3 200 mg-6.25 mcg (250 unit) tablet 1 tab PO BID carbamazepine [Tegretol XR] 400 mg tablet extended release 12 hr 600 mg PO ONCE clotrimazole 1 % cream topical carbamazepine 200 mg capsule, ER multiphase 12 hr 275 mg PO metoprolol succinate 50 mg tablet extended release 24 hr 50 mg PO DAILY atorvastatin 80 mg tablet 80 mg PO DAILY loratadine 10 mg tablet 10 mg PO DAILY aspirin 81 mg tablet,delayed release (DR/EC) 81 mg PO DAILY lorazepam [Ativan] 0.5 mg tablet 0.5 mg PO DAILY PRN omeprazole 20 mg capsule,delayed release(DR/EC) 20 mg PO BID 90 Days Qty: 180 1RF lactase 3,000 unit tablet 3,000 unit PO QID PRN Rx Instructions: administer with meals and/or snacks cholecalciferol (vitamin D3) 25 mcg (1,000 unit) capsule 25 mcg PO DAILY topiramate [Topamax] 200 mg tablet 275 mg PO BID nystatin 100,000 unit/gram powder 1 appl topical DAILY topiramate 50 mg tablet 50 mg PO BID topiramate 25 mg tablet 25 mg PO BID Referrals: Mook Tompkins MD [Primary Care Provider, Internal Medicine] Stand Alone Forms: Work/School Release Interventions: ED Discharge Assessment Last Done: 07/28/25 10:13 Discharge Date/Time: 07/28/25 10:13 Print Language: Turkmen
[2025-07-28 09:05] LABS: Appearance Urine Clear; Glucose Urine UA Negative (Negative); PH 7.0 (5.0-9.0); Specific Gravity - Urine 1.015 (1.005-1.025); UMIC TRIGGER UACC YES
[2025-07-28 09:10] LABS: UACC Culture Trigger YES
[2025-07-28 10:13] VITALS: BP 112/44; PULSE 59; RESP 18; TEMP 36.5; O2SAT 95
== END 2025-07-28 10:13 | disposition other institution (70) ==
PROVIDERS: Emergency Provider Emergency Medicine; PCP Internal Medicine
DX: M54.50 Low back pain, unspecified (principal); N39.0 Urinary tract infection, site not specified; Z79.899 Other long term (current) drug therapy
CPT/HCPCS: 72100; 81001; 87086; 99282; 99283

== ENCOUNTER → 2025-07-28 08:54 | Outpatient (BNV) | payer MEDICARE, MEDICAID, SELFPAY | PROVIDERS: Emergency Provider Emergency Medicine; PCP Internal Medicine; Visit Provider Radiology Diagnostic Radiology | DX: M43.16 Spondylolisthesis, lumbar region (principal) | CPT/HCPCS: 72100 ==

== ENCOUNTER 2025-09-02 13:06 | Outpatient (REF) | payer MEDICARE, MEDICAID, SELFPAY ==
--- NOTE | ~2025-09-02 | XR_ITS ---
EXAMINATION: XR ANKLE 3 OR MORE VIEWS RIGHT HISTORY: M25.579 - Pain in unspecified ankle and joints of unspecified foot COMPARISON: Comparison is made with the prior examination dated 02/07/2019. FINDINGS: Four views of the right ankle are submitted. Bones are osteopenic. The patient is status post hindfoot arthrodesis. There is a well-corticated osseous density adjacent to the tip of the distal fibula, likely the result of old trauma. There is no acute fracture or dislocation. 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 The soft tissues are unremarkable. XR/XR ankle RT min 3V IMPRESSION: Status post hindfoot arthrodesis. Moderate degenerative change of the tibiotalar joint. Electronically signed by: Geovany Simmons MD 09/02/2025 02:44 PM EDT
--- OUTSIDE RECORDS SUMMARY | 2025-09-02 13:28 | XMS_ITS | Encounter Summary ---
Author Organization [facility] Address [address] [facility] [address] [place] [address] Phone Care Team Providers Care Abstractor Name Role Phone Mook Tompkins MD Primary Care Provider [phone] Mook Tompkins MD Unavailable [phone] Armen Mccarthy MD Unavailable [phone] Eligio Plunkett MD Unavailable [phone] Encounter Details Date Type Department Care Team (Late st Contact Info) Description 07/23/2024 Procedure Pass [facility], [address] [id number] Social History Tobacco Use Types Packs/Day Years [...] high school, GED, job training, learning the Nigerian language, technical skills, or developing parenting skills)? [...] Info) Description 09/06/2025 10:15 AM EDT Appointment [facility], Bone Density - [facility] [address] [place] [address] Teagan Ramirez MD [address] [address] 10/06/2025 2:00 PM EST Office Visit [facility] [address] [place] [address] Teagan Ramirez MD [address] [address] 01/27/2026 3:00 PM EST Office Visit [facility] Internal Medicine 40 [place] [address] Mook Tompkins MD 40 [place], [place] documented as of this encounter Visit Diagnoses Not on filedocumented in this encounter Additional Health Concerns Infection Onset Date Last Indicated Resolved Time CoV-Risk Comment:Per Ambulatory Triage Form 06/22/2025 06/22/202507/03 1:22 AM EDT Assessment Noted Time PHQ-2 Depression Total Score: 0 01/22/20 10:04 AM EST documented as of this encounter Care Teams Abstractor Relationship Specialty Start Date End Date Mook Tompkins MD 40 [place] [address] PCP - General 09/18/17 Mook Tompkins MD [address] [place] [address] Insurance Assigned Provider 03/06/24 Armen Mccarthy MD [address] [place] [address] Intensive Care 01/05/20 Eligio Plunkett MD [address] [place] [address] Neurology 09/29/23 documented as of this encounter Additional Source Comments The information contained in this document represents components of the legal health record. It is not the complete legal health record.[facility]
--- OUTSIDE RECORDS SUMMARY | 2025-09-02 13:28 | XMS_ITS | Encounter Summary ---
Author Organization [facility] Address [address] [place] [address] [place] [address] Phone Care Team Providers Care Floater Operator Name Role Phone Mook Tompkins MD Primary Care Provider [phone] Mook Tompkins MD Unavailable [phone] Armen Mccarthy MD Unavailable [phone] Ishan Henry Unavailable Unavailable Eligio Plunkett MD Unavailable [phone] Encounter Details Date Type Department Care Team (Late st Contact Info) Description 07/08/2022 Procedure Pass [address] [address] Social History Tobacco Use Types Packs/Day Years [...] high school, GED, job training, learning the [place]ican language, technical skills, or developing parenting skills)? [...] Info) Description 09/06/2025 10:15 AM EDT Appointment [address] [address] Teagan Ramirez MD [address] [place] [address] 10/06/2025 2:00 PM EST Office Visit [facility] [address] [place] [address] Teagan Ramirez MD [address] [place] [address] 01/27/2026 3:00 PM EST Office Visit [facility] Internal Medicine 40 [place] [address] Mook Tompkins MD 40 [place] [address] documented as of this encounter Visit Diagnoses Not on filedocumented in this encounter Additional Health Concerns Infection Onset Date Last Indicated Resolved Time CoV-Risk Comment:Per Ambulatory Triage Form 06/22/2025 06/22/202507/03 1:22 AM EDT Assessment Noted Time PHQ-2 Depression Total Score: 0 01/03/20 22 3:31 PM EST documented as of this encounter Care Teams Floater Operator Relationship Specialty Start Date End Date Mook Tompkins MD [address] [place] [address] [email or web address] PCP - General 09/18/17 Mook Tompkins MD [address] [place] [address] [email or web address] Insurance Assigned Provider 03/06/24 Armen Mccarthy MD 40 [place] [address] Intensive Care 01/05/20 Ishan Henry PA Neurology 07/21/20 09/28/23 Eligio Plunkett MD [address] [place] [address] Neurology 09/29/23 documented as of this encounter Additional Source Comments The information contained in this document represents components of the legal health record. It is not the complete legal health record.[facility]
--- OUTSIDE RECORDS SUMMARY | 2025-09-02 13:28 | XMS_ITS | Encounter Summary ---
Author Organization [facility] Address [address] [place] [address] Phone Care Team Providers Care Ammonia Solution Preparer Name Role Phone Mook Tompkins MD Primary Care Provider Mook Tompkins MD Unavailable [phone] Armen Mccarthy MD Unavailable [phone] Eligio Plunkett MD Unavailable [phone] Reason for Visit * Reason Comments Medication Refill Encounter Details Date Type Department Care Team (Late st Contact Info) Description 08/30/2025 Refill [facility] [address] [place] [address] Teagan Ramirez MD [address] [place] [address] [email or web address] Medication Refill Social History Tobacco Use Types Packs/Day Years [...] as of this encounter Progress Notes * Lana Mullen MA - 08/30/2025 12:11 PM EDT Rx Care Gap Status - Instructions for Clinical Staff (prescriber discretion applies): > Mismatch review guide > N/a - No action needed Visit Info Last visit: 09/29/2023 Teagan Ramirez MD - Endocrinology [facility] > Requested f/u: Return to be determined. Upcoming visit: 10/06/2025 Teagan Ramirez MD - Endocrinology [facility] ACTIONS TAKEN BY Lana Mullen [place] [facility] [place] - Criteria met. Vitamins, Minerals, Supplements, OTCs Rx Protocol - cholecalciferol (vitamin D3) - calcium citrate/vitamin D3 Criteria met; renew for up to 12 months. Visit in the past 24 months: Yes documented in this encounter Plan of Treatment Upcoming Encounters Date Type Department Care Team (Late st Contact Info) Description 09/06/2025 10:15 AM EDT Appointment [facility], Bone Density - [address] [address] Teagan Ramirez MD [address] [place] [address] 10/06/2025 2:00 PM EST Office Visit [facility] [address] [place] [address] Teagan Ramirez MD [address] [place] [address] 01/27/2026 3:00 PM EST Office Visit [facility] Internal Medicine [address] [place] [address] Mook Tompkins MD 40 [place] [address] documented as of this encounter Visit Diagnoses Diagnosis Age-related osteoporosis without current pathological fracture documented in this encounter Additional Health Concerns Assessment Noted Time PHQ-2 Depression Total Score: 0 01/25/20 25 3:52 PM EST documented as of this encounter Care Teams Ammonia Solution Preparer Relationship Specialty Start Date End Date Mook Tompkins MD 40 [place] [address] PCP - General 09/18/17 Mook Tompkins MD 40 [place] [address] Insurance Assigned Provider 03/06/24 Armen Mccarthy MD [address] [place] [address] Intensive Care 01/05/20 Eligio Plunkett MD [address] [place] [address] Neurology 09/29/23 documented as of this encounter Additional Source Comments The information contained in this document represents components of the legal health record. It is not the complete legal health record.[facility]
--- OUTSIDE RECORDS SUMMARY | 2025-09-02 13:28 | XMS_ITS | Clinical Summary ---
Author Organization [facility] Address [address] [place] [address] Phone Care Team Providers Care Cold Mill Inspector Name Role Phone Mook Tompkins MD Primary Care Provider [phone] Mook Tompkins MD Unavailable Armen Mccarthy MD Unavailable [phone] Eligio Plunkett MD Unavailable Allergies Active [...] mouth as needed (for dental appointments/p rocedures). 022 Active topiramate (TOPAMAX) 200 MG tablet Take 275 mg by mouth 2 (two) times a day. 023 Active topiramate (TOPAMAX) 25 MG tablet Take 275 mg by mouth 2 (two) times a day. 023 Active topiramate (TOPAMAX) 50 MG tablet Take 275 mg by mouth 2 (two) times a day. 023 Active nystatin (NYSTOP) powderIndications :Elizabeth infection Use 2 times daily as needed for rash on reddened skin under breast and abdominal folds. 30 g 3 023 Active carBAMazepine (TEGRETOL XR) 400 MG 12 hr tablet Take 600 mg by mouth nightly at bedtime. Active sucralfate (CARAFATE) 1 gram tablet Take 3 tablets by mouth daily. 024 Active omeprazole (PRILOSEC) 20 MG capsuleIndication s:Gastroesophagea l reflux disease, unspecified whether esophagitis present Take 1 capsule (20 mg total) by mouth 2 (two) times a day. OPEN CAPSULE AND MIX WITH SOFT FOODS. 56 capsule 024 Active cefuroxime (CEFTIN) 250 MG tablet Take 250 mg by mouth 2 (two) times a day. x7 days UTI started 07/14/24 prescribed by Vera Canela, [facility] Active clotrimazole (LOTRIMIN) 1 % creamIndications: Rash Apply 1 Application topically 2 (two) times a day as needed. For feet until rash clears 30 g 4 024 Active aspirin 81 MG EC tablet TAKE 1 TABLET BY MOUTH ONCE DAILY IN THE MORNING. Start after buffered aspirin taper 28 tablet 024 Active metoprolol succinate (TOPROL-XL) 50 MG 24 hr tablet TAKE 1 TABLET BY MOUTH EVERY MORNING. DO NOT CRUSH, GIVE WITH SOFT FOOD. HOLD MED IF BLOOD PRESSURE IS <90/60 OR IF HEART RATE <50. 28 tablet 025 Active atorvastatin (LIPITOR) 80 MG tablet TAKE 1 TABLET BY MOUTH DAILY EVERY EVENING. CRUSH AND GIVE WITH SOFT FOODS. 28 tablet 025 Active carBAMazepine (CARBATROL) 200 mg 12 hr capsuleIndication s:Seizure disorder TAKE (2) CAPSULES BY MOUTH EVERY MORNING. TAKE 3 CAPSULES BY MOUTH IN THE EVENING. 140 capsule 025 Active lactase (DAIRY-AID) 3,000 unit tabletIndications :Lactose intolerance TAKE 1 TABLET 3 TIMES DAILY WITH MEALS *PACK #20 FOR DAY PROGRAM* 90 tablet 025 Active loratadine (CLARITIN) 10 mg tabletIndications :Allergic rhinitis, unspecified seasonality, unspecified trigger TAKE 1 TABLET BY MOUTH DAILY IN THE MORNING. CRUSH AND GIVE WITH SOFT FOODS. 28 tablet 025 Active guaiFENesin (CHEST CONGESTION RELIEF) 100 mg/5 mL syrupIndications: Cough, unspecified type TAKE 10 ML (200MG) BY MOUTH EVERY 8 HOURS BY MOUTH NEEDED FOR COUGH. CALL PCP IF COUGH LASTS MORE THAN 3 DAYS. *DO NOT EXCEED 3 DOSES IN 24 HOURS* 120 mL 1 025 Active acetaminophen (TYLENOL) 325 mg tabletIndications :Fever, unspecified fever cause,Acute nonintractable headache, unspecified headache type Take 2 tablets (650 mg total) by mouth every 6 (six) hours as needed for fever, pain (specific location in comments) or headache. -give for temp greater than 101 -give for headaches, body aches and tooth aches - for symptom control over 48 hours call pcp - not to exceede 6 doses in a 24 hour period. 100 tablet 5 025 Active cholecalciferol (VITAMIN D3) 25 MCG (1,000 unit) tabletIndications :Age-related osteoporosis without current pathological fracture TAKE 1 TABLET BY MOUTH ONCE DAILY 28 tablet 2 025 Active calcium citrate-vitamin D3 (CITRACAL+D) 950 mg (200 mg elemental)-250 units TabIndications:Ag e-related osteoporosis without current pathological fracture TAKE 1 TABLET BY MOUTH TWICE DAILY 56 tablet 2 025 Active acetaminophen (TYLENOL) 325 mg tablet Take 2 tablets (650 mg total) by mouth every 4 (four) hours as needed. -give for temp greater than 101 -give for headaches, body aches and tooth aches - for symptom control over 48 hours call pcp - not to exceede 6 doses in a 24 hour period. 100 tablet 5 023 2024 Discontinued(R eorder) guaiFENesin (CHEST CONGESTION RELIEF) 100 mg/5 mL syrupIndications: Cough, unspecified type TAKE 10 ML (200MG) BY MOUTH EVERY 8 HOURS BY MOUTH NEEDED FOR COUGH. CALL PCP IF COUGH LASTS MORE THAN 3 DAYS. *DO NOT EXCEED 3 DOSES IN 24 HOURS* 120 mL 1 024 2024 Discontinued(R eorder) cholecalciferol (VITAMIN D3) 25 MCG (1,000 unit) tabletIndications :Age-related osteoporosis without current pathological fracture TAKE 1 TABLET BY MOUTH ONCE DAILY 28 tablet 5 025 2024 Discontinued calcium citrate-vitamin D3 (CITRACAL+D) 950 mg (200 mg elemental)-250 units TabIndications:Ag e-related osteoporosis without current pathological fracture TAKE 1 TABLET BY MOUTH TWICE DAILY 56 tablet 5 025 2024 Discontinued acetaminophen (TYLENOL) 325 mg tablet Take 2 tablets (650 mg total) by mouth every 6 (six) hours as needed for fever, pain (specific location in comments) or headache. -give for temp greater than 101 -give for headaches, body aches and tooth aches - for symptom control over 48 hours call pcp - not to exceede 6 doses in a 24 hour period. 100 tablet 5 025 2024 Discontinued(R eorder) Active Problems Problem Noted Date Diagnosed Date Avulsion fracture of lateral malleolus of right fibula 08/02/2025 Assessment & Plan (08/02/2025 11:56 AM EDT): Recently went to [facility] due to a fall where everything was noted to be fine, however the next day experienced right ankle pain with walking so she was evaluated by urgent care who diagnosed her with a nondisplaced avulsion fracture of the lateral malleolus of the right fibula. She was placed in a new boot. She does have chronic right ankle pain and so she was referred to orthopedics by her PCP. She reports improved pain management, using Tylenol as needed. Advised avoiding NSAIDs due to history of being on Xarelto. Recommend at this time to call orthopedics to establish care and make an appointment for further management of the right ankle fracture. Advised safe maneuvering, stand and pivot with assistance. She does go to [employer] which is a day program, advise she can continue going to the day program but should avoid long walks that could exacerbate her pain or worsen the fracture. Letter written and provided to the patient to clear her to return to [facility]. Continue using her ankle brace daily. Urinary tract infection 08/04/2024 Overview (08/04/2024): 07/14/24 pres to Ed dx with uti [facility] Osteoporosis 09/29/2023 09/29/2023 Assessment & Plan (09/29/2023 [...] PCP. Long-term current use of anticonvulsant 09/29/20 23 Vitamin D deficiency 09/29/2023 Flaccid hemiplegia affecting [...] Encounters Date Type Department Care Team Description 08/30/2025 Refill [facility] [address] [place] [address] Teagan Ramirez MD Medication Refill 08/30/2025 Telephone [facility] Internal Medicine [address] [place] [address] Mook Tompkins MD Forms & Paperwork 08/29/2025 Telephone [facility] Internal Medicine [address] [place] [address] Mook Tompkins MD Referral 08/23/2025 Refill [facility] Internal [facility] [address] [place] [address] Mook Tompkins MD Medication Refill 08/08/2025 Telephone [facility] Internal [facility] [address] [place] [address] Mook Tompkins MD Revised letter 08/02/2025 9:40 AM EDT Office Visit [facility] [address] [place] [address] Paula Stearns PA-C Closed avulsion fracture of lateral malleolus of right fibula, initial encounter (Primary Dx) 08/02/2025 Refill [facility] Internal Medicine [address] [place] [address] Letitia Macias APRN Medication Refill 07/28/2025 Orders Only [facility] Internal Medicine [address] [place] [address] Harley Mercado MD 07/28/2025 Telephone [facility] Internal [facility] [address] [place] [address] Mook Tompkins MD Follow-up (Needs appt ) 07/25/2025 2:00 PM EDT Office Visit [facility] Internal Medicine [address] [facility] [place] [address] Mook Tompkins MD Chronic pain of right ankle (Primary Dx); Ankle weakness; Cerebral palsy, unspecified type; Obesity, class 3; Flaccid hemiplegia affecting right dominant side, unspecified etiology; Seizure disorder; Other cerebral palsy; Gastroesophageal reflux disease without esophagitis; Benign essential hypertension; Vitamin D deficiency, unspecified; Hypercholesterolemia ; Anticoagulant long-term use; Impaired fasting blood sugar 07/21/2025 Telephone [facility] Internal Medicine [address] [place] [address] Mook Tompkins MD Abdominal Pain; Ankle Pain 07/05/2025 Refill [facility] Internal Medicine [address] [facility] [place] [address] Mook Tompkins MD Medication Refill 06/22/2025 Nurse Triage [facility] Internal Medicine [address] [place] [address] Mook Tompkins MD covid from Last 3 Months Immunizations Immunization Administration [...] Mother Sister 1 pt unsure if sis ter had breast or ovarian cx. but she [...] Sign Reading Time Taken Comments Blood Pressure 122/76 08/02/2025 9:37 AM EDT Pulse 56 08/02/2025 9:37 AM EDT Temperature 35.9 C (96.6 F) 08/02/2025 9:37 AM EDT Respiratory Rate 13 08/02/2025 9:37 AM EDT Oxygen Saturation 87% 08/02/2025 9:37 AM EDT Inhaled Oxygen Concentration - - Weight 91.4 kg (201 lb 9.6 oz) 07/25/2025 2:09 P M EDT Height 142.2 cm (4' 7.98 ) 08/02/2025 9:37 AM ED T Body Mass Index 45.22 07/25/2025 2:09 PM EDT Plan of Treatment Upcoming Encounters Date Type Department Care Team (Late st Contact Info) Description 09/06/2025 10:15 AM EDT Appointment [facility], Bone Density - [address] [address] Teagan Ramirez MD [address] [place] [address] 10/06/2025 2:00 PM EST Office Visit [facility] [address] [place] [address] Teagan Ramirez MD [address] [place] [address] [email or web address] 01/27/2026 3:00 PM EST Office Visit [facility] Internal Medicine [address] [place] [address] Mook Tompkins MD [address] [place] [address] [email or web address] Health Maintenance Due Date Last Done Comments SMOKING Hx and SMOKELESS TOBACCO SCREENING 1971 COLOGUARD 2003 FIT TEST 2003 FOBT 2003 SIGMOIDOSCOPY 2003 VIRTUAL COLONOSCOPY 2003 RSV VACCINE (1 - Risk 50-74 years 1-dose series) 2008 ZOSTER VACCINES (1 of 2) 2008 COLONOSCOPY 10/29/2022 10/29/2012 COLORECTAL CANCER SCREENING 10/29/2022 CARBAMAZEPINE (TEGRETOL) LEVEL 01/16/2024 01/16/2023, 03/27/2021 CREATININE LEVEL 11/18/2024 11/18/2023, 05/2023, 07/10/2023, Additional history exists FOLLOW UP BONE DENSITY TESTING 04/23/2025 04/23/2023, 03/19/2019, 03/28/2015 INFLUENZA VACCINE (#1) 2025 , 09/19/2023, 09/19/2023, Additional history exists COVID-19 VACCINE ( season) 2025 09/22/2024, 11/27/2023, 10/03/2021, Additional history exists DEPRESSION SCREENING 01/25/2026 01/25/2025 BLOOD PRESSURE 01/30/2026 08/02/2025 MAMMOGRAM 11/17/2026 11/17/2024, 08/01, 08/15/2022, Additional history exists SCREENING FOR DIABETES 11/18/2026 3, 11/18/2023, 02/27/2017 LIPID PANEL 06/20/2028 06/20/2023, 06/01, 01/16/2023, Additional history exists Adult Td,Tdap Booster [...] Procedure Name Priority Date/Time Associated Diagnosis Comments OUTSIDE XR SPINE REPORT ONLY Routine 07/28/2025 10:19 AM EDT BI MAMMOGRAM SCREENING WITH TOMOSYNTHESIS WITH CAD [...] Recently Relevant to Health Maintenance Results * Outside XR Spine Report Only (07/28/2025 10:19 AM EDT) us Historical Provider MD MATTHEWS XR SPINE Final Res ult * (ABNORMAL) BI MAMMOGRAM SCREENING WITH TOMOSYNTHESIS [...] EST) SODIUM 139 133 - 146 mmol/L [facility] POTASSIUM 3.9 3.3 - 5.1 mmol/L [facility] CHLORIDE 106 96 - 108 mmol/L [facility] CO2 26 21 - 35 mmol/L [facility] BUN 8 6 - 19 mg/dL [facility] CREATININE 0.70 0.5 - 1.5 mg/dL [facility] GLUCOSE 115(H) 70 - 99 mg/dL [facility] ALBUMIN 4.1 3.9 - 4.8 g/dL [facility] TOTAL PROTEIN 7.1 6.5 - 8.0 g/dL [facility] CALCIUM 8.9 8.4 - 10.3 mg/dL [facility] ALKALINE PHOSPHATASE 166(H) 39 - 117 U/L [facility] TOTAL BILIRUBIN <0.2 0.0 - 1.2 mg/dL [facility] AST 30 0 - 37 U/L [facility] ALT 27 0 - 40 U/L [facility] GLOBULIN 3.0 1 - 4.8 g/dL [facility] EGFR 97 >59 mL/min/1.7 3m2 [facility] Comment:Estimated glomerular filtration rate calculated using the CKD-EPI refit equation. ANION GAP 11 10 - 20 mmol/L [facility] Blood 11/18/2023 8:57 AM EST 11/18/2023 9:06 AM EST us Mook Tompkins MD LAB BLOOD ORDERABLES Final Re sult [address] [address] * (ABNORMAL) Lipid panel (06/20/2023 8:16 AM EDT) HDL 60 mg/dL [facility] Comment: Interpretation <40 mg/dL: Low HDL cholesterol (major risk factor for CHD) Greater than or equal to 60 mg/dL: High HDL cholesterol ( negative risk factor for CHD) HDL - cholesterol is affected by a number of factors, e.g. smoking, excerise, hormones, sex and age. CHOLESTEROL 180 0 - 240 mg/dL [facility] TRIGLYCERIDES 134 30 - 160 mg/dL [facility] LDL 93 50 - 129 mg/dL [facility] Comment: LDL levels in terms of risk for coronary heart disease: <100 mg/dL: Optimal 100-129 mg/dL: Near or above optimal 130-159 mg/dL: Borderline high 160-189 mg/dL: High >190 mg/dL: Very High CARDIAC RISK RATIO 3.0(L) 3.3 - 4.4 C [facility] Blood 06/20/2023 8:16 AM EDT 06/20/2023 8:26 AM EDT us Mook Tompkins MD LAB BLOOD ORDERABLES Final Re sult [address] [address] * BD DXA AXIAL (SPINE) WITH HIP [...] Densitometry http://www.iscd.org 3. National Osteoporosis Foundation http://www.nof.org Result [facility] Mook Tompkins MD IMG BD BONE DENSITY DEXA Angelique l Result * Carbamazepine (Tegretol) level (01/16/2023 8:38 AM EST) [facility] CARBAMAZEPINE 10.5 8.0 - 12.0 ug/mL [facility] Blood 01/16/2023 8:38 AM EST 01/16/2023 8:47 AM EST Result [facility] Mook Tompkins MD LAB BLOOD ORDERABLES Final Re sult Performing Organization Address [facility] Co de Phone Number [address] [address] * Hepatitis C antibody, qualitative (01/10/2020 3:55 PM EST) [facility] HCV NON-REACTIV E NON-REACTI VE [facility] Blood 01/10/2020 3:55 PM EST 01/10/2020 4:17 PM EST Result [facility] Mook Tompkins MD LAB BLOOD ORDERABLES Final Re sult Performing Organization Address [facility] de Phone Number [address] [address] * Outside Glucose,Fasting (02/27/2017) [facility] Glucose, fasting - External 82 65 - 99 mg/dL Historical Rogelio LOPEZ LAB BLOOD ORDERABLES Angelique l Result * COLONOSCOPY FOR RESULT ENTRY ONLY (10/29/2012) [facility] Colonoscopy 10 yr recall Historical Rogelio LOPEZ HEALTH MAINTENANCE Final Result from Last 3 Months or Most Recently Relevant to Health Maintenance Insurance [place] [id number] MEDICARE PART A & [place] & B [facility] MEDICARE PART A & B Care Teams Cold Mill Inspector Relationship Specialty Start Date End Date Mook Tompkins MD [address] [place] [address] [email or web address] PCP - General 09/18/17 Mook Tompkins MD [address] [place] [address] Insurance Assigned Provider 03/06/24 Armen Mccarthy MD [address] [place] [address] Intensive Care 01/05/20 Eligio Plunkett MD [address] [place] [address] Neurology 09/29/23 Additional Source Comments The information contained in this document represents components of the legal health record. It is not the complete legal health record.[facility]
--- OUTSIDE RECORDS SUMMARY | 2025-09-02 13:28 | XMS_ITS | Encounter Summary ---
Author Organization [facility] Address [address] [facility] [address] [place] [address] Phone Care Team Providers Care Marine Specialist Name Role Phone Mook Tompkins MD Primary Care Provider [phone] Mook Tompkins MD Unavailable [phone] Armen Mccarthy MD Unavailable [phone] Eligio Plunkett MD Unavailable [phone] Encounter Details Date Type Department Care Team (Late st Contact Info) Description 11/18/2024 Procedure Pass [facility], [address] [address] Social History Tobacco Use Types Packs/Day Years [...] high school, GED, job training, learning the Slovenian language, technical skills, or developing parenting skills)? [...] Info) Description 09/06/2025 10:15 AM EDT Appointment [facility], Bone Density - [facility] 30 [place] [address] Teagan Ramirez MD [address] [address] 10/06/2025 2:00 PM EST Office Visit [facility] 22 [place] [address] Teagan Ramirez MD [address] [address] 01/27/2026 3:00 PM EST Office Visit [facility] Internal Medicine 40 [place] [address] Mook Tompkins MD 40 [place], [place] documented as of this encounter Visit Diagnoses Not on filedocumented in this encounter Additional Health Concerns Infection Onset Date Last Indicated Resolved Time CoV-Risk Comment:Per Ambulatory Triage Form 06/22/2025 06/22/202507/03 1:22 AM EDT Assessment Noted Time PHQ-2 Depression Total Score: 0 01/22/20 10:04 AM EST documented as of this encounter Care Teams Marine Specialist Relationship Specialty Start Date End Date Mook Tompkins MD 40 [place] [address] PCP - General 09/18/17 Mook Tompkins MD [address] [place] [address] Insurance Assigned Provider 03/06/24 Armen Mccarthy MD [address] [place] [address] Intensive Care 01/05/20 Eligio Plunkett MD [address] [place] [address] Neurology 09/29/23 documented as of this encounter Additional Source Comments The information contained in this document represents components of the legal health record. It is not the complete legal health record.[facility]
--- OUTSIDE RECORDS SUMMARY | 2025-09-02 13:28 | XMS_ITS | Encounter Summary ---
Author Organization [facility] Address [address] [place] [address] Phone Care Team Providers Care Trial Justice Name Role Phone Mook Tompkins MD Primary Care Provider [phone] Mook Tompkins MD Unavailable [phone] Armen Mccarthy MD Unavailable [phone] Eligio Plunkett MD Unavailable [phone] Reason for Referral * Consultation (Within 3 days (urgent)) - Authorized Specialty Diagnoses / Procedures Referred By Liset bates Referred To Contact Diagnoses Ankle fracture Mook Tompkins MD 40 [place] [address] Phone: tel: fax: [email or web address] Angel Garcia MD [address] [place] [address] [place] [address] Phone: tel: fax: Referral ID Status Reason Start Date Expiration Date V isits Requested Visits Authorized [id number] Authorized 08/29/2025 08/29/2026 12 12 Reason for Visit * Reason Onset Date Comments Referral 08/29/2025 Encounter Details Date Type Department Care Team (Late st Contact Info) Description 08/29/2025 Telephone [facility] Internal Medicine 40 [facility] [place] [address] Mook Tompkins MD 40 [facility] [place] [address] [email or web address] Referral Social History Tobacco Use Types Packs/Day Years [...] as of this encounter Progress Notes * Cheli Franco - 08/29/2025 2:38 PM EDT Referral faxed * Liliana Nichole PA-C - 08/29/2025 12:04 PM EDT Referral signed. Aliza Nichole PA-C Virtual Clinic Support * Scooter Prabhakar - 08/29/2025 11:36 AM EDT Referral Request 1. Name of the office where the patient has been seen/requests to be seen: [facility] 2. Reason for referral/specialist appointment and the diagnosis code: ankle fracture 2A. Have you seen this provider before for this same problem? YES/NO: no 2B. If this is a new problem, is your PCP aware of your symptoms? YES/NO: 3. Date of appointment(s):tbd 4. Name of specialist provider: Angel Garcia 5. NPI number to enter for referral authorization (enter n/a if not available): tbd 6. Number of visits requested for referral: 6 7. Fax number of specialist office to send referral authorization: [phone] documented in this encounter Plan of Treatment Upcoming Encounters Date Type Department Care Team (Late st Contact Info) Description 09/06/2025 10:15 AM EDT Appointment [facility], Bone Density - [facility] 30 [place] [address] Teagan Ramirez MD [address] [place] [address] 10/06/2025 2:00 PM EST Office Visit [facility] [address] [place] [address] Teagan Ramirez MD [address] [place] [address] 01/27/2026 3:00 PM EST Office Visit [facility] Internal Medicine 40 [place] [address] Mook Tompkins MD 40 [place], [place] [phone] Scheduled Referrals Name Type Priority Associated Diagnoses Order Schedule Ambulatory referral to External Orthopedics Outpatient Referral Routine Ankle fracture Ordered: 08/29/2025 documented as of this encounter Visit Diagnoses Diagnosis Ankle fracture- Primary Unspecified closed fracture of ankle documented in this encounter Additional Health Concerns Assessment Noted Time PHQ-2 Depression Total Score: 0 01/25/20 25 3:52 PM EST documented as of this encounter Care Teams Trial Justice Relationship Specialty Start Date End Date Mook Tompkins MD 40 [place], [place] [phone] PCP - General 09/18/17 Mook Tompkins MD 40 [place], [place] [phone] [email or web address] Insurance Assigned Provider 03/06/24 Armen Mccarthy MD [address] [place] [address] Intensive Care 01/05/20 Eligio Plunkett MD [address] [place] [address] Neurology 09/29/23 documented as of this encounter Additional Source Comments The information contained in this document represents components of the legal health record. It is not the complete legal health record.[facility]
--- OUTSIDE RECORDS SUMMARY | 2025-09-02 13:28 | XMS_ITS | Encounter Summary ---
Author Organization [facility] Address 399 [facility] [address] [place] [address] Phone Care Team Providers Care Tele Tech Name Role Phone Mook Tompkins MD Primary Care Provider [phone] Mook Tompkins MD Unavailable Armen Mccarthy MD Unavailable [phone] Eligio Plunkett MD Unavailable Encounter Details Date Type Department Care Team (Late st Contact Info) Description 07/28/2025 Orders Only [facility] [place] Internal [facility] 40 [place] [address] Provider, MD Harley [address] [place] [address] Social History Tobacco Use Types Packs/Day Years [...] Info) Description 09/06/2025 10:15 AM EDT Appointment [facility], Bone Density - [address] [address] Teagan Ramirez MD [address] [address] 10/06/2025 2:00 PM EST Office Visit [facility] 22 [place] [address] Teagan Ramirez MD [address] [place] [address] 01/27/2026 3:00 PM EST Office Visit [facility] Internal Medicine 40 [place], [place] [phone] Mook Tompkins MD 40 [place], [place] [phone] documented as of this encounter Procedures Procedure Name Priority Date/Time Associated Diagnosis Comments OUTSIDE XR SPINE REPORT ONLY Routine 07/28/2025 10:19 AM EDT documented in this encounter Results * Outside XR Spine Report Only (07/28/2025 10:19 AM EDT) us Historical Provider MD MATTHEWS XR SPINE Final Res ult documented in this encounter Visit Diagnoses Not on filedocumented in this encounter Additional Health Concerns Assessment Noted Time PHQ-2 Depression Total Score: 0 01/25/20 3:52 PM EST documented as of this encounter Care Teams Tele Tech Relationship Specialty Start Date End Date Mook Tompkins MD 40 [place] [address] PCP - General 09/18/17 Mook Tompkins MD 40 [place], [place] [phone] Insurance Assigned Provider 03/06/24 Armen Mccarthy MD 40 [place] [address] Intensive Care 01/05/20 Eligio Plunkett MD [address] [place] [address] Neurology 09/29/23 documented as of this encounter Additional Source Comments The information contained in this document represents components of the legal health record. It is not the complete legal health record.[facility]
--- OUTSIDE RECORDS SUMMARY | 2025-09-02 13:28 | XMS_ITS | Encounter Summary ---
Author Organization [facility] Address [address] [place] [address] Phone Care Team Providers Care Inseam Leveler Name Role Phone Mook Tompkins MD Primary Care Provider [phone] Mook Tompkins MD Unavailable [phone] Armen Mccarthy MD Unavailable [phone] Eligio Plunkett MD Unavailable [phone] Reason for Visit * Reason Onset Date Comments Follow-up 07/28/2025 Needs appt Encounter Details Date Type Department Care Team (Late st Contact Info) Description 07/28/2025 Telephone [facility] Internal Medicine 40 [place], [place] [phone] Mook Tompkins MD 40 [place], [place] [phone] [email or web address] Follow-up (Needs appt ) Social History Tobacco Use Types Packs/Day Years [...] encounter Progress Notes * Cheli Franco - 07/28/2025 10:36 AM EDT Patient is scheduled for 08/02/2025 with Deangelo. Fax request sent for records * Fransisca Peñaloza - 07/28/2025 10:14 AM EDT [facility] Top Smart Phrases: Emergency Department (ED, ER) Appointment Booking Telephone Encounter 1.Appointment scheduled within 5 calendar days:YES/NO: no? NO appt book as next available is 08/29/2025 with any provider 2.Virtual or in-person appointment: 3.Information related to the patient ER/ED visit: A. Facility Name:[facility] B. Date of ED Visit: Date (mm/dd/yy): 07/28/25? C. Reason for visit (Diagnosis/Symptoms):? Fall 4.Is the record of the Emergency Department visit in the chart: YES/NO: no? a. IF NOT, patient was instructed to have records faxed to office, and to bring in a hard copy during the appointment. documented in this encounter Plan of Treatment Upcoming Encounters Date Type Department Care Team (Late st Contact Info) Description 09/06/2025 10:15 AM EDT Appointment [address] [address] Teagan Ramirez MD [address] [place] [address] 10/06/2025 2:00 PM EST Office Visit [facility] [address] [place] [address] Teagan Ramirez MD [address] [place] [address] 01/27/2026 3:00 PM EST Office Visit [facility] Internal Medicine 40 [place] [address] Mook Tompkins MD 40 [place] [address] [email or web address] documented as of this encounter Visit Diagnoses Not on filedocumented in this encounter Additional Health Concerns Assessment Noted Time PHQ-2 Depression Total Score: 0 01/25/20 25 3:52 PM EST documented as of this encounter Care Teams Inseam Leveler Relationship Specialty Start Date End Date Mook Tompkins MD 40 [place] [address] PCP - General 09/18/17 Mook Tompkins MD 40 [place] [address] Insurance Assigned Provider 03/06/24 Armen Mccarthy MD 40 [place] [address] Intensive Care 01/05/20 Eligio Plunkett MD [address] [place] [address] Neurology 09/29/23 documented as of this encounter Additional Source Comments The information contained in this document represents components of the legal health record. It is not the complete legal health record.[facility]
--- OUTSIDE RECORDS SUMMARY | 2025-09-02 13:28 | XMS_ITS | Clinical Summary ---
Author Organization [address] [facility] Address [address] [place] [address] Phone Care Team Providers Care Registration Officer Name Role Phone Mook Tompkins MD Primary Care Provider [phone] Allergies Active Allergy Reactions Criticality Noted Date Comments Codeine 02/19/2007 Medications CALCIUM CITRATE-VITAMIN D2 ORAL Take by mouth. Activ e omeprazole (PriLOSEC) [address] capsule 2 (two) times a day. 5 Active topiramate (TOPAMAX) 200 mg tablet Take 1 tablet (200 mg total) by mouth. Active topiramate (TOPAMAX) 25 mg tablet Take 1 tablet (25 mg total) by mouth 2 (two) times a day. Active topiramate (TOPAMAX) 50 mg tablet Take 1 tablet (50 mg total) by mouth 2 (two) times a day. Active sucralfate (CARAFATE) 1 gram tablet Take 3 tablets (3 g total) by mouth 1 (one) time each day. Active rivaroxaban (XARELTO) 20 mg tablet Take 1 tablet (20 mg total) by mouth 1 (one) time each day. Active nystatin (MYCOSTATIN) 100,000 unit/gram powder Apply topically if needed. Active metoprolol succinate (TOPROL-XL) 50 mg 24 hr tablet Take 1 tablet (50 mg total) by mouth 1 (one) time each day. Active LORazepam (ATIVAN) 0.5 mg tablet Take 1 tablet (0.5 mg total) by mouth. Active Claritin 10 mg tablet Take 1 tablet (10 mg total) by mouth 1 (one) time each day. Active lactase (LACTAID) 3,000 unit tablet Take 1 tablet (3,000 Units total) by mouth 3 (three) times a day with meals. Active clotrimazole (LOTRIMIN) 1 % cream Apply topically 1 (one) time each day if needed. Active carBAMazepine XR (TEGretol XR) 400 mg 12 hr tablet Take 1 tablet (400 mg total) by mouth. Active carBAMazepine (TegretoL) 200 mg tablet Take 3 tablets (600 mg total) by mouth. Active aspirin (Vazalore) 81 mg capsule Take by mouth 1 (one) time each day. Active atorvastatin (LIPITOR) 80 mg tablet Take 1 tablet (80 mg total) by mouth 1 (one) time each day. Active acetaminophen (TYLENOL 8 HOUR) 650 mg 8 hr tablet Take 1 tablet (650 mg total) by mouth every 8 (eight) hours if needed. Active guaiFENesin 200 mg/5 mL liquid Take by mouth. Active Encounters Date Type Department Care Team Description 08/24/2025 10:50 AM EDT Office Visit [facility] [address] [facility] [address] [address] [place] [address] Sheldon Baltazar MD Coronary artery disease, unspecified vessel or lesion type, unspecified whether angina present, unspecified whether nome or transplanted heart (Primary Dx) from Last 3 Months Immunizations Immunization Administration Dates Next Due [facility] SARS-CoV-2 COVID-19, mRNA, LNP-S, preservative free 10/03/2021,01/31/2021,01/10/2021 Surgical History Surgery Date Site/Laterality Comments CHOLECYSTECTOMY PROCEDURE: AL LAPAROSCOPY SURG CHOLECYSTECTOMY OTHER SURGICAL HISTORY PROCEDURE: [...] Sign Reading Time Taken Comments Blood Pressure 120/70 08/24/2025 10:56 AM EDT Pulse 58 08/24/2025 10:56 AM EDT Temperature - - Respiratory Rate - - Oxygen Saturation 96% 08/24/2025 10:56 AM EDT Inhaled Oxygen Concentration - - Weight 93.4 kg (206 lb) 08/24/2025 10:56 AM EDT Height 144.8 cm (4' 9 ) 08/24/2025 10:56 AM EDT Body Mass Index 44.58 08/24/2025 10:56 AM EDT Plan of Treatment Health Maintenance Due Date Last Done Comments Colorectal Cancer Screening: Colonoscopy 1960 Cervical Cancer Screening: HPV 1979 Zoster Vaccines (1 of 2) 2008 RSV Immunization Adult Patients (1 - Risk 60-74 years 1-dose series) 2018 Falls Risk Assessment 2023 Medicare Annual Wellness Visit 2023 Social Influencers of Health Screening 2023 Hypertension/CHF/CAD Annual BMP Blood Test 11/18/2024 11/18/2023, 07/10/2023, 06/20/2023, Additional history exists Depression Screening 12/01/2024 COVID-19 Vaccine (6 - 2024-25 season) 2025 09/22/2024, 11/27/2023, 10/03/2021, Additional history exists Influenza Vaccine (#1) 2025 , 09/19/2023, 09/13/2022, Additional history exists Breast Cancer Screening 11/17/2026 11/17/20 24, 06/30/2019, 05/27/2018, Additional history exists Cholesterol Screening (Lipid Panel) 06/20/2028 06/20/2023 Osteoporosis Screening (Bone Density Screening) 04/23/2033 04/23/2023 DTaP,Tdap,and Td Vaccines (4 - Td or Tdap) 08/04/2034 08/04/2024, 08/14/2012, 05/01/2002 Hepatitis C Screening Completed 01/10/2020 Pneumococcal Vaccine: 50+ Years Completed 01/06/2023, 08/31/2004 HIB Vaccines Aged Out No longer eligi [...] 20 months Aged Out No longer eligible based on patient's age to complete this topic Varicella Vaccines Aged Out No longer eligible based on patient's age to complete this topic Procedures Procedure Name Priority Date/Time Associated Diagnosis Comments ECG 12-LEAD Routine 08/24/2025 11:13 AM EDT Coronary artery disease, unspecified vessel or lesion type, unspecified whether angina present, unspecified whether nome or transplanted heart SCR MAMMO BI INCL CAD Routine 06/30/2019 6:14 PM EDT Encounter for screening, unspecified from Last 3 Months or Most Recently Relevant to Health Maintenance Results * ECG 12 lead (08/24/2025 11:13 AM EDT) Ventricular Rate ECG 58 BPM GEMUSE Atrial Rate 58 BPM GEMUSE P-R Interval 154 ms GEMUSE QRS Duration 84 ms GEMUSE Q-T Interval 432 ms GEMUSE QTc 424 ms GEMUSE P Wave Hazel 27 degrees GEMUSE R Hazel -29 degrees GEMUSE T Hazel 11 degrees GEMUSE ECG Interpretation Sinus bradycardia Low voltage QRS Possible Anterolateral infarct , age undetermined Abnormal ECG No previous ECGs available Same as 2023 Confirmed by Erickson BALTAZAR, SHELDON ([id number]) on 08/24/2025 11:31:10 AM GEMUSE 08/24/2025 11:1 3 AM EDT 08/24/2025 11:31 AM EDT us Sheldon Baltazar MD ECG ORDERABLES Final Result GEMUSE * SCR MAMMO BI INCL CAD (06/30/2019 [...] Insurance MEDICARE [place]ICA[place] - [place] Care Teams Registration Officer Relationship Specialty Start Date End Date Mook Tompkins MD 40 [place] [address] PCP - General 08/26/08
--- OUTSIDE RECORDS SUMMARY | 2025-09-02 13:28 | XMS_ITS | Encounter Summary ---
Author Organization [facility] Address [address] [place] [address] Phone Care Team Providers Care Watchguard Name Role Phone Mook Tompkins MD Primary Care Provider [phone] Mook Tompkins MD Unavailable [phone] Armen Mccarthy MD Unavailable [phone] Ishan Henry Unavailable Unavailable Eligio Plunkett MD Unavailable [phone] Encounter Details Date Type Department Care Team (Latest Contact Info) Description 08/16/2022 Transcribe Orders Virtual Department [address] [place], [place] [phone] Mook Tompkins MD 40 [place] [address] [email or web address] Abnormal mammogram of left breast (Primary Dx) [...] high school, GED, job training, learning the Libyan language, technical skills, or developing parenting skills)? [...] Info) Description 09/06/2025 10:15 AM EDT Appointment [address] [address] Teagan Ramirez MD [address] [place] [address] 10/06/2025 2:00 PM EST Office Visit [facility] [address] [place] [address] Teagan Ramirez MD [address] [place] [address] 01/27/2026 3:00 PM EST Office Visit [facility] Internal Medicine 40 [place] [address] Mook Tompkins MD 40 [place], [place] [phone] [email or web address] documented as of this encounter Results * [...] DATE: On Schedule Recommendation: Left Mammography Screening us Mook Tompkins MD IMG MG EXAMS [...] documented as of this encounter Care Teams Watchguard Relationship Specialty Start Date End Date Mook Tompkins MD 40 [place] [address] PCP - General 09/18/17 Mook Tompkins MD 40 [place] [address] Insurance Assigned Provider 03/06/24 Armen Mccarthy MD 40 [place] [address] Intensive Care 01/05/20 Ishan Henry PA Neurology 07/21/20 09/28/23 Eligio Plunkett MD [address] [place] [address] Neurology 09/29/23 documented as of this encounter Additional Source Comments The information contained in this document represents components of the legal health record. It is not the complete legal health record.[facility]
--- OUTSIDE RECORDS SUMMARY | 2025-09-02 13:28 | XMS_ITS | Encounter Summary ---
Author Organization [facility] Address [address] [place] [address] [place] [address] Phone Care Team Providers Care Electrophonic Engineer Name Role Phone Mook Tompkins MD Primary Care Provider [phone] Mook Tompkins MD Unavailable [phone] Armen Mccarthy MD Unavailable [phone] Ishan Henry Unavailable Unavailable Eligio Plunkett MD Unavailable [phone] Encounter Details Date Type Department Care Team (Latest Contact Info) Description 07/04/2023 Transcribe Orders Virtual Department 30 [place], [place] [phone] Mook Tompkins MD 40 [place] [address] [email or web address] Breast screening (Primary Dx) Social History Tobacco [...] Description 09/06/2025 10:15 AM EDT Appointment [facility], Bone Density - [facility] [address] [place] [address] Teagan Ramirez MD [address] [place] [address] 10/06/2025 2:00 PM EST Office Visit [facility] [address] [place] [address] [place] [address] Teagan Ramirez MD [address] [place] [address] 01/27/2026 3:00 PM EST Office Visit [facility] Internal Medicine 40 [place] [address] Mook Tompkins MD 40 [place] [address] [email or web address] documented as of this encounter Results * [...] documented as of this encounter Care Teams Electrophonic Engineer Relationship Specialty Start Date End Date Mook Tompkins MD 40 [place] [address] PCP - General 09/18/17 Mook Tompkins MD [address] [place] [address] Insurance Assigned Provider 03/06/24 Armen Mccarthy MD [address] [place] [address] Intensive Care 01/05/20 Ishan Henry PA Neurology 07/21/20 09/28/23 Eligio Plunkett MD [address] [place] [address] Neurology 09/29/23 documented as of this encounter Additional Source Comments The information contained in this document represents components of the legal health record. It is not the complete legal health record.[facility]
--- OUTSIDE RECORDS SUMMARY | 2025-09-02 13:28 | XMS_ITS | Encounter Summary ---
Author Organization [facility] Address [address] [place] [address] Phone Care Team Providers Care Software Sales Manager Name Role Phone Mook Tompkins MD Primary Care Provider Mook Tompkins MD Unavailable [phone] Armen Mccarthy MD Unavailable [phone] Ishan Henry Unavailable Unavailable Eligio Plunkett MD Unavailable [phone] Encounter Details Date Type Department Care Team (Late st Contact Info) Description 03/13/2021 Procedure Pass [address] [address] Social History Tobacco Use Types Packs/Day Years [...] Info) Description 09/06/2025 10:15 AM EDT Appointment [address] [address] Teagan Ramirez MD [address] [place] [address] 10/06/2025 2:00 PM EST Office Visit [facility] 22 [place] [address] Teagan Ramirez MD [address] [address] 01/27/2026 3:00 PM EST Office Visit [facility] Internal Medicine 40 [place] [address] Mook Tompkins MD 40 [place], [place] [phone] documented as of this encounter Visit Diagnoses Not on filedocumented in this encounter Additional Health Concerns Infection Onset Date Last Indicated Resolved Time CoV-Risk Comment:Per Ambulatory Triage Form 06/22/2025 06/22/202507/03 1:22 AM EDT Assessment Noted Time PHQ-2 Depression Total Score: 0 04/18/20 12:42 PM EDT documented as of this encounter Care Teams Software Sales Manager Relationship Specialty Start Date End Date Mook Tompkins MD 40 [place] [address] PCP - General 09/18/17 Mook Tompkins MD [address] [place] [address] Insurance Assigned Provider 03/06/24 Armen Mccarthy MD [address] [place] [address] Intensive Care 01/05/20 Ishan Henry PA Neurology 07/21/20 09/28/23 Eligio Plunkett MD [facility] [place] [address] Neurology 09/29/23 documented as of this encounter Additional Source Comments The information contained in this document represents components of the legal health record. It is not the complete legal health record.[facility]
--- OUTSIDE RECORDS SUMMARY | 2025-09-02 13:28 | XMS_ITS | Encounter Summary ---
Author Organization [facility] Address [address] [place] [address] [place] [address] Phone Care Team Providers Care Siene Maker Name Role Phone Mook Tompkins MD Primary Care Provider [phone] Mook Tompkins MD Unavailable [phone] Armen Mccarthy MD Unavailable [phone] Eligio Plunkett MD Unavailable [phone] Reason for Visit * Reason Onset Date Comments Forms & Paperwork 08/30/2025 Encounter Details Date Type Department Care Team (Late st Contact Info) Description 08/30/2025 Telephone [facility] Internal Medicine 40 [place], [place] [phone] Mook Tompkins MD 40 [place], [place] [phone] [email or web address] Forms & Paperwork Social History Tobacco Use Types Packs/Day Years [...] as of this encounter Progress Notes * Kenisha Abrams MA - 08/30/2025 3:29 PM EDT Faxed signed provider orders back to Selam.Iman at [facility] at fax# [phone]-received fax confirmation. Scanned into [employer]. * Teagan Ramirez MD - 08/30/2025 12:58 PM EDT Rx sent, forms completed, please fax back. Thx. * Zayra Graham - 08/30/2025 9:39 AM EDT Received Health care provider order forms, scanned into [employer] and placed in providers box. Requestscompletion of forms and fax back to [facility] at [phone] documented in this encounter Plan of Treatment Upcoming Encounters Date Type Department Care Team (Late st Contact Info) Description 09/06/2025 10:15 AM EDT Appointment [address] [address] Teagan Ramirez MD [address] [place] [address] 10/06/2025 2:00 PM EST Office Visit [facility] [address] [place] [address] Teagan Ramirez MD [address] [place] [address] 01/27/2026 3:00 PM EST Office Visit [facility] Internal Medicine 40 [place] [address] Mook Tompkins MD 40 [place] [address] documented as of this encounter Visit Diagnoses Not on filedocumented in this encounter Additional Health Concerns Assessment Noted Time PHQ-2 Depression Total Score: 0 01/25/20 25 3:52 PM EST documented as of this encounter Care Teams Siene Maker Relationship Specialty Start Date End Date Mook Tompkins MD 40 [place] [address] PCP - General 09/18/17 Mook Tompkins MD 40 [place] [address] Insurance Assigned Provider 03/06/24 Armen Mccarthy MD [address] [place] [address] Intensive Care 01/05/20 Eligio Plunkett MD [address] [place] [address] Neurology 09/29/23 documented as of this encounter Additional Source Comments The information contained in this document represents components of the legal health record. It is not the complete legal health record.[facility]
--- OUTSIDE RECORDS SUMMARY | 2025-09-02 13:28 | XMS_ITS | Encounter Summary ---
Author Organization [facility] Address [address] [place] [address] [place] [address] Phone Care Team Providers Care Machine Cementer And Folder Name Role Phone Mook Tompkins MD Primary Care Provider [phone] Mook Tompkins MD Unavailable [phone] Armen Mccarthy MD Unavailable [phone] Eligio Plunkett MD Unavailable [phone] Encounter Details Date Type Department Care Team (Late st Contact Info) Description 11/18/2024 Ancillary Orders [facility], [address] [phone] Mook Tompkins MD 40 [place] [address] [email or web address] Abnormal mammogram (Primary Dx) Social History Tobacco [...] high school, GED, job training, learning the [place] language, technical skills, or developing parenting skills)? [...] Info) Description 09/06/2025 10:15 AM EDT Appointment [facility], Bone [address] [address] Teagan Ramirez MD [address] [place] [address] 10/06/2025 2:00 PM EST Office Visit [facility] [address] [place] [address] Teagan Ramirez MD [address] [place] [address] 01/27/2026 3:00 PM EST Office Visit [facility] Internal Medicine 40 [place], [place] [phone] Mook Tompkins MD 40 [place], [place] [phone] documented as of this encounter Results * [...] Time PHQ-2 Depression Total Score: 0 01/22/20 24 10:04 AM EST documented as of this encounter Care Teams Machine Cementer And Folder Relationship Specialty Start Date End Date Mook Tompkins MD [address] [place] [address] PCP - General 09/18/17 Mook Tompkins MD [address] [place] [address] Insurance Assigned Provider 03/06/24 Armen Mccarthy MD [address] [place] [address] Intensive Care 01/05/20 Eligio Plunkett MD [address] [place] [address] Neurology 09/29/23 documented as of this encounter Additional Source Comments The information contained in this document represents components of the legal health record. It is not the complete legal health record.[facility]
--- OUTSIDE RECORDS SUMMARY | 2025-09-02 13:29 | XMS_ITS | Encounter Summary ---
Author Organization [facility] Address [address] [facility] [address] [place] [address] Phone Care Team Providers Care Rn Mds Coordinator Name Role Phone Mook Tompkins MD Primary Care Provider [phone] Mook Tompkins MD Unavailable [phone] Armen Mccarthy MD Unavailable [phone] Ishan Henry Unavailable Unavailable Eligio Plunkett MD Unavailable [phone] Encounter Details Date Type Department Care Team (Late st Contact Info) Description 07/04/2023 Procedure Pass [facility], [address] [address] Social History Tobacco Use Types Packs/Day Years [...] high school, GED, job training, learning the [place] language, technical skills, or developing parenting skills)? [...] Info) Description 09/06/2025 10:15 AM EDT Appointment [facility], Bone Density - [address] [address] Teagan Ramirez MD [address] [place] [address] 10/06/2025 2:00 PM EST Office Visit [facility] [address] [place] [address] [place] [address] Teagan Ramirez MD [address] [place] [address] 01/27/2026 3:00 PM EST Office Visit [facility] Internal Medicine 40 [place] [address] Mook Tompkins MD 40 [place] [address] documented as of this encounter Visit Diagnoses Not on filedocumented in this encounter Additional Health Concerns Infection Onset Date Last Indicated Resolved Time CoV-Risk Comment:Per Ambulatory Triage Form 06/22/2025 06/22/202507/03 1:22 AM EDT Assessment Noted Time PHQ-2 Depression Total Score: 0 01/06/20 1:30 PM EST documented as of this encounter Care Teams Rn Mds Coordinator Relationship Specialty Start Date End Date Mook Tompkins MD 40 [place] [address] PCP - General 09/18/17 Mook Tompkins MD 40 [place] [address] Insurance Assigned Provider 03/06/24 Armen Mccarthy MD 40 [place] [address] Intensive Care 01/05/20 Ishan Henry PA Neurology 07/21/20 09/28/23 Eligio Plunkett MD [address] [place] [address] Neurology 09/29/23 documented as of this encounter Additional Source Comments The information contained in this document represents components of the legal health record. It is not the complete legal health record.[facility]
--- OUTSIDE RECORDS SUMMARY | 2025-09-02 13:29 | XMS_ITS | Encounter Summary ---
Author Organization [facility] Address [address] [place] [address] Phone Care Team Providers Care Surface To Air Weapons Officer Name Role Phone Mook Tompkins MD Primary Care Provider [phone] Mook Tompkins MD Unavailable [phone] Armen Mccarthy MD Unavailable [phone] Ishan Henry Unavailable Unavailable Eligio Plunkett MD Unavailable [phone] Encounter Details Date Type Department Care Team (Latest Contact Info) Description 03/13/2021 Transcribe Orders Virtual Department [address] [place] [id number] Mook Tompkins MD 40 [place] [address] [email or web address] Breast screening (Primary [...] Info) Description 09/06/2025 10:15 AM EDT Appointment [facility], [address] [place] [address] Teagan Ramirez MD [address] [place] [address] 10/06/2025 2:00 PM EST Office Visit [facility] [address] [place] [address] Teagan Ramirez MD [address] [place] [address] 01/27/2026 3:00 PM EST Office Visit [facility] Internal Medicine 40 [place] [address] Mook Tompkins MD 40 [place] [address] documented as of this encounter Results * [...] documented as of this encounter Care Teams Surface To Air Weapons Officer Relationship Specialty Start Date End Date Mook Tompkins MD 40 [place] [address] PCP - General 09/18/17 Mook Tompkins MD 40 [place] [address] [email or web address] Insurance Assigned Provider 03/06/24 Armen Mccarthy MD 40 [place] [address] Intensive Care 01/05/20 Ishan Henry PA Neurology 07/21/20 09/28/23 Eligio Plunkett MD [address] [place] [address] Neurology 09/29/23 documented as of this encounter Additional Source Comments The information contained in this document represents components of the legal health record. It is not the complete legal health record.[facility]
== END 2025-09-02 13:07 | disposition home or self-care (01) ==
LOC: HO.HOSX 13:06
PROVIDERS: Visit Provider Physician Assistant
DX: S82.891A Other fracture of right lower leg, initial encounter for closed fracture (principal); W01.0XXA Fall on same level from slipping, tripping and stumbling without subsequent striking against object, initial encounter
CPT/HCPCS: 73610; 99202

== ENCOUNTER 2025-09-02 14:13 | Outpatient (AMB) | payer MEDICARE, MEDICAID, SELFPAY ==
--- NOTE | 2025-09-02 14:41 | MHC.OFFVIS ---
Intake Visit Reasons: FC/CONTRACT IMPLEMENTATION ANALYST-Right Ankle Fx, DOI: 07/28/25 Intake Note: Reba is a 64 year old female who presents today for a evaluation of her right ankle fracture, DOI 07/28/25. Patient reports she had a slip and fall injury. Patient was being transported and moved and she lost balance. Patient is here with log manager from fdc she resides at. Allergies codeine (CODEINE) Allergy (Unknown, Verified 09/02/25 14:43) UNKNOWN HPI HPI FC/CONTRACT IMPLEMENTATION ANALYST-Right Ankle Fx, DOI: 07/28/25: Details: Ms. Stevenson is a 64-year-old female who presents to the office today for a right ankle avulsion fracture. Date of injury was 07/28/2025 when the patient fell while trying to go to the bathroom. Patient has a past history of cerebral palsy and lives in a fdc. A [facility]dc staff member accompanies her at today's appointment. The staff member reports that the patient does use a wheelchair but is also ambulatory. The patient has had prior surgery on the right foot/ankle however it is unclear exactly what procedure she had but she does sometimes wear a lace-up ankle brace to help with support and discomfort. Patient does not complain of any pain while in the office today. PFSH Medical History Cerebral palsy Seizures Surgical History Hx of cholecystectomy Family History Mother Stomach cancer Social History (Updated 09/02/25 @ 14:48 by Pastor Leonard) Housing Other:: correction Tobacco use type: Cigarette Review of Systems Const All systems reviewed & are unremarkable except as noted in HPI and below Physical Exam Const General: cooperative, healthy appearing and no acute distress Resp Effort & Inspection: normal respiratory effort and able to speak in complete sentences Extrem Other: Right lateral malleolus mild edema. Patient pulls away when attempting to palpate the lateral malleolus. She is able to demonstrate dorsiflexion and plantar flexion. Pedal pulse intact. NVI. Psych Appearance: grossly normal Mental Status: mental status grossly normal Attitude: cooperative Assessment & Plan Assessment & Plan (1) Avulsion fracture of ankle: Code(s): S82.899A - Other fracture of unspecified lower leg, initial encounter for closed fracture Category: Medical Plan Ms. Stevenson is a 64-year-old female who presents to the office today for a right ankle avulsion fracture. Date of injury was 07/28/2025 when the patient fell while trying to go to the bathroom. Patient has a past history of cerebral palsy and lives in a fdc. A fdc staff member accompanies her at today's appointment. The staff member reports that the patient does use a wheelchair but is also ambulatory. The patient has had prior surgery on the right foot/ankle however it is unclear exactly what procedure she had but she does sometimes wear a lace-up ankle brace to help with support and discomfort. Patient does not complain of any pain while in the office today. While in the office today, the patient was fit for a tall walking boot and instructed that she may weightbear as tolerated. She is able to return to her day program as long as she is wearing the boot at all times excluding physical therapy and bathing. A physical therapy order has also been placed at this time. I would like Physical therapy to wean her out of the boot over the next 2 weeks. She can then transition back to her a lace-up ankle brace that she wears at baseline. She will follow up in 4 weeks with repeat x-rays, sooner if needed. X-rays of the right ankle which were obtained while in the office today and were reviewed by me, Nancy Cedeno PA-C, revealed avulsion fracture distal fibula. Orders: Orders PT Evaluation and Treatment Today S82.899A - Other fracture of unspecified lower leg, initial encounter for closed fracture XR ankle RT min 3V Today M25.579 - Pain in unspecified ankle and joints of unspecified foot Coding Level of Care Code New Pt Level 3 (97871) Diagnoses Avulsion fracture of ankle S82.899A
== END 2025-09-02 15:29 | disposition home or self-care (01) ==
LOC: HO.HOS 14:14
PROVIDERS: PCP Internal Medicine; Visit Provider Physician Assistant
DX: S82.899A Other fracture of unspecified lower leg, initial encounter for closed fracture (principal)
CPT/HCPCS: 99203

== ENCOUNTER → 2025-09-02 14:39 | Outpatient (BNV) | payer MEDICARE, MEDICAID, SELFPAY | PROVIDERS: Visit Provider Radiology Diagnostic Radiology | DX: M19.071 Primary osteoarthritis, right ankle and foot (principal); Z98.1 Arthrodesis status | CPT/HCPCS: 73610 ==

== ENCOUNTER 2025-09-30 14:16 | Outpatient (REF) | payer MEDICARE, MEDICAID, SELFPAY ==
--- OUTSIDE RECORDS SUMMARY | 2025-10-02 14:18 | XMS_ITS | Encounter Summary ---
Author Organization [facility] Address [address] [place] [address] [place] [address] Phone Care Team Providers Care Edge Bander Operator Name Role Phone Mook Tompkins MD Primary Care Provider [phone] Mook Tompkins MD Unavailable [phone] Armen Mccarthy MD Unavailable [phone] Eligio Plunkett MD Unavailable [phone] Encounter Details Date Type Department Care Team (Late st Contact Info) Description 11/18/2024 Ancillary Orders [facility], [address] [phone] Mook Tompkins MD 40 [place] [address] [email or web address] Abnormal mammogram (Primary Dx) Social History Tobacco [...] high school, GED, job training, learning the [place]i language, technical skills, or developing parenting skills)? [...] Care Team (Late st Contact Info) Description 10/06/2025 2:00 PM EST Office Visit [facility] [address] [place] [address] Teagan Ramirez MD [address] [place] [address] 3rd [place] [address] 01/27/2026 3:00 PM EST Office Visit [facility] Internal Medicine 40 [place] [address] Mook Tompkins MD 40 [place] [address] [email or web address] documented as of this encounter Results * [...] communicated to the patient at time ofexamination. Mook Tompkins MD [facility] BREAST Final Result documented in this encounter [...] documented as of this encounter Care Teams Edge Bander Operator Relationship Specialty Start Date End Date Mook Tompkins MD 40 [place] [address] PCP - General 09/18/17 Mook Tompkins MD [address] [place] [address] Insurance Assigned Provider 03/06/24 Armen Mccarthy MD [address] [place] [address] Intensive Care 01/05/20 Eligio Plunkett MD [address] [place] [address] Neurology 09/29/23 documented as of this encounter Additional Source Comments The information contained in this document represents components of the legal health record. It is not the complete legal health record.[facility]
--- OUTSIDE RECORDS SUMMARY | 2025-10-02 14:19 | XMS_ITS | Encounter Summary ---
Author Organization [facility] Address [address] [facility] [address] [place] [address] Phone Care Team Providers Care Truck Dispatcher Name Role Phone Mook Tompkins MD Primary Care Provider [phone] Mook Tompkins MD Unavailable [phone] Armen Mccarthy MD Unavailable [phone] Ishan Henry Unavailable Unavailable Eligio Plunkett MD Unavailable [phone] Encounter Details Date Type Department Care Team (Late st Contact Info) Description 07/04/2023 Procedure Pass [facility], [address] [address] Social History Tobacco Use Types Packs/Day Years [...] high school, GED, job training, learning the Luxem[place] language, technical skills, or developing parenting skills)? [...] 2:00 PM EST Office Visit [facility] [address] [place] [address] [place] [address] Teagan Ramirez MD [address] [place] [address] 01/27/2026 3:00 PM EST Office Visit [facility] [place] Internal Medicine 40 [place] [address] Mook Tompkins MD 40 [place] [address] documented as of this encounter Visit Diagnoses Not on filedocumented in this encounter Additional Health Concerns Infection Onset Date Last Indicated Resolved Time CoV-Risk Comment:Per Ambulatory Triage Form 06/22/2025 06/22/202507/03 1:22 AM EDT Assessment Noted Time PHQ-2 Depression Total Score: 0 01/06/20 1:30 PM EST documented as of this encounter Care Teams Truck Dispatcher Relationship Specialty Start Date End Date Mook Tompkins MD 40 [place] [address] PCP - General 09/18/17 Mook Tompkins MD 40 [place] [address] Insurance Assigned Provider 03/06/24 Armen Mccarthy MD 40 [place] [address] Intensive Care 01/05/20 Ishan Henry PA Neurology 07/21/20 09/28/23 Eligio Plunkett MD [address] [place] [address] Neurology 09/29/23 documented as of this encounter Additional Source Comments The information contained in this document represents components of the legal health record. It is not the complete legal health record.[facility]
--- OUTSIDE RECORDS SUMMARY | 2025-10-02 14:19 | XMS_ITS | Encounter Summary ---
Author Organization [facility] Address [address] [facility] [address] [place] [address] Phone Care Team Providers Care Planning Lead Name Role Phone Mook Tompkins MD Primary Care Provider [phone] Mook Tompkins MD Unavailable [phone] Armen Mccarthy MD Unavailable [phone] Eligio Plunkett MD Unavailable [phone] Encounter Details Date Type Department Care Team (Late st Contact Info) Description 07/23/2024 Procedure Pass [facility], [address] [phone] Social History Tobacco Use Types Packs/Day Years [...] high school, GED, job training, learning the Yemeni language, technical skills, or developing parenting skills)? [...] 2:00 PM EST Office Visit [facility] [address] [place] [address] [place] [address] Teagan Ramirez MD [address] [facility] 3rd [place] [address] 01/27/2026 3:00 PM EST Office Visit [facility] Internal Medicine 40 [place] [address] Mook Tompkins MD 40 [place] [address] documented as of this encounter Visit Diagnoses Not on filedocumented in this encounter Additional Health Concerns Infection Onset Date Last Indicated Resolved Time CoV-Risk Comment:Per Ambulatory Triage Form 06/22/2025 06/22/202507/03 1:22 AM EDT Assessment Noted Time PHQ-2 Depression Total Score: 0 01/22/20 10:04 AM EST documented as of this encounter Care Teams Planning Lead Relationship Specialty Start Date End Date Mook Tompkins MD 40 [place] [address] PCP - General 09/18/17 Mook Tompkins MD 40 [place] [address] Insurance Assigned Provider 03/06/24 Armen Mccarthy MD 40 [place] [address] Intensive Care 01/05/20 Eligio Plunkett MD [address] [place] [address] Neurology 09/29/23 documented as of this encounter Additional Source Comments The information contained in this document represents components of the legal health record. It is not the complete legal health record.[facility]
--- OUTSIDE RECORDS SUMMARY | 2025-10-02 14:19 | XMS_ITS | Encounter Summary ---
Author Organization [facility] Address [address] [place] [address] [place] [address] Phone Care Team Providers Care Air Export Agent Name Role Phone Mook Tompkins MD Primary Care Provider [phone] Mook Tompkins MD Unavailable [phone] Armen Mccarthy MD Unavailable [phone] Ishan Henry Unavailable Unavailable Eligio Plunkett MD Unavailable [phone] Encounter Details Date Type Department Care Team (Latest Contact Info) Description 07/04/2023 Transcribe Orders Virtual Department [address] [place], [place] [id number] Mook Tompkins MD [address] [place] [address] [email or web address] Breast screening (Primary Dx) Social History Tobacco [...] high school, GED, job training, learning the Tunisian language, technical skills, or developing parenting skills)? [...] PM EST Office Visit [facility] [address] [place] [address] [place] [address] Teagan Ramirez MD [address] [place] [address] 01/27/2026 3:00 PM EST Office Visit [facility] [place] [facility] [address] [facility] [place] [address] Mook Tompkins MD [address] [place] [address] [email or web address] documented as of this encounter Results * [...] documented as of this encounter Care Teams Air Export Agent Relationship Specialty Start Date End Date Mook Tompkins MD [address] [place] [address] PCP - General 09/18/17 Mook Tompkins MD [address] [place] [address] Insurance Assigned Provider 03/06/24 Armen Mccarthy MD [address] [place] [address] Intensive Care 01/05/20 Ishan Henry PA Neurology 07/21/20 09/28/23 Eligio Plunkett MD [address] [place] [address] Neurology 09/29/23 documented as of this encounter Additional Source Comments The information contained in this document represents components of the legal health record. It is not the complete legal health record.[facility]
--- OUTSIDE RECORDS SUMMARY | 2025-10-02 14:19 | XMS_ITS | Encounter Summary ---
Author Organization [facility] Address [address] [facility] [address] [place] [address] Phone Care Team Providers Care Temperature Inspector Name Role Phone Mook Tompkins MD Primary Care Provider [phone] Mook Tompkins MD Unavailable [phone] Armen Mccarthy MD Unavailable Ishan Henry Unavailable Unavailable Eligio Plunkett MD Unavailable [phone] Encounter Details Date Type Department Care Team (Late st Contact Info) Description 07/08/2022 Procedure Pass [address] [address] Social History Tobacco Use Types Packs/Day Years [...] high school, GED, job training, learning the Mauritian language, technical skills, or developing parenting skills)? [...] 2:00 PM EST Office Visit [facility] [address] [place] [address] Teagan Ramirez MD [address] [place] [address] 01/27/2026 3:00 PM EST Office Visit [facility] Internal Medicine [address] [place] [address] Mook Tompkins MD [address] [place] [address] documented as of this encounter Visit Diagnoses Not on filedocumented in this encounter Additional Health Concerns Infection Onset Date Last Indicated Resolved Time CoV-Risk Comment:Per Ambulatory Triage Form 06/22/2025 06/22/202507/03 1:22 AM EDT Assessment Noted Time PHQ-2 Depression Total Score: 0 01/03/20 3:31 PM EST documented as of this encounter Care Teams Temperature Inspector Relationship Specialty Start Date End Date Mook Tompkins MD [address] [place] [address] [email or web address] PCP - General 09/18/17 Mook Tompkins MD [address] [place] [address] [email or web address] Insurance Assigned Provider 03/06/24 Armen Mccarthy MD [address] [place] [address] Intensive Care 01/05/20 Ishan Henry PA Neurology 07/21/20 09/28/23 Eligio Plunkett MD [address] [place] [address] Neurology 09/29/23 documented as of this encounter Additional Source Comments The information contained in this document represents components of the legal health record. It is not the complete legal health record.[facility]
--- OUTSIDE RECORDS SUMMARY | 2025-10-02 14:19 | XMS_ITS | Clinical Summary ---
Author Organization [address] [facility] Address [address] [place] [address] Phone Care Team Providers Care Writer Editor Name Role Phone Mook Tompkins MD Primary Care Provider [phone] Allergies Active Allergy Reactions Criticality Noted Date [...] Description 08/24/2025 10:50 AM EDT Office Visit [facility] [place] [facility] [address] [facility] [address] [place] [address] Sheldon Baltazar MD Coronary artery disease, unspecified vessel or lesion type, unspecified whether angina present, unspecified whether [place] or transplanted heart (Primary Dx) from Last 3 Months Immunizations Immunization Administration Dates Next Due [facility] SARS-CoV-2 COVID-19, mRNA, LNP-S, preservative free 10/03/2021,01/31/2021,01/10/2021 Surgical History Surgery Date Site/Laterality Comments CHOLECYSTECTOMY PROCEDURE: [place] LAPAROSCOPY SURG CHOLECYSTECTOMY OTHER SURGICAL HISTORY PROCEDURE: [...] Colonoscopy 1958 Cervical Cancer Screening: HPV 1979 RSV Immunization Adult Patients (1 - Risk 50-74 years 1-dose series) 2008 Zoster Vaccines (1 of 2) 2008 Falls Risk Assessment 2023 Medicare Annual Wellness [...] type, unspecified whether angina present, unspecified whether [place] or transplanted heart SCR MAMMO BI INCL [...] GEMUSE QTc 424 ms GEMUSE P Wave [place] 27 degrees GEMUSE R [place] -29 degrees GEMUSE T [place] 11 degrees GEMUSE ECG Interpretation Sinus bradycardia [...] Insurance MEDICARE MEDICAID - [place] Care Teams Writer Editor Relationship Specialty Start Date End Date Mook Tompkins MD [address] [place] [address] PCP - General 08/26/08
--- OUTSIDE RECORDS SUMMARY | 2025-10-02 14:19 | XMS_ITS | Encounter Summary ---
Author Organization [facility] Address [address] [place] [address] Phone Care Team Providers Care Copper Miner Blasting Name Role Phone Mook Tompkins MD Primary Care Provider [phone] Mook Tompkins MD Unavailable [phone] Armen Mccarthy MD Unavailable [phone] Ishan Henry Unavailable Unavailable Eligio Plunkett MD Unavailable [phone] Encounter Details Date Type Department Care Team (Latest Contact Info) Description 03/13/2021 Transcribe Orders Virtual Department [address] [place], [place] [phone] Mook Tompkins MD [address] [place] [address] [email or web address] Breast screening (Primary Dx) Social History Tobacco [...] PM EST Office Visit [facility] [address] [place] [address] Teagan Ramirez MD [address] [place] [address] 01/27/2026 3:00 PM EST Office Visit [facility] Internal Medicine [address] [place] [address] Mook Tompkins MD [address] [place] [address] [email or web address] documented as of this encounter Results * [...] documented as of this encounter Care Teams Copper Miner Blasting Relationship Specialty Start Date End Date Mook Tompkins MD [address] [place] [address] PCP - General 09/18/17 Mook Tompkins MD [address] [place] [address] Insurance Assigned Provider 03/06/24 Armen Mccarthy MD [address] [place] [address] Intensive Care 01/05/20 Ishan Henry PA Neurology 07/21/20 09/28/23 Eligio Plunkett MD [address] [place] [address] Neurology 09/29/23 documented as of this encounter Additional Source Comments The information contained in this document represents components of the legal health record. It is not the complete legal health record.[facility]
--- OUTSIDE RECORDS SUMMARY | 2025-10-02 14:19 | XMS_ITS | Clinical Summary ---
Author Organization [facility] Address [address] [place] [address] Phone Care Team Providers Care Collar Starcher Name Role Phone Mook Tompkins MD Primary Care Provider [phone] Mook Tompkins MD Unavailable [phone] Armen Mccarthy MD Unavailable [phone] Eligio Plunkett MD Unavailable Allergies Active [...] mg by mouth as needed (for dental appointments/pr ocedures). 09/11/20 22 Active topiramate (TOPAMAX) 200 MG tablet Take 275 mg by mouth 2 (two) times a day. 01/17/20 23 Active topiramate (TOPAMAX) 25 MG tablet Take 275 mg by mouth 2 (two) times a day. 01/17/20 23 Active topiramate (TOPAMAX) 50 MG tablet Take 275 mg by mouth 2 (two) times a day. 01/17/20 23 Active nystatin (NYSTOP) powderIndications: Elizabeth infection Use 2 times daily as needed for rash on reddened skin under breast and abdominal folds. 30 g 3 09/19/20 23 Active carBAMazepine (TEGRETOL XR) 400 MG 12 hr tablet Take 600 mg by mouth nightly at bedtime. Active sucralfate (CARAFATE) 1 gram tablet Take 3 tablets by mouth daily. 04/13/20 24 Active omeprazole (PRILOSEC) 20 MG capsuleIndications :Gastroesophageal reflux disease, unspecified whether esophagitis present Take 1 capsule (20 mg total) by mouth 2 (two) times a day. OPEN CAPSULE AND MIX WITH SOFT FOODS. 56 capsule 06/15/20 24 Active cefuroxime (CEFTIN) 250 MG tablet Take 250 mg by mouth 2 (two) times a day. x7 days UTI started 07/14/24 prescribed by Vera Canela, CON[place] Active clotrimazole (LOTRIMIN) 1 % creamIndications:R trevon Apply 1 Application topically 2 (two) times [...] SOFT FOODS. 28 tablet 03/16/20 25 Active carBAMazepine (CARBATROL) 200 mg 12 hr capsuleIndications :Seizure disorder TAKE (2) CAPSULES BY MOUTH EVERY MORNING. TAKE 3 CAPSULES BY MOUTH IN THE EVENING. 140 capsule 05/18/20 25 Active lactase (DAIRY-AID) 3,000 unit tabletIndications: Lactose intolerance TAKE 1 TABLET 3 TIMES DAILY WITH MEALS *PACK #20 FOR DAY PROGRAM* 90 tablet 05/18/20 25 Active loratadine (CLARITIN) 10 mg tabletIndications: Allergic rhinitis, unspecified seasonality, unspecified trigger TAKE 1 TABLET BY MOUTH DAILY IN THE MORNING. CRUSH AND GIVE WITH SOFT FOODS. 28 tablet 08/02/20 25 Active guaiFENesin (CHEST CONGESTION RELIEF) 100 mg/5 mL syrupIndications:C ough, unspecified type TAKE 10 ML (200MG) BY MOUTH EVERY 8 HOURS BY MOUTH NEEDED FOR COUGH. CALL PCP IF COUGH LASTS MORE THAN 3 DAYS. *DO NOT EXCEED 3 DOSES IN 24 HOURS* 120 mL 1 08/24/20 25 Active acetaminophen (TYLENOL) 325 mg tabletIndications: Fever, unspecified fever cause,Acute nonintractable headache, unspecified headache [...] a 24 hour period. 100 tablet 5 08/24/20 25 Active cholecalciferol (VITAMIN D3) 25 MCG (1,000 unit) tabletIndications: Age-related osteoporosis without current pathological fracture TAKE 1 TABLET BY MOUTH ONCE DAILY 28 tablet 2 08/30/20 25 Active calcium citrate-vitamin D3 (CITRACAL+D) 950 mg (200 mg elemental)-250 units TabIndications:Age -related osteoporosis without current pathological fracture TAKE 1 TABLET BY MOUTH TWICE DAILY 56 tablet 2 08/30/20 25 Active Active Problems Problem Noted Date Diagnosed Date Avulsion fracture of lateral malleolus of right fibula 08/02/2025 Assessment & Plan (08/02/2025 11:56 AM EDT): Recently went to [facility] due to a fall where everything was [...] pivot with assistance. She does go to [employer] which is a day program, advise she can continue going to the day program but should avoid long walks that could exacerbate her pain or worsen the fracture. Letter written and provided to the patient to clear her to return to [facility]. Continue using her ankle brace daily. Urinary tract infection 08/04/2024 Overview (08/04/2024): 07/14/24 pres to Ed dx with uti [facility] Osteoporosis 09/29/2023 09/29/2023 Assessment & Plan (09/29/2023 [...] Encounters Date Type Department Care Team Description 09/06/2025 9:49 AM EDT - 09/06/2025 11:59 PM EDT Hospital Encounter [facility], [address] [address] Louise Ramirez MD Discharge Disposition: Home or Self Care 08/30/2025 Refill [facility] [address] [place] [address] Louise Ramirez MD Medication Refill 08/30/2025 Telephone [facility] [address] [place] [address] Mook Tompkins MD Forms & Paperwork 08/29/2025 Telephone [facility] [address] [place] [address] Mook Tompkins MD Referral 08/23/2025 Refill [facility] [address] [place] [address] Mook Tompkins MD Medication Refill 08/08/2025 Telephone [facility] [address] [place] [address] Mook Tompkins MD Revised letter 08/02/2025 9:40 AM EDT Office Visit [facility] [address] [place] [address] Paula Curran PA-C Closed avulsion fracture of lateral malleolus of right fibula, initial encounter (Primary Dx) 08/02/2025 Refill [facility] [address] [facility] [place] [address] Letitia Macias APRN Medication Refill 07/28/2025 Orders Only [facility] Internal Medicine [address] [place] [address] ProviderHarley MD 07/28/2025 Telephone [facility] Internal [facility] [address] [place] [address] Mook Tompkins MD Follow-up (Needs appt ) 07/25/2025 2:00 PM EDT Office Visit [facility] [address] [place] [address] Mook Tompkins MD Chronic pain of right ankle (Primary Dx); Ankle weakness; Cerebral palsy, unspecified type; Obesity, class 3; Flaccid hemiplegia affecting right dominant side, unspecified etiology; Seizure disorder; Other cerebral palsy; Gastroesophageal reflux disease without esophagitis; Benign essential hypertension; Vitamin D deficiency, unspecified; Hypercholesterolemi a; Anticoagulant long-term use; Impaired fasting blood sugar 07/21/2025 Telephone [facility] [address] [place] [address] Mook Tompkins MD Abdominal Pain; Ankle Pain 07/05/2025 Refill [facility] [address] [place] [address] Mook Tompkins MD Medication Refill from Last [...] PM EST Office Visit [facility] [address] [place] [address] Louise Ramirez MD [address] [facility] [address] [place] [address] [email or web address] 01/27/2026 3:00 PM EST Office Visit [facility] [address] [place] [address] Mook Tompkins MD [address] [place] [address] [email or web address] Health Maintenance Due Date Last Done Comments [...] 11/18/2024 11/18/2023, 05/2023, 07/10/2023, Additional history exists INFLUENZA VACCINE (#1) 2025 , 09/19/2023, 09/19/2023, Additional history exists COVID-19 VACCINE ( season) 2025 09/22/2024, 11/27/2023, 10/03/2021, Additional history exists DEPRESSION SCREENING 01/25/2026 01/25/2025 BLOOD PRESSURE 01/30/2026 08/02/2025 MAMMOGRAM 11/17/2026 11/17/2024, 08/01, 08/15/2022, Additional history exists SCREENING FOR DIABETES 11/18/2026 , 11/18/2023, 02/27/2017 FOLLOW UP BONE DENSITY TESTING 09/06/2027 09/06/2025, 04/23/2023, 03/19/2019, Additional history exists LIPID PANEL 06/20/2028 06/20/2023, 06/01, 01/16/2023, Additional history exists Adult Td,Tdap Booster 08/04/2034 08/04/2024 , 08/14/2012, 05/01/2002 HEPATITIS C SCREENING Completed 01/10/2020, 020 PNEUMOCOCCAL VACCINES (50+ years) Completed 01/06/2023, 08/31/2004 OSTEOPOROSIS SCREENING INITIAL (ONE-TIME) Completed 09/06/2025, 04/23/2023, 03/19/2019, Additional history exists HEPATITIS A VACCINES Aged Out No long [...] Procedure Name Priority Date/Time Associated Diagnosis Comments BD DXA AXIAL (SPINE) WITH HIP Routine 09/06/2025 10:30 AM EDT Age-related osteoporosis without current pathological fracture OUTSIDE XR SPINE REPORT ONLY Routine 07/28/2025 10:19 AM EDT BI MAMMOGRAM SCREENING WITH TOMOSYNTHESIS WITH CAD (BILATERAL) Routine 11/17/2024 11:03 AM EST Breast screening COMPREHENSIVE METABOLIC PANEL (CMP) Routine 11/18/2023 8:57 AM EST Diarrhea, unspecified type Gastroesophageal reflux disease without esophagitis LIPID PANEL Routine 06/20/2023 8:16 AM EDT Hypercholesterolemia CARBAMAZEPINE (TEGRETOL) LEVEL Routine 01/16/2023 8:38 AM [...] Recently Relevant to Health Maintenance Results * BD DXA AXIAL (SPINE) WITH HIP (09/06/2025 10:30 AM EDT) Anatomical Region Laterality Modality Bone Density Bone Density 09/06/2025 10:1 3 AM EDT Impressions 09/07/2025 2:24 PM EDT Interpretation: Osteopenia. Narrative 09/07/2025 2:24 PM EDT Referred By: LOUISE RAMIREZ Indications: Osteoporosis Scanner: BrightLine A with serial# of [id number] located at [facility] Bone Density Scan (DXA) 09/06/25 Details of prior DXA scans are available by clicking View Full Report BMD T- Z- Skeletal Site gm/cm2 score score BMD Change Since Prior Scan ------ ----- ----- PA Spine (L1-L4) 0.962 -0.80 1.10 0.007 (stable) since 04/23/2023 Total Hip (Left) 0.759 -1.50 -0.20 -0.044 (-5.5%)* since 04/23/2023 Femoral Neck (Left) 0.600 -2.20 -0.60 -0.021 (stable) since 04/23/2023 ------ ----- ----- * Denotes significant change when >= 0.022 g/cm2 for the spine, 0.027 g/cm2 for the total hip, 0.029 g/cm2 for the femoral neck. Interpretation: Osteopenia. Technical Quality: Imaging of all sites was of adequate quality. FRAX: Based on FRAX(r) 3.6 ([place] White female), this patient's likelihood of hip fracture is 1.6% and major osteoporotic fracture is 10.1% over the next 10 years. The patient reported no risks of fracture. Reviewed By: Dafne Ayala MD on 09/07/2025 14:24:04 Additional Information: -World Health Organization criteria classify adults based on lowest T-score at PA spine, hip or forearm: Normal (T-score >= -1.0), Osteopenia (T-score between -1 and -2.5), or Osteoporosis (T-score <= -2.5). At [facility], T-scores are compared to peak bone density of a young white gender matched reference population. - For premenopausal women and men under the age of 50, Z-scores (comparison to age, gender, and ethnicity matched reference population) are used: Above expected range for age (Z-score >= 2.0), Within expected range of age (Z-score 1.9 to -1.9), or Below expected range for age (Z-score <= -2.0). - The Bone Health and Osteoporosis Foundation recommends that treatment be considered in men aged more than 50 years and in postmenopausal women with ANY of the following: Prior hip or vertebral fractures; T-score of <= -2.5 at the PA spine or hip; or 10 year fracture probability by FRAX of >= 3% for the hip or >= 20% for major osteoporotic fracture. - The FRAX algorithm (https://www.tyshawn.ac.uk/FRAX/tool.aspx) is designed to predict 10-year fracture risk in treatment-naive adults between the ages of 40 and 90. It is not intended to be used in those receiving pharmacologic osteoporosis treatment. - The TBS is derived from the texture of the DXA spine image and has been shown to be related to bone microarchitecture and fracture risk. This data provides information independent of BMD value. It adds to fracture risk assessment with a FRAX adjusted for TBS score. If your patient had a TBS and qualified for a FRAX score, the reported FRAX score has been adjusted for TBS. TBS Score Interpretation 1.350 and greater Normal bone microarchitecture 1.200 to 1.350 Partially degraded bone microarchitecture 1.200 and less Degraded bone microarchitecture - Including race/ethnicity in the generation of T- or Z-scores or in the FRAX calculation is complicated, and currently undergoing active review to ensure that we can give patients the best information on their risk of fracture. - Some prior studies may not be compatible with our comparison software. - Click on View Full Report to see subsequent pages with images and prior bone density results. Procedure Note Dafne Ayala MD - 09/07/2025 Referred By: LOUISE RAMIREZ Indications: Osteoporosis Scanner: BrightLine A with serial# of [id number] located at [facility] Bone Density Scan (DXA) 09/06/25 Details of prior DXA scans are available by clicking View Full Report BMD T- Z- Skeletal Site gm/cm2 score score BMD Change Since Prior Scan ------ ----- PA Spine (L1-L4) 0.962 -0.80 1.10 0.007 (stable) since04/23/2023 Total Hip (Left) 0.759 -1.50 -0.20 -0.044 (-5.5%)* since04/23/2023 Femoral Neck (Left) 0.600 -2.20 -0.60 -0.021 (stable) since04/23/2023 ------ ----- * Denotes significant change when >= 0.022 g/cm2 for the spine, 0.027g/cm2 for the total hip, 0.029 g/cm2 for the femoral neck. Interpretation: Osteopenia. Technical Quality: Imaging of all sites was of adequate quality. FRAX: Based on FRAX(r) 3.6 ([place] White female), this patient's likelihoodof hip fracture is 1.6% and major osteoporotic fracture is 10.1% over thenext 10 years. The patient reported no risks of fracture. Reviewed By: Dafne Ayala MD on 09/07/2025 14:24:04 Additional Information: -World Health Organization criteria classify adults based on lowestT-score at PA spine, hip or forearm: Normal (T-score >= -1.0), Osteopenia (T-score between -1 and -2.5), or Osteoporosis (T-score <= -2.5). At [facility], T-scores are compared to peak bone density of a young white gender matched reference population. - For premenopausal women and men under the age of 50, Z-scores(comparison to age, gender, and ethnicity matched reference population) are used:Above expected range for age (Z-score >= 2.0), Within expected range of age (Z-score 1.9 to -1.9), or Below expected range for age (Z-score <= -2.0). - The Bone Health and Osteoporosis Foundation recommends that treatment be considered in men aged more than 50 years and in postmenopausal women with ANY of the following: Prior hip or vertebral fractures; T-score of <= -2.5 at the PA spine or hip; or 10 year fracture probability by FRAX of >= 3%for the hip or >= 20% for major osteoporotic fracture. - The FRAX algorithm (https://www.tyshawn.ac.uk/FRAX/tool.aspx) is designed to predict 10-year fracture risk in treatment-naive adultsbetween the ages of 40 and 90. It is not intended to be used in those receiving pharmacologic osteoporosis treatment. - The TBS is derived from the texture of the DXA spine image and has been shown to be related to bone microarchitecture and fracture risk. This data provides information independent of BMD value. It adds to fracture risk assessment with a FRAX adjusted for TBS score. If your patient had a TBSand qualified for a FRAX score, the reported FRAX score has been adjusted for TBS. TBS Score Interpretation 1.350 and greater Normal bone microarchitecture 1.200 to 1.350 Partially degraded bone microarchitecture 1.200 and less Degraded bone microarchitecture - Including race/ethnicity in the generation of T- or Z-scores or in the FRAX calculation is complicated, and currently undergoing active review to ensure that we can give patients the best information on their risk of fracture. - Some prior studies may not be compatible with our comparison software. - Click on View Full Report to see subsequent pages with images andprior bone density results. IMPRESSION: Interpretation: Osteopenia. Louise Ramirez MD IMMame BD BONE DENSITY DE XA Final Result * Outside XR Spine Report Only (07/28/2025 10:19 AM EDT) Historical Provider IMMame XR SPINE Final Res ult * (ABNORMAL) [...] the patient to arrange for theadditional imaging. Mook Tompkins MD IMG MG EXAMS Final Result * (ABNORMAL) Comprehensive metabolic panel (11/18/2023 8:57 AM EST) SODIUM 139 133 - 146 mmol/L [facility] POTASSIUM 3.9 3.3 - 5.1 mmol/L [facility] CHLORIDE 106 96 - 108 mmol/L [facility] CO2 26 21 - 35 mmol/L [facility] BUN 8 6 - 19 mg/dL [facility] CREATININE 0.70 0.5 - 1.5 mg/dL [facility] GLUCOSE 115(H) 70 - 99 mg/dL [facility] ALBUMIN 4.1 3.9 - 4.8 g/dL [facility] TOTAL PROTEIN 7.1 6.5 - 8.0 g/dL [facility] CALCIUM 8.9 8.4 - 10.3 mg/dL [facility] ALKALINE PHOSPHATASE 166(H) 39 - 117 U/L [facility] TOTAL BILIRUBIN <0.2 0.0 - 1.2 mg/dL [facility] AST 30 0 - 37 U/L [facility] ALT 27 0 - 40 U/L [facility] GLOBULIN 3.0 1 - 4.8 g/dL [facility] EGFR 97 >59 mL/min/1.7 3m2 [facility] Comment:Estimated glomerular filtration rate calculated using the CKD-EPI refit equation. ANION GAP 11 10 - 20 mmol/L [facility] Blood 11/18/2023 8:57 AM EST 11/18/2023 9:06 AM EST Mook Tompkins MD LAB BLOOD BKR ORDERABLES Angelique l Result [address] [address] * (ABNORMAL) Lipid panel (06/20/2023 8:16 AM EDT) HDL 60 mg/dL [facility] Comment: Interpretation <40 mg/dL: Low HDL cholesterol (major risk factor for CHD) Greater than or equal to 60 mg/dL: High HDL cholesterol ( negative risk factor for CHD) HDL - cholesterol is affected by a number of factors, e.g. smoking, excerise, hormones, sex and age. CHOLESTEROL 180 0 - 240 mg/dL [facility] TRIGLYCERIDES 134 30 - 160 mg/dL [facility] LDL 93 50 - 129 mg/dL [facility] Comment: LDL levels in terms of risk for coronary heart disease: <100 mg/dL: Optimal 100-129 mg/dL: Near or above optimal 130-159 mg/dL: Borderline high 160-189 mg/dL: High >190 mg/dL: Very High CARDIAC RISK RATIO 3.0(L) 3.3 - 4.4 C [facility] Blood 06/20/2023 8:16 AM EDT 06/20/2023 8:26 AM EDT Mook Tompkins MD LAB BLOOD BKR ORDERABLES Angelique l Result Performing Organization Address [facility]/ZIP Co de Phone Number [address] [address] * Carbamazepine (Tegretol) level (01/16/2023 8:38 AM EST) Pathologist [facility] CARBAMAZEPINE 10.5 8.0 - 12.0 ug/mL [facility] Blood 01/16/2023 8:38 AM EST 01/16/2023 8:47 AM EST Mook Tompkins MD LAB BLOOD ORDERABLES Final Re sult Performing Organization Address [facility]/ZIP Co de Phone Number [address] [address] * Hepatitis C antibody, qualitative (01/10/2020 3:55 PM EST) Pathologist [facility] HCV NON-REACTIV E NON-REACTI VE [facility] Blood 01/10/2020 3:55 PM EST 01/10/2020 4:17 PM EST Mook Tompkins MD LAB BLOOD BKR ORDERABLES Angelique l Result [facility] [address] [place] [address] * Outside Glucose,Fasting (02/27/2017) Glucose, fasting - External 82 65 - 99 mg/dL Historical Provider LAB BLOOD ORDERABLES Angelique l Result * [facility] COLONOSCOPY FOR RESULT ENTRY ONLY (10/29/2012) Colonoscopy 10 yr recall Historical Provider HEALTH MAINTENANCE Final Result from Last 3 Months or Most Recently Relevant to Health Maintenance [facility] & [place] A & [facility] [place] & [place] A & B Care Teams Collar Starcher Relationship Specialty Start Date End Date Mook Tompkins MD [address] [place] [address] PCP - General 09/18/17 Mook Tompkins MD [address] [place] [address] Insurance Assigned Provider 03/06/24 Armen Mccarthy MD [address] [place] [address] Intensive Care 01/05/20 Eligio Plunkett MD [address] [place] [address] Neurology 09/29/23 Additional Source Comments The information contained in this document represents components of the legal health record. It is not the complete legal health record.[facility]
--- OUTSIDE RECORDS SUMMARY | 2025-10-02 14:19 | XMS_ITS | Encounter Summary ---
Author Organization [facility] Address [address] [place] [address] Phone Care Team Providers Care Online Advertising Manager Name Role Phone Mook Tompkins MD Primary Care Provider [phone] Mook Tompkins MD Unavailable [phone] Armen Mccarthy MD Unavailable [phone] Ishan Henry Unavailable Unavailable Eligio Plunkett MD Unavailable [phone] Encounter Details Date Type Department Care Team (Late st Contact Info) Description 03/13/2021 Procedure Pass [address] [address] Social History Tobacco Use Types Packs/Day Years [...] 2:00 PM EST Office Visit [facility] [address] [place] [address] Teagan Ramirez MD [address] [place] [address] 01/27/2026 3:00 PM EST Office Visit [facility] Internal Medicine [address] [place] [address] Mook Tompkins MD [address] [place] [address] [email or web address] documented as of this encounter Visit Diagnoses Not on filedocumented in this encounter Additional Health Concerns Infection Onset Date Last Indicated Resolved Time CoV-Risk Comment:Per Ambulatory Triage Form 06/22/2025 06/22/202507/03 1:22 AM EDT Assessment Noted Time PHQ-2 Depression Total Score: 0 04/18/20 12:42 PM EDT documented as of this encounter Care Teams Online Advertising Manager Relationship Specialty Start Date End Date Mook Tompkins MD [address] [place] [address] [email or web address] PCP - General 09/18/17 Mook Tompkins MD [address] [place] [address] [email or web address] Insurance Assigned Provider 03/06/24 Armen Mccarthy MD [address] [place] [address] Intensive Care 01/05/20 Ishan Henry PA Neurology 07/21/20 09/28/23 Eligio Plunkett MD [address] [place] [id number] Neurology 09/29/23 documented as of this encounter Additional Source Comments The information contained in this document represents components of the legal health record. It is not the complete legal health record.[facility]
--- OUTSIDE RECORDS SUMMARY | 2025-10-02 14:19 | XMS_ITS | Data Portability ---
Author Organization [place] [facility] [place] Address [address] [place] [phone] Care Team Providers Care Corporate Executive Chef Name Role Phone SUPRIYA CORNELIUS Primary Care Provider Assessment Encounter Date Assessment Date Assessment LastModified by Organization Details LastModified Time 08/05/2021 08/05/2021 Overview/History : This is a 60 yo female whose pmhx includes HLD, Hx of PE, Cerebral palsy, seizure d/o, GERD, osteoporosis, moderate developmental delays, Vitamin D deficiency, dysphagia, constipation and arthritis. [facility] staff call with concerns for possible UTI as patient is having frequency with urination and discharge noted on pad. They also state concerns for possible increased swelling to right ankle, more than baseline swelling x 1 week. NKI or falls. Exam: Neurologically at baseline according to staff. A&Ox2. NAD. Follows simple commands and answers very simple yes or no questions VSS, afebrile Apical - regular, strong. Trace dependent edema noted to BLE. 2+ DP/PT bilaterally LS CTA ABD - soft, nontender, nondistended with hypoactive BS throughout - no suprapubic or CVA tenderness noted. Normal MM M/S - ambulatory with slow gait with cane. No limping noted. Full PROM to right ankle, no pain, tenderness noted. No obvious deformity noted DDx considered, but not limited to: Acute UTI, Complicated UTI - most likely given increased frequency with urination. U/A positive for blood, protein, nitrates, leuks. Cloudy in appearance Sepsis - not likely given VSS, afebrile currently Soft tissue injury, soft tissue swelling, arthritis - most likely given no NKI or falls. No pain/tenderness on exam. Full PROM without deformity. Ambulatory without limp Ankle fracture, sprain - not likely given no pain or tenderness on exam. Full PROM. No ecchymosis noted. Work up/Results: U/A - positive for blood, protein, nitrates, leuks Urine culture obtained Macrobid prescribed 100mg Q 12 hrs x 7 days - staff requesting Q 12 if possible for medication administration purposes and given other medication interactions, Macrobid deemed appropriate. No hx of kidney disease Right Ankle xray ordered Plan/Discussion: ER precautions discussed Take Macrobid as directed Stay well hydrated Take Tylenol as needed for pain Rest, ice, elevate ankle if develop pain We will call with xray and urine cx results [place] [address] Not available 08/05/2021 15:43:04 Plan of Treatment Reminders Order Date Submit Date Provider Last Modified By Organization Details Last Modified Time Details Appointments None recorded. Lab urinalysi s, dipstick 2020 021 [email or web address] [facility], [address] [place] [address], [id number], 15:16:52 culture, urine 2020 [facility] (Centralized Electronic Ordering - All Locations), Patient Can Go To The Location Of Their Choice, [id number] 07:58:10 Referral None recorded. Procedures None recorded. Surgeries None recorded. Imaging XR, ankle, 2 view 2020 [facility] ([facility]), [address] [place] [address], [place], [address], 08:31:34 Medication Orders Macrobid 100 mg capsule 2020 [id number], [address], [place], [address], 15:25:07 Patient TargetsNo targets recorded. Patient InstructionsNo instructions recorded. Reason for Referral None Reported. Results Created Date Observation Date Name Description Value Unit Range Abnormal Flag Note LastModifiedBy Organization Detail LastModifiedTime 08/05/20 21 08/05/2021 urina lysis , dipst ick Appearance cloudy Not Available [facility] [address] [place], [address], 08/05/2021 14:59:29 08/05/2008/05/2021 urina lysis , dipst ick Color yellow Not Available [facility] [address] [place], [address], 08/05/2021 14:59:29 08/05/20 21 08/05/2021 urina lysis , dipst ick Glucose (ref: neg) Neg Not Available [facility] [address] [place], [address], 08/05/2021 14:59:29 08/05/2008/05/2021 urina lysis , dipst ick Bilirubin (ref: neg) Neg Not Available [address] [place], [address], 08/05/2021 14:59:29 08/05/20 21 08/05/2021 urina lysis , dipst ick Ketones (ref: neg) Neg Not Available [facility] [address] [place], [address], 08/05/2021 14:59:29 08/05/2008/05/2021 urina lysis , dipst ick Specific Foster (ref: 1.003 - 1.035) 1.010 Not Available [facility] [address] [place], [address], 08/05/2021 14:59:29 08/05/2008/05/2021 urina lysis , dipst ick Blood (ref: neg) +++ Not Available [address] [place], [address], 08/05/2021 14:59:29 08/05/2008/05/2021 urina lysis , dipst ick pH (ref: 5-7) 7.0 Not Available [address] [place], [address], 08/05/2021 14:59:29 08/05/20 21 08/05/2021 urina lysis , dipst ick Protein (ref: neg) Not Available [facility] [address] [place], [address], 08/05/2021 14:59:29 08/05/20 21 08/05/2021 urina lysis , dipst ick Urobilinogen (ref: 0.2) 0.2 Not Available [facility] [address] [place], [address], 08/05/2021 14:59:29 08/05/20 21 08/05/2021 urina lysis , dipst ick Nitrites (ref: neg) positi ve Not Available [facility] [address] [place], [address], 08/05/2021 14:59:29 08/05/20 21 08/05/2021 urina lysis , dipst ick Leukocytes (ref: neg) ++ Not Available [facility] [address] [place], [address], 08/05/2021 14:59:29 08/05/2008/06/2021 URINE CULTU RE specimen description URINE Not Available [facility] ([facility] Order[facility] - All Locations) Patient Can Go To The Location Of Their Choice, [id number] 08/08/2021 07:58:10 08/05/2008/06/2021 URINE CULTU RE special requests NONE Not Available [facility] (Centralized [facility] Ordering - All Locations) Patient Can Go To The Location Of Their Choice, 08/08/2021 07:58:10 08/05/2008/08/2021 URINE CULTU RE culture >100,0 00 COL/ML ESCHER ICHIA COLI abnormal Not Available [facility] (Centralized Electronic Ordering - All Locations) Patient Can Go To The Location Of Their Choice, [id number] 08/08/2021 07:58:10 08/05/2008/08/2021 URINE CULTU RE report status FINAL 2020 Not Available [facility] (Centralized Electronic Ordering - All Locations) Patient Can Go To The Location Of Their Choice, 08/08/2021 07:58:10 08/05/2008/08/2021 URINE CULTU RE organism ORGANI SM >100,0 00 COL/ML ESCHER ICHIA COLI Not Available [facility] (Centralized Electronic Ordering - All Locations) Patient Can Go To The Location Of Their Choice, 08/08/2021 07:58:10 08/05/2008/08/2021 URINE CULTU RE method METHOD MIN. INHIB. CONC. (MCG/M L) Not Available [facility] (Centralized Electronic Ordering - All Locations) Patient Can Go To The Location Of Their Choice, 08/08/2021 07:58:10 08/05/2008/08/2021 URINE CULTU RE ampicillin AMPICI LLIN RESIST ANT resistant Not Available [facility] (Centralized Electronic Ordering - All Locations) Patient Can Go To The Location Of Their Choice, 08/08/2021 07:58:10 08/05/2008/08/2021 URINE CULTU RE ampicillin/s ulbactam AMPICI LLIN/S ULBACT AM INTERM EDIATE intermedi ate Not Available [facility] (Centralized Electronic Ordering - All Locations) Patient Can Go To The Location Of Their Choice, 08/08/2021 07:58:10 08/05/2008/08/2021 URINE CULTU RE amoxicillin/ clavulanic acid AMOXIC ILLIN/ CLAVUL AN SUSCEP TIBLE susceptib le Not Available [facility] (Centralized Electronic Ordering - All Locations) Patient Can Go To The Location Of Their Choice, 08/08/2021 07:58:10 08/05/2008/08/2021 URINE CULTU RE cefazolin CEFAZO MIGUELINA INTERM EDIATE intermedi ate Not Available [facility] (Centralized Electronic Ordering - All Locations) Patient Can Go To The Location Of Their Choice, 08/08/2021 07:58:10 08/05/2008/08/2021 URINE CULTU RE cefepime CEFEPI ME SUSCEP TIBLE susceptib le Not Available [facility] (Centralized Electronic Ordering - All Locations) Patient Can Go To The Location Of Their Choice, 08/08/2021 07:58:10 08/05/2008/08/2021 URINE CULTU RE ceftriaxone CEFTRI AXONE SUSCEP TIBLE susceptib le Not Available [facility] (Centralized Electronic Ordering - All Locations) Patient Can Go To The Location Of Their Choice, 08/08/2021 07:58:10 08/05/2008/08/2021 URINE CULTU RE ciprofloxaci n CIPROF LOXACI N SUSCEP TIBLE susceptib le Not Available [facility] (Centralized Electronic Ordering - All Locations) Patient Can Go To The Location Of Their Choice, 08/08/2021 07:58:10 08/05/2008/08/2021 URINE CULTU RE ertapenem ERTAPE NEM SUSCEP TIBLE susceptib le Not Available [facility] (Centralized Electronic Ordering - All Locations) Patient Can Go To The Location Of Their Choice, 08/08/2021 07:58:10 08/05/2008/08/2021 URINE CULTU RE gentamicin GENTAM ICIN SUSCEP TIBLE susceptib le Not Available [facility] (Centralized Electronic Ordering - All Locations) Patient Can Go To The Location Of Their Choice, 08/08/2021 07:58:10 08/05/2008/08/2021 URINE CULTU RE levofloxacin LEVOFL OXACIN SUSCEP TIBLE susceptib le Not Available [facility] (Centralized Electronic Ordering - All Locations) Patient Can Go To The Location Of Their Choice, 08/08/2021 07:58:10 08/05/2008/08/2021 URINE CULTU RE meropenem MEROPE NEM SUSCEP TIBLE susceptib le Not Available [facility] (Centralized Electronic Ordering - All Locations) Patient Can Go To The Location Of Their Choice, 08/08/2021 07:58:10 08/05/2008/08/2021 URINE CULTU RE nitrofuranto in NITROF URANTO IN SUSCEP TIBLE susceptib le Not Available [facility] (Centralized Electronic Ordering - All Locations) Patient Can Go To The Location Of Their Choice, 08/08/2021 07:58:10 08/05/2008/08/2021 URINE CULTU RE piperacillin /tazobactam PIPERA CILLIN /TAZOB AC SUSCEP TIBLE susceptib le Not Available [facility] (Centralized Electronic Ordering - All Locations) Patient Can Go To The Location Of Their Choice, [id number] 08/08/2021 07:58:10 08/05/20 21 08/08/2021 URINE CULTU RE trimeth/sulf amethox TRIMET H/SULF AMETHO X RESIST ANT resistant Not Available [facility] (Centralized Electronic Ordering - All Locations) Patient Can Go To The Location Of Their Choice, 08/08/2021 07:58:10 08/05/20 21 08/08/2021 URINE CULTU RE tetracycline TETRAC YCLINE RESIST ANT resistant Not Available [facility] (Centralized Electronic Ordering - All Locations) Patient Can Go To The Location Of Their Choice, 08/08/2021 07:58:10 08/06/20 21 XR, ankle , 2 view No observ ation record ed. [email or web address] [facility] ([facility]) [address] [place] [address], [address], 08/07/2021 07:48:17 Result Notes None recorded. Medical Equipment None Reported. Allergies Allergen ID Allergen Name Allergen Category Reaction Reaction Severity Criticality Documentation Date Start Date Code Code System Note Provider Name and Address Organization Details Recorded Time [id number] codeine medicatio n Not available Not available Not available 08/05/2021 2670 RxNorm STEPHENIE MAURICE NP [address] [place], [address], [place] [facility] 14:49:50 Medications Name Sig Start Date Stop Date Status Note LastModified by Organization Details LastModified Time alendronate 70 mg tablet active Not Available Not Available Not Available topiramate 25 mg tablet active Not Available Not Available Not Available carbamazepin e ER 200 mg tablet,exten ded release,12 hr TAKE 2 TABLET BY MOUTH DAILY IN AM, WITH 3 TABLET IN THE PM active Not Available Not Available No t Available omeprazole 20 mg capsule,marii yed release active Not Available Not Available Not Available topiramate 200 mg tablet active Not Available Not Available Not Available clotrimazole 1 % topical cream active Not Available Not Available Not Available topiramate 50 mg tablet active Not Available Not Available Not Available nitrofuranto in monohydrate/ macrocrystal s 100 mg capsule TAKE 1 CAPSULE BY MOUTH EVERY 12 HOURS FOR 7 DAYS. active Not Available Not Available Not Available carbamazepin e ER 200 mg capsule,exte nded release [id number] active Not Available Not Available N ot Available Gavilax 17 gram/dose oral powder USE 17 GRAMS BY MOUTH EVERY DAY NEEDED FOR CONSTIPATIO N active Not Available Not Available No t Available Xarelto 20 mg tablet active Not Available Not Available No t Available Vitals Date Recorded Heart rate Body temperature Oxygen saturation Oxygen saturation in Arterial blood by Pulse oximetry Respiratory rate Systolic And Diastolic Provider Name and Address Organization Details Last Updated DateTime 86 /min 98.7 [degF] 96 % 96 % 18 /min 134/84 mm[Hg] Not Available [facility] 15:09:47 Social History None recorded. Functional Status None recorded. Mental Status None recorded. Family History Nothing Reported. Medical History Condition Response High Cholesterol Y Pulmonary Embolism Y Gynecological HistoryNo gynecological history recorded. Obstetrics History GPAL:G 0 P 0 0 0 0 Past Encounters Encounter ID Performer Location Encounter Start Date Encounter Closed Date Diagnosis/Indication Diagnosis SNOMED-CT Code Diagnosis ICD10 Code Diagnosis IMO Codes Diagnosis Note [id number] STEPHENIE MAURICE NP [facility] [address] [place] [address] 08/05/2021 14:44:39 08/10/2021 14:09:51 Acute urinary tract infection 714705428 N39.0 Soft tissu e swelling of ankle joint 497174419 R22.41 Health Concerns Section Related Observation LastModified by Organization Detai ls LastModified Time None Recorded Concern Status LastModified by Organization Details LastModified Time None Recorded Advance Directives Directive None Recorded Payers Insurance Date Sequence Insurance Name Policy Number Policy Mcmahan Covered Member ID Mcmahan Member ID Guarantor Name 08/19/2022 2 [employer]ARP (MEDICARE SUPPLEMENT) Reba Stevenson [id number] Reba Stevenson 08/19/2022 2 [place] [employer] [employer] Reba Stevenson [id number] Reba Stevenson 08/19/2022 1 [place] [facility] Reba Stevenson [id number] Reba Stevenson 08/19/2022 2 A[employer] (MEDICARE SUPPLEMENT) Reba Stevenson [id number] Reba Stevenson 08/19/2022 2 [facility] - PLAN 1 (MEDICARE SUPPLEMENT) Reba Stevenson [id number] Reba Stevenson 08/19/2022 2 [facility] - PLAN [facility] (MEDICARE SUPPLEMENT) Reba Stevenson [id number] Reba Stevenson 08/19/2022 2 [employer] (MEDICARE SUPPLEMENT) Reba Gomezowski [id number] Reba Stevenson 08/19/2022 2 [employer] (MEDICARE SUPPLEMENT) Reba Gomezowski [id number] Reba Stevenson 08/19/2022 2 [employer] (MEDICARE SUPPLEMENT) Reba Stevenson [id number] Reba Stevenson 08/19/2022 2 [place] Reba Gomezowski [id number] Reba Gomezowski 08/05/2021 1 [place] [facility] Rebacolt Stevenson [id number] Reba Gomezowski 08/19/2022 2 [place] [facility] Reba Stevenson [id number] Reba Gomezowski 08/05/2021 1 *SELF PAY* Reba Elva [id number] Reba Stevenson 08/05/2021 1 [place] Reba Gomezowski [id number] Reba Stevenson 08/19/2022 1 MEDICARE B-[place]: [facility] Reba Gomezowski [id number] Reba Gomezowski Notes Date Note Type Note Provider Name and Address Organization Details Recorded Time 08/05/2021 text/html This is a 60 yo female, new to , whose penitentiary staff call with concerns for possible UTI and ankle swelling. Her PMHx includes HLD, Hx of PE, Cerebral palsy, seizure d/o, GERD, osteoporosis, moderate developmental delays, Vitamin D deficiency, dysphagia, constipation and arthritis. She currently resides in a penitentiary setting however is legally competent to make her own medical decisions according to staff and patient's medical paperwork. Staff state that she developed frequency with urination afternoon which has been constant since. The patient denies any pain, burning or difficulty urinating. The staff deny any changes in baseline behaviors or appetite. The staff also state they noticed that the patient's right ankle is swollen x 1 week. The patient has chronic swelling in that ankle and typically wears a brace due to CP, they state the swelling appears worse than normal. The staff and patient deny any recent injuries or falls. The patient denies any pain or discomfort. STEPHENIE MAURICE NP [address] [place], [address], [place] [facility] 08/05/2021 15:43:26 OBGyn Episode No OBEpisode recorded.
--- OUTSIDE RECORDS SUMMARY | 2025-10-02 14:19 | XMS_ITS | Encounter Summary ---
Author Organization [facility] Address [address] [place] [address] Phone Care Team Providers Care Universal Worker Assisted Living Name Role Phone Mook Tompkins MD Primary Care Provider Mook Tompkins MD Unavailable [phone] Armne Mccarthy MD Unavailable [phone] Ishan Henry Unavailable Unavailable Eligio Plunkett MD Unavailable [phone] Encounter Details Date Type Department Care Team (Latest Contact Info) Description 08/16/2022 Transcribe Orders Virtual Department [address] [place], [place] [id number] Mook Tompkins MD [address] [place] [address] [email or web address] Abnormal mammogram of left breast (Primary Dx) [...] high school, GED, job training, learning the Lithuanian language, technical skills, or developing parenting skills)? [...] PM EST Office Visit [facility] [address] [place] [address] Teagan Ramirez MD [address] [place] [address] 01/27/2026 3:00 PM EST Office Visit [facility] [place] [facility] [address] [place] [address] Mook Tompkins MD [address] [place] [address] documented as of this encounter Results * [...] documented as of this encounter Care Teams Universal Worker Assisted Living Relationship Specialty Start Date End Date Mook Tompkins MD [address] [place] [address] [email or web address] PCP - General 09/18/17 Mook Tompkins MD [address] [place] [address] [email or web address] Insurance Assigned Provider 03/06/24 Armen Mccarthy MD [address] [place] [address] Intensive Care 01/05/20 Ishan Henry PA Neurology 07/21/20 09/28/23 Eligio Plunkett MD [address] [place] [address] Neurology 09/29/23 documented as of this encounter Additional Source Comments The information contained in this document represents components of the legal health record. It is not the complete legal health record.[facility]
--- OUTSIDE RECORDS SUMMARY | 2025-10-02 14:19 | XMS_ITS | Encounter Summary ---
Author Organization [facility] Address [address] [place] [address] Phone Care Team Providers Care Wet Wheeler Name Role Phone Mook Tompkins MD Primary Care Provider [phone] Mook Tompkins MD Unavailable [phone] Armen Mccarthy MD Unavailable [phone] Eligio Plunkett MD Unavailable [phone] Reason for Visit * Reason Onset Date Comments Follow-up 07/28/2025 Needs appt Encounter Details Date Type Department Care Team (Late st Contact Info) Description 07/28/2025 [facility] [address] [place], [place] [phone] Mook Tompkins MD [address] [place], [place] [phone] [email or web address] Follow-up (Needs appt ) Social History Tobacco [...] Fransisca Peñaloza - 07/28/2025 10:14 AM EDT [facility] Smart Phrases: Emergency Department (ED, ER) Appointment Booking Telephone Encounter 1.Appointment scheduled within 5 calendar days:YES/NO: no? NO appt book as next available is 08/29/2025 with any provider 2.Virtual or in-person appointment: 3.Information related to the patient ER/ED visit: A. Facility Name:[facility] B. Date of ED Visit: Date (mm/dd/yy): [...] 2:00 PM EST Office Visit [facility] [address] [place] [address] Teagan Ramirze MD [address] [place] [address] 01/27/2026 3:00 PM EST Office Visit [facility] [place] [facility] [address] [place] [address] Mook Tompkins MD [address] [place] [address] documented as of this encounter Visit Diagnoses Not on filedocumented in this encounter Additional Health Concerns Assessment Noted Time PHQ-2 Depression Total Score: 0 01/25/20 25 3:52 PM EST documented as of this encounter Care Teams Wet Wheeler Relationship Specialty Start Date End Date Mook Tompkins MD [address] [place] [address] PCP - General 09/18/17 Mook Tompkins MD [address] [place] [address] Insurance Assigned Provider 03/06/24 Armen Mccarthy MD [address] [place] [address] Intensive Care 01/05/20 Eligio Plunkett MD [address] [place] [address] Neurology 09/29/23 documented as of this encounter Additional Source Comments The information contained in this document represents components of the legal health record. It is not the complete legal health record.[facility]
--- OUTSIDE RECORDS SUMMARY | 2025-10-02 14:19 | XMS_ITS | Encounter Summary ---
Author Organization [facility] Address [address] [facility] [address] [place] [address] Phone Care Team Providers Care Touch Up Worker Name Role Phone Mook Tompkins MD Primary Care Provider [phone] Mook Tompkins MD Unavailable [phone] Armen Mccarthy MD Unavailable [phone] Eligio Plunkett MD Unavailable [phone] Encounter Details Date Type Department Care Team (Late st Contact Info) Description 11/18/2024 Procedure Pass [facility], [address] [address] Social History Tobacco Use Types Packs/Day Years [...] high school, GED, job training, learning the Danish language, technical skills, or developing parenting skills)? [...] 2:00 PM EST Office Visit [facility] [address] [place] [address] [place] [address] Teagan Ramirez MD [address] [facility] [address] [place] [address] 01/27/2026 3:00 PM EST Office Visit [facility] [address] [place] [address] Mook Tompkins MD [address] [place] [address] documented as of this encounter Visit Diagnoses Not on filedocumented in this encounter Additional Health Concerns Infection Onset Date Last Indicated Resolved Time CoV-Risk Comment:Per Ambulatory Triage Form 06/22/2025 06/22/202507/03 1:22 AM EDT Assessment Noted Time PHQ-2 Depression Total Score: 0 01/22/20 10:04 AM EST documented as of this encounter Care Teams Touch Up Worker Relationship Specialty Start Date End Date Mook Tompkins MD [address] [place] [address] PCP - General 09/18/17 Mook Tompkins MD [address] [place] [address] Insurance Assigned Provider 03/06/24 Armen Mccarthy MD [address] [place] [address] Intensive Care 01/05/20 Eligio Plunkett MD [address] [place] [address] Neurology 09/29/23 documented as of this encounter Additional Source Comments The information contained in this document represents components of the legal health record. It is not the complete legal health record.[facility]
== END 2025-09-30 14:17 | disposition home or self-care (01) ==
LOC: HO.HOSX 14:16
PROVIDERS: Visit Provider Physician Assistant
DX: Z13.89 Encounter for screening for other disorder (principal)

== ENCOUNTER 2025-10-11 13:51 | Outpatient (RCR) | payer MEDICARE, MEDICAID, SELFPAY ==
--- NOTE | 2025-10-11 14:50 | MHC.PT.EP ---
[facility] [place] Office [place] Office [place] Office [address] [phone] F: [phone] F: [phone] F: [phone] F: [phone] Physical Therapy Plan of Care Date of Evaluation: 10/11/25 Date of Surgery: n/a Diagnosis: R distal fibular ankle avulsion fx Assessment: Pt presented to PT with an order for R distal fibular ankle avulsion fx. Pt not motivated to participate in this evaluation and stating she doesn't want to do therapy. Educated pt that this can help her walk better and more safe however she continue to decline. Ultimately based on pt's limited participation in subjective portion of this exam and lack of participation in objective portion of this exam this PT determined that this is not an appropriate intervention for this pt. Educated staff that per ortho order she has no restrictions and can increase activity at the [facility] as tolerated but it is not indicated to do PT due to pt lack of desire to participate. Therefore eval was ended and pt will be d/c. Frequency and Duration: The patient will be seen Short Term Goals: [facility] Goals: Treatment Plan: Modalities to reduce pain, spasms and effusion. Manual therapy to restore motion and function. Therapeutic exercise to improve strength and flexibility. Neuromuscular re-education for posture and balance. Therapeutic activities to return to functional activities of daily living. Electronically signed by: Abigail Plaza, PT, DPT, ATC Please sign and return to therapist. Thank you for your referral.
--- NOTE | 2025-10-11 14:50 | MHC.PT.DC ---
[facility] [place] Office [place] Office [place] Office [address] Deborah Byrd [address] [phone] F: [phone] F: [phone] F: [phone] F: [phone] Physical Therapy Discharge Report Diagnosis: R distal fibular ankle avulsion fx Date of Surgery: n/a Date of Evaluation: 10/11/25 Date of Discharge: 10/11/25 Treatments to Date: 1 Cancellations to Date: 0 No Shows to Date: 0 Discharge Status: Patient Elected to Stop Recommend MD Follow-up Discharge Summary: Pt presented to PT with an order for R distal fibular ankle avulsion fx. Pt not motivated to participate in this evaluation and stating she doesn't want to do therapy. Educated pt that this can help her walk better and more safe however she continue to decline. Ultimately based on pt's limited participation in subjective portion of this exam and lack of participation in objective portion of this exam this PT determined that this is not an appropriate intervention for this pt. Educated staff that per ortho order she has no restrictions and can [facility] the [facility] as tolerated but it is not indicated to do PT due to pt lack of desire to participate. Therefore eval was ended and pt will be d/c. Electronically signed by: Abigail Plaza, PT, DPT, ATC Please sign and return to therapist. Thank you for your referral.
== END 2025-10-11 14:50 | disposition home or self-care (01) ==
LOC: HO.PTCHIC 13:51
PROVIDERS: PCP Internal Medicine; Visit Provider Physician Assistant
DX: S82.891D Other fracture of right lower leg, subsequent encounter for closed fracture with routine healing (principal)
CPT/HCPCS: 97163

== ENCOUNTER 2025-11-04 09:08 | Outpatient (AMB) | payer MEDICARE, MEDICAID, SELFPAY ==
--- NOTE | 2025-11-04 09:21 | A.OFFVIS_ITS ---
Intake Visit Reasons: OV-Right Ankle Fx, DOI: 07/28/25-w/xrays Intake Note: Reba is a 64 year old female who presents today for a follow up of her right ankle fracture, DOI 07/28/25. AT her last visit patient was placed in a tall walking boot and advised to go to physical therapy. At this time patient is not having pain she take tylenol when needed and uses her lace up abkkle brace. . Allergies codeine (CODEINE) Allergy (Unknown, Verified 11/04/25 09:30) UNKNOWN HPI HPI OV-Right Ankle Fx, DOI: 07/28/25-w/xrays: Details: Ms. Stevenson is a 64-year-old female who presents to the office today for follow-up status post right ankle avulsion fracture that occurred on 07/28/2025. At her last appointment on 09/02/2025 I recommended that the patient begin working with physical therapy, wean out of the walking boot and back into her lace-up ankle brace that she wears at baseline. PFSH Medical History Cerebral palsy Seizures Surgical History Hx of cholecystectomy Family History Mother Stomach cancer Social History Housing Other:: longterm Tobacco use type: Cigarette Review of Systems Const All systems reviewed & are unremarkable except as noted in HPI and below Physical Exam Const General: cooperative, healthy appearing and no acute distress Resp Effort & Inspection: normal respiratory effort and able to speak in complete sentences Extrem Other: Right ankle full dorsiflexion and plantar flexion. Pedal pulse intact. NVI. Patient somnolent in wheelchair. Psych Appearance: grossly normal Mental Status: mental status grossly normal Attitude: cooperative Assessment & Plan Assessment & Plan (1) Avulsion fracture of ankle: Code(s): S82.899A - Other fracture of unspecified lower leg, initial encounter for closed fracture Category: Medical (2) Osteoarthritis of right ankle: Code(s): M19.071 - Primary osteoarthritis, right ankle and foot Category: Medical Plan Ms. Stevenson is a 64-year-old female who presents to the office today for follow-up status post right ankle avulsion fracture that occurred on 07/28/2025. At her last appointment on 09/02/2025 I recommended that the patient begin working with physical therapy, wean out of the walking boot and back into her lace-up ankle brace that she wears at baseline. While in the office today, the patient is accompanied by her veterinary x ray operator [facility]. Patient can resume back to normal activities as tolerated. She uses a lace-up ankle brace at baseline due to right-sided weakness and deficit. The group practice pediatrician presents the lace-up ankle brace that the patient has been using since 2019. I provided her with a new lace-up ankle brace off the shelf while in the office today. She will wear this as needed during activities as she has done prior to this recent injury. She will follow up PRN, sooner if needed. X-rays of the right ankle which were obtained while in the office today and were reviewed by me, Nancy Cedeno PA-C, revealed routine healing. Orders: Orders XR ankle RT min 3V Today M25.579 - Pain in unspecified ankle and joints of unspecified foot Coding Level of Care Code Est Pt Level 3 (94107) Complex visit Add On G2211 Diagnoses Avulsion fracture of ankle S82.899A Osteoarthritis of right ankle M19.071
== END 2025-11-04 09:51 | disposition home or self-care (01) ==
LOC: HO.HOS 09:08
PROVIDERS: Visit Provider Physician Assistant
DX: S82.891A Other fracture of right lower leg, initial encounter for closed fracture (principal); M19.071 Primary osteoarthritis, right ankle and foot
CPT/HCPCS: 99213; G2211

== ENCOUNTER → 2025-11-04 09:11 | Outpatient (BNV) | payer MEDICARE, MEDICAID, SELFPAY | PROVIDERS: Visit Provider Radiology Diagnostic Ultrasound | DX: M19.071 Primary osteoarthritis, right ankle and foot (principal) | CPT/HCPCS: 73610 ==

== ENCOUNTER 2025-11-04 16:34 | Outpatient (REF) | payer MEDICARE, MEDICAID, SELFPAY ==
--- NOTE | ~2025-11-04 | XR_ITS ---
EXAMINATION: XR ANKLE, RIGHT CLINICAL INFORMATION: M25.579 - Pain in unspecified ankle and joints of unspecified foot COMPARISON: X-ray 09/02/2025 TECHNIQUE: 4 views of the right ankle. FINDINGS: Bone mineralization is decreased. Redemonstrated is a hindfoot arthrodesis. Hardware is intact, with no perihardware lucencies seen. Redemonstrated corticated ossification adjacent to the tip of the lateral malleolus, likely related to remote trauma. Moderate tibiotalar joint arthritis. Redemonstrated bony irregularity in the region of the talus, best visualized on the lateral view, unchanged. No visible acute fracture or dislocation. Soft tissue swelling. XR/XR ankle RT min 3V IMPRESSION: Status post hindfoot arthrodesis. Moderate tibiotalar joint degeneration. Additional findings as above Electronically signed by: Joesph Redman MD 11/04/2025 02:25 PM [facility]
--- OUTSIDE RECORDS SUMMARY | 2025-11-06 16:36 | XMS_ITS | Encounter Summary ---
Author Organization [facility] Address [address] [facility] [address] [place] [address] Phone Care Team Providers Care Driver Merchandiser Name Role Phone Mook Tompkins MD Primary Care Provider [phone] Mook Tompkins MD Unavailable [phone] Armen Mccarthy MD Unavailable [phone] Eligio Plunkett MD Unavailable [phone] Encounter Details Date Type Department Care Team (Late st Contact Info) Description 11/18/2024 Procedure Pass [facility], [address] [address] Social History Tobacco Use Types Packs/Day Years [...] high school, GED, job training, learning the Czech language, technical skills, or developing parenting skills)? [...] Care Team (Late st Contact Info) Description 01/27/2026 3:00 PM EST Office Visit [facility] [address] [place] [address] Mook Tompkins MD [address] [place] [address] 10/12/2026 2:00 PM EST Office Visit [facility] [address] [place] [address] Teagan Ramirez MD [address] [address] documented as of this encounter Visit Diagnoses Not on filedocumented in this encounter Additional Health Concerns Infection Onset Date Last Indicated Resolved Time CoV-Risk Comment:Per Ambulatory Triage Form 06/22/2025 06/22/202507/03 1:22 AM EDT Assessment Noted Time PHQ-2 Depression Total Score: 0 01/22/20 10:04 AM EST documented as of this encounter Care Teams Driver Merchandiser Relationship Specialty Start Date End Date Mook Tompkins MD [address] [place] [address] PCP - General 09/18/17 Mook Tompkins MD [address] [place] [address] Insurance Assigned Provider 03/06/24 Armen Mccarthy MD [address] [place] [address] Intensive Care 01/05/20 Eligio Plunkett MD [address] [place] [address] Neurology 09/29/23 documented as of this encounter Additional Source Comments The information contained in this document represents components of the legal health record. It is not the complete legal health record.[facility]
--- OUTSIDE RECORDS SUMMARY | 2025-11-06 16:36 | XMS_ITS | Encounter Summary ---
Author Organization [facility] Address [address] [facility] [address] [place] [address] Phone Care Team Providers Care Plant Health Manager Name Role Phone Mook Tompkins MD Primary Care Provider [phone] Mook Tompkins MD Unavailable [phone] Armen Mccarthy MD Unavailable [phone] Eligio Plunkett MD Unavailable [phone] Encounter Details Date Type Department Care Team (Late st Contact Info) Description 07/23/2024 Procedure Pass [facility], [address] [id number] Social History Tobacco Use Types Packs/Day Years [...] high school, GED, job training, learning the Beninese language, technical skills, or developing parenting skills)? [...] EST Office Visit [facility] [place] [facility] [address] [place] [address] Mook Tompkins MD [address] [place] [address] 10/12/2026 2:00 PM EST Office Visit [facility] [address] [place] [address] Teagan Ramirez MD [address] [address] documented as of this encounter Visit Diagnoses Not on filedocumented in this encounter Additional Health Concerns Infection Onset Date Last Indicated Resolved Time CoV-Risk Comment:Per Ambulatory Triage Form 06/22/2025 06/22/202507/03 1:22 AM EDT Assessment Noted Time PHQ-2 Depression Total Score: 0 01/22/20 10:04 AM EST documented as of this encounter Care Teams Plant Health Manager Relationship Specialty Start Date End Date Mook Tompkins MD [address] [place] [address] PCP - General 09/18/17 Mook Tompkins MD [address] [place] [address] Insurance Assigned Provider 03/06/24 Armen Mccarthy MD [address] [place] [address] Intensive Care 01/05/20 Eligio Plunkett MD [address] [place] [address] Neurology 09/29/23 documented as of this encounter Additional Source Comments The information contained in this document represents components of the legal health record. It is not the complete legal health record.[facility]
--- OUTSIDE RECORDS SUMMARY | 2025-11-06 16:36 | XMS_ITS | Clinical Summary ---
Author Organization [facility] Address [address] [place] [address] Phone Care Team Providers Care Cableway Operator Name Role Phone Mook Tompkins MD Primary Care Provider Allergies Active Allergy Reactions Criticality Noted Date [...] Description 08/24/2025 10:50 AM EDT Office Visit [facility] [address] [facility] [address] [place] [address] Sheldon Baltazar MD Coronary artery disease, unspecified vessel or lesion type, unspecified whether angina present, unspecified whether [place] or transplanted heart (Primary Dx) from Last 3 Months Immunizations Immunization Administration Dates Next Due [facility] SARS-CoV-2 COVID-19, mRNA, LNP-S, preservative free 10/03/2021,01/31/2021,01/10/2021 Surgical History Surgery Date Site/Laterality Comments CHOLECYSTECTOMY PROCEDURE: [place] LAPAROSCOPY SURG CHOLECYSTECTOMY OTHER SURGICAL HISTORY PROCEDURE: [...] history exists Depression Screening 12/01/2024 COVID-19 Vaccine ( season) 2025 09/22/2024, 11/27/2023, 10/03/2021, Additional [...] type, unspecified whether angina present, unspecified whether [place] or transplanted heart SCR MAMMO BI INCL [...] GEMUSE QTc 424 ms GEMUSE P Wave Moore 27 degrees GEMUSE R Moore -29 degrees GEMUSE T Moore 11 degrees GEMUSE ECG Interpretation Sinus bradycardia [...] Insurance MEDICARE MEDICAID - [place] Care Teams Cableway Operator Relationship Specialty Start Date End Date Mook Tompkins MD [address] [place] [address] PCP - General 08/26/08
--- OUTSIDE RECORDS SUMMARY | 2025-11-06 16:36 | XMS_ITS | Encounter Summary ---
Author Organization [facility] Address [address] [place] [address] [place] [address] Phone Care Team Providers Care Planning Aide Name Role Phone Mook Tompkins MD Primary Care Provider [phone] Mook Tompkins MD Unavailable [phone] Armen Mccarthy MD Unavailable [phone] Eligio Plunkett MD Unavailable [phone] Encounter Details Date Type Department Care Team (Late st Contact Info) Description 11/18/2024 Ancillary Orders [facility], [address] [phone] Mook Tompkins MD [address] [place] [address] [email or web address] Abnormal mammogram (Primary Dx) Social History Tobacco [...] high school, GED, job training, learning the Bulgarian language, technical skills, or developing parenting skills)? [...] Description 01/27/2026 3:00 PM EST Office Visit [facility] [address] [place] [address] Mook Tompkins MD [address] [place] [address] [email or web address] 10/12/2026 2:00 PM EST Office Visit [facility] [address] [place] [address] [place] [address] Teagan Ramirez MD [address] [place] [address] documented as of this encounter Results * [...] patient at time ofexamination. Mook Tompkins MD [facility] BREAST Final Result documented in this encounter [...] as of this encounter Care Teams Planning Aide Relationship Specialty Start Date End Date Mook Tompkins MD [address] [place] [address] PCP - General 09/18/17 Mook Tompkins MD [address] [place] [address] Insurance Assigned Provider 03/06/24 Armen Mccarthy MD [address] [place] [address] Intensive Care 01/05/20 Eligio Plunkett MD [address] [place] [address] Neurology 09/29/23 documented as of this encounter Additional Source Comments The information contained in this document represents components of the legal health record. It is not the complete legal health record.[facility]
--- OUTSIDE RECORDS SUMMARY | 2025-11-06 16:37 | XMS_ITS | Encounter Summary ---
Author Organization [facility] Address [address] [place] [address] Phone Care Team Providers Care Spudder Name Role Phone oMok Tompkins MD Primary Care Provider [phone] Mook Tompkins MD Unavailable [phone] Armen Mccarthy MD Unavailable [phone] Ishan Henry Unavailable Unavailable Eligio Plunkett MD Unavailable [phone] Encounter Details Date Type Department Care Team (Latest Contact Info) Description 03/13/2021 Transcribe Orders Virtual Department [address] [place] [address] Mook Tompkins MD [address] [place] [address] [email or web address] Breast screening (Primary Dx) Social History Tobacco [...] Description 01/27/2026 3:00 PM EST Office Visit [facility] [address] [place] [address] Mook Tompkins MD [address] [place] [address] 10/12/2026 2:00 PM EST Office Visit [facility] [address] [place] [address] Teagan Ramirez MD [address] [place] [address] [email or web address] documented as of this encounter Results * [...] documented as of this encounter Care Teams Spudder Relationship Specialty Start Date End Date Mook Tompkins MD [address] [place] [address] PCP - General 09/18/17 Mook Tompkins MD [address] [place] [address] Insurance Assigned Provider 03/06/24 Armen Mccarthy MD [address] [place] [address] Intensive Care 01/05/20 Ishan Henry PA Neurology 07/21/20 09/28/23 Eligio Plunkett MD [address] [place] [address] Neurology 09/29/23 documented as of this encounter Additional Source Comments The information contained in this document represents components of the legal health record. It is not the complete legal health record.[facility]
--- OUTSIDE RECORDS SUMMARY | 2025-11-06 16:37 | XMS_ITS | Clinical Summary ---
Author Organization [facility] Address [address] [place] [address] Phone Care Team Providers Care Pattern Ruler Name Role Phone Mook Tompkins MD Primary Care Provider [phone] Mook Tompkins MD Unavailable [phone] Armen Mccarthy MD Unavailable [phone] Eligio Plunkett MD Unavailable Allergies Active Allergy Reactions Criticality Noted Date Comments Codeine Unknown 05/26/2018 Other reaction(s): UNKNOWN Other Reaction(s): Not available Medications rivaroxaban (XARELTO) 20 mg Tab Take 20 mg by mouth daily. Active LORazepam (ATIVAN) 0.5 MG tablet Take [...] abdominal folds. 30 g 3 023 Active sucralfate (CARAFATE) 1 gram tablet Take 3 tablets by mouth daily. 024 Active omeprazole (PRILOSEC) 20 MG capsuleIndication s:Gastroesophagea l reflux disease, unspecified whether esophagitis present Take 1 capsule (20 mg total) by mouth 2 (two) times a day. OPEN CAPSULE AND MIX WITH SOFT FOODS. 56 capsule 11 024 Active clotrimazole (LOTRIMIN) 1 % creamIndications: Rash Apply 1 Application topically 2 (two) times a day as needed. For feet until rash clears 30 g 4 024 Active metoprolol succinate (TOPROL-XL) 50 MG 24 hr tablet TAKE 1 TABLET BY MOUTH EVERY MORNING. DO NOT CRUSH, GIVE WITH SOFT FOOD. HOLD MED IF BLOOD PRESSURE IS <90/60 OR IF HEART RATE <50. 28 tablet 025 Active atorvastatin (LIPITOR) 80 MG tablet TAKE 1 TABLET BY MOUTH DAILY EVERY EVENING. CRUSH AND GIVE WITH SOFT FOODS. 28 tablet 025 Active loratadine (CLARITIN) 10 mg [...] BY MOUTH ONCE DAILY 28 tablet 2 Active calcium citrate-vitamin D3 (CITRACAL+D) 950 mg (200 mg elemental)-250 units TabIndications:Ag e-related osteoporosis without current pathological fracture TAKE 1 TABLET BY MOUTH TWICE DAILY 56 tablet 2 025 Active aspirin 81 MG EC tablet TAKE 1 TABLET BY MOUTH ONCE DAILY 28 tablet 025 Active carBAMazepine (CARBATROL) 200 mg 12 hr capsuleIndication s:Seizure disorder TAKE (2) CAPSULES BY MOUTH EVERY MORNING. TAKE 3 CAPSULES BY MOUTH IN THE EVENING. 140 capsule 025 Active DAIRY RELIEF 3,000 unit tabletIndications :Lactose intolerance TAKE 1 TABLET 3 TIMES DAILY WITH MEALS *PACK #20 FOR DAY PROGRAM* 90 tablet 3 025 Active aspirin 81 MG EC tablet TAKE 1 TABLET BY MOUTH ONCE DAILY IN THE MORNING. Start after buffered aspirin taper 28 tablet 11 024 2024 Discontinued carBAMazepine (CARBATROL) 200 mg 12 hr capsuleIndication s:Seizure disorder TAKE (2) CAPSULES BY MOUTH EVERY MORNING. TAKE 3 CAPSULES BY MOUTH IN THE EVENING. 140 capsule 5 025 2024 Discontinued lactase (DAIRY-AID) 3,000 unit tabletIndications :Lactose intolerance TAKE 1 TABLET 3 TIMES DAILY WITH MEALS *PACK #20 FOR DAY PROGRAM* 90 tablet 5 025 2024 Discontinued Active Problems Problem Noted Date Diagnosed Date Avulsion fracture of lateral malleolus of right fibula 08/02/2025 Assessment & Plan (08/02/2025 11:56 AM EDT): Recently went to [facility] due to a fall where everything [...] pivot with assistance. She does go to [employer] which is a day program, advise she can continue going to the day program but should avoid long walks that could exacerbate her pain or worsen the fracture. Letter written and provided to the patient to clear her to return to [facility]. Continue using her ankle brace daily. Urinary tract infection 08/04/2024 Overview (08/04/2024): 07/14/24 pres to [place] [facility] 09/29/2023 09/29/2023 Assessment & Plan (10/07/2025 4:49 PM EST): 64 y.o. woman with osteoporosis on bone density. She is post-menopausal and has been on long-term anti-seizure medications. She had a recent traumatic ankle fracture, but has otherwise not fractured as far as I know. She had been on bisphosphonate rx for at least 13 years which was recently discontinued in ~ 2022. Her recent bone density measured slightly lower in the total hip (which is in the fairly mildly osteopenic range), but was otherwise stable. She sees a dentist regularly. She is getting a good amount of calcium & vitamin D in via diet and supplement. She has very limited weight-bearing activity & is now getting on the van in a wheelchair due to previous fall. Would include CTX along with other labs being done via PCP. Assessment & Plan (09/29/2023 5:14 PM EDT): [...] anticonvulsant 09/29/20 23 Vitamin D deficiency 09/29/2023 Assessment & Plan (10/07/2025 4:50 PM EST): Will check level & adjust rx as appropriate. Flaccid hemiplegia affecting right dominant side, unspecified [...] Encounters Date Type Department Care Team Description 10/25/2025 Refill [facility] Internal Medicine [address] [place] [address] Mook Tompkins MD Medication Refill 10/25/2025 Refill [facility] Internal Medicine [address] [place] [address] Mook Tompkins MD Medication Refill 10/06/2025 2:00 PM EST Office Visit [facility] [address] [place] [address] Louise Ramirez MD Age-related osteoporosis without current pathological fracture (Primary Dx); Vitamin D deficiency 09/06/2025 9:49 AM EDT - 09/06/2025 11:59 PM EDT Hospital Encounter [facility], [facility] D[facility] [address] [place] [address] Louise Ramirez MD Discharge Disposition: Home or Self Care 08/30/2025 Refill [facility] [address] [place] [address] Louise Ramirez MD Medication Refill 08/30/2025 Telephone [facility] Internal Medicine [address] [place] [address] Mook Tompkins MD Forms & Paperwork 08/29/2025 Telephone [facility] Internal Medicine [address] [place] [address] Mook Tompkins MD Referral 08/23/2025 Refill [facility] Internal Medicine [address] [place] [address] Mook Tompkins MD Medication Refill 08/08/2025 Telephone [facility] Internal Medicine [address] [place] [address] Moko Tompkins MD Revised letter from Last 3 Months Immunizations Immunization Administration [...] Years Used Date Smoking Tobacco: Former Cigarettes Passive Smoke Exposure: Past Smokeless Tobacco: Never Tobacco Cessation:Counseling Given: Not [...] is your housing situation today? I have braydencharlie foss 01/06/2023 How many times have you [...] Sign Reading Time Taken Comments Blood Pressure 118/70 10/06/2025 1:47 PM EST Pulse 65 10/06/2025 1:47 PM EST Temperature 35.9 C (96.6 F) 08/02/2025 9:37 AM EDT Respiratory Rate 20 10/06/2025 1:47 PM EST Oxygen Saturation 94% 10/06/2025 1:47 PM EST Inhaled Oxygen Concentration - - Weight 91.4 kg (201 lb 9.6 oz) 07/25/2025 2:09 P M EDT Height 142.2 cm (4' 7.98 ) 08/02/2025 9:37 AM ED T Body Mass Index 45.22 07/25/2025 2:09 PM EDT Plan of Treatment Upcoming Encounters Date Type Department Care Team (Late st Contact Info) Description 01/27/2026 3:00 PM EST Office Visit [facility] [address] [place] [address] Mook Tompkins MD [address] [place] [address] [email or web address] 10/12/2026 2:00 PM EST Office Visit [facility] [address] [place] [address] [place] [address] Louise Ramirez MD [address] [place], [place] [address] [address] Health Maintenance Due Date Last Done Comments [...] exists DEPRESSION SCREENING 01/25/2026 01/25/2025 BLOOD PRESSURE 04/05/2026 10/06/2025 MAMMOGRAM 11/17/2026 11/17/2024, 08/01, 08/15/2022, Additional history [...] EDT Age-related osteoporosis without current pathological fracture BI MAMMOGRAM SCREENING WITH TOMOSYNTHESIS WITH CAD [...] Referred By: LOUISE RAMIREZ Indications: Osteoporosis Scanner: Cardiosonic A with serial# of [id number] located at [facility] Bone Density Scan (DXA) 09/06/25 [...] -2.5), or Osteoporosis (T-score <= -2.5). At [facility], T-scores are compared to peak [...] Referred By: LOUISE RAMIREZ Indications: Osteoporosis Scanner: Cardiosonic A with serial# of [id number] located at [facility] Bone Density Scan (DXA) 09/06/25 Details of [...] -2.5), or Osteoporosis (T-score <= -2.5). At [facility], T-scores are compared to peak [...] andprior bone density results. IMPRESSION: Interpretation: Osteopenia. us Louise Ramirez MD IMG BD BONE DENSITY DE XA Final Result * (ABNORMAL) BI MAMMOGRAM SCREENING WITH TOMOSYNTHESIS [...] EST) SODIUM 139 133 - 146 mmol/L [facility] POTASSIUM 3.9 3.3 - 5.1 mmol/L [facility] CHLORIDE 106 96 - 108 mmol/L [facility] CO2 26 21 - 35 mmol/L [facility] BUN 8 6 - 19 mg/dL [facility] CREATININE 0.70 0.5 - 1.5 mg/dL [facility] GLUCOSE 115(H) 70 - 99 mg/dL [facility] ALBUMIN 4.1 3.9 - 4.8 g/dL [facility] TOTAL PROTEIN 7.1 6.5 - 8.0 g/dL [facility] CALCIUM 8.9 8.4 - 10.3 mg/dL [facility] ALKALINE PHOSPHATASE 166(H) 39 - 117 U/L [facility] TOTAL BILIRUBIN <0.2 0.0 - 1.2 mg/dL [facility] AST 30 0 - 37 U/L [facility] ALT 27 0 - 40 U/L [facility] GLOBULIN 3.0 1 - 4.8 g/dL [facility] EGFR 97 >59 mL/min/1.7 3m2 [facility] Comment:Estimated glomerular filtration rate calculated using the CKD-EPI refit equation. ANION GAP 11 10 - 20 mmol/L [facility] Blood 11/18/2023 8:57 AM EST 11/18/2023 9:06 AM EST us Mook Tompkins MD LAB BLOOD BKR ORDERABLES Angelique maza Result Performing Organization Address City/State/[facility] Co de Phone Number [address] [address] * (ABNORMAL) Lipid panel (06/20/2023 8:16 AM EDT) HDL 60 mg/dL [facility] Comment: Interpretation <40 mg/dL: Low HDL cholesterol (major risk factor for CHD) Greater than or equal to 60 mg/dL: High HDL cholesterol ( negative risk factor for CHD) HDL - cholesterol is affected by a number of factors, e.g. smoking, excerise, hormones, sex and age. CHOLESTEROL 180 0 - 240 mg/dL [facility] TRIGLYCERIDES 134 30 - 160 mg/dL [facility] LDL 93 50 - 129 mg/dL [facility] Comment: LDL levels in terms of risk for coronary heart disease: <100 mg/dL: Optimal 100-129 mg/dL: Near or above optimal 130-159 mg/dL: Borderline high 160-189 mg/dL: High >190 mg/dL: Very High CARDIAC RISK RATIO 3.0(L) 3.3 - 4.4 C [facility] Blood 06/20/2023 8:16 AM EDT 06/20/2023 8:26 AM EDT Mook Tompkins MD LAB BLOOD BKR ORDERABLES Angelique l Result Performing Organization Address [facility] Co de Phone Number [address] [address] * Carbamazepine (Tegretol) level (01/16/2023 8:38 AM EST) CARBAMAZEPINE 10.5 8.0 - 12.0 ug/mL [facility] Blood 01/16/2023 8:38 AM EST 01/16/2023 8:47 AM EST Mook Tompkins MD LAB BLOOD ORDERABLES Final Re sult Performing Organization Address [facility] Co de Phone Number [address] [address] * Hepatitis C antibody, qualitative (01/10/2020 3:55 PM EST) HCV NON-REACTIV E NON-REACTI VE [facility] Blood 01/10/2020 3:55 PM EST 01/10/2020 4:17 PM EST Mook Tompkins MD LAB BLOOD BKR ORDERABLES Angelique l Result Performing Organization Address [facility] Co de Phone Number [address] [address] * Outside Glucose,Fasting (02/27/2017) Glucose, fasting - External 82 65 - 99 mg/dL Historical Provider LAB BLOOD ORDERABLES Angelique l Result * COLONOSCOPY FOR RESULT ENTRY ONLY (10/29/2012) Pathologist [facility] Colonoscopy 10 yr recall us Historical Provider HEALTH MAINTENANCE Final Result from Last 3 Months or Most Recently Relevant to Health Maintenance Insurance [facility] & [facility] & [place] B [facility] PART A & [place] [facility] PART A & B Care Teams Pattern Ruler Relationship Specialty Start Date End Date Mook Tompkins MD [address] [place] [address] [email or web address] PCP - General 09/18/17 Mook Tompkins MD [address] [place] [address] [email or web address] Insurance Assigned Provider 03/06/24 Armen Mccarthy MD [address] [place] [address] Intensive Care 01/05/20 Eligio Plunkett MD [address] [place] [address] Neurology 09/29/23 Additional Source Comments The information contained in this document represents components of the legal health record. It is not the complete legal health record.[facility]
--- OUTSIDE RECORDS SUMMARY | 2025-11-06 16:37 | XMS_ITS | Encounter Summary ---
Author Organization [facility] Address [address] [facility] [address] [place] [address] Phone Care Team Providers Care Natural Resources Faculty Member Name Role Phone Mook Tompkins MD Primary Care Provider [phone] Mook Tompkins MD Unavailable [phone] Armen Mccarthy MD Unavailable [phone] Ishan Henry Unavailable Unavailable Eligio Plunkett MD Unavailable [phone] Encounter Details Date Type Department Care Team (Late st Contact Info) Description 07/04/2023 Procedure Pass [facility], [address] [address] Social History Tobacco Use Types Packs/Day Years [...] high school, GED, job training, learning the [place] language, technical skills, or developing parenting skills)? [...] Description 01/27/2026 3:00 PM EST Office Visit [facility] Internal Medicine [address] [place] [address] Mook Tompkins MD [address] [place] [address] 10/12/2026 2:00 PM EST Office Visit [facility] [address] [place] [address] [place] [address] Teagan Ramirez MD [address] [address] documented as of this encounter Visit Diagnoses Not on filedocumented in this encounter Additional Health Concerns Infection Onset Date Last Indicated Resolved Time CoV-Risk Comment:Per Ambulatory Triage Form 06/22/2025 06/22/202507/03 1:22 AM EDT Assessment Noted Time PHQ-2 Depression Total Score: 0 01/06/20 1:30 PM EST documented as of this encounter Care Teams Natural Resources Faculty Member Relationship Specialty Start Date End Date Mook Tompkins MD [address] [place] [address] PCP - General 09/18/17 Mook Tompkins MD [address] [place] [address] Insurance Assigned Provider 03/06/24 Armen Mccarthy MD [address] [place] [address] Intensive Care 01/05/20 Ishan Henry PA Neurology 07/21/20 09/28/23 Eligio Plunkett MD [address] [place] [address] Neurology 09/29/23 documented as of this encounter Additional Source Comments The information contained in this document represents components of the legal health record. It is not the complete legal health record.[facility]
--- OUTSIDE RECORDS SUMMARY | 2025-11-06 16:37 | XMS_ITS | Encounter Summary ---
Author Organization [facility] Address [address] [place] [address] [place] [address] Phone Care Team Providers Care Stamping Machine Operator Name Role Phone Mook Tompkins MD Primary Care Provider [phone] Mook Tompkins MD Unavailable [phone] Armen Mccarthy MD Unavailable [phone] Ishan Henry Unavailable Unavailable Eligio Plunkett MD Unavailable [phone] Encounter Details Date Type Department Care Team (Latest Contact Info) Description 07/04/2023 Transcribe Orders Virtual Department [address] [place], [place] [phone] Mook Tompkins MD [address] [place] [address] [email or web address] Breast screening (Primary Dx) Social History Tobacco [...] high school, GED, job training, learning the Botswan[place] language, technical skills, or developing parenting skills)? [...] Description 01/27/2026 3:00 PM EST Office Visit [facility] [address] [place] [address] Mook Tompkins MD [address] [place] [address] 10/12/2026 2:00 PM EST Office Visit [facility] [address] [place] [address] Teagan Cary MD [address] [place] [address] [email or web address] documented as of this encounter Results * [...] documented as of this encounter Care Teams Stamping Machine Operator Relationship Specialty Start Date End Date Mook Tompkins MD [address] [place] [address] PCP - General 09/18/17 Mook Tompkins MD [address] [place] [address] Insurance Assigned Provider 03/06/24 Armen Mccarthy MD [address] [place] [address] Intensive Care 01/05/20 Ishan Henry PA Neurology 07/21/20 09/28/23 Eligio Plunkett MD [address] [place] [address] Neurology 09/29/23 documented as of this encounter Additional Source Comments The information contained in this document represents components of the legal health record. It is not the complete legal health record.[facility]
--- OUTSIDE RECORDS SUMMARY | 2025-11-06 16:37 | XMS_ITS | Encounter Summary ---
Author Organization [facility] Address [address] [place] [address] [place] [address] Phone Care Team Providers Care Bowling Ball Marker Name Role Phone Mook Tompkins MD Primary Care Provider [phone] Mook Tompkins MD Unavailable [phone] Armen Mccarthy MD Unavailable [phone] Eligio Plunkett MD Unavailable [phone] Reason for Visit * Reason Comments Medication Refill Encounter Details Date Type Department Care Team (Late st Contact Info) Description 10/25/2025 Refill [facility] Internal Medicine [address] [place], [place] [phone] Mook Tompkins MD [address] [place], [place] [phone] [email or web address] Medication Refill Social History Tobacco Use Types Packs/Day Years Used Date Smoking Tobacco: Former Cigarettes Passive Smoke Exposure: Past Smokeless Tobacco: Never Comments:can not recall when [...] Progress Notes * Kenisha Abrams MA - 10/25/2025 12:45 PM EST IMPORTANT - At least one Rx mismatch identified. Original(s) may be discontinued, , or different strength/form. Review required. At least one Rx below has no protocol and needs review. Rx Care Gap Status - Instructions for Clinical Staff (prescriber discretion applies): > Mismatch review guide > N/a - No action needed Visit Info Last visit: 08/02/2025 Paula Stearns PA-C - Internal Medicine [facility] > Requested f/u: Return for Next scheduled follow up. Upcoming visit: 01/27/2026 Mook Tompkins MD - Internal Medicine [facility] ACTIONS TAKEN BY Kenisha Abrams MA - Sig/Pt Instructions matches med list. Rx(s) without protocol Renewal is at prescriber discretion. - lactase Rx mismatch - Original(s) may be discontinued, , or changed to a different strength or form. documented in this encounter Plan of Treatment Upcoming Encounters Date Type Department Care Team (Late st Contact Info) Description 01/27/2026 3:00 PM EST Office Visit [facility] Internal Medicine [address] [place] [address] Mook Tompkins MD [address] [place] [address] [email or web address] 10/12/2026 2:00 PM EST Office Visit [facility] [address] [place] [address] Teagan Ramirez MD [address] [place] [address] documented as of this encounter Visit Diagnoses Diagnosis Lactose intolerance Intestinal disaccharidase deficiencies and disaccharide malabsorption documented in this encounter Additional Health Concerns Assessment Noted Time PHQ-2 Depression Total Score: 0 01/25/20 3:52 PM EST documented as of this encounter Care Teams Bowling Ball Marker Relationship Specialty Start Date End Date Mook Tompkins MD [address] [place] [address] [email or web address] PCP - General 09/18/17 Mook Tompkins MD [address] [place] [address] [email or web address] Insurance Assigned Provider 03/06/24 Armen Mccarthy MD [address] [place] [address] Intensive Care 01/05/20 Eligio Plunkett MD [address] [place] [address] Neurology 09/29/23 documented as of this encounter Additional Source Comments The information contained in this document represents components of the legal health record. It is not the complete legal health record.[facility]
--- OUTSIDE RECORDS SUMMARY | 2025-11-06 16:37 | XMS_ITS | Encounter Summary ---
Author Organization [facility] Address [address] [facility] [address] [place] [address] Phone Care Team Providers Care Director Of Oncology Name Role Phone Mook Tompkins MD Primary Care Provider [phone] Mook Tompkins MD Unavailable [phone] Armen Mccarthy MD Unavailable [phone] Ishan Henry Unavailable Unavailable Eligio Plunkett MD Unavailable [phone] Encounter Details Date Type Department Care Team (Late st Contact Info) Description 07/08/2022 Procedure Pass [address] [address] Social History Tobacco Use Types Packs/Day Years [...] high school, GED, job training, learning the Malaysian language, technical skills, or developing parenting skills)? [...] Description 01/27/2026 3:00 PM EST Office Visit [facility] Internal Medicine [address] [place] [address] Mook Tompkins MD [address] [place] [address] 10/12/2026 2:00 PM EST Office Visit [facility] [address] [place] [address] Teagan Ramirez MD [address] [place] [address] documented as of this encounter Visit Diagnoses Not on filedocumented in this encounter Additional Health Concerns Infection Onset Date Last Indicated Resolved Time CoV-Risk Comment:Per Ambulatory Triage Form 06/22/2025 06/22/202507/03 1:22 AM EDT Assessment Noted Time PHQ-2 Depression Total Score: 0 01/03/20 3:31 PM EST documented as of this encounter Care Teams Director Of Oncology Relationship Specialty Start Date End Date Mook Tompkins MD [address] [place] [address] [email or web address] PCP - General 09/18/17 Mook Tompkins MD [address] [place] [address] [email or web address] Insurance Assigned Provider 03/06/24 Armen Mccarthy MD [address] [place] [address] Intensive Care 01/05/20 Ishan Henry PA Neurology 07/21/20 09/28/23 Eligio Plunkett MD [address] [place] [address] Neurology 09/29/23 documented as of this encounter Additional Source Comments The information contained in this document represents components of the legal health record. It is not the complete legal health record.[facility]
--- OUTSIDE RECORDS SUMMARY | 2025-11-06 16:37 | XMS_ITS | Encounter Summary ---
Author Organization [facility] Address [address] [place] [address] Phone Care Team Providers Care Superintendent Distribution Name Role Phone Mook Tompkins MD Primary Care Provider [phone] Mook Tompkins MD Unavailable [phone] Armen Mccarthy MD Unavailable [phone] Ishan Henry Unavailable Unavailable Eligio Plunkett MD Unavailable [phone] Encounter Details Date Type Department Care Team (Late st Contact Info) Description 03/13/2021 Procedure Pass [address] [address] Social History Tobacco Use Types Packs/Day Years [...] Description 01/27/2026 3:00 PM EST Office Visit [facility] Medicine [address] [place] [address] Mook Tompkins MD [address] [place], [place] [phone] 10/12/2026 2:00 PM EST Office Visit [facility] [address] [place] [address] Teagan Ramirez MD [address] [address] documented as of this encounter Visit Diagnoses Not on filedocumented in this encounter Additional Health Concerns Infection Onset Date Last Indicated Resolved Time CoV-Risk Comment:Per Ambulatory Triage Form 06/22/2025 06/22/202507/03 1:22 AM EDT Assessment Noted Time PHQ-2 Depression Total Score: 0 04/18/20 12:42 PM EDT documented as of this encounter Care Teams Superintendent Distribution Relationship Specialty Start Date End Date Mook Tompkins MD [address] [place] [address] [email or web address] PCP - General 09/18/17 Mook Tompkins MD [address] [place] [address] Insurance Assigned Provider 03/06/24 Armen Mccarthy MD [address] [place] [address] Intensive Care 01/05/20 Ishan Henry PA Neurology 07/21/20 09/28/23 Eligio Plunkett MD [address] [place] [address] Neurology 09/29/23 documented as of this encounter Additional Source Comments The information contained in this document represents components of the legal health record. It is not the complete legal health record.[facility]
--- OUTSIDE RECORDS SUMMARY | 2025-11-06 16:37 | XMS_ITS | Data Portability ---
Author Organization [place] [facility] Address [address] [place] [address] Care Team Providers Care Cofounder Name Role Phone SUPRIYA CORNELIUS Primary Care Provider Assessment Encounter Date Assessment Date Assessment LastModified by Organization Details LastModified Time 08/05/2021 08/05/2021 Overview/History : This is a 60 yo female whose pmhx includes HLD, Hx of PE, Cerebral palsy, seizure d/o, GERD, osteoporosis, moderate developmental delays, Vitamin D deficiency, dysphagia, constipation and arthritis. nursing home staff call with concerns for possible UTI [...] call with xray and urine cx results [place] [address] Not available 08/05/2021 15:43:04 Plan of Treatment Reminders Order Date Submit Date Provider Last Modified By Organization Details Last Modified Time Details Appointments None recorded. Lab urinalysi s, dipstick [email or web address] [facility], [address] [place] [address], [address], 15:16:52 culture, urine 2020 [place] [facility] (Centralized Electronic Ordering - All Locations), Patient Can Go To The Location Of Their Choice, [address] 07:58:10 Referral None recorded. Procedures None recorded. Surgeries None recorded. Imaging XR, ankle, 2 view 2020 [facility] Corporate [facility] ([facility]), [address] [place] [address], [place], [address], 08:31:34 Medication Orders Macrobid 100 mg capsule 2020 [id number], [address], [place], [address], 15:25:07 Patient TargetsNo targets recorded. Patient InstructionsNo instructions recorded. Reason for Referral None Reported. Results Created Date Observation Date Name Description Value Unit Range Abnormal Flag Note LastModifiedBy Organization Detail LastModifiedTime 08/05/20 21 08/05/2021 urina lysis , dipst ick Appearance cloudy Not Available [facility] [address] [place], [address], 08/05/2021 14:59:29 08/05/2008/05/2021 urina lysis , dipst ick Color yellow Not Available [facility] [address] [place], [address], 08/05/2021 14:59:29 08/05/20 21 08/05/2021 urina lysis , dipst ick Glucose (ref: neg) Neg Not Available [facility] [address] [place], [address], 08/05/2021 14:59:29 08/05/2008/05/2021 urina lysis , dipst ick Bilirubin (ref: neg) Neg Not Available [address] [place], [address], 08/05/2021 14:59:29 08/05/20 21 08/05/2021 urina lysis , dipst ick Ketones (ref: neg) Neg Not Available [facility] [address] [place], [address], 08/05/2021 14:59:29 08/05/2008/05/2021 urina lysis , dipst ick Specific [place] (ref: 1.003 - 1.035) 1.010 Not Available [facility] [address] [place], [address], 08/05/2021 14:59:29 08/05/2008/05/2021 urina lysis , dipst ick Blood (ref: neg) +++ Not Available [address] [place], [address], 08/05/2021 14:59:29 08/05/2008/05/2021 urina lysis , dipst ick pH (ref: 5-7) 7.0 Not Available [address] [place], [address], 08/05/2021 14:59:29 08/05/20 21 08/05/2021 urina lysis , dipst ick Protein (ref: neg) Not Available [facility] [address] [place], [address], 08/05/2021 14:59:29 08/05/20 21 08/05/2021 urina lysis , dipst ick Urobilinogen (ref: 0.2) 0.2 Not Available [facility] [address] [place], [address], 08/05/2021 14:59:29 08/05/20 21 08/05/2021 urina lysis , dipst ick Nitrites (ref: neg) positi ve Not Available [facility] [address] [place], [address], 08/05/2021 14:59:29 08/05/20 21 08/05/2021 urina lysis , dipst ick Leukocytes (ref: neg) ++ Not Available [facility] [address] [place], [address], 08/05/2021 14:59:29 08/05/2008/06/2021 URINE CULTU RE specimen description URINE Not Available [facility] (Centralized Electronic Ordering - All Locations) Patient Can Go To The Location Of Their Choice, [id number] 08/08/2021 07:58:10 08/05/2008/06/2021 URINE CULTU RE special requests NONE Not Available [facility] (Centralized Electronic Ordering - All Locations) Patient Can Go To The Location Of Their Choice, 08/08/2021 07:58:10 08/05/2008/08/2021 URINE CULTU RE culture >100,0 00 COL/ML ESCHER ICHIA COLI abnormal Not Available [facility] (Centralized Electronic Ordering - All Locations) Patient Can Go To The Location Of Their Choice, [id number] 08/08/2021 07:58:10 08/05/2008/08/2021 URINE CULTU RE report [...] Go To The Location Of Their Choice, [id number] 08/08/2021 07:58:10 08/05/20 21 08/08/2021 URINE CULTU [...] view No observ ation record ed. [email or web address] [facility] ([facility]) [address] [place] [address], [address], 08/07/2021 07:48:17 Result Notes None recorded. Medical Equipment None Reported. Allergies Allergen ID Allergen Name Allergen Category Reaction Reaction Severity Criticality Documentation Date Start Date Code Code System Note Provider Name and Address Organization Details Recorded Time 903275 codeine medicatio n Not available Not available Not available 08/05/2021 2670 RxNorm STEPHENIE MAURICE NP [address] [facility] [place], [address], [place] [facility] 14:49:50 Medications [...] e ER 200 mg capsule,exte nded release [id number] active Not Available Not Available N ot Available Gavilax 17 gram/dose oral powder USE 17 GRAMS BY MOUTH EVERY DAY NEEDED FOR CONSTIPATIO N active Not Available Not Available No t Available Xarelto 20 mg tablet active Not Available Not Available No t Available Vitals Date Recorded Heart rate Body temperature Oxygen saturation Respiratory rate Systolic And Diastolic Provider Name and Address Organization Details Last Updated DateTime 86 /min 98.7 [degF] 96 % 18 /min 134/84 mm[Hg] Not Available [facility] 15:09:47 Social History None recorded. Functional Status None recorded. Mental Status None recorded. Family History Nothing Reported. Medical History Condition Response Pulmonary Embolism Y High Cholesterol Y Gynecological HistoryNo gynecological history recorded. Obstetrics History GPAL:G 0 P 0 0 0 0 Past Encounters Encounter ID Performer Location Encounter Start Date Encounter Closed Date Diagnosis/Indication Diagnosis SNOMED-CT Code Diagnosis ICD10 Code Diagnosis IMO Codes Diagnosis Note [id number] STEPHENIE MAURICE NP [facility] [address] [place] [address] 08/05/2021 14:44:39 08/10/2021 14:09:51 Acute urinary tract infection 980378672 N39.0 Soft tissu e swelling of ankle joint 303551035 R22.41 Health Concerns Section Related Observation LastModified by Organization Detai ls LastModified Time None Recorded Concern Status LastModified by Organization Details LastModified Time None Recorded Advance Directives Directive None Recorded Payers Insurance Date Sequence Insurance Name Policy Number Policy Mcmahan Covered Member ID Mcmahan Member ID Guarantor Name 08/19/2022 2 [employer] (MEDICARE SUPPLEMENT) Reba Stevenson [id number] Reba Stevenson 08/19/2022 2 [place] [employer] Reba Stevenson [id number] Reba Stevenson 08/19/2022 1 [place] [facility] Reba Stevenson [id number] Reba Stevenson 08/19/2022 2 A[employer] (MEDICARE SUPPLEMENT) Reba Stevenson [id number] Reba Stevenson 08/19/2022 2 [facility] - PLAN 1 (MEDICARE SUPPLEMENT) Reba Stevenson [id number] Reba Stevenson 08/19/2022 2 [facility] - PLAN 1 (MEDICARE SUPPLEMENT) Reba Gomezowski [id number] Reba Stevenson 08/19/2022 2 [employer] (MEDICARE SUPPLEMENT) Reba Gomezowski [id number] Reba Stevenson 08/19/2022 2 [employer] (MEDICARE SUPPLEMENT) Reba Gomezowski [id number] Reba Stevenson 08/19/2022 2 [employer] (MEDICARE SUPPLEMENT) Reba Stevenson [id number] Reba Stevenson 08/19/2022 2 [place] Reba Elva [id number] Reba Gomezowski 08/05/2021 1 [place] Reba Stevenson [id number] Reba Gomezowski 08/19/2022 2 [place] [facility] Reba Ciera Elva [id number] Reba Elva 08/05/2021 1 *SELF PAY* Reba Elva [id number] Reba Gomezowski 08/05/2021 1 [place] Reba Gomezowski [id number] Reba Stevenson 08/19/2022 1 [place] [employer] Reba Gomezowski [id number] Reba Gomezowski Notes Date Note Type Note Provider Name and Address Organization Details Recorded Time 08/05/2021 text/html This is a 60 yo female, new to , whose halfway staff call with concerns for possible UTI and ankle swelling. Her PMHx includes HLD, Hx of PE, Cerebral palsy, seizure d/o, GERD, osteoporosis, moderate developmental delays, Vitamin D deficiency, dysphagia, constipation and arthritis. She currently resides in a halfway setting however is legally competent to make [...] pain or discomfort. STEPHENIE MAURICE NP [address] [place], [place], [address], [place] [facility] 08/05/2021 15:43:26 OBGyn Episode No OBEpisode recorded.
--- OUTSIDE RECORDS SUMMARY | 2025-11-06 16:37 | XMS_ITS | Encounter Summary ---
Author Organization [facility] Address [address] [place] [address] Phone Care Team Providers Care Optometry Assistant Name Role Phone Mook Tompkins MD Primary Care Provider [phone] Mook Tompkins MD Unavailable [phone] Aremn Mccarthy MD Unavailable [phone] Ishan Henry Unavailable Unavailable Eligio Plunkett MD Unavailable [phone] Encounter Details Date Type Department Care Team (Latest Contact Info) Description 08/16/2022 Transcribe Orders Virtual Department [address] [place], [place] [phone] Mook Tompkins MD [address] [place] [address] [email or web address] Abnormal mammogram of left breast (Primary Dx) [...] high school, GED, job training, learning the Russian language, technical skills, or developing parenting skills)? [...] Description 01/27/2026 3:00 PM EST Office Visit [facility] [address] [place] [address] Mook Tompkins MD [address] [place] [address] 10/12/2026 2:00 PM EST Office Visit [facility] [address] [place] [address] [place] [address] Teagan Ramirez MD [address] [place] [address] documented as of this encounter Results * [...] documented as of this encounter Care Teams Optometry Assistant Relationship Specialty Start Date End Date Mook Tompkins MD [address] [place] [address] [email or web address] PCP - General 09/18/17 Mook Tompkins MD [address] [place] [address] [email or web address] Insurance Assigned Provider 03/06/24 Armen Mccarthy MD [address] [place] [address] Intensive Care 01/05/20 Ishan Henry PA Neurology 07/21/20 09/28/23 Eligio Plunkett MD [address] [place] [address] Neurology 09/29/23 documented as of this encounter Additional Source Comments The information contained in this document represents components of the legal health record. It is not the complete legal health record.[facility]
== END 2025-11-04 16:35 | disposition home or self-care (01) ==
LOC: HO.HOSX 16:34
PROVIDERS: Visit Provider Physician Assistant
DX: S82.891D Other fracture of right lower leg, subsequent encounter for closed fracture with routine healing (principal); M19.071 Primary osteoarthritis, right ankle and foot
CPT/HCPCS: 73610; 99212

== ENCOUNTER 2025-11-08 15:50 | Outpatient (AMB) | payer MEDICARE, MEDICAID, SELFPAY ==
--- NOTE | 2025-11-08 15:52 | MHC.OFFVIS ---
Vital Signs 11/08/25 15:53 Height 4 ft 9 in BMI Reason not done Patient refused/unable BP 127/67 Blood Pressure Location Lt brachial Position Sitting Pulse 63 Comment unable to stand on scale. Intake Visit Reasons: 6 months follow up Intake Note: Reba return in 6 months follow up of GERD. CC: Patient denies having any GI symtpoms today. Orthotics Prosthetics Technician Required: No Allergies codeine (CODEINE) Allergy (Unknown, Verified 11/08/25 16:02) UNKNOWN HPI HPI 6 months follow up: Details: Assessment & Plan (1) Post-cholecystectomy syndrome: Code(s): K91.5 - Postcholecystectomy syndrome Category: Medical (2) GERD (gastroesophageal reflux disease): Code(s): K21.9 - Gastro-esophageal reflux disease without esophagitis Category: Medical (3) Hemiplegia affecting right dominant side: Code(s): G81.91 - Hemiplegia, unspecified affecting right dominant side Category: Medical (4) Wheelchair dependent: Code(s): Z99.3 - Dependence on wheelchair Category: Medical Plan She is here today with a staff member who is supportive. She continues to do well on her sucralfate 3 a day and omeprazole 20mg bid. She will have breakthrough usually if she eats anything too high in fat content. ROV 6 mos. Medications: Changed From omeprazole 20 mg PO BID To omeprazole 20 mg PO BID 180 caps 1RF 90 days Refilled sucralfate 3 grams (3 x 1 gram) PO DAILY 90 tabs 1RF K91.5 - Postcholecystectomy syndrome TODAY'S VISIT [facility] Medical History Cerebral palsy Seizures Surgical History Hx of cholecystectomy Family History Mother Stomach cancer Social History Housing Other:: intermediate Tobacco use type: Cigarette Review of Systems ENT Reports Normal hearing present Neuro Reports Normal hearing present and Denies Abnormal speech present Physical Exam Const General: cooperative, no acute distress, well developed and well groomed Nutritional Appearance: well nourished and obese Orientation/consciousness: oriented to person, oriented to place and oriented to time Limitations: No language barrier, physical limitations, wheelchair and other limitations HEENT Head: Yes normocephalic and Yes atraumatic Eyes General: appearance normal, both eyes and all related structures Pupils: Equal, round and reactive pupils present Neck Neck: Yes normal visual inspection and Yes no lymphadenopathy Thyroid: Thyroid normal Resp Effort & Inspection: normal respiratory effort and able to speak in complete sentences Auscultation: clear to auscultation bilaterally Cardio Rate: regular rate Rhythm: regular rhythm Heart sounds: Normal, physiologic split S2 sound present Peripheral pulses: radial pulses present and posterior tibial pulses present GI Inspection: No distended, Yes Abdominal panniculus present and Yes obesity Palpation (GI): Soft to palpation, nontender, no guarding, not rigid and No hepatosplenomegaly present Percussion: Yes normal to percussion Auscultation: normal bowel sounds Rectal Exam - Female: deferred Skin General skin exam: no rashes or lesions noted, turgor normal, skin not dry, no jaundice, No spider nevi and no striae Rashes: no rashes Nails: normal Neuro General: oriented to person, oriented to place and oriented to time Cranial nerves: Yes Equal, round and reactive pupils present and Yes Normal hearing present Speech: No Abnormal speech present Extrem General: Yes normal to inspection, No clubbing, No cyanosis and No edema Psych Appearance: grossly normal and well kempt Mental Status: other Speech and movement: Mute speech present Affect: normal affect Attitude: Guarded attititude/behavior present Thought process: not confabulating and Other thought process findings present Thought content: other Insight: Poor insight present (Psych) Judgement: Poor judgement present (Psych) Assessment & Plan Assessment & Plan (1) GERD (gastroesophageal reflux disease): Code(s): K21.9 - Gastro-esophageal reflux disease without esophagitis Category: Medical (2) Post-cholecystectomy syndrome: Code(s): K91.5 - Postcholecystectomy syndrome Category: Medical Plan She continues to do well on her sucralfate 3 a day and omeprazole 20mg bid She is here today with her staff member who is supportive. ROV 6 mos. Medications: Refilled omeprazole 20 mg PO BID 180 caps 0RF 30 days sucralfate 3 grams (3 x 1 gram) PO DAILY 90 tabs 0RF K91.5 - Postcholecystectomy syndrome Coding Level of Care Code Est Pt Level 3 (62739) Diagnoses GERD (gastroesophageal reflux disease) K21.9 Post-cholecystectomy syndrome K91.5
[2025-11-08 15:53] VITALS: BP 127/67; PULSE 63
--- OUTSIDE RECORDS SUMMARY | 2025-11-08 22:35 | XMS_ITS | Data Portability ---
Author Organization [place] [facility] Address [address] [place] [id number] Care Team Providers Care Azure Developer Name Role Phone SUPRIYA CORNELIUS Primary Care Provider [phone] Assessment Encounter Date Assessment Date Assessment LastModified by Organization Details LastModified Time 08/05/2021 08/05/2021 Overview/History : This is a 60 yo female whose pmhx includes HLD, Hx of PE, Cerebral palsy, seizure d/o, GERD, osteoporosis, moderate developmental delays, Vitamin D deficiency, dysphagia, constipation and arthritis. halfway staff call with concerns for possible [...] call with xray and urine cx results [place] [id number] Not available 08/05/2021 15:43:04 Plan of Treatment Reminders Order Date Submit Date Provider Last Modified By Organization Details Last Modified Time Details Appointments None recorded. Lab urinalysi s, dipstick 2020 021 [id number] [facility], [address] [place] [address], [id number], 15:16:52 culture, urine 2020 [place] [facility] (Centralized Electronic Ordering - All Locations), Patient Can Go To The Location Of Their Choice, [address] 07:58:10 Referral None recorded. Procedures None recorded. Surgeries None recorded. Imaging XR, ankle, 2 view 2020 [facility] ([facility]), [address] [place] [address], [place], [address], 08:31:34 Medication Orders Macrobid 100 mg capsule 2020 [id number], [address], [place], [address], 15:25:07 Patient TargetsNo targets recorded. Patient InstructionsNo instructions recorded. Reason for Referral None Reported. Results Created Date Observation Date Name Description Value Unit Range Abnormal Flag Note LastModifiedBy Organization Detail LastModifiedTime 08/05/20 21 08/05/2021 urina lysis , dipst ick Appearance cloudy Not Available [facility] [address] [place], [address], 08/05/2021 14:59:29 08/05/2008/05/2021 urina lysis , dipst ick Color yellow Not Available [facility] [address] [place], [address], 08/05/2021 14:59:29 08/05/20 21 08/05/2021 urina lysis , dipst ick Glucose (ref: neg) Neg Not Available [facility] [address] [place], [address], 08/05/2021 14:59:29 08/05/2008/05/2021 urina lysis , dipst ick Bilirubin (ref: neg) Neg Not Available [address] [place], [address], 08/05/2021 14:59:29 08/05/20 21 08/05/2021 urina lysis , dipst ick Ketones (ref: neg) Neg Not Available [facility] [address] [place], [address], 08/05/2021 14:59:29 08/05/2008/05/2021 urina lysis , dipst ick Specific [place] (ref: 1.003 - 1.035) 1.010 Not Available [facility] [address] [place], [address], 08/05/2021 14:59:29 08/05/2008/05/2021 urina lysis , dipst ick Blood (ref: neg) +++ Not Available [address] [place], [address], 08/05/2021 14:59:29 08/05/2008/05/2021 urina lysis , dipst ick pH (ref: 5-7) 7.0 Not Available [address] [place], [address], 08/05/2021 14:59:29 08/05/20 21 08/05/2021 urina lysis , dipst ick Protein (ref: neg) Not Available [facility] [address] [place], [address], 08/05/2021 14:59:29 08/05/20 21 08/05/2021 urina lysis , dipst ick Urobilinogen (ref: 0.2) 0.2 Not Available [facility] [address] [place], [address], 08/05/2021 14:59:29 08/05/20 21 08/05/2021 urina lysis , dipst ick Nitrites (ref: neg) positi ve Not Available [facility] [address] [place], [address], 08/05/2021 14:59:29 08/05/20 21 08/05/2021 urina lysis , dipst ick Leukocytes (ref: neg) ++ Not Available [facility] [address] [place], [address], 08/05/2021 14:59:29 08/05/2008/06/2021 URINE CULTU RE specimen description URINE Not Available [facility] ([facility] Order[facility] - All Locations) Patient Can Go To The Location Of Their Choice, [address] 08/08/2021 07:58:10 08/05/2008/06/2021 URINE CULTU RE special requests NONE Not Available [facility] (Central[facility] Ordering - All Locations) Patient Can Go To The Location Of Their Choice, 08/08/2021 07:58:10 08/05/2008/08/2021 URINE CULTU RE culture >100,0 00 COL/ML ESCHER ICHIA COLI abnormal Not Available [facility] (Centralized Electronic Ordering - All Locations) Patient Can Go To The Location Of Their Choice, [address] 08/08/2021 07:58:10 08/05/2008/08/2021 URINE CULTU RE report [...] Go To The Location Of Their Choice, [address] 08/08/2021 07:58:10 08/05/20 21 08/08/2021 URINE CULTU [...] view No observ ation record ed. [email or web address] [facility] ([facility] [employer]) [address] [place] [address], [address], 08/07/2021 07:48:17 Result Notes None recorded. Medical Equipment None Reported. Allergies Allergen ID Allergen Name Allergen Category Reaction Reaction Severity Criticality Documentation Date Start Date Code Code System Note Provider Name and Address Organization Details Recorded Time 016986 codeine medicatio n Not available Not available Not available 08/05/2021 2670 RxNorm STEPHENIE MAURICE NP [address] [place] [place], [address], [place] [facility] 14:49:50 Medications [...] e ER 200 mg capsule,exte nded release [id number] active Not Available Not Available N ot [...] ICD10 Code Diagnosis IMO Codes Diagnosis Note [id number] STEPHENIE MAURICE NP [facility] [address] [place] [address] 08/05/2021 14:44:39 08/10/2021 14:09:51 Acute urinary tract infection 969656303 N39.0 Soft tissu e swelling of ankle joint 644569795 R22.41 Health Concerns Section Related Observation LastModified by Organization Detai ls LastModified Time None Recorded Concern Status LastModified by Organization Details LastModified Time None Recorded Advance Directives Directive None Recorded Payers Insurance Date Sequence Insurance Name Policy Number Policy Mcmahan Covered Member ID Mcmahan Member ID Guarantor Name 08/19/2022 2 [employer] (MEDICARE SUPPLEMENT) Reba Stevenson [id number] Reba Stevenson 08/19/2022 2 [place] [employer] Reba Stevenson [id number] Reba Stevenson 08/19/2022 1 [place] [facility] Reba Stevenson [id number] Reba Stevenson 08/19/2022 2 [employer] (MEDICARE SUPPLEMENT) Reba Stevenson [id number] Reba Stevenson 08/19/2022 2 [facility] [place] [facility] - PLAN 1 (MEDICARE SUPPLEMENT) Reba Stevenson [id number] Reba Stevenson 08/19/[address] [facility] - PLAN 1 (MEDICARE SUPPLEMENT) Reba Gomezowski [id number] Reba Stevenson 08/19/2022 2 [employer] (MEDICARE SUPPLEMENT) Reba Gomezowski [id number] Reba Stevenson 08/19/2022 2 [employer] (MEDICARE SUPPLEMENT) Reba Gomezowski [id number] Reba Stevenson 08/19/2022 2 [employer] (MEDICARE SUPPLEMENT) Reba Stevenson [id number] Reba Stevenson 08/19/2022 2 [place] Reba Elva [id number] Reba Gomezowski 08/05/2021 1 [place] Reba Stevenson [id number] Reba Gomezowski 08/19/2022 2 [place] [facility] Reba Ciera Elva [id number] Reba Elva 08/05/2021 1 *SELF PAY* Reba Elva [id number] Reba Gomezowski 08/05/2021 1 [place] Reba Gomezowski [id number] Reba Stevenson 08/19/2022 1 [place] [employer] Reba Gomezowski [id number] Reba Gomezowski Notes Date Note Type Note Provider Name and Address Organization Details Recorded Time 08/05/2021 text/html This is a 60 yo female, new to , whose longterm staff call with concerns for possible UTI and ankle swelling. Her PMHx includes HLD, Hx of PE, Cerebral palsy, seizure d/o, GERD, osteoporosis, moderate developmental delays, Vitamin D deficiency, dysphagia, constipation and arthritis. She currently resides in a longterm setting however is legally competent to make [...] pain or discomfort. STEPHENIE MAURICE NP [address], [place], [address], [place] [facility] 08/05/2021 15:43:26 OBGyn Episode No OBEpisode recorded.
== END 2025-11-08 16:51 | disposition home or self-care (01) ==
LOC: HO.HGI 15:50
PROVIDERS: PCP Internal Medicine; Visit Provider Nurse Practitioner
DX: K21.9 Gastro-esophageal reflux disease without esophagitis (principal); K91.5 Postcholecystectomy syndrome
CPT/HCPCS: 99213

== ENCOUNTER → 2025-11-08 15:50 | Outpatient (BNVA) | payer MEDICARE, MEDICAID, SELFPAY | PROVIDERS: PCP Internal Medicine; Visit Provider Nurse Practitioner | DX: K21.9 Gastro-esophageal reflux disease without esophagitis (principal); K91.5 Postcholecystectomy syndrome; G81.91 Hemiplegia, unspecified affecting right dominant side; Z99.3 Dependence on wheelchair | CPT/HCPCS: 99212 ==